=== PATIENT | male | born 1985 | race Caucasian/White ===

== ENCOUNTER 2016-11-05 02:23 | Inpatient (IN) | payer SELFPAY ==
[~2016-11-05] VITALS: Ht 203.2 cm; Wt 95.1 kg
[2016-11-05] VITALS (9 sets, daily range): BP systolic 93–135; BP diastolic 52–74; PULSE 77–107; RESP 17–20; TEMP 98.2–100.7; O2SAT 98–100
[~2016-11-05 02:23] MED LIST: ACET325S8 PO; ASPI81TA45 PO; COUM5TAB PO; KETO2SHA5 TOP; MAGN400 PO; METO100T PO; POTA-243 PO; TRAM50TA PO; VITA100018 PO
[2016-11-05] MEDS ORDERED: SODIUM CHLOR 0.9% 1000 ML INJ 1,000 ML IV ONE ×2 (02:38→03:45)
[2016-11-05] MEDS ORDERED: ACETAMINOPHEN 325 MG TAB PO ONE (02:45)
--- NOTE | 2016-11-05 02:46 | PD ---
HPI Chief Complaint: GI Complaint Time Seen by Provider: 02:34 Travel History International Travel<30 days: No Contact w/Intl Traveler<30days: No Traveled to known affect area: No History of Present Illness HPI 31-year-old male presents by ambulance with report of vomiting, diarrhea, headache, chest Pain in general ill feeling. The ambulance team reported he had a fever for 101 in route. Patient states he has not used IV drugs in 3 years. He does note prior history of endocarditis with valve replacement. He denies other concurrent complaints but is difficult to get history from on initial evaluation [facility] Past Medical History Heart Rhythm Problems: Yes (endocarditis) Cardiovascular Problems: No Chemotherapy: No Diminished Hearing: No Endocrine: No Genitourinary: No Immune Disorder: No Musculoskeletal: No Neurologic: No Psychiatric: No Reproductive: No Respiratory: No Tetanus Vaccination: Unknown Past Surgical History Cardiac Surgery: Yes (mitral valve replacement) Pacemaker: No Other Surgery: Yes Social History Alcohol Use: No Tobacco Use: Yes (1 PPD) Substance Use: No Allergies-Medications (Allergen,Severity, Reaction): Coded Allergies: No Known Allergies (Verified , 07/24/14) Reported Meds & Prescriptions Reported Meds & Active Scripts Active Reported Tramadol Hcl (Tramadol HCl) 50 Mg Tab 50 Mg PO TID PRN Ketoconazole 2 % Sha 1 Applic TOP ONCE Coumadin 5 mg (Warfarin Sodium) Warfarin Sodium 5 mg Tab 5 Mg PO DAILY Vitamin D (Cholecalciferol) 1,000 Unit Tab 1,000 Unit PO Metoprolol Tartrate 100 mg (Metoprolol Tartrate) 100 Mg Tab 1 Tab PO BID Aspirin 81 mg EC Lo-Dose (Aspirin) 81 Mg Tab 81 Mg PO DAILY Acetaminophen 325 Mg Tab 650 Mg PO Q4 PRN K-Dur (Potassium Chloride) 10 Meq Tabcr 20 Meq PO DAILY Magnesium Oxide 400 Mg Cap 800 Mg PO DAILY Review of Systems ROS Limitations: Poor Historian Except as stated in HPI: all other systems reviewed are Neg Physical Exam Exam Limitations: Poor Historian Narrative GENERAL: Well-nourished, well-developed patient. SKIN: Warm and dry. HEAD: Normocephalic and atraumatic. EYES: No injection or drainage. ENT: No nasal drainage noted. NECK: Supple, trachea midline. CARDIOVASCULAR: Regular rate and rhythm RESPIRATORY: No increased effort. No accessory muscle use. GASTROINTESTINAL: Abdomen soft, ttp in ruq, nondistended. EXTREMITIES: No edema. NEUROLOGICAL: Awake. Motor and sensory grossly within normal limits. Normal speech. Data Data Last Documented VS Vital Signs Date Time Temp Pulse Resp B/P Pulse Ox O2 Delivery O2 Flow Rate FiO2 11/05/16 03:49 92 18 127/74 100 Room Air 11/05/16 02:31 98.8 Orders Electrocardiogram (11/05/16 02:38) Complete Blood Count With Diff (11/05/16 02:38) Comprehensive Metabolic Panel (11/05/16 02:38) Prothrombin Time / Inr (Pt) (11/05/16 02:38) Act Partial Throm Time (Ptt) (11/05/16 02:38) Lactic Acid Sepsis Protocol (11/05/16 02:38) Magnesium (Mg) (11/05/16 02:38) Phosphorus (Po4) (11/05/16 02:38) Ckmb (Isoenzyme) Profile (11/05/16 02:38) Troponin I (11/05/16 02:38) Urinalysis - C+S If Indicated (11/05/16 02:38) Blood Culture (11/05/16 02:38) Chest, Single Ap (11/05/16 02:38) Ecg Monitoring (11/05/16 02:38) Iv Access Insert/Monitor (11/05/16 02:38) Oximetry (11/05/16 02:38) Acetaminophen (Tylenol) (11/05/16 02:45) Sodium Chlor 0.9% 1000 Ml Inj (Ns 1000 M (11/05/16 02:38) Drug Screen, Random Urine (11/05/16 02:46) CKMB (11/05/16 02:42) CKMB% (11/05/16 02:42) Ct Brain W/O Iv Contrast(Rout) (11/05/16 ) Vancomycin Inj (Vancomycin Inj) (11/05/16 03:41) Piperacil-Tazo 4.5 Gm Premix (Zosyn 4.5 (11/05/16 03:41) Sodium Chlor 0.9% 1000 Ml Inj (Ns 1000 M (11/05/16 03:45) Ct Abd/Pel W Iv Contrast(Rout) (11/05/16 ) Iohexol 350 Inj (Omnipaque 350 Inj) (11/05/16 04:21) Admit Order (Ed Use Only) (11/05/16 05:20) Labs Laboratory Tests Test 11/05/16 11/05/16 02:42 05:10 White Blood Count 28.2 TH/MM3 Red Blood Count 4.63 MIL/MM3 Hemoglobin 14.1 GM/DL Hematocrit 40.8 % Mean Corpuscular Volume 88.3 FL Mean Corpuscular Hemoglobin 30.5 PG Mean Corpuscular Hemoglobin 34.5 % Concent Red Cell Distribution Width 12.9 % Platelet Count 135 TH/MM3 Mean Platelet Volume 11.0 FL Neutrophils (%) (Auto) 96.7 % Lymphocytes (%) (Auto) 1.0 % Monocytes (%) (Auto) 1.9 % Eosinophils (%) (Auto) 0.1 % Basophils (%) (Auto) 0.3 % Neutrophils # (Auto) 27.3 TH/MM3 Lymphocytes # (Auto) 0.3 TH/MM3 Monocytes # (Auto) 0.5 TH/MM3 Eosinophils # (Auto) 0.0 TH/MM3 Basophils # (Auto) 0.1 TH/MM3 CBC Comment DIFF FINAL Differential Comment Prothrombin Time 13.2 SEC Prothromb Time International 1.2 RATIO Ratio Activated Partial 27.5 SEC Thromboplast Time Sodium Level 141 MEQ/L Potassium Level 3.7 MEQ/L Chloride Level 107 MEQ/L Carbon Dioxide Level 24.8 MEQ/L Anion Gap 9 MEQ/L Blood Urea Nitrogen 14 MG/DL Creatinine 1.33 MG/DL Estimat Glomerular Filtration 62 ML/MIN Rate Random Glucose 82 MG/DL Lactic Acid Level 2.2 mmol/L 1.1 mmol/L Calcium Level 8.3 MG/DL Phosphorus Level 1.4 MG/DL Magnesium Level 1.5 MG/DL Total Bilirubin 1.6 MG/DL Aspartate Amino Transf 33 U/L (AST/SGOT) Alanine Aminotransferase 23 U/L (ALT/SGPT) Alkaline Phosphatase 69 U/L Total Creatine Kinase 181 U/L Creatine Kinase MB 0.6 NG/ML Troponin I LESS THAN 0.02 NG/ML Total Protein 7.3 GM/DL Albumin 3.6 GM/DL MDM Medical Decision Making Medical Screen Exam Complete: Yes Emergency Medical Condition: Yes Medical Record Reviewed: Yes (past history confirmed) Interpretation(s) CBC & BMP Diagram 11/05/16 02:42 Last 24 hours Impressions Chest X-Ray 11/05/16 0238 Signed Impressions: Service Date/Time: Saturday, November 05, 2016 02:44 - CONCLUSION: 1. No acute cardiopulmonary disease. Jv Mae MD Head CT 11/05/16 0000 Signed Impressions: Service Date/Time: Saturday, November 05, 2016 04:06 - CONCLUSION: 1. No evidence of acute intracranial pathology. No masses are identified. Jv Mae MD Abdomen/Pelvis CT 11/05/16 0000 Signed Impressions: Service Date/Time: Saturday, November 05, 2016 04:10 - CONCLUSION: 1. Pericholecystic fluid without stone. Cholecystitis is not excluded. Radionuclide imaging is recommended for further evaluation if clinically indicated. 2. Nonobstructing right renal stone Jv Mae MD d/w radiologist and HIDA requested Differential Diagnosis Gastroenteritis, dehydration, UTI, endocarditis Narrative Course Will check blood work, urinalysis, chest x-ray and reevaluate Given significantly elevated white blood cell count will dose with broad- spectrum coverage with vancomycin and Zosyn and repeat IV fluid bolus. Patient will need to be admitted to the hospital for further care Sepsis Criteria SIRS Criteria (2 or more): Heart rate over 90, WBC > 71021, < 4000 or > 10% bands Sepsis Criteria (SIRS+source): Infect source susp/known Severe Sepsis (+one): Lactate >2 Criteria Outcome: Meets severe sepsis criteria Physician Communication Physician Communication dr pearson agrees to admit dr barry states to check hida and admit to medicine Diagnosis Primary Impression: Sepsis Qualified Code: A41.9 - Sepsis, due to unspecified organism Additional Impression: Chest pain Qualified Code: R07.9 - Chest pain, unspecified type Admitting Information Admitting Physician Requests: Admit Cynthia Conway MD Nov 05, 2016 02:46
[2016-11-05 03:21] LABS: APTT (PATIENT) 27.5 SEC (24.3-30.1); INTERNATIONAL NORMALIZED RATIO 1.2 RATIO; PROTHROMBIN TIME - PATIENT 13.2 SEC (9.8-11.6)
[2016-11-05 03:24] LABS: AUTOMATED NEUTROPHIL # 27.3 TH/MM3 (1.8-7.7); BASOPHIL # 0.1 TH/MM3 (0-0.2); BASOPHIL % 0.3 % (0.0-2.0); EOSINOPHIL % 0.1 % (0.0-4.0); HEMATOCRIT 40.8 % (39.0-51.0); HEMO FLAGS DIFF FINAL; LYMPHOCYTE # 0.3 TH/MM3 (1.0-4.8); MEAN CELL VOLUME 88.3 FL (80.0-100.0); MEAN CORPUSCULAR HEMOGLOBIN 30.5 PG (27.0-34.0); MEAN CORPUSCULAR HGB CONC 34.5 % (32.0-36.0); MONO % 1.9 % (0.0-8.0); NEUT % 96.7 % (16.0-70.0); PLATELET COUNT 135 TH/MM3 (150-450); RED BLOOD COUNT 4.63 MIL/MM3 (4.50-5.90); RED CELL DISTRIBUTION WIDTH 12.9 % (11.6-17.2); WHITE BLOOD COUNT 28.2 TH/MM3 (4.0-11.0)
[2016-11-05 03:36] LABS: ALKALINE PHOSPHATASE 69 U/L (45-117); ALT (GPT) 23 U/L (12-78); ANION GAP 9 MEQ/L (5-15); AST (GOT) 33 U/L (15-37); BICARBONATE 24.8 MEQ/L (21.0-32.0); BLOOD UREA NITROGEN 14 MG/DL (7-18); CHLORIDE 107 MEQ/L (98-107); CREATINE KINASE 181 U/L (39-308); GLOMERULAR FILTRATION RATE 62 ML/MIN (>89); MAGNESIUM 1.5 MG/DL (1.5-2.5); POTASSIUM 3.7 MEQ/L (3.5-5.1); SODIUM (NA) 141 MEQ/L (136-145); TOTAL BILIRUBIN ADULT 1.6 MG/DL (0.2-1.0)
--- NOTE | 2016-11-05 03:36 | RADRPT ---
EXAM DATE/TIME: 11/05/2016 02:44 [facility] COMPARISON: CHEST SINGLE AP, February 04, 2014, 7:40. INDICATIONS : Fever. Weakness. MEDICAL HISTORY : None. SURGICAL HISTORY : CABG. ENCOUNTER: Initial ACUITY: 2 days PAIN SCORE: 7/10 LOCATION: Bilateral chest FINDINGS: The cardiac silhouette is normal in transverse diameter. Median sternotomy wires are present. The mark gs are free of acute parenchymal opacity. No effusions are identified. CONCLUSION: 1. No acute cardiopulmonary disease. Jv Mae MD on November 05, 2016 at 3:34 Board Certified Radiologist. This report was verified electronically.
[2016-11-05] MEDS ORDERED: VANCOMYCIN INJ 1,000 MG in SODIUM CHLOR 0.9% 250 ML INJ 250 ML IV STA (03:41)
[2016-11-05] MEDS ORDERED: PIPERACIL-TAZO 4.5 GM PREMIX 100 ML IV STA (03:41)
[2016-11-05 03:48] LABS: CKMB 0.6 NG/ML (0.5-3.6)
[2016-11-05] MEDS ORDERED: IOHEXOL 350 MG/ML 10 ML VIAL (for RAD DIAG) IV ONE (04:21)
[2016-11-05 04:52] LABS: LACTIC ACID GHOST NOT REPORTABLE
--- NOTE | 2016-11-05 05:24 | RADRPT ---
EXAM DATE/TIME: 11/05/2016 04:06 [facility] COMPARISON: No previous studies available for comparison. INDICATIONS : Cephalgia. RADIATION DOSE: 56.35 CTDIvol (mGy) MEDICAL HISTORY : None SURGICAL HISTORY : None. ENCOUNTER: Initial ACUITY: 1 day PAIN SCALE: 7/10 LOCATION: cranial TECHNIQUE: Multiple contiguous axial images were obtained of the head. Using automated exposure control and adj ustment of the mA and/or kV according to patient size, radiation dose was kept as low as reasonably a chievable to obtain optimal diagnostic quality images. DICOM format image data is available electro nically for review and comparison. FINDINGS: CEREBRUM: The ventricles are normal for age. No evidence of midline shift, mass lesion, hemorrhage or acute in farction. No extra-axial fluid collections are seen. POSTERIOR FOSSA: The cerebellum and brainstem are intact. The 4th ventricle is midline. The cerebellopontine angle i s unremarkable. EXTRACRANIAL: The visualized portion of the orbits is intact. SKULL: The calvaria is intact. No evidence of skull fracture. CONCLUSION: 1. No evidence of acute intracranial pathology. No masses are identified. Jv Mae MD on November 05, 2016 at 5:22 Board Certified Radiologist. This report was verified electronically.
--- NOTE | 2016-11-05 05:28 | RADRPT ---
EXAM DATE/TIME: 11/05/2016 04:10 [facility] COMPARISON: CT ABDOMEN & PELVIS W CONTRAST, February 07, 2014, 15:34. INDICATIONS : Abdominal pain, nausea, vomiting, and diarrhea. IV CONTRAST: 100 cc Omnipaque 350 (iohexol) IV ORAL CONTRAST: No oral contrast ingested. RADIATION DOSE: 6.64 CTDIvol (mGy) MEDICAL HISTORY : None SURGICAL HISTORY : Mitral valve replacement. ENCOUNTER: Initial ACUITY: 1 day PAIN SCALE: 7/10 LOCATION: abdomen TECHNIQUE: Volumetric scanning of the abdomen and pelvis was performed. Using automated exposure control and ad justment of the mA and/or kV according to patient size, radiation dose was kept as low as reasonably achievable to obtain optimal diagnostic quality images. DICOM format image data is available electro nically for review and comparison. FINDINGS: Examination of the lung bases demonstrates no abnormality. No pleural fluid is identified. No pulmona ry nodules are present. The liver and spleen are normal in size and no focal defects are identified. There is pericholecystic fluid but no stones are identified. Acalculus cholecystitis is not excluded. The pancreas demonstrates no evidence of mass and there is no dilatation of the pancreatic duct. The adrenal glands are unremarkable. The left kidney is unremarkable. There is a single stone within the right kidney without hydronephrosis measuring 1 mm in the mid pole. Examination of the pelvis demonstrates no evidence of free fluid or pelvic mass. No abnormally enlarg ed inguinal or retroperitoneal lymph nodes are present. The bladder is unremarkable. CONCLUSION: 1. Pericholecystic fluid without stone. Cholecystitis is not excluded. Radionuclide imaging is recomm ended for further evaluation if clinically indicated. 2. Nonobstructing right renal stone Jv Mae MD on November 05, 2016 at 5:23 Board Certified Radiologist. This report was verified electronically.
[2016-11-05] MEDS ORDERED: BISACODYL 10 MG SUPP RECTAL PRN (05:30)
[2016-11-05] MEDS ORDERED: LACTULOSE SYRUP 20 GM/30 ML CUP PO PRN (05:30)
[2016-11-05] MEDS ORDERED: MAGNESIUM HYDROXIDE SUSP 30 ML CUP PO PRN (05:30)
[2016-11-05] MEDS ORDERED: SENNOSIDES 8.6 MG TAB PO PRN (05:30)
[2016-11-05] MEDS ORDERED: ONDANSETRON HCL 4 MG/2 ML VIAL IVP PRN (05:30)
[2016-11-05] MEDS ORDERED: Vancomycin Consult Pharmacy 1 EA OTHER SCH (05:30)
[2016-11-05] MEDS: SODIUM CHLOR 0.9% 1000 ML INJ 1,000 ML IV SCH ×3 (05:52→20:19)
[2016-11-05] MEDS ORDERED: VANCOMYCIN 500 MG/NS 100 ML IV SCH ×2 (06:00)
[2016-11-05 07:05] LABS: BLOOD, URINE NEG (NEG); GLUCOSE,URINE NEG (NEG); KETONE, URINE 10 mg/dL (NEG); MUCUS URINE FEW /lpf (OCC); NITRITE,URINE NEG (NEG); PH, URINE 5.5 (5.0-8.5); SQUAMOUS EPITHELIAL CELL URINE <1 /hpf (0-5); URINE COLOR YELLOW (YELLW/STRAW)
[2016-11-05 07:06] LABS: COMMENT (UR) CATH-CULT NOT IND; CULTURE IF INDICATED CATH CULTURE NOT IND
[2016-11-05] MEDS: DOCUSATE SODIUM 50 MG/SENNA 8.6 MG TAB PO SCH ×2 (08:49→20:19)
[2016-11-05] MEDS: SODIUM CHLORIDE 0.9% FLUSH 10 ML FLUSH IV FLUSH SCH ×2 (08:59→20:19)
[2016-11-05] MEDS ORDERED: SODIUM PHOSPHATE INJ 30 MMOL in SODIUM CHLOR 0.9% 250 ML INJ 250 ML IV ONE (09:45)
[2016-11-05] MEDS ORDERED: MAGNESIUM SULFATE 1 GM PREMIX 100 ML IV ONE (10:00)
[2016-11-05] MEDS: ACETAMINOPHEN 325 MG TAB PO PRN ×2 (11:18→17:19)
--- NOTE | 2016-11-05 11:26 | RADRPT ---
EXAM DATE/TIME: 11/05/2016 09:08 [facility] COMPARISON: CT ABDOMEN & PELVIS W CONTRAST, November 05, 2016, 4:10. INDICATIONS : Abdominal pain with nausea and vomiting. DOSE: 3.9 mCi Tc99m Mebrofenin IV MEDICAL HISTORY : Smoker. SURGICAL HISTORY : Mitral valve replacement. ENCOUNTER: Initial ACUITY: 1 day PAIN SCALE: 7/10 LOCATION: Right upper quadrant TECHNIQUE: Following the intravenous administration of radiotracer, dynamic sequential images were performed wit h continuous acquisition. FINDINGS: HEPATIC KINETICS: There is prompt uptake of radiotracer in the liver. No focal defects are seen. There is normal rate of washout from the hepatic parenchyma. BILIARY CLEARANCE: Activity is first seen in the extrahepatic biliary system at 10 minutes. There is normal excretion i nto the small bowel. GALLBLADDER: Activity is first seen in the gallbladder at 10 minutes. Common bile duct kinetics are normal and th ere is no evidence of biliary obstruction. BILIARY ENTRIC REFLUX: There is severe reflux into the stomach. CONCLUSION: 1. Normal filling of the gallbladder excludes cystic duct obstruction and acute cholecystitis. No acu te finding is identified. 2. There is severe bile reflux into the stomach. Kyle Black MD on November 05, 2016 at 11:23 Board Certified Radiologist. This report was verified electronically.
--- NOTE | 2016-11-05 12:13 | HHI.HP ---
[facility] No Primary Care Physician Admission Diagnosis sepsis Diagnoses: Chief Complaint: Right upper quadrant abdominal pain Travel History International Travel<30 Days: No Contact w/Intl Traveler <30 Da: No Traveled to Known Affected Are: No History of Present Illness The patient is a 31-year-old male with past medical history of mitral valve endocarditis status post replacement 2 who is presenting to the hospital with right upper quadrant pain and fever. The patient says that yesterday he was sleeping and all of a sudden developed severe right upper quadrant pain. He said it was 10 out of 10 in severity and radiated to his back. He said this was also accompanied by nausea and vomiting. He says he has not been able to eat in 2 days. He said he checked his temperature and his temperature was 103 at its highest. He denies any recent travel. He denies any sick contacts. He says that he used crack cocaine a few days ago. He says the last time he injected IV drugs was years ago. He is currently thirsty. He mentions he is having some diarrhea and that the stool is coming out of him without warning. He says his stools are not normally like that. Review of Systems Except as stated in HPI: all other systems reviewed are Neg Past Family Social History Past Medical History Mitral valve endocarditis status post replacement 2 Brain hemorrhages while on anticoagulation Allergies: Coded Allergies: No Known Allergies (Verified , 07/24/14) Active Ordered Medications Current Medications Medications (Trade) Dose Ordered Sig/Abdirahman Route Start Time Stop Time Status Last Admin Pharmacy Profile Note 0 ml @ 0 mls/hr UNSCH OTHER 11/05/16 05:30 Cefepime HCl 1000 mg/Sodium Chloride 100 ml @ 200 mls/hr Q12H IV 11/05/16 18:00 (NS 1000 ml Inj) 1,000 ml @ 100 mls/hr Q10H IV 11/05/16 05:26 11/05/16 05:52 (NS Flush) 2 ml UNSCH PRN IV FLUSH 11/05/16 05:30 (NS Flush) 2 ml BID IV FLUSH 11/05/16 09:00 (Zofran Inj) 4 mg Q6H PRN IVP 11/05/16 05:30 (Tylenol) 650 mg Q6H PRN PO 11/05/16 05:30 11/05/16 11:18 (Roxicodone) 10 mg Q4H PRN PO 11/05/16 05:30 (Roxicodone) 5 mg Q4H PRN PO 11/05/16 05:30 11/05/16 08:58 (Ina-Colace) 1 tab BID PO 11/05/16 09:00 (Milk Of Magnesia Liq) 30 ml Q12H PRN PO 11/05/16 05:30 (Senokot) 17.2 mg Q12H PRN PO 11/05/16 05:30 (Dulcolax Supp) 10 mg DAILY PRN RECTAL 11/05/16 05:30 Lactulose 30 ml 30 ml DAILY PRN PO 11/05/16 05:30 (Vancomycin Inj/ NS 500 ml Inj) 515 ml @ 257.5 mls/ hr Q12H IV 11/05/16 13:00 Miscellaneous Information SPECIFIC LAB TO BE CAROLINE... ONCE ONCE .XX 11/07/16 00:45 11/07/16 00:46 (Sodium Phosphate Inj/NS 250 ml Inj) 260 ml @ 43.333 mls/ hr ONCE ONCE IV 11/05/16 09:45 11/05/16 15:44 11/05/16 11:13 Family History The patient denies pertinent family history. Social History The patient smokes a pack of cigarettes daily. He does not drink. He says he has been using crack cocaine recently. 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 Physical Exam Vital Signs Vital Signs Date Time Temp Pulse Resp B/P Pulse Ox O2 Delivery O2 Flow Rate FiO2 11/05/16 11:19 79 11/05/16 11:10 100.7 79 113/61 99 11/05/16 08:00 98.2 92 20 114/66 98 11/05/16 05:33 80 18 93/52 100 Room Air 11/05/16 03:49 92 18 127/74 100 Room Air 11/05/16 02:31 98.8 107 18 135/66 Physical Exam GENERAL: Well-nourished, well-developed patient. SKIN: Warm and dry. HEAD: Normocephalic and atraumatic. EYES: No injection or drainage. ENT: No nasal drainage noted. NECK: Supple, trachea midline. CARDIOVASCULAR: Regular rate and rhythm. Grade 3 systolic murmur appreciated. RESPIRATORY: No increased effort. No accessory muscle use. GASTROINTESTINAL: Abdomen soft, ttp in ruq, nondistended. EXTREMITIES: No edema. NEUROLOGICAL: Awake. Motor and sensory grossly within normal limits. Normal speech. PSYCH: Flattened affect. Laboratory Laboratory Tests Test 11/05/16 11/05/16 11/05/16 02:42 05:10 06:30 White Blood Count 28.2 Red Blood Count 4.63 Hemoglobin 14.1 Hematocrit 40.8 Mean Corpuscular Volume 88.3 Mean Corpuscular Hemoglobin 30.5 Mean Corpuscular Hemoglobin 34.5 Concent Red Cell Distribution Width 12.9 Platelet Count 135 Mean Platelet Volume 11.0 Neutrophils (%) (Auto) 96.7 Lymphocytes (%) (Auto) 1.0 Monocytes (%) (Auto) 1.9 Eosinophils (%) (Auto) 0.1 Basophils (%) (Auto) 0.3 Neutrophils # (Auto) 27.3 Lymphocytes # (Auto) 0.3 Monocytes # (Auto) 0.5 Eosinophils # (Auto) 0.0 Basophils # (Auto) 0.1 CBC Comment DIFF FINAL Differential Comment Prothrombin Time 13.2 Prothromb Time International 1.2 Ratio Activated Partial 27.5 Thromboplast Time Sodium Level 141 Potassium Level 3.7 Chloride Level 107 Carbon Dioxide Level 24.8 Anion Gap 9 Blood Urea Nitrogen 14 Creatinine 1.33 Estimat Glomerular Filtration 62 Rate Random Glucose 82 Lactic Acid Level 2.2 1.1 Calcium Level 8.3 Phosphorus Level 1.4 Magnesium Level 1.5 Total Bilirubin 1.6 Aspartate Amino Transf 33 (AST/SGOT) Alanine Aminotransferase 23 (ALT/SGPT) Alkaline Phosphatase 69 Total Creatine Kinase 181 Creatine Kinase MB 0.6 Troponin I LESS THAN 0.02 Total Protein 7.3 Albumin 3.6 Urine Color YELLOW Urine Turbidity CLEAR Urine pH 5.5 Urine Specific [place] 1.046 Urine Protein TRACE Urine Glucose (UA) NEG Urine Ketones 10 Urine Occult Blood NEG Urine Nitrite NEG Urine Bilirubin NEG Urine Urobilinogen 2.0 Urine Leukocyte Esterase NEG Urine RBC 2 Urine WBC 1 Urine Squamous Epithelial <1 Cells Urine Mucus FEW Microscopic Urinalysis Comment CATH-CULT NOT IND Urine Opiates Screen NEG Urine Barbiturates Screen NEG Urine Amphetamines Screen NEG Urine Benzodiazepines Screen NEG Urine Cocaine Screen POS Urine Cannabinoids Screen POS Date/Time Procedure Status Source Growth 11/05/16 02:45 Aerobic Blood Culture Received Blood Peripheral Pending 11/05/16 02:45 Anaerobic Blood Culture Received Blood Peripheral Pending Result Diagram: 11/05/16 0242 11/05/16 0242 Imaging Last Impressions Chest X-Ray 11/05/16 0238 Signed Impressions: Service Date/Time: Saturday, November 05, 2016 02:44 - CONCLUSION: 1. No acute cardiopulmonary disease. Jv Mae MD Hepatobiliary Scan Nuclear Medicine 11/05/16 0000 Signed Impressions: Service Date/Time: Saturday, November 05, 2016 09:08 - CONCLUSION: 1. Normal filling of the gallbladder excludes cystic duct obstruction and acute cholecystitis. No acute finding is identified. 2. There is severe bile reflux into the stomach. Kyle Black MD Head CT 11/05/16 0000 Signed Impressions: Service Date/Time: Saturday, November 05, 2016 04:06 - CONCLUSION: 1. No evidence of acute intracranial pathology. No masses are identified. Jv Mae MD Abdomen/Pelvis CT 11/05/16 0000 Signed Impressions: Service Date/Time: Saturday, November 05, 2016 04:10 - CONCLUSION: 1. Pericholecystic fluid without stone. Cholecystitis is not excluded. Radionuclide imaging is recommended for further evaluation if clinically indicated. 2. Nonobstructing right renal stone Jv Mae MD Assessment and Plan Assessment and Plan Sepsis The patient has significant leukocytosis, tachycardia and has been febrile. Chest x-ray and UA unremarkable. CT of the abdomen concerning for possible cholecystitis, HIDA scan was not indicative of cholecystitis. He has been having diarrhea. Concern for C diff. He has a history of endocarditis and continues to use illicit substances, though denies IV use recently. Concern for endocarditis. - continue cefepime and vancomycin for now. - IVFs. - check a C diff PCR. - follow blood cultures. - ID consult if needed. - Consider echo. Cholecystitis The pt has RUQ pain. Total bilirubin is elevated. General surgery has been consulted. HIDA scan not indicative of cholecystitis. - Follow up with surgery. - Continue antibiotics. - Follow LFTs. Hypophosphatemia Possibly secondary to decreased by mouth intake. - Replete with IV sodium phosphate. Illicit substance use/ Nicotine dependence The patient said he recently used crack cocaine. - Cessation instruction. - Nicotine patch deferred. Acute renal insufficiency Likely prerenal as the patient has not been eating and has been vomiting. - IV fluids and avoid nephrotoxic agents. PPx: SCDs Discussed Condition With Pt, nurse Physician Certification 2 Midnight Certification Type: Admission for Inpatient Services Order for Inpatient Services The services are ordered in accordance with Medicare regulations or non- Medicare payer requirements, as applicable. In the case of services not specified as inpatient-only, they are appropriately provided as inpatient services in accordance with the 2-midnight benchmark. Estimated LOS (days): 2 days is the estimated time the patient will need to remain in the hospital, assuming treatment plan goals are met and no additional complications. Post-Hospital Plan: Home Gabriel Yi DO Nov 05, 2016 12:13
[2016-11-05] MEDS: VANCOMYCIN 1,500 MG/NS 500 ML IV SCH ×2 (12:44)
--- NOTE | 2016-11-05 13:54 | EKG ---
Date Performed: 11/05/2016 Time Performed: 02:36:18 PTAGE: 31 years EKG: SINUS TACHYCARDIA POSSIBLE LEFT ATRIAL ENLARGEMENT INCOMPLETE RIGHT BUNDLE BRANCH BLOCK Com pared to previous tracing, the patient now has incomplete right bundle branch block. ABNORMAL RHYTHM ECG PREVIOUS TRACING : 07/24/2014 08.23.54 DOCTOR: Laura Mittal Interpretating Date/Time 11/05/2016 13:52:24
--- NOTE | 2016-11-05 14:41 | MB ---
cc: KATIE SILVA MD DATE OF CONSULTATION 11/05/16 REASON FOR CONSULTATION Rule out acute cholecystitis. HISTORY OF PRESENT ILLNESS The patient is a 31-year-old male who presents with acute onset of right upper quadrant abdominal pain. The patient states the pain started approximately 24 hours ago and continued to get worse. The patient stated it was severe, 10/10 pain right side epigastric area and sharp, worse with movement, better with lying still. The patient had multiple episodes of nausea, vomiting and diarrhea, prompted him to come to the emergency department. Further evaluation including CT scan and laboratory work WBC 28.2, significant leukocytosis along with CT showing concern for fluid around gallbladder. The patient also with a bilirubin of 1.6 and the patient admitted for further evaluation, sepsis evaluation. Surgery was consulted for further evaluation. On my exam the patient is resting a little more comfortably. He states his pain is significantly improved although has mild pain in the epigastric and right-sided area. He denies any previous history. He denies any relationship to food. He denies any history of jaundice. He does deny any recent substance abuse. However, on urine tox he is noted to be positive for cocaine and THC. The patient is also complaining of a headache and complains of fevers and predominantly nausea, vomiting and diarrhea. PAST MEDICAL HISTORY Endocarditis. IVDA. PAST SURGICAL HISTORY Mitral valve replacement. SOCIAL HISTORY Positive smoking one pack per day. Denies EtOH. Denies substance abuse, however, positive cocaine and THC. MEDICATIONS See EMR. ALLERGIES NO KNOWN DRUG ALLERGIES. FAMILY HISTORY Denies hypertension and diabetes. REVIEW OF SYSTEMS GENERAL: Complained of headache. HEENT: Denies eye pain or ear pain. NECK: Denies swallowing pain. LUNGS: Denies cough or wheeze. HEART: Complains of palpitations. Denies chest pain. ABDOMEN: Complains of nausea, vomiting, diarrhea, abdominal pain. : Denies dysuria, hematuria. HEMATOLOGIC: Denies easy bruising or bleeding. ENDOCRINE: Denies polyuria, polydipsia. PSYCH: History of substance abuse, anxiety. NEUROLOGIC: Denies numbness or tingling. BACK: Denies pain or step off. PHYSICAL EXAMINATION GENERAL: The patient no acute distress. VITAL SIGNS: Temperature vital signs 98.8, pulse 92, respirations 18, blood pressure 127/74, saturation 100% on room air. HEENT: PERRLA, pupils round, reactive. LUNGS: Clear to auscultation, bilateral expansion. HEART: S1-S2. Healed incisional scar. ABDOMEN: Soft, positive tenderness to palpation epigastric and minimal on right side. No rebound or guarding. : Within normal limits. EXTREMITIES: No arthralgia or myalgia. Moving all extremities, warm, well-perfused. NEUROLOGIC: AA x 3. Moving all extremities, 5/5 motor. SKIN: No obvious masses or lesions. LABORATORY AND DIAGNOSTIC DATA WBC 28.2, hemoglobin 14.1, hematocrit 40.8, platelet 135, sodium 141, potassium 3.7, BUN 14, creatinine 1.3, lactate 2.2, AST 33, ALT 23, alk phos 69, lipase pending. Urine tox positive cocaine, positive THC. INR 1.2. IMAGING STUDIES Imaging reviewed by myself. CT abdomen and pelvis dilated gallbladder. No stones. No thickening of wall. Minimal fluid. Small, nonobstructing renal stone on right. No free air. Chest x-ray no acute cardiopulmonary disease. Head CT within normal limits. ASSESSMENT The patient is a 31-year-old male with history of drug abuse, presents acute onset of epigastric and right-sided pain, leukocytosis 28, history of endocarditis. PLAN A full clinical, radiologic, laboratory workup. The patient with the above-named issues including rule out acute cholecystitis. At this point cholecystitis is unlikely as there is no gallstones and no gallbladder wall thickening. There is minimal pericholecystic fluid, possible intrinsic to liver or some other etiology. The patient does report acute onset of abdominal pain, question whether this is GI related as the patient does have nausea, vomiting and significant multiple diarrhea episodes. Possible gastritis or enteritis. If continued worsening pain consider further workup and possible GI consult. At this point to confirm suspicion we will obtain HIDA scan. If positive will further entertain gallbladder etiology. If negative then again will work to evaluate for possible other etiology. The patient does have a leukocytosis. Is this drug related or is it possibly related to previous endocarditis and recurrence. Would address these other issues as well. Thank you for the consultation. MD FILEMON Jones/MARI /11:46 AM /2:19 PM
[2016-11-05] MEDS ORDERED: CEFEPIME INJ 1,000 MG in SODIUM CHLORIDE 0.9% INJ 100 ML IV SCH (18:00)
--- NOTE | 2016-11-05 20:13 | MB ---
cc: NESS JACOBSON MD DATE OF CONSULTATION 11/05/[address] Yi REASON FOR CONSULTATION Bacteremia. History of endocarditis. HISTORY OF PRESENT ILLNESS This is a 31-year-old white male who presented to the emergency department with nausea and vomiting and headache and chest pain. The patient states that he woke up in the morning feeling very ill and had significant vomiting. He was noted to have fever of 101 degrees en route to the emergency department. The patient has a history of endocarditis, mitral valve replacement x2 in 2013. At that time, he had staph aureus and endocarditis. He underwent mitral valve repair and annuloplasty and closure of perforation of the mitral valve on 01/03/2014. The patient at that time had increased mitral regurgitation and persistent mitral valve vegetation. The patient was an IV drug user before, but states that he has not used IV drugs in three years. He tells me that the only drugs he has used recently is smoking some pot. He has positive cocaine on urine toxicology screen. Currently, he feels very tired and complains of achiness all over and he appears very sleepy as well. PAST MEDICAL HISTORY 1. Mitral valve endocarditis. 2. Mitral valve repair and annuloplasty 3. Brain hemorrhage 4. History of IVDU in the past. ALLERGIES NO KNOWN DRUG ALLERGIES. MEDICATIONS 1. Cefepime. 2. Vancomycin. 3. Tylenol. 4. Oxycodone. 5. Senokot, 6. Lactulose. 7. Piperacillin/tazobactam dose given earlier today. SOCIAL HISTORY Positive tobacco use, one pack of cigarettes a day. No alcohol. The patient denies illicit drugs except for marijuana. However, he has positive toxicology screening for cocaine in the urine. FAMILY HISTORY Noncontributory. REVIEW OF SYSTEMS Pertinent As mentioned above in history of present illness. The patient also notes low back pain, headaches and dizziness. PHYSICAL EXAMINATION GENERAL: This is a slim male who is in no acute distress. He is awake, alert and oriented. VITAL SIGNS: Temperature 98.2, BP is 105/54, respirations 17, heart rate 77. HEENT: Head is atraumatic. Extraocular movements grossly intact, pupils reactive to light. No icterus. No conjunctival erythema. Oropharynx moist mucosa without lesions. NECK: Supple. No adenopathy. LUNGS: Clear breath sounds HEART: Regular rate and rhythm without audible murmurs, rubs or gallops. Heart sounds are distant. ABDOMEN: Bowel sounds present, soft, no tenderness appreciated. No mass palpable. RECTAL: Not performed. EXTREMITIES: No clubbing, cyanosis or edema. No embolic phenomena visible at the extremities. SKIN: No rash. NEUROLOGIC: Nonfocal PSYCHIATRIC: The patient is calm and cooperative. LABORATORY DATA WBC 28.2, platelets 135, hemoglobin 14.1, 96% neutrophils. Creatinine 1.33, BUN 14, sodium 141. Liver function tests normal. IMPRESSION 1. Bacteremia, gram-positive cocci in patient with history of endocarditis and mitral valve repair, 2. Rule out endocarditis. 3. Leukocytosis secondary to infection 4. Drug use, although the patient denies IV drugs but has positive toxicology screen for cocaine. He denied to me that he snorts cocaine. Abnormal CT scan with pericholecystic fluid. However, negative HIDA scan. 5. Renal insufficiency probably related to profuse vomiting and also diarrhea. RECOMMENDATIONS 1. Discontinue cefepime 2. Begin oxacillin 3. Continue vancomycin 4. Monitor blood cultures 5. Agree with 2-D echocardiogram 6. Monitor clinical status 7. Follow up repeat blood cultures tomorrow. Thank you for this consultation. The patient's progress will be monitored and further recommendations will be given on followup if necessary. Ness Jacobson MD FD/ /6:43 PM /7:55 PM
[2016-11-05] MEDS: OXACILLIN INJ 2 GM in SODIUM CHLORIDE 0.9% INJ 100 ML IV SCH (20:19)
[2016-11-05 22:28] LABS: C. DIFF EPI 027 PRESUMPTIVE NEGATIVE (NEGATIVE)
[2016-11-06] VITALS (7 sets, daily range): BP systolic 106–120; BP diastolic 64–69; PULSE 56–77; RESP 16–20; TEMP 96.8–97.9; O2SAT 99–100
[2016-11-06] MEDS: OXACILLIN INJ 2 GM in SODIUM CHLORIDE 0.9% INJ 100 ML IV SCH ×7 (00:18→22:53)
[2016-11-06] MEDS: ACETAMINOPHEN 325 MG TAB PO PRN ×3 (00:18→17:04)
[2016-11-06] MEDS: VANCOMYCIN 1,500 MG/NS 500 ML IV SCH ×4 (01:50→12:29)
[2016-11-06] MEDS: DOCUSATE SODIUM 50 MG/SENNA 8.6 MG TAB PO SCH ×2 (09:00→19:40)
[2016-11-06] MEDS: SODIUM CHLORIDE 0.9% FLUSH 10 ML FLUSH IV FLUSH SCH ×2 (09:00→19:40)
--- NOTE | 2016-11-06 09:19 | HHI.PR ---
Subjective Remarks The patient complaining of a dull ache at the top of his head. He was requesting Tylenol. He said that his abdominal pain has improved. He was willing to have a more regular diet. He would like to talk to somebody about substance abuse resources. Objective Vitals Vital Signs Date Time Temp Pulse Resp B/P Pulse Ox O2 Delivery O2 Flow Rate FiO2 11/06/16 04:00 97.8 63 20 106/69 99 11/06/16 00:00 97.9 77 20 120/69 100 11/05/16 20:18 81 11/05/16 20:00 98.9 89 20 112/61 100 11/05/16 16:10 98.2 77 17 105/54 100 11/05/16 11:19 79 11/05/16 11:10 100.7 79 113/61 99 I/O 11/05/16 11/05/16 11/05/16 11/06/16 11/06/16 11/06/16 07:00 15:00 23:00 07:00 15:00 23:00 Intake Total 0 ml 1258 ml 1251 ml Output Total 0 ml Balance 0 ml 1258 ml 1251 ml Intake Oral 0 ml 360 ml 120 ml IV Total 898 ml 1131 ml Output Urine Total 0 ml # Voids 2 2 # Bowel Movements 4 Result Diagram: 11/05/16 0242 11/05/16 0242 Imaging Last Impressions Chest X-Ray 11/05/16 0238 Signed Impressions: Service Date/Time: Saturday, November 05, 2016 02:44 - CONCLUSION: 1. No acute cardiopulmonary disease. Jv Mae MD Hepatobiliary Scan Nuclear Medicine 11/05/16 0000 Signed Impressions: Service Date/Time: Saturday, November 05, 2016 09:08 - CONCLUSION: 1. Normal filling of the gallbladder excludes cystic duct obstruction and acute cholecystitis. No acute finding is identified. 2. There is severe bile reflux into the stomach. Kyle Black MD Head CT 11/05/16 0000 Signed Impressions: Service Date/Time: Saturday, November 05, 2016 04:06 - CONCLUSION: 1. No evidence of acute intracranial pathology. No masses are identified. Jv Mae MD Abdomen/Pelvis CT 11/05/16 0000 Signed Impressions: Service Date/Time: Saturday, November 05, 2016 04:10 - CONCLUSION: 1. Pericholecystic fluid without stone. Cholecystitis is not excluded. Radionuclide imaging is recommended for further evaluation if clinically indicated. 2. Nonobstructing right renal stone Jv Mae MD Objective Remarks GENERAL: Resting comfortably in bed. SKIN: Warm and dry. HEAD: Normocephalic and atraumatic. EYES: No injection or drainage. ENT: No nasal drainage noted. NECK: Supple, trachea midline. CARDIOVASCULAR: Regular rate and rhythm. Grade 3 systolic murmur appreciated. RESPIRATORY: No increased effort. No accessory muscle use. GASTROINTESTINAL: Abdomen soft, nontender, nondistended. EXTREMITIES: No edema. NEUROLOGICAL: Awake. Motor and sensory grossly within normal limits. Normal speech. PSYCH: Flattened affect. Medications and IVs Current Medications Medications (Trade) Dose Ordered Sig/Abdirahman Route Start Time Stop Time Status Last Admin Pharmacy Profile Note 0 ml @ 0 mls/hr UNSCH OTHER 11/05/16 05:30 (NS 1000 ml Inj) 1,000 ml @ 100 mls/hr Q10H IV 11/05/16 05:26 11/05/16 20:19 (NS Flush) 2 ml UNSCH PRN IV FLUSH 11/05/16 05:30 (NS Flush) 2 ml BID IV FLUSH 11/05/16 09:00 11/05/16 20:19 (Zofran Inj) 4 mg Q6H PRN IVP 11/05/16 05:30 (Tylenol) 650 mg Q6H PRN PO 11/05/16 05:30 11/06/16 00:18 (Roxicodone) 10 mg Q4H PRN PO 11/05/16 05:30 11/05/16 21:51 (Roxicodone) 5 mg Q4H PRN PO 11/05/16 05:30 11/05/16 12:44 (Ina-Colace) 1 tab BID PO 11/05/16 09:00 (Milk Of Magnesia Liq) 30 ml Q12H PRN PO 11/05/16 05:30 (Senokot) 17.2 mg Q12H PRN PO 11/05/16 05:30 (Dulcolax Supp) 10 mg DAILY PRN RECTAL 11/05/16 05:30 Lactulose 30 ml 30 ml DAILY PRN PO 11/05/16 05:30 (Vancomycin Inj/ NS 500 ml Inj) 515 ml @ 257.5 mls/ hr Q12H IV 11/05/16 13:00 11/06/16 01:50 Miscellaneous Information SPECIFIC LAB TO BE CAROLINE... ONCE ONCE .XX 11/07/16 00:45 11/07/16 00:46 (Prostaphlin Inj/ NS Inj) 100 ml @ 200 mls/hr Q4H IV 11/05/16 20:00 11/06/16 05:15 A/P Assessment and Plan Sepsis/ Bacteremia The patient has significant leukocytosis, tachycardia and has been febrile. Chest x-ray and UA unremarkable. CT of the abdomen concerning for possible cholecystitis, HIDA scan was not indicative of cholecystitis. He has been having diarrhea. C diff PCR negative. He has a history of endocarditis and continues to use illicit substances, though denies IV use recently. Concern for endocarditis. 07/05 blood cultures growing GPC. ID consult appreciated. Cefepime discontinued. - continue IV vancomycin and oxacillin per ID. - IVFs. - follow blood cultures. - check an echo. RUQ pain The pt has RUQ pain. Total bilirubin is elevated. General surgery consult appreciated. HIDA scan not indicative of cholecystitis. - Follow up with surgery. - Follow LFTs. - ADAT. Hypophosphatemia Possibly secondary to decreased by mouth intake. - Replete with IV sodium phosphate. Illicit substance use/ Nicotine dependence The patient said he recently used crack cocaine. - Cessation instruction. - Nicotine patch deferred. - case management referral. Acute renal insufficiency Likely prerenal as the patient has not been eating and has been vomiting. - IV fluids and avoid nephrotoxic agents. PPx: SCDs Discharge Planning Awaiting further evaluation Gabriel Yi DO Nov 06, 2016 09:19
[2016-11-06] MEDS: SODIUM CHLOR 0.9% 1000 ML INJ 1,000 ML IV SCH ×2 (11:26→19:40)
[2016-11-06 15:20] LABS: AUTOMATED NEUTROPHIL # 8.2 TH/MM3 (1.8-7.7); BASOPHIL % 0.4 % (0.0-2.0); EOSINOPHIL # 0.1 TH/MM3 (0-0.4); EOSINOPHIL % 0.9 % (0.0-4.0); HEMATOCRIT 37.2 % (39.0-51.0); LYMPHOCYTE # 0.8 TH/MM3 (1.0-4.8); MEAN CORPUSCULAR HEMOGLOBIN 29.9 PG (27.0-34.0); MONO % 4.4 % (0.0-8.0); NEUT % 86.3 % (16.0-70.0); PLATELET COUNT 93 TH/MM3 (150-450); RED BLOOD COUNT 4.22 MIL/MM3 (4.50-5.90); RED CELL DISTRIBUTION WIDTH 13.3 % (11.6-17.2); WHITE BLOOD COUNT 9.5 TH/MM3 (4.0-11.0)
[2016-11-06 15:24] LABS: HEMO FLAGS AUTO DIFF
[2016-11-06 15:38] LABS: ANION GAP 7 MEQ/L (5-15); AST (GOT) 18 U/L (15-37); BICARBONATE 25.3 MEQ/L (21.0-32.0); BLOOD UREA NITROGEN 13 MG/DL (7-18); CHLORIDE 110 MEQ/L (98-107); GLOMERULAR FILTRATION RATE 97 ML/MIN (>89); POTASSIUM 3.3 MEQ/L (3.5-5.1); SODIUM (NA) 142 MEQ/L (136-145)
[2016-11-06 15:47] LABS: ALKALINE PHOSPHATASE 57 U/L (45-117); ALT (GPT) 19 U/L (12-78); TOTAL BILIRUBIN ADULT 0.5 MG/DL (0.2-1.0)
[2016-11-06 15:48] LABS: SCAN/DIFF AUTO DIFF CONFIRMED
--- NOTE | 2016-11-06 15:56 | ECHRPT ---
Indication: endocarditis CONCLUSIONS Apparent vegetation of the prosthetic mitral valve, probable vegetation of the tricuspid valve. Normal left ventricular size. Wall thickness is normal. The left ventricular systolic function is moderately reduced with an estimated ejection fraction in the range of 40-45%. Mitral valve replacemnt There is mild tricuspid valve regurgitation. The pulmonary valve is not well visualized. BP: / HR: Rhythm: MEASUREMENTS (Male / Female) Normal Values Technical Quality:Fair 2D ECHO LV Diastolic Diameter PLAX 5.6 cm 4.2 - 5.9 / 3.9 - 5.3 cm LV Systolic Diameter PLAX 4.7 cm IVS Diastolic Thickness 1.1 cm 0.6 - 1.0 / 0.6 - 0.9 cm LVPW Diastolic Thickness 0.9 cm 0.6 - 1.0 / 0.6 - 0.9 cm LV Relative Wall Thickness 0.4 RV Internal Dim ED PLAX 2.7 cm M-MODE Aortic Root Diameter MM 3.5 cm LA Systolic Diameter MM 3.3 cm LA Ao Ratio MM 0.9 AV Cusp Separation MM 2.6 cm DOPPLER MV Area PHT 1.5 cm FINDINGS LEFT VENTRICLE Normal left ventricular size. Wall thickness is normal. The left ventricular systolic function is moderately reduced with an estimated ejection fraction in the range of 40-45%. RIGHT VENTRICLE Normal right ventricular size and systolic function. LEFT ATRIUM The left atrial size is normal. RIGHT ATRIUM The right atrial size is normal. ATRIAL SEPTUM Normal atrial septal thickness without atrial level shunting by limited color doppler interrogation. AORTA The aortic root and proximal ascending aorta are normal in size on limited imaging. MITRAL VALVE Mitral valve replacemnt Mobile echodensity is noted on the mitral valve consistent with vegetation. AORTIC VALVE Trileaflet aortic valve. No aortic valve stenosis or regurgitation. TRICUSPID VALVE Structurally normal tricuspid valve. There is mild tricuspid valve regurgitation. Possible vegetation on tricuspid valve PULMONARY VALVE The pulmonary valve is not well visualized. VESSELS The inferior vena cava is normal in size. PERICARDIUM No pericardial effusion. Clarence Byrd MD (Electronically Signed) Final Date:06 November 2016 15:56
--- NOTE | 2016-11-06 17:27 | HHI.PR ---
Subjective Subjective Notes DAILY PROGRESS NOTE FOR SURGICAL ATTENDING, DR. STERLING RON Objective Vitals/I&O Vital Signs Date Time Temp Pulse Resp B/P Pulse Ox O2 Delivery O2 Flow Rate FiO2 11/06/16 14:20 16 11/06/16 12:00 97.1 73 113/64 99 11/05/16 05:33 Room Air Labs Laboratory Tests Test 11/05/16 11/06/16 17:36 14:50 Stool C. difficile Toxin (PCR) NEGATIVE Stl C. difficile Toxin PRESUMPTIVE Epiderm 027 NEGATIVE White Blood Count 9.5 Red Blood Count 4.22 Hemoglobin 12.6 Hematocrit 37.2 Mean Corpuscular Volume 88.0 Mean Corpuscular Hemoglobin 29.9 Mean Corpuscular Hemoglobin 34.0 Concent Red Cell Distribution Width 13.3 Platelet Count 93 Mean Platelet Volume 10.1 Neutrophils (%) (Auto) 86.3 Lymphocytes (%) (Auto) 8.0 Monocytes (%) (Auto) 4.4 Eosinophils (%) (Auto) 0.9 Basophils (%) (Auto) 0.4 Neutrophils # (Auto) 8.2 Lymphocytes # (Auto) 0.8 Monocytes # (Auto) 0.4 Eosinophils # (Auto) 0.1 Basophils # (Auto) 0.0 CBC Comment AUTO DIFF Differential Comment AUTO DIFF CONFIRMED Sodium Level 142 Potassium Level 3.3 Chloride Level 110 Carbon Dioxide Level 25.3 Anion Gap 7 Blood Urea Nitrogen 13 Creatinine 0.90 Estimat Glomerular Filtration 97 Rate Random Glucose 119 Calcium Level 7.9 Total Bilirubin 0.5 Aspartate Amino Transf 18 (AST/SGOT) Alanine Aminotransferase 19 (ALT/SGPT) Alkaline Phosphatase 57 Total Protein 5.8 Albumin 2.5 Date/Time Procedure Status Source Growth 11/06/16 14:50 Aerobic Blood Culture Received Blood Peripheral Pending 11/06/16 14:50 Anaerobic Blood Culture Received Blood Peripheral Pending 11/05/16 02:45 Aerobic Blood Culture - Preliminary Resulted Blood Peripheral Staphylococcus Aureus 11/05/16 02:45 Anaerobic Blood Culture - Preliminary Resulted Staphylococcus Aureus Radiology Last Impressions Chest X-Ray 11/05/16 0238 Signed Impressions: Service Date/Time: Saturday, November 05, 2016 02:44 - CONCLUSION: 1. No acute cardiopulmonary disease. Jv Mae MD Hepatobiliary Scan Nuclear Medicine 11/05/16 0000 Signed Impressions: Service Date/Time: Saturday, November 05, 2016 09:08 - CONCLUSION: 1. Normal filling of the gallbladder excludes cystic duct obstruction and acute cholecystitis. No acute finding is identified. 2. There is severe bile reflux into the stomach. Kyle Black MD Head CT 11/05/16 0000 Signed Impressions: Service Date/Time: Saturday, November 05, 2016 04:06 - CONCLUSION: 1. No evidence of acute intracranial pathology. No masses are identified. Jv Mae MD Abdomen/Pelvis CT 11/05/16 0000 Signed Impressions: Service Date/Time: Saturday, November 05, 2016 04:10 - CONCLUSION: 1. Pericholecystic fluid without stone. Cholecystitis is not excluded. Radionuclide imaging is recommended for further evaluation if clinically indicated. 2. Nonobstructing right renal stone Jv Mae MD Echo shows vegetations Cardiovascular: Regular Lungs: Clear Abdomen: Non-distended, Non-tender, Other Extremities: Perfused A/P Assessment and Plan 31-year-old male with a vegetations on his valves of his heart. He has a normal HIDA scan and symptomatology not consistent with biliary colic. If his symptoms persist consider EGD Attending Statement NOTE FOR SURGICAL ATTENDING, DR. STERLING RON I attest that I had a [id number] encounter with the patient on the same day, and personally performed and documented my assessment and findings in the medical record. The following services were provided during this hospital visit: Chart data review, vital sign assessments/reviewing monitor data Review of consultations notes if present. Medication orders/review and/or management Ordering and/or reviewing lab tests Ordering and/or interpreting/reviewing x-rays and/or diagnostic studies Care of the patient and discussion of the patient with the care team Documentation time To help prompt me to consider important information that might be impacting today's encounter and assessment, information from prior notes written by myself or my colleagues may have been "brought forward/copy and pasted" into today's note. Sterling Ron MD Nov 06, 2016 17:27
[2016-11-07 00:40] VITALS: BP 121/70; PULSE 58; RESP 16; TEMP 97.5; O2SAT 99
[2016-11-07] MEDS ORDERED: PHARMACY ORDERED LAB ONE (00:45)
[2016-11-07] MEDS: VANCOMYCIN 1,500 MG/NS 500 ML IV SCH ×4 (01:23→12:17)
[2016-11-07] MEDS: ACETAMINOPHEN 325 MG TAB PO PRN ×3 (01:24→16:47)
[2016-11-07 04:50] VITALS: BP 116/71; PULSE 54; RESP 16; TEMP 97.7; O2SAT 97
[2016-11-07] MEDS: OXACILLIN INJ 2 GM in SODIUM CHLORIDE 0.9% INJ 100 ML IV SCH ×5 (05:04→20:51)
[2016-11-07 08:00] VITALS: BP 119/78; PULSE 43; PULSE 63; RESP 20; TEMP 97.1; O2SAT 94
[2016-11-07] MEDS: DOCUSATE SODIUM 50 MG/SENNA 8.6 MG TAB PO SCH ×2 (08:23→20:52)
[2016-11-07] MEDS: SODIUM CHLORIDE 0.9% FLUSH 10 ML FLUSH IV FLUSH SCH ×2 (08:26→20:53)
[2016-11-07] MEDS: SODIUM CHLOR 0.9% 1000 ML INJ 1,000 ML IV SCH ×2 (08:26→16:52)
[2016-11-07 09:22] LABS: HEMATOCRIT 36.7 % (39.0-51.0); MEAN CELL VOLUME 87.9 FL (80.0-100.0); MEAN CORPUSCULAR HGB CONC 34.1 % (32.0-36.0); PLATELET COUNT 100 TH/MM3 (150-450); RED BLOOD COUNT 4.17 MIL/MM3 (4.50-5.90); RED CELL DISTRIBUTION WIDTH 13.6 % (11.6-17.2); REVIEW FLAG FINAL
[2016-11-07 10:08] LABS: MAGNESIUM 2.1 MG/DL (1.5-2.5); POTASSIUM 3.5 MEQ/L (3.5-5.1)
[2016-11-07] MEDS ORDERED: POTASSIUM CHLORIDE 25 MEQ EFFERVESCENT TAB PO ONE (10:30)
--- NOTE | 2016-11-07 10:37 | HHI.PR ---
Subjective Remarks The patient said that he was stressed out. He was upset to learn that he had likely vegetations of his heart valves. He said his pain was controlled. He said he hasn't used IV drugs since the last surgery, but he has used other drugs. Discussed with nursing. Objective Vitals Vital Signs Date Time Temp Pulse Resp B/P Pulse Ox O2 Delivery O2 Flow Rate FiO2 11/07/16 08:00 97.1 63 20 119/78 94 11/07/16 04:50 97.7 54 16 116/71 97 11/07/16 00:40 97.5 58 16 121/70 99 11/06/16 21:00 97.5 64 16 115/64 100 11/06/16 19:39 58 11/06/16 18:10 16 11/06/16 18:10 16 11/06/16 16:00 97.6 56 18 111/67 100 11/06/16 12:00 97.1 73 18 113/64 99 I/O 11/06/16 11/06/16 11/06/16 11/07/16 11/07/16 11/07/16 07:00 15:00 23:00 07:00 15:00 23:00 Intake Total 1251 ml 960 ml 1680 ml 1430 ml Balance 1251 ml 960 ml 1680 ml 1430 ml Intake Oral 120 ml 960 ml 480 ml 480 ml IV Total 1131 ml 1200 ml 950 ml # Voids 2 5 1 2 # Bowel Movements 1 0 0 Result Diagram: 11/07/16 0904 11/07/16 0902 Imaging Last Impressions Chest X-Ray 11/05/16 0238 Signed Impressions: Service Date/Time: Saturday, November 05, 2016 02:44 - CONCLUSION: 1. No acute cardiopulmonary disease. Jv Mae MD Hepatobiliary Scan Nuclear Medicine 11/05/16 0000 Signed Impressions: Service Date/Time: Saturday, November 05, 2016 09:08 - CONCLUSION: 1. Normal filling of the gallbladder excludes cystic duct obstruction and acute cholecystitis. No acute finding is identified. 2. There is severe bile reflux into the stomach. Kyle Black MD Head CT 11/05/16 0000 Signed Impressions: Service Date/Time: Saturday, November 05, 2016 04:06 - CONCLUSION: 1. No evidence of acute intracranial pathology. No masses are identified. Jv Mae MD Abdomen/Pelvis CT 11/05/16 0000 Signed Impressions: Service Date/Time: Saturday, November 05, 2016 04:10 - CONCLUSION: 1. Pericholecystic fluid without stone. Cholecystitis is not excluded. Radionuclide imaging is recommended for further evaluation if clinically indicated. 2. Nonobstructing right renal stone Jv Mae MD Objective Remarks GENERAL: Resting comfortably in bed. SKIN: Warm and dry. HEAD: Normocephalic and atraumatic. EYES: No injection or drainage. ENT: No nasal drainage noted. NECK: Supple, trachea midline. CARDIOVASCULAR: Regular rate and rhythm. Grade 3 systolic murmur appreciated. RESPIRATORY: No increased effort. No accessory muscle use. GASTROINTESTINAL: Abdomen soft, nontender, nondistended. EXTREMITIES: No edema. NEUROLOGICAL: Awake. Motor and sensory grossly within normal limits. Normal speech. PSYCH: Flattened affect. Medications and IVs Current Medications Medications (Trade) Dose Ordered Sig/Abdirahman Route Start Time Stop Time Status Last Admin Pharmacy Profile Note 0 ml @ 0 mls/hr UNSCH OTHER 11/05/16 05:30 (NS 1000 ml Inj) 1,000 ml @ 100 mls/hr Q10H IV 11/05/16 05:26 11/07/16 08:26 (NS Flush) 2 ml UNSCH PRN IV FLUSH 11/05/16 05:30 (NS Flush) 2 ml BID IV FLUSH 11/05/16 09:00 11/06/16 19:40 (Zofran Inj) 4 mg Q6H PRN IVP 11/05/16 05:30 (Tylenol) 650 mg Q6H PRN PO 11/05/16 05:30 11/07/16 08:23 (Roxicodone) 10 mg Q4H PRN PO 11/05/16 05:30 11/07/16 08:23 (Roxicodone) 5 mg Q4H PRN PO 11/05/16 05:30 11/05/16 12:44 (Ina-Colace) 1 tab BID PO 11/05/16 09:00 11/07/16 08:23 (Milk Of Magnesia Liq) 30 ml Q12H PRN PO 11/05/16 05:30 (Senokot) 17.2 mg Q12H PRN PO 11/05/16 05:30 (Dulcolax Supp) 10 mg DAILY PRN RECTAL 11/05/16 05:30 Lactulose 30 ml 30 ml DAILY PRN PO 11/05/16 05:30 Vancomycin HCl 1500 mg/Sodium Chloride 515 ml @ 257.5 mls/ hr Q12H IV 11/05/16 13:00 11/07/16 01:23 (Prostaphlin Inj/ NS Inj) 100 ml @ 200 mls/hr Q4H IV 11/05/16 20:00 11/07/16 08:22 (K-Lyte Cl Eff) 50 meq ONCE ONCE PO 11/07/16 10:30 11/07/16 10:31 UNV A/P Assessment and Plan Sepsis/ Bacteremia/ Endocarditis The patient has significant leukocytosis, tachycardia and has been febrile. Chest x-ray and UA unremarkable. CT of the abdomen concerning for possible cholecystitis, HIDA scan was not indicative of cholecystitis. He has been having diarrhea. C diff PCR negative. He has a history of endocarditis and continues to use illicit substances, though denies IV use recently. Concern for endocarditis. / blood cultures growing GPC. ID consult appreciated. Cefepime discontinued. - continue IV vancomycin and oxacillin per ID. Echo with EF 40-45%, apparent vegetations of mitral and tricuspid valves. - IVFs. - follow blood cultures. - follow up with ID in regards to vegetations. RUQ pain The pt has RUQ pain. Total bilirubin was elevated, now normal. General surgery consult appreciated. HIDA scan not indicative of cholecystitis. - surgery signed off. - ADAT. - pain control as needed. Hypophosphatemia Possibly secondary to decreased by mouth intake. - Replete with IV sodium phosphate. Illicit substance use/ Nicotine dependence The patient said he recently used crack cocaine. - Cessation instruction. - Nicotine patch deferred. - case management referral. Acute renal insufficiency Likely prerenal as the patient has not been eating and has been vomiting. - IV fluids and avoid nephrotoxic agents. Resolved. PPx: Lovenox Discharge Planning Awaiting further evaluation Gabriel Yi DO Nov 07, 2016 10:37
[2016-11-07 12:00] VITALS: BP 117/67; PULSE 51; PULSE 67; RESP 20; TEMP 97; O2SAT 98
[2016-11-07] MEDS: ENOXAPARIN SODIUM 30 MG/0.3 ML SYRINGE SQ SCH (12:16)
[2016-11-07 16:00] VITALS: BP 136/84; PULSE 52; PULSE 54; RESP 20; TEMP 96.3; O2SAT 98
[2016-11-07] MEDS: RIFAMPIN 150 MG CAP PO SCH ×2 (16:47→20:52)
[2016-11-07] MEDS: GENTAMICIN 80 MG PREMIX 100 ML IV SCH ×2 (16:48→20:51)
--- NOTE | 2016-11-07 16:59 | HHI.IDPN ---
Note Infectious Disease Note Patient feels better. No chest pain. Afebrile. No chills. Blood culture has staph aureus. 2D ECHO has mitral valve vegetation. Possible tricuspid vegetation as well. AST MEDICAL HISTORY 1. Mitral valve endocarditis. 2. Mitral valve surgery x 2. Annuloplasty, Replacement with bioprosthetic valve. 3. Brain hemorrhage 4. History of IVDU in the past. ALLERGIES NO KNOWN DRUG ALLERGIES. Current Medications Medications (Trade) Dose Ordered Sig/Abdirahman Route PRN Reason Start Time Stop Time Status Last Admin Dose Admin Sodium Chloride (NS 1000 ml Inj) 1,000 ml @ 100 mls/hr Q10H IV 11/05/16 05:26 11/07/16 08:26 Sodium Chloride (NS Flush) 2 ml UNSCH PRN IV FLUSH FLUSH AFTER USING IV ACCESS 11/05/16 05:30 Sodium Chloride (NS Flush) 2 ml BID IV FLUSH 11/05/16 09:00 11/06/16 19:40 Ondansetron HCl (Zofran Inj) 4 mg Q6H PRN IVP NAUSEA OR VOMITING 11/05/16 05:30 Acetaminophen (Tylenol) 650 mg Q6H PRN PO FEVER/PAIN SCALE 1 TO 2 11/05/16 05:30 11/07/16 08:23 Oxycodone HCl (Roxicodone) 10 mg Q4H PRN PO PAIN SCALE 6 TO 10 11/05/16 05:30 11/07/16 12:17 Oxycodone HCl (Roxicodone) 5 mg Q4H PRN PO PAIN SCALE 3 TO 5 11/05/16 05:30 11/05/16 12:44 Senna/Docusate Sodium (Ina-Colace) 1 tab BID PO 11/05/16 09:00 11/07/16 08:23 Magnesium Hydroxide (Milk Of Magnesia Liq) 30 ml Q12H PRN PO MILD - MODERATE CONSTIPATION 11/05/16 05:30 Sennosides (Senokot) 17.2 mg Q12H PRN PO MODERATE - SEVERE CONSTIPATION 11/05/16 05:30 Bisacodyl (Dulcolax Supp) 10 mg DAILY PRN RECTAL SEVERE CONSITIPATION 11/05/16 05:30 Lactulose 30 ml 30 ml DAILY PRN PO SEVERE CONSITIPATION 11/05/16 05:30 Oxacillin Sodium/ Sodium Chloride (Prostaphlin Inj/ NS Inj) 100 ml @ 200 mls/hr Q4H IV 11/05/16 20:00 11/07/16 12:18 Enoxaparin Sodium 30 mg 30 mg Q24H SQ 11/07/16 11:00 11/07/16 12:16 Gentamicin Sulfate/Sodium Chloride (Gentamicin 80 Mg Premix) 100 ml @ 200 mls/hr Q8H IV 11/07/16 13:00 Rifampin (Rifampin) 300 mg Q8HR PO 11/07/16 14:00 SOCIAL HISTORY Positive tobacco use, one pack of cigarettes a day. No alcohol. The patient denies illicit drugs except for marijuana. However, he has positive toxicology screening for cocaine in the urine. OBJ: Vital Signs Date Time Temp Pulse Resp B/P Pulse Ox O2 Delivery O2 Flow Rate FiO2 11/07/16 16:00 96.3 54 20 136/84 98 11/07/16 12:00 97.0 67 20 117/67 98 11/07/16 12:00 51 11/07/16 08:00 97.1 63 20 119/78 94 11/07/16 08:00 43 11/07/16 04:50 97.7 54 16 116/71 97 11/07/16 00:40 97.5 58 16 121/70 99 11/06/16 21:00 97.5 64 16 115/64 100 11/06/16 19:39 58 11/06/16 18:10 16 11/06/16 18:10 16 11/06/16 11/06/16 11/07/16 15:00 23:00 07:00 Intake Total 960 ml 1680 ml 1430 ml Balance 960 ml 1680 ml 1430 ml Intake Oral 960 ml 480 ml 480 ml IV Total 1200 ml 950 ml # Voids 5 1 2 # Bowel Movements 1 0 0 Laboratory Tests Test 11/06/16 11/07/16 14:50 09:04 White Blood Count 9.5 TH/MM3 7.0 TH/MM3 Red Blood Count 4.22 MIL/MM3 4.17 MIL/MM3 Hemoglobin 12.6 GM/DL 12.5 GM/DL Hematocrit 37.2 % 36.7 % Mean Corpuscular Volume 88.0 FL 87.9 FL Mean Corpuscular Hemoglobin 29.9 PG 30.0 PG Mean Corpuscular Hemoglobin 34.0 % 34.1 % Concent Red Cell Distribution Width 13.3 % 13.6 % Platelet Count 93 TH/MM3 100 TH/MM3 Mean Platelet Volume 10.1 FL 10.9 FL Neutrophils (%) (Auto) 86.3 % Lymphocytes (%) (Auto) 8.0 % Monocytes (%) (Auto) 4.4 % Eosinophils (%) (Auto) 0.9 % Basophils (%) (Auto) 0.4 % Neutrophils # (Auto) 8.2 TH/MM3 Lymphocytes # (Auto) 0.8 TH/MM3 Monocytes # (Auto) 0.4 TH/MM3 Eosinophils # (Auto) 0.1 TH/MM3 Basophils # (Auto) 0.0 TH/MM3 CBC Comment AUTO DIFF Differential Comment AUTO DIFF CONFIRMED Laboratory Tests Test 11/06/16 11/07/16 14:50 09:02 Sodium Level 142 MEQ/L 141 MEQ/L Potassium Level 3.3 MEQ/L 3.5 MEQ/L Chloride Level 110 MEQ/L 108 MEQ/L Carbon Dioxide Level 25.3 MEQ/L 27.0 MEQ/L Anion Gap 7 MEQ/L 6 MEQ/L Blood Urea Nitrogen 13 MG/DL 10 MG/DL Creatinine 0.90 MG/DL 0.87 MG/DL Estimat Glomerular Filtration 97 ML/MIN 101 ML/MIN Rate Random Glucose 119 MG/DL 86 MG/DL Calcium Level 7.9 MG/DL 8.0 MG/DL Total Bilirubin 0.5 MG/DL Aspartate Amino Transf 18 U/L (AST/SGOT) Alanine Aminotransferase 19 U/L (ALT/SGPT) Alkaline Phosphatase 57 U/L Total Protein 5.8 GM/DL Albumin 2.5 GM/DL Magnesium Level 2.1 MG/DL Microbiology Date/Time Procedure Status Source Growth 11/05/16 02:40 Aerobic Blood Culture - Final Complete Blood Peripheral Staphylococcus Aureus 11/05/16 02:40 Anaerobic Blood Culture - Final Complete Staphylococcus Aureus 11/05/16 02:45 Aerobic Blood Culture - Final Complete Blood Peripheral Staphylococcus Aureus 11/05/16 02:45 Anaerobic Blood Culture - Final Complete Staphylococcus Aureus 11/06/16 14:50 Aerobic Blood Culture - Preliminary Resulted Blood Peripheral NO GROWTH IN 1 DAY 11/06/16 14:50 Anaerobic Blood Culture - Preliminary Resulted Blood Peripheral NO GROWTH IN 1 DAY PHYSICAL EXAMINATION GENERAL: No acute distress. He is awake, alert and oriented. HEENT: No icterus. No conjunctival erythema. Oropharynx moist mucosa without lesions. NECK: Supple. No adenopathy. LUNGS: Clear breath sounds HEART: Regular rate and rhythm without audible murmurs, rubs or gallops. Heart sounds are distant. ABDOMEN: Bowel sounds present, soft, no tenderness appreciated. No mass palpable. EXTREMITIES: No clubbing, cyanosis or edema. No embolic phenomena visible at the extremities. SKIN: No rash. NEUROLOGIC: Nonfocal PSYCHIATRIC: The patient is calm and cooperative. IMPRESSION 1. Bacteremia, staph aureus. 2. Endocarditis mitral valve. prosthetic. 3. Leukocytosis secondary to infection 4. Drug use, although the patient denies IV drugs but has positive toxicology screen for cocaine. He denied to me that he snorts cocaine. Abnormal CT scan with pericholecystic fluid. However, negative HIDA scan. 5. Renal insufficiency probably related to profuse vomiting and also diarrhea. RECOMMENDATIONS 1. Continue oxacillin 2. Add Gentamycin. 3. Add Rifampin. 4. Stop vancomycin 5. Repeat blood cultures 6. Monitor clinical status Percy Jacobson MD Nov 07, 2016 16:59
[2016-11-07 20:00] VITALS: BP 131/89; PULSE 52; RESP 17; TEMP 97.2; O2SAT 99
[2016-11-07] MEDS ORDERED: ZOLPIDEM TARTRATE 5 MG TAB PO ONE (21:15)
[2016-11-08] VITALS: BP 120/62; PULSE 56; RESP 20; TEMP 97.9; O2SAT 99
[2016-11-08] MEDS: OXACILLIN INJ 2 GM in SODIUM CHLORIDE 0.9% INJ 100 ML IV SCH ×7 (00:09→22:03)
[2016-11-08 04:00] VITALS: BP 114/66; PULSE 56; RESP 18; TEMP 98; O2SAT 100
[2016-11-08] MEDS: GENTAMICIN 80 MG PREMIX 100 ML IV SCH ×3 (04:08→22:02)
[2016-11-08] MEDS: SODIUM CHLOR 0.9% 1000 ML INJ 1,000 ML IV SCH ×3 (04:08→22:02)
[2016-11-08] MEDS: ACETAMINOPHEN 325 MG TAB PO PRN ×3 (04:09→22:02)
[2016-11-08] MEDS: RIFAMPIN 150 MG CAP PO SCH ×3 (06:47→22:03)
[2016-11-08 08:00] VITALS: BP 116/67; PULSE 52; PULSE 54; RESP 16; TEMP 96.8; O2SAT 100
[2016-11-08] MEDS: DOCUSATE SODIUM 50 MG/SENNA 8.6 MG TAB PO SCH ×2 (08:22→22:03)
[2016-11-08] MEDS: SODIUM CHLORIDE 0.9% FLUSH 10 ML FLUSH IV FLUSH SCH ×2 (08:22→21:00)
[2016-11-08 12:00] VITALS: BP 129/80; PULSE 75; RESP 17; TEMP 97; O2SAT 100
[2016-11-08] MEDS: ENOXAPARIN SODIUM 30 MG/0.3 ML SYRINGE SQ SCH (12:27)
--- NOTE | 2016-11-08 14:34 | HHI.PR ---
Subjective Remarks The patient was resting in bed comfortably. He requested stronger pain medications for his chronic pain. Discussed with nursing. Objective Vitals Vital Signs Date Time Temp Pulse Resp B/P Pulse Ox O2 Delivery O2 Flow Rate FiO2 11/08/16 12:00 97.0 75 17 129/80 100 11/08/16 08:00 96.8 54 16 116/67 100 11/08/16 08:00 52 11/08/16 04:00 98.0 56 18 114/66 100 11/08/16 00:00 97.9 56 20 120/62 99 11/07/16 20:00 97.2 52 17 131/89 99 11/07/16 18:48 Room Air 11/07/16 16:00 52 11/07/16 16:00 96.3 54 20 136/84 98 I/O 11/07/16 11/07/16 11/07/16 11/08/16 11/08/16 11/08/16 07:00 15:00 23:00 07:00 15:00 23:00 Intake Total 1430 ml 600 ml 2028 ml 1232 ml Balance 1430 ml 600 ml 2028 ml 1232 ml Intake Oral 480 ml 600 ml 720 ml 480 ml IV Total 950 ml 1308 ml 752 ml # Voids 2 3 2 2 # Bowel Movements 0 1 1 Result Diagram: 11/07/16 0904 11/08/16 0817 Imaging Last Impressions Chest X-Ray 11/05/16 0238 Signed Impressions: Service Date/Time: Saturday, November 05, 2016 02:44 - CONCLUSION: 1. No acute cardiopulmonary disease. Jv Mae MD Hepatobiliary Scan Nuclear Medicine 11/05/16 0000 Signed Impressions: Service Date/Time: Saturday, November 05, 2016 09:08 - CONCLUSION: 1. Normal filling of the gallbladder excludes cystic duct obstruction and acute cholecystitis. No acute finding is identified. 2. There is severe bile reflux into the stomach. Kyle Black MD Head CT 11/05/16 0000 Signed Impressions: Service Date/Time: Saturday, November 05, 2016 04:06 - CONCLUSION: 1. No evidence of acute intracranial pathology. No masses are identified. Jv Mae MD Abdomen/Pelvis CT 11/05/16 0000 Signed Impressions: Service Date/Time: Saturday, November 05, 2016 04:10 - CONCLUSION: 1. Pericholecystic fluid without stone. Cholecystitis is not excluded. Radionuclide imaging is recommended for further evaluation if clinically indicated. 2. Nonobstructing right renal stone Jv Mae MD Objective Remarks GENERAL: Resting comfortably in bed. SKIN: Warm and dry. HEAD: Normocephalic and atraumatic. EYES: No injection or drainage. ENT: No nasal drainage noted. NECK: Supple, trachea midline. CARDIOVASCULAR: Regular rate and rhythm. Grade 3 systolic murmur appreciated. RESPIRATORY: No increased effort. No accessory muscle use. GASTROINTESTINAL: Abdomen soft, nontender, nondistended. EXTREMITIES: No edema. NEUROLOGICAL: Awake. Motor and sensory grossly within normal limits. Normal speech. PSYCH: Mood and affect appropriate. Medications and IVs Current Medications Medications (Trade) Dose Ordered Sig/Abdirahman Route Start Time Stop Time Status Last Admin (NS 1000 ml Inj) 1,000 ml @ 100 mls/hr Q10H IV 11/05/16 05:26 11/08/16 12:28 (NS Flush) 2 ml UNSCH PRN IV FLUSH 11/05/16 05:30 (NS Flush) 2 ml BID IV FLUSH 11/05/16 09:00 11/08/16 08:22 (Zofran Inj) 4 mg Q6H PRN IVP 11/05/16 05:30 (Tylenol) 650 mg Q6H PRN PO 11/05/16 05:30 11/08/16 04:09 (Roxicodone) 10 mg Q4H PRN PO 11/05/16 05:30 11/08/16 12:27 (Roxicodone) 5 mg Q4H PRN PO 11/05/16 05:30 11/05/16 12:44 (Ina-Colace) 1 tab BID PO 11/05/16 09:00 11/07/16 20:52 (Milk Of Magnesia Liq) 30 ml Q12H PRN PO 11/05/16 05:30 (Senokot) 17.2 mg Q12H PRN PO 11/05/16 05:30 (Dulcolax Supp) 10 mg DAILY PRN RECTAL 11/05/16 05:30 Lactulose 30 ml 30 ml DAILY PRN PO 11/05/16 05:30 (Prostaphlin Inj/ NS Inj) 100 ml @ 200 mls/hr Q4H IV 11/05/16 20:00 11/08/16 12:27 Enoxaparin Sodium 30 mg 30 mg Q24H SQ 11/07/16 11:00 11/08/16 12:27 (Gentamicin 80 Mg Premix) 100 ml @ 200 mls/hr Q8H IV 11/07/16 13:00 11/08/16 12:26 (Rifampin) 300 mg Q8HR PO 11/07/16 14:00 11/08/16 12:26 A/P Assessment and Plan Sepsis/ Bacteremia/ Endocarditis The patient has significant leukocytosis, tachycardia and has been febrile. Chest x-ray and UA unremarkable. CT of the abdomen concerning for possible cholecystitis, HIDA scan was not indicative of cholecystitis. He has been having diarrhea. C diff PCR negative. He has a history of endocarditis and continues to use illicit substances, though denies IV use recently. Concern for endocarditis. 07/05 blood cultures growing GPC. ID consult appreciated. Cefepime and vancomycin discontinued. Echo with EF 40-45%, apparent vegetations of mitral and tricuspid valves. - continue IV oxacillin, gentamicin and PO rifampin per ID. - follow blood cultures. RUQ pain The pt has RUQ pain. Total bilirubin was elevated, now normal. General surgery consult appreciated. HIDA scan not indicative of cholecystitis. - surgery signed off. - ADAT. - pain control as needed. Hypophosphatemia Possibly secondary to decreased by mouth intake. - Repleted with IV sodium phosphate. Illicit substance use/ Nicotine dependence The patient said he recently used crack cocaine. - Cessation instruction. - Nicotine patch deferred. - case management referral. Acute renal insufficiency Likely prerenal as the patient has not been eating and has been vomiting. - IV fluids and avoid nephrotoxic agents. Resolved. Thrombocytopenia Chronic. - monitor as needed. PPx: Lovenox Discharge Planning Awaiting antibiotics Gabriel Yi DO Nov 08, 2016 14:34
[2016-11-08 16:00] VITALS: BP 116/69; PULSE 60; RESP 17; TEMP 98.1; O2SAT 99
[2016-11-08 20:00] VITALS: BP 120/69; PULSE 49; RESP 20; TEMP 98.7; O2SAT 100
[2016-11-08] MEDS: ZOLPIDEM TARTRATE 5 MG TAB PO PRN (22:03)
[2016-11-09] VITALS: BP 96/59; PULSE 48; RESP 19; TEMP 98.3; O2SAT 98
[2016-11-09 04:00] VITALS: BP 133/81; PULSE 63; RESP 18; TEMP 96.4; O2SAT 100
[2016-11-09] MEDS: OXACILLIN INJ 2 GM in SODIUM CHLORIDE 0.9% INJ 100 ML IV SCH ×5 (04:17→20:33)
[2016-11-09] MEDS: SODIUM CHLOR 0.9% 1000 ML INJ 1,000 ML IV SCH ×2 (04:19→20:36)
[2016-11-09] MEDS: RIFAMPIN 150 MG CAP PO SCH ×3 (04:20→22:17)
[2016-11-09] MEDS: GENTAMICIN 80 MG PREMIX 100 ML IV SCH ×3 (04:20→20:33)
[2016-11-09] MEDS: ACETAMINOPHEN 325 MG TAB PO PRN ×2 (04:20→20:41)
[2016-11-09 08:00] VITALS: BP 126/73; PULSE 47; RESP 18; TEMP 97; O2SAT 97
[2016-11-09 08:19] LABS: MEAN CORPUSCULAR HEMOGLOBIN 30.2 PG (27.0-34.0); MEAN CORPUSCULAR HGB CONC 34.3 % (32.0-36.0); PLATELET COUNT 139 TH/MM3 (150-450); RED BLOOD COUNT 4.32 MIL/MM3 (4.50-5.90); RED CELL DISTRIBUTION WIDTH 13.7 % (11.6-17.2); REVIEW FLAG FINAL; WHITE BLOOD COUNT 7.3 TH/MM3 (4.0-11.0)
[2016-11-09 08:36] LABS: BICARBONATE 28.2 MEQ/L (21.0-32.0); POTASSIUM 3.8 MEQ/L (3.5-5.1)
[2016-11-09] MEDS: DOCUSATE SODIUM 50 MG/SENNA 8.6 MG TAB PO SCH ×2 (09:00→20:34)
[2016-11-09] MEDS: SODIUM CHLORIDE 0.9% FLUSH 10 ML FLUSH IV FLUSH SCH ×2 (09:00→20:34)
[2016-11-09] MEDS: ENOXAPARIN SODIUM 30 MG/0.3 ML SYRINGE SQ SCH (10:59)
[2016-11-09 12:00] VITALS: BP 127/68; PULSE 49; RESP 18; TEMP 97.8; O2SAT 99
--- NOTE | 2016-11-09 12:07 | HHI.PR ---
Subjective Remarks The patient said that his boss visited him today. He wants him to go back to work. The patient wanted his pain medication changed from two 5 mg oxycodone tablets to one 10 mg oxycodone tablets. Discussed with nursing. Objective Vitals Vital Signs Date Time Temp Pulse Resp B/P Pulse Ox O2 Delivery O2 Flow Rate FiO2 11/09/16 08:00 97 Room Air 11/09/16 08:00 97.0 47 18 126/73 97 11/09/16 04:00 96.4 63 18 133/81 100 11/09/16 00:00 98.3 48 19 96/59 98 11/08/16 20:00 98.7 49 20 120/69 100 11/08/16 18:57 Room Air 11/08/16 16:00 98.1 60 17 116/69 99 I/O 11/08/16 11/08/16 11/08/16 11/09/16 11/09/16 11/09/16 07:00 15:00 23:00 07:00 15:00 23:00 Intake Total 1232 ml 600 ml 1463 ml 1458 ml Balance 1232 ml 600 ml 1463 ml 1458 ml Intake Oral 480 ml 600 ml 720 ml 720 ml IV Total 752 ml 743 ml 738 ml # Voids 2 4 3 5 # Bowel Movements 1 1 1 Result Diagram: 11/09/16 0711 11/09/16 0711 Imaging Last Impressions Chest X-Ray 11/05/16 0238 Signed Impressions: Service Date/Time: Saturday, November 05, 2016 02:44 - CONCLUSION: 1. No acute cardiopulmonary disease. Jv Mae MD Hepatobiliary Scan Nuclear Medicine 11/05/16 0000 Signed Impressions: Service Date/Time: Saturday, November 05, 2016 09:08 - CONCLUSION: 1. Normal filling of the gallbladder excludes cystic duct obstruction and acute cholecystitis. No acute finding is identified. 2. There is severe bile reflux into the stomach. Kyle Black MD Head CT 11/05/16 0000 Signed Impressions: Service Date/Time: Saturday, November 05, 2016 04:06 - CONCLUSION: 1. No evidence of acute intracranial pathology. No masses are identified. Jv Mae MD Abdomen/Pelvis CT 11/05/16 0000 Signed Impressions: Service Date/Time: Saturday, November 05, 2016 04:10 - CONCLUSION: 1. Pericholecystic fluid without stone. Cholecystitis is not excluded. Radionuclide imaging is recommended for further evaluation if clinically indicated. 2. Nonobstructing right renal stone Jv Mae MD Objective Remarks GENERAL: Resting comfortably in bed. SKIN: Warm and dry. HEAD: Normocephalic and atraumatic. EYES: No injection or drainage. ENT: No nasal drainage noted. NECK: Supple, trachea midline. CARDIOVASCULAR: Regular rate and rhythm. Grade 3 systolic murmur appreciated. RESPIRATORY: No increased effort. No accessory muscle use. GASTROINTESTINAL: Abdomen soft, nontender, nondistended. EXTREMITIES: No edema. NEUROLOGICAL: Awake. Motor and sensory grossly within normal limits. Normal speech. PSYCH: Mood and affect appropriate. Medications and IVs Current Medications Medications (Trade) Dose Ordered Sig/Abdirahman Route Start Time Stop Time Status Last Admin (NS 1000 ml Inj) 1,000 ml @ 100 mls/hr Q10H IV 11/05/16 05:26 11/09/16 04:19 (NS Flush) 2 ml UNSCH PRN IV FLUSH 11/05/16 05:30 (NS Flush) 2 ml BID IV FLUSH 11/05/16 09:00 11/08/16 08:22 (Zofran Inj) 4 mg Q6H PRN IVP 11/05/16 05:30 (Tylenol) 650 mg Q6H PRN PO 11/05/16 05:30 11/09/16 04:20 (Roxicodone) 10 mg Q4H PRN PO 11/05/16 05:30 11/09/16 09:01 (Roxicodone) 5 mg Q4H PRN PO 11/05/16 05:30 11/05/16 12:44 (Ina-Colace) 1 tab BID PO 11/05/16 09:00 11/08/16 22:03 (Milk Of Magnesia Liq) 30 ml Q12H PRN PO 11/05/16 05:30 (Senokot) 17.2 mg Q12H PRN PO 11/05/16 05:30 (Dulcolax Supp) 10 mg DAILY PRN RECTAL 11/05/16 05:30 Lactulose 30 ml 30 ml DAILY PRN PO 11/05/16 05:30 (Prostaphlin Inj/ NS Inj) 100 ml @ 200 mls/hr Q4H IV 11/05/16 20:00 11/09/16 08:54 Enoxaparin Sodium 30 mg 30 mg Q24H SQ 11/07/16 11:00 11/09/16 10:59 (Gentamicin 80 Mg Premix) 100 ml @ 200 mls/hr Q8H IV 11/07/16 13:00 11/09/16 04:20 (Rifampin) 300 mg Q8HR PO 11/07/16 14:00 11/09/16 04:20 (Motrin) 600 mg Q8H PRN PO 11/08/16 14:30 (Ambien) 5 mg HS PRN PO 11/08/16 14:30 11/08/16 22:03 A/P Assessment and Plan Sepsis/ Bacteremia/ Endocarditis The patient has significant leukocytosis, tachycardia and has been febrile. Chest x-ray and UA unremarkable. CT of the abdomen concerning for possible cholecystitis, HIDA scan was not indicative of cholecystitis. He has been having diarrhea. C diff PCR negative. He has a history of endocarditis and continues to use illicit substances, though denies IV use recently. Concern for endocarditis. 07/05 blood cultures growing GPC. ID consult appreciated. Cefepime and vancomycin discontinued. Echo with EF 40-45%, apparent vegetations of mitral and tricuspid valves. - continue IV oxacillin, gentamicin and PO rifampin per ID. No changes 11/09. - follow blood cultures. RUQ pain The pt has RUQ pain. Total bilirubin was elevated, now normal. General surgery consult appreciated. HIDA scan not indicative of cholecystitis. - surgery signed off. - ADAT. - pain control as needed. Illicit substance use/ Nicotine dependence The patient said he recently used crack cocaine. - Cessation instruction. - Nicotine patch deferred. - case management referral. Acute renal insufficiency Likely prerenal as the patient has not been eating and has been vomiting. - IV fluids and avoid nephrotoxic agents. Resolved. Thrombocytopenia Chronic. - monitor as needed. PPx: Lovenox Discharge Planning Awaiting ID clearance Gabriel Yi DO Nov 09, 2016 12:07
[2016-11-09 16:00] VITALS: BP 132/75; PULSE 60; RESP 18; TEMP 98.5; O2SAT 99
[2016-11-09 20:00] VITALS: BP 134/82; PULSE 62; PULSE 76; RESP 18; TEMP 97; O2SAT 99
[2016-11-09] MEDS: ZOLPIDEM TARTRATE 5 MG TAB PO PRN (22:17)
[2016-11-10] VITALS (8 sets, daily range): BP systolic 98–131; BP diastolic 56–76; PULSE 50–97; RESP 17–18; TEMP 96.2–98.1; O2SAT 97–99
[2016-11-10] MEDS: OXACILLIN INJ 2 GM in SODIUM CHLORIDE 0.9% INJ 100 ML IV SCH ×8 (04:36→23:57)
[2016-11-10] MEDS: GENTAMICIN 80 MG PREMIX 100 ML IV SCH ×3 (04:37→20:56)
[2016-11-10] MEDS: SODIUM CHLOR 0.9% 1000 ML INJ 1,000 ML IV SCH ×2 (04:40→15:26)
[2016-11-10] MEDS: RIFAMPIN 150 MG CAP PO SCH ×3 (06:23→21:00)
[2016-11-10] MEDS: DOCUSATE SODIUM 50 MG/SENNA 8.6 MG TAB PO SCH ×2 (08:27→20:54)
[2016-11-10] MEDS: SODIUM CHLORIDE 0.9% FLUSH 10 ML FLUSH IV FLUSH SCH ×2 (08:28→20:57)
--- NOTE | 2016-11-10 08:57 | HHI.PR ---
Subjective Remarks The patient said he was depressed. He wants to go back to work soon. He does not think that the antibiotics are going to work. Objective Vitals Vital Signs Date Time Temp Pulse Resp B/P Pulse Ox O2 Delivery O2 Flow Rate FiO2 11/10/16 08:00 96.2 57 18 109/56 98 11/10/16 04:00 96.9 60 18 98/59 98 11/10/16 00:00 96.5 65 18 128/73 99 11/09/16 20:00 99 Room Air 11/09/16 20:00 76 11/09/16 20:00 97.0 62 18 134/82 99 11/09/16 16:00 98.5 60 18 132/75 99 11/09/16 12:00 97.8 49 18 127/68 99 I/O 11/09/16 11/09/16 11/09/16 11/10/16 11/10/16 11/10/16 06:59 14:59 22:59 06:59 14:59 22:59 Intake Total 1458 ml 480 ml 2448 ml 1039 ml Balance 1458 ml 480 ml 2448 ml 1039 ml Intake Oral 720 ml 480 ml 480 ml 240 ml IV Total 738 ml 1968 ml 799 ml # Voids 5 4 2 2 # Bowel Movements 1 2 0 0 Result Diagram: 11/09/1611 11/09/1611 Imaging Last Impressions Chest X-Ray 11/05/16 0238 Signed Impressions: Service Date/Time: Saturday, November 05, 2016 02:44 - CONCLUSION: 1. No acute cardiopulmonary disease. Jv Mae MD Hepatobiliary Scan Nuclear Medicine 11/05/16 0000 Signed Impressions: Service Date/Time: Saturday, November 05, 2016 09:08 - CONCLUSION: 1. Normal filling of the gallbladder excludes cystic duct obstruction and acute cholecystitis. No acute finding is identified. 2. There is severe bile reflux into the stomach. Kyle Black MD Head CT 11/05/16 0000 Signed Impressions: Service Date/Time: Saturday, November 05, 2016 04:06 - CONCLUSION: 1. No evidence of acute intracranial pathology. No masses are identified. Jv Mae MD Abdomen/Pelvis CT 11/05/16 0000 Signed Impressions: Service Date/Time: Saturday, November 05, 2016 04:10 - CONCLUSION: 1. Pericholecystic fluid without stone. Cholecystitis is not excluded. Radionuclide imaging is recommended for further evaluation if clinically indicated. 2. Nonobstructing right renal stone Jv Mae MD Objective Remarks GENERAL: Resting comfortably in bed. SKIN: Warm and dry. HEAD: Normocephalic and atraumatic. EYES: No injection or drainage. ENT: No nasal drainage noted. NECK: Supple, trachea midline. CARDIOVASCULAR: Regular rate and rhythm. Grade 3 systolic murmur appreciated. RESPIRATORY: No increased effort. No accessory muscle use. GASTROINTESTINAL: Abdomen soft, nontender, nondistended. EXTREMITIES: No edema. NEUROLOGICAL: Awake. Motor and sensory grossly within normal limits. Normal speech. PSYCH: Slightly flattened affect. Medications and IVs Current Medications Medications (Trade) Dose Ordered Sig/Abdirahman Route Start Time Stop Time Status Last Admin (NS 1000 ml Inj) 1,000 ml @ 100 mls/hr Q10H IV 11/05/16 05:26 11/10/16 04:40 (NS Flush) 2 ml UNSCH PRN IV FLUSH 11/05/16 05:30 (NS Flush) 2 ml BID IV FLUSH 11/05/16 09:00 11/10/16 08:28 (Zofran Inj) 4 mg Q6H PRN IVP 11/05/16 05:30 (Tylenol) 650 mg Q6H PRN PO 11/05/16 05:30 11/09/16 20:41 (Roxicodone) 10 mg Q4H PRN PO 11/05/16 05:30 11/10/16 06:25 (Roxicodone) 5 mg Q4H PRN PO 11/05/16 05:30 11/05/16 12:44 (Ina-Colace) 1 tab BID PO 11/05/16 09:00 11/10/16 08:27 (Milk Of Magnesia Liq) 30 ml Q12H PRN PO 11/05/16 05:30 (Senokot) 17.2 mg Q12H PRN PO 11/05/16 05:30 (Dulcolax Supp) 10 mg DAILY PRN RECTAL 11/05/16 05:30 Lactulose 30 ml 30 ml DAILY PRN PO 11/05/16 05:30 (Prostaphlin Inj/ NS Inj) 100 ml @ 200 mls/hr Q4H IV 11/05/16 20:00 11/10/16 08:28 Enoxaparin Sodium 30 mg 30 mg Q24H SQ 11/07/16 11:00 11/09/16 10:59 (Gentamicin 80 Mg Premix) 100 ml @ 200 mls/hr Q8H IV 11/07/16 13:00 11/10/16 04:37 (Rifampin) 300 mg Q8HR PO 11/07/16 14:00 11/10/16 06:23 (Motrin) 600 mg Q8H PRN PO 11/08/16 14:30 (Ambien) 5 mg HS PRN PO 11/08/16 14:30 11/09/16 22:17 A/P Assessment and Plan Sepsis/ Bacteremia/ Endocarditis The patient has significant leukocytosis, tachycardia and has been febrile. Chest x-ray and UA unremarkable. CT of the abdomen concerning for possible cholecystitis, HIDA scan was not indicative of cholecystitis. He has been having diarrhea. C diff PCR negative. He has a history of endocarditis and continues to use illicit substances, though denies IV use recently. Concern for endocarditis. 07/05 blood cultures growing MSSA. Sensitivities noted. ID consult appreciated. Cefepime and vancomycin discontinued. Echo with EF 40-45%, apparent vegetations of mitral and tricuspid valves. - continue IV oxacillin, gentamicin and PO rifampin per ID. No changes 11/10. - follow repeat blood cultures. RUQ pain The pt has RUQ pain. Total bilirubin was elevated, now normal. General surgery consult appreciated. HIDA scan not indicative of cholecystitis. - surgery signed off. - ADAT. - pain control as needed. Illicit substance use/ Nicotine dependence The patient said he recently used crack cocaine. - Cessation instruction. - Nicotine patch deferred. - case management referral. Acute renal insufficiency Likely prerenal as the patient has not been eating and has been vomiting. - IV fluids and avoid nephrotoxic agents. Resolved. Thrombocytopenia Chronic. - monitor as needed. PPx: Lovenox Discharge Planning Awaiting ID clearance. Will discuss about transferring the patient to [place] with ID. Gabriel Yi DO Nov 10, 2016 08:57
[2016-11-10] MEDS: ENOXAPARIN SODIUM 30 MG/0.3 ML SYRINGE SQ SCH (10:36)
[2016-11-10] MEDS: ACETAMINOPHEN 325 MG TAB PO PRN ×2 (14:53→21:00)
--- NOTE | 2016-11-10 17:16 | HHI.IDPN ---
Note Infectious Disease Note Patient feels better. Notes chest pain with deep inspiration. Afebrile. Denies chills, nausea, sweats. Blood culture has staph aureus. 2D ECHO has mitral valve vegetation. Possible tricuspid vegetation as well. AST MEDICAL HISTORY 1. Mitral valve endocarditis. 2. Mitral valve surgery x 2. Annuloplasty, Replacement with bioprosthetic valve. 3. Brain hemorrhage 4. History of IVDU in the past. ALLERGIES NO KNOWN DRUG ALLERGIES. SOCIAL HISTORY Positive tobacco use, one pack of cigarettes a day. No alcohol. The patient denies illicit drugs except for marijuana. However, he has positive toxicology screening for cocaine in the urine. OBJ: Vital Signs Date Time Temp Pulse Resp B/P Pulse Ox O2 Delivery O2 Flow Rate FiO2 11/10/16 16:00 98.1 75 17 131/73 99 11/10/16 15:59 97 11/10/16 12:00 97.9 50 17 128/76 99 11/10/16 08:00 96.2 57 18 109/56 98 11/10/16 04:00 96.9 60 18 98/59 98 11/10/16 00:00 96.5 65 18 128/73 99 11/09/16 20:00 99 Room Air 11/09/16 20:00 76 11/09/16 20:00 97.0 62 18 134/82 99 11/09/16 11/09/16 11/10/16 15:00 23:00 07:00 Intake Total 1609 ml 1319 ml 1039 ml Balance 1609 ml 1319 ml 1039 ml Intake Oral 480 ml 480 ml 240 ml IV Total 1129 ml 839 ml 799 ml # Voids 4 2 2 # Bowel Movements 2 0 0 Laboratory Tests Test 11/09/16 07:11 White Blood Count 7.3 TH/MM3 Red Blood Count 4.32 MIL/MM3 Hemoglobin 13.0 GM/DL Hematocrit 38.0 % Mean Corpuscular Volume 88.0 FL Mean Corpuscular Hemoglobin 30.2 PG Mean Corpuscular Hemoglobin 34.3 % Concent Red Cell Distribution Width 13.7 % Platelet Count 139 TH/MM3 Mean Platelet Volume 10.3 FL Laboratory Tests Test 11/09/16 07:11 Sodium Level 143 MEQ/L Potassium Level 3.8 MEQ/L Chloride Level 108 MEQ/L Carbon Dioxide Level 28.2 MEQ/L Anion Gap 7 MEQ/L Blood Urea Nitrogen 10 MG/DL Creatinine 0.89 MG/DL Estimat Glomerular Filtration 98 ML/MIN Rate Random Glucose 84 MG/DL Calcium Level 8.4 MG/DL Phosphorus Level 2.5 MG/DL Microbiology Date/Time Procedure Status Source Growth 11/05/16 02:40 Aerobic Blood Culture - Final Complete Blood Peripheral Staphylococcus Aureus 11/05/16 02:40 Anaerobic Blood Culture - Final Complete Staphylococcus Aureus 11/05/16 02:45 Aerobic Blood Culture - Final Complete Blood Peripheral Staphylococcus Aureus 11/05/16 02:45 Anaerobic Blood Culture - Final Complete Staphylococcus Aureus 11/06/16 14:50 Aerobic Blood Culture - Preliminary Resulted Blood Peripheral NO GROWTH IN 1 DAY 11/06/16 14:50 Anaerobic Blood Culture - Preliminary Resulted Blood Peripheral NO GROWTH IN 1 DAY PHYSICAL EXAMINATION GENERAL: No acute distress. HEENT: No icterus. No conjunctival erythema. Oropharynx moist mucosa without lesions. NECK: Supple. No adenopathy. LUNGS: Clear breath sounds HEART: Regular rate and rhythm without audible murmurs, rubs or gallops. Heart sounds are distant. ABDOMEN: Bowel sounds present, soft, no tenderness appreciated. No mass palpable. EXTREMITIES: No clubbing, cyanosis or edema. No embolic phenomena visible at the extremities. SKIN: No rash. NEUROLOGIC: Nonfocal PSYCHIATRIC: The patient is calm and cooperative. IMPRESSION 1. Bacteremia, staph aureus. 2. Endocarditis mitral valve. prosthetic. 3. Leukocytosis secondary to infection. 4. Drug use, although the patient denies IV drugs but has positive toxicology screen for cocaine. He denied to me that he snorts cocaine. Abnormal CT scan with pericholecystic fluid. However, negative HIDA scan. 5. Renal insufficiency probably related to profuse vomiting and also diarrhea. improved. RECOMMENDATIONS 1. Continue oxacillin 2. continue Gentamycin. 3. Continue Rifampin. 4. Repeat blood cultures 6. Monitor clinical status, I will be of 11/11 - 11/14. Other ID MD covering if needed. Percy Jacobson MD Nov 10, 2016 17:16
[2016-11-11] VITALS (7 sets, daily range): BP systolic 96–130; BP diastolic 50–75; PULSE 68–109; RESP 18–19; TEMP 97.1–98.1; O2SAT 98–100
[2016-11-11] MEDS: ZOLPIDEM TARTRATE 5 MG TAB PO PRN (01:19)
[2016-11-11] MEDS: SODIUM CHLOR 0.9% 1000 ML INJ 1,000 ML IV SCH ×3 (01:22→20:16)
[2016-11-11] MEDS: OXACILLIN INJ 2 GM in SODIUM CHLORIDE 0.9% INJ 100 ML IV SCH ×5 (04:40→20:17)
[2016-11-11] MEDS: RIFAMPIN 150 MG CAP PO SCH ×3 (04:41→20:17)
[2016-11-11] MEDS: GENTAMICIN 80 MG PREMIX 100 ML IV SCH ×3 (04:41→20:17)
[2016-11-11] MEDS: DOCUSATE SODIUM 50 MG/SENNA 8.6 MG TAB PO SCH ×2 (08:55→20:17)
[2016-11-11] MEDS: SODIUM CHLORIDE 0.9% FLUSH 10 ML FLUSH IV FLUSH SCH ×2 (09:06→20:17)
[2016-11-11] MEDS: ENOXAPARIN SODIUM 30 MG/0.3 ML SYRINGE SQ SCH (11:59)
[2016-11-11] MEDS ORDERED: RESP: ALBUTEROL 2.5 MG/IPRATROPIUM 0.5 MG NEB (PRN) NEB (12:15)
[2016-11-11] MEDS ORDERED: RESP: ALBUTEROL 2.5 MG/IPRATROPIUM 0.5 MG NEB (SCH) NEB ONE (12:15)
--- NOTE | 2016-11-11 12:21 | HHI.PR ---
Subjective Remarks The pt endorses pain with deep breathing. He would like a breathing treatment. He had no other acute complaints. Discussed with nursing. Objective Vitals Vital Signs Date Time Temp Pulse Resp B/P Pulse Ox O2 Delivery O2 Flow Rate FiO2 11/11/16 08:00 97.3 68 19 112/68 100 11/11/16 08:00 100 Room Air 11/11/16 04:00 97.5 75 18 116/71 98 11/11/16 03:15 Room Air 11/11/16 02:29 18 11/11/16 00:00 97.4 94 18 107/68 98 11/10/16 21:48 18 11/10/16 20:45 76 11/10/16 20:00 97.5 73 18 131/63 98 11/10/16 16:00 98.1 75 17 131/73 99 11/10/16 15:59 97 I/O 11/10/16 11/10/16 11/10/16 11/11/16 11/11/16 11/11/16 07:00 15:00 23:00 07:00 15:00 23:00 Intake Total 1039 ml 1536 ml 1332 ml 1308 ml Balance 1039 ml 1536 ml 1332 ml 1308 ml Intake Oral 240 ml 600 ml 720 ml 480 ml IV Total 799 ml 936 ml 612 ml 828 ml # Voids 2 3 2 2 # Bowel Movements 0 0 0 0 Result Diagram: 11/09/16 0711 11/09/16 0711 Imaging Last Impressions Chest X-Ray 11/05/16 0238 Signed Impressions: Service Date/Time: Saturday, November 05, 2016 02:44 - CONCLUSION: 1. No acute cardiopulmonary disease. Jv Mae MD Hepatobiliary Scan Nuclear Medicine 11/05/16 0000 Signed Impressions: Service Date/Time: Saturday, November 05, 2016 09:08 - CONCLUSION: 1. Normal filling of the gallbladder excludes cystic duct obstruction and acute cholecystitis. No acute finding is identified. 2. There is severe bile reflux into the stomach. Kyle Black MD Head CT 11/05/16 0000 Signed Impressions: Service Date/Time: Saturday, November 05, 2016 04:06 - CONCLUSION: 1. No evidence of acute intracranial pathology. No masses are identified. Jv Mae MD Abdomen/Pelvis CT 11/05/16 0000 Signed Impressions: Service Date/Time: Saturday, November 05, 2016 04:10 - CONCLUSION: 1. Pericholecystic fluid without stone. Cholecystitis is not excluded. Radionuclide imaging is recommended for further evaluation if clinically indicated. 2. Nonobstructing right renal stone Jv Mae MD Objective Remarks GENERAL: Resting comfortably in bed. SKIN: Warm and dry. HEAD: Normocephalic and atraumatic. EYES: No injection or drainage. ENT: No nasal drainage noted. NECK: Supple, trachea midline. CARDIOVASCULAR: Regular rate and rhythm. Grade 2 systolic murmur appreciated. RESPIRATORY: No increased effort. No accessory muscle use. CTAB. GASTROINTESTINAL: Abdomen soft, nontender, nondistended. EXTREMITIES: No edema. NEUROLOGICAL: Awake. Motor and sensory grossly within normal limits. Normal speech. PSYCH: Mood and affect appropriate. Medications and IVs Current Medications Medications (Trade) Dose Ordered Sig/Abdirahman Route Start Time Stop Time Status Last Admin (NS 1000 ml Inj) 1,000 ml @ 100 mls/hr Q10H IV 11/05/16 05:26 11/11/16 12:01 (NS Flush) 2 ml UNSCH PRN IV FLUSH 11/05/16 05:30 (NS Flush) 2 ml BID IV FLUSH 11/05/16 09:00 11/11/16 09:06 (Zofran Inj) 4 mg Q6H PRN IVP 11/05/16 05:30 (Tylenol) 650 mg Q6H PRN PO 11/05/16 05:30 11/10/16 21:00 (Roxicodone) 10 mg Q4H PRN PO 11/05/16 05:30 11/11/16 08:56 (Roxicodone) 5 mg Q4H PRN PO 11/05/16 05:30 11/05/16 12:44 (Ina-Colace) 1 tab BID PO 11/05/16 09:00 11/11/16 08:55 (Milk Of Magnesia Liq) 30 ml Q12H PRN PO 11/05/16 05:30 (Senokot) 17.2 mg Q12H PRN PO 11/05/16 05:30 (Dulcolax Supp) 10 mg DAILY PRN RECTAL 11/05/16 05:30 Lactulose 30 ml 30 ml DAILY PRN PO 11/05/16 05:30 (Prostaphlin Inj/ NS Inj) 100 ml @ 200 mls/hr Q4H IV 11/05/16 20:00 11/11/16 11:59 Enoxaparin Sodium 30 mg 30 mg Q24H SQ 11/07/16 11:00 11/11/16 11:59 (Gentamicin 80 Mg Premix) 100 ml @ 200 mls/hr Q8H IV 11/07/16 13:00 11/11/16 04:41 (Rifampin) 300 mg Q8HR PO 11/07/16 14:00 11/11/16 04:41 (Motrin) 600 mg Q8H PRN PO 11/08/16 14:30 (Ambien) 5 mg HS PRN PO 11/08/16 14:30 11/11/16 01:19 A/P Assessment and Plan Sepsis/ Bacteremia/ Endocarditis The patient has significant leukocytosis, tachycardia and has been febrile. Chest x-ray and UA unremarkable. CT of the abdomen concerning for possible cholecystitis, HIDA scan was not indicative of cholecystitis. He has been having diarrhea. C diff PCR negative. He has a history of endocarditis and continues to use illicit substances, though denies IV use recently. Concern for endocarditis. 07/05 blood cultures growing MSSA. Sensitivities noted. ID consult appreciated. Cefepime and vancomycin discontinued. Echo with EF 40-45%, apparent vegetations of mitral and tricuspid valves. - continue IV oxacillin, gentamicin and PO rifampin per ID. No changes 11/11. - follow repeat blood cultures from 11/11. Pleuritic chest pain The pt endorses chest pain with deep breathing. - repeat CXR. - Duonebs and oxygen as needed. - incentive spirometry. RUQ pain The pt has RUQ pain. Total bilirubin was elevated, now normal. General surgery consult appreciated. HIDA scan not indicative of cholecystitis. - surgery signed off. - ADAT. - pain control as needed. Illicit substance use/ Nicotine dependence The patient said he recently used crack cocaine. - Cessation instruction. - Nicotine patch deferred. - case management referral. Acute renal insufficiency Likely prerenal as the patient has not been eating and has been vomiting. - IV fluids and avoid nephrotoxic agents. Resolved. Thrombocytopenia Chronic. - monitor as needed. PPx: Lovenox Discharge Planning Awaiting ID clearance. Possible [facility] candidate. Gabriel Yi DO Nov 11, 2016 12:21
[2016-11-11] MEDS: IBUPROFEN 600 MG TAB PO PRN ×2 (13:13→21:54)
--- NOTE | 2016-11-11 14:00 | RADRPT ---
EXAM DATE/TIME: 11/11/2016 13:09 [facility] COMPARISON: CHEST SINGLE AP, November 05, 2016, 2:44. INDICATIONS : Evaluate for pneumonia. MEDICAL HISTORY : Smoker. SURGICAL HISTORY : Mitral valve replacement. ENCOUNTER: Subsequent ACUITY: 4 - 6 days PAIN SCORE: 0/10 LOCATION: Bilateral chest FINDINGS: Portable AP view of the chest demonstrates a normal-sized cardiac silhouette. No effusion, consolidat ion, or pneumothorax is visualized. The bones and soft tissues demonstrate no acute abnormality. Ivis ent is post median sternotomy. CONCLUSION: No acute cardiopulmonary abnormality is identified. Stable chest x-ray. Kyle Black MD on November 11, 2016 at 13:57 Board Certified Radiologist. This report was verified electronically.
[2016-11-12] VITALS (7 sets, daily range): BP systolic 108–133; BP diastolic 64–79; PULSE 66–104; RESP 16–20; TEMP 96.4–97.3; O2SAT 99–100
[2016-11-12] MEDS: OXACILLIN INJ 2 GM in SODIUM CHLORIDE 0.9% INJ 100 ML IV SCH ×7 (00:15→23:56)
[2016-11-12] MEDS: ZOLPIDEM TARTRATE 5 MG TAB PO PRN ×2 (00:18→21:47)
[2016-11-12] MEDS: GENTAMICIN 80 MG PREMIX 100 ML IV SCH ×3 (03:47→20:33)
[2016-11-12] MEDS: RIFAMPIN 150 MG CAP PO SCH ×3 (06:55→21:47)
[2016-11-12] MEDS: SODIUM CHLOR 0.9% 1000 ML INJ 1,000 ML IV SCH ×2 (07:18→16:24)
[2016-11-12] MEDS: SODIUM CHLORIDE 0.9% FLUSH 10 ML FLUSH IV FLUSH SCH ×2 (09:00→19:55)
[2016-11-12] MEDS: ACETAMINOPHEN 325 MG TAB PO PRN (11:48)
[2016-11-12] MEDS: ENOXAPARIN SODIUM 30 MG/0.3 ML SYRINGE SQ SCH (11:49)
[2016-11-12] MEDS: DOCUSATE SODIUM 50 MG/SENNA 8.6 MG TAB PO SCH ×2 (11:49→20:32)
[2016-11-12 12:11] LABS: AUTOMATED NEUTROPHIL # 6.9 TH/MM3 (1.8-7.7); BASOPHIL % 0.5 % (0.0-2.0); EOSINOPHIL # 0.1 TH/MM3 (0-0.4); EOSINOPHIL % 1.3 % (0.0-4.0); HEMATOCRIT 36.8 % (39.0-51.0); HEMO FLAGS DIFF FINAL; LYMPH % 18.6 % (9.0-44.0); LYMPHOCYTE # 1.8 TH/MM3 (1.0-4.8); MEAN CELL VOLUME 88.2 FL (80.0-100.0); MEAN CORPUSCULAR HEMOGLOBIN 30.2 PG (27.0-34.0); MEAN CORPUSCULAR HGB CONC 34.2 % (32.0-36.0); MONO % 8.6 % (0.0-8.0); PLATELET COUNT 203 TH/MM3 (150-450); RED BLOOD COUNT 4.17 MIL/MM3 (4.50-5.90); RED CELL DISTRIBUTION WIDTH 13.7 % (11.6-17.2); WHITE BLOOD COUNT 9.8 TH/MM3 (4.0-11.0)
[2016-11-12 12:43] LABS: ALT (GPT) 18 U/L (12-78)
[2016-11-12 12:46] LABS: ALKALINE PHOSPHATASE 71 U/L (45-117); TOTAL BILIRUBIN ADULT 0.4 MG/DL (0.2-1.0)
[2016-11-12 12:48] LABS: ANION GAP 5 MEQ/L (5-15); AST (GOT) 14 U/L (15-37); BICARBONATE 30.4 MEQ/L (21.0-32.0); BLOOD UREA NITROGEN 12 MG/DL (7-18); CHLORIDE 108 MEQ/L (98-107); GLOMERULAR FILTRATION RATE 94 ML/MIN (>89); POTASSIUM 4.3 MEQ/L (3.5-5.1); SODIUM (NA) 143 MEQ/L (136-145)
--- NOTE | 2016-11-12 19:02 | HHI.PR ---
Subjective Remarks Denies cp/sob vital signs stable geovany fevers/chills Objective Vitals Vital Signs Date Time Temp Pulse Resp B/P Pulse Ox O2 Delivery O2 Flow Rate FiO2 11/12/16 16:00 97.0 84 19 133/74 99 11/12/16 12:00 97.3 70 20 108/64 100 11/12/16 08:00 96.4 74 20 121/79 100 11/12/16 07:36 Room Air 11/12/16 06:35 75 11/12/16 04:27 96.8 90 18 118/71 99 11/12/16 02:50 18 11/12/16 00:43 96.5 87 18 117/74 99 11/11/16 22:50 18 11/11/16 20:30 97.5 75 18 130/75 99 11/11/16 20:00 82 I/O 11/11/16 11/11/16 11/11/16 11/12/16 11/12/16 11/12/16 06:59 14:59 22:59 06:59 14:59 22:59 Intake Total 1308 ml 1713 ml 1067 ml 303 ml 960 ml Balance 1308 ml 1713 ml 1067 ml 303 ml 960 ml Intake Oral 480 ml 1200 ml 360 ml 960 ml IV Total 828 ml 513 ml 707 ml 303 ml # Voids 2 6 4 4 # Bowel Movements 0 1 0 1 Result Diagram: 11/12/16 1141 11/12/16 1141 Imaging Last Impressions Chest X-Ray 11/11/16 0000 Signed Impressions: Service Date/Time: Friday, November 11, 2016 13:09 - CONCLUSION: No acute cardiopulmonary abnormality is identified. Stable chest x-ray. Kyle Black MD Hepatobiliary Scan Nuclear Medicine 11/05/16 0000 Signed Impressions: Service Date/Time: Saturday, November 05, 2016 09:08 - CONCLUSION: 1. Normal filling of the gallbladder excludes cystic duct obstruction and acute cholecystitis. No acute finding is identified. 2. There is severe bile reflux into the stomach. Kyle Black MD Head CT 11/05/16 0000 Signed Impressions: Service Date/Time: Saturday, November 05, 2016 04:06 - CONCLUSION: 1. No evidence of acute intracranial pathology. No masses are identified. Jv Mae MD Abdomen/Pelvis CT 11/05/16 0000 Signed Impressions: Service Date/Time: Saturday, November 05, 2016 04:10 - CONCLUSION: 1. Pericholecystic fluid without stone. Cholecystitis is not excluded. Radionuclide imaging is recommended for further evaluation if clinically indicated. 2. Nonobstructing right renal stone Jv Mae MD Objective Remarks GENERAL: Resting comfortably in bed. SKIN: Warm and dry. HEAD: Normocephalic and atraumatic. EYES: No injection or drainage. ENT: No nasal drainage noted. NECK: Supple, trachea midline. CARDIOVASCULAR: Regular rate and rhythm. Grade 2 systolic murmur appreciated. RESPIRATORY: No increased effort. No accessory muscle use. CTAB. GASTROINTESTINAL: Abdomen soft, nontender, nondistended. EXTREMITIES: No edema. NEUROLOGICAL: Awake. Motor and sensory grossly within normal limits. Normal speech. PSYCH: Mood and affect appropriate. A/P Assessment and Plan Sepsis/ Bacteremia/ Endocarditis The patient has significant leukocytosis, tachycardia and has been febrile. Chest x-ray and UA unremarkable. CT of the abdomen concerning for possible cholecystitis, HIDA scan was not indicative of cholecystitis. He has been having diarrhea. C diff PCR negative. He has a history of endocarditis and continues to use illicit substances, though denies IV use recently. Concern for endocarditis. / blood cultures growing MSSA. Sensitivities noted. ID consult appreciated. Cefepime and vancomycin discontinued. Echo with EF 40-45%, apparent vegetations of mitral and tricuspid valves. - continue IV oxacillin, gentamicin and PO rifampin per ID. No changes 11/11. - follow repeat blood cultures from 11/11. Pleuritic chest pain The pt endorses chest pain with deep breathing. - repeat CXR. - Duonebs and oxygen as needed. - incentive spirometry. RUQ pain The pt has RUQ pain. Total bilirubin was elevated, now normal. General surgery consult appreciated. HIDA scan not indicative of cholecystitis. - surgery signed off. - ADAT. - pain control as needed. Illicit substance use/ Nicotine dependence The patient said he recently used crack cocaine. - Cessation instruction. - Nicotine patch deferred. - case management referral. Acute renal insufficiency Likely prerenal as the patient has not been eating and has been vomiting. - IV fluids and avoid nephrotoxic agents. Resolved. Thrombocytopenia Chronic. - monitor as needed. PPx: Lovenox Carlos Lam MD Nov 12, 2016 19:02
[2016-11-12] MEDS: IBUPROFEN 600 MG TAB PO PRN (20:32)
[2016-11-13] VITALS: BP 122/70; PULSE 71; RESP 16; TEMP 96; O2SAT 98
[2016-11-13] MEDS: SODIUM CHLOR 0.9% 1000 ML INJ 1,000 ML IV SCH ×2 (03:26→13:26)
[2016-11-13 04:00] VITALS: BP 121/89; PULSE 86; RESP 16; TEMP 96.6; O2SAT 98
[2016-11-13] MEDS: OXACILLIN INJ 2 GM in SODIUM CHLORIDE 0.9% INJ 100 ML IV SCH ×6 (04:21→23:57)
[2016-11-13] MEDS: GENTAMICIN 80 MG PREMIX 100 ML IV SCH ×3 (05:31→22:01)
[2016-11-13] MEDS: RIFAMPIN 150 MG CAP PO SCH ×3 (05:31→21:08)
[2016-11-13 08:00] VITALS: BP 125/77; PULSE 60; PULSE 72; RESP 16; TEMP 96.5; O2SAT 98
[2016-11-13] MEDS: SODIUM CHLORIDE 0.9% FLUSH 10 ML FLUSH IV FLUSH SCH ×2 (09:00→21:00)
[2016-11-13] MEDS: DOCUSATE SODIUM 50 MG/SENNA 8.6 MG TAB PO SCH ×2 (09:34→21:07)
[2016-11-13] MEDS: IBUPROFEN 600 MG TAB PO PRN (09:35)
--- NOTE | 2016-11-13 11:00 | HHI.PR ---
Subjective Remarks Denies cp/sob denies fevers/chills denies diarrhea eating well w good appetite. Objective Vitals Vital Signs Date Time Temp Pulse Resp B/P Pulse Ox O2 Delivery O2 Flow Rate FiO2 11/13/16 08:00 96.5 72 16 125/77 98 11/13/16 05:30 18 11/13/16 04:00 96.6 86 16 121/89 98 11/13/16 00:00 96.0 71 16 122/70 98 11/12/16 21:11 18 11/12/16 20:00 97.0 66 16 117/69 99 11/12/16 20:00 104 11/12/16 16:00 97.0 84 19 133/74 99 11/12/16 12:00 97.3 70 20 108/64 100 I/O 11/12/16 11/12/16 11/12/16 11/13/16 11/13/16 11/13/16 07:00 15:00 23:00 07:00 15:00 23:00 Intake Total 1067 ml 303 ml 1720 ml 1443 ml Balance 1067 ml 303 ml 1720 ml 1443 ml Intake Oral 360 ml 1720 ml 480 ml IV Total 707 ml 303 ml 963 ml # Voids 4 6 2 # Bowel Movements 0 2 Result Diagram: 11/12/16 1141 11/13/16 0632 Imaging Last 72 hours Impressions Chest X-Ray 11/11/16 0000 Signed Impressions: Service Date/Time: Friday, November 11, 2016 13:09 - CONCLUSION: No acute cardiopulmonary abnormality is identified. Stable chest x-ray. Kyle Black MD Objective Remarks GENERAL: Resting comfortably in bed. SKIN: Warm and dry. HEAD: Normocephalic and atraumatic. EYES: No injection or drainage. ENT: No nasal drainage noted. NECK: Supple, trachea midline. CARDIOVASCULAR: Regular rate and rhythm. Grade 2 systolic murmur appreciated. RESPIRATORY: No increased effort. No accessory muscle use. CTAB. GASTROINTESTINAL: Abdomen soft, nontender, nondistended. EXTREMITIES: No edema. NEUROLOGICAL: Awake. Motor and sensory grossly within normal limits. Normal speech. PSYCH: Mood and affect appropriate. Procedures none Medications and IVs Current Medications Medications (Trade) Dose Ordered Sig/Abdirahman Route Start Time Stop Time Status Last Admin (NS 1000 ml Inj) 1,000 ml @ 100 mls/hr Q10H IV 11/05/16 05:26 11/13/16 03:26 (NS Flush) 2 ml UNSCH PRN IV FLUSH 11/05/16 05:30 (NS Flush) 2 ml BID IV FLUSH 11/05/16 09:00 11/11/16 09:06 (Zofran Inj) 4 mg Q6H PRN IVP 11/05/16 05:30 (Tylenol) 650 mg Q6H PRN PO 11/05/16 05:30 11/12/16 11:48 (Roxicodone) 10 mg Q4H PRN PO 11/05/16 05:30 11/13/16 09:34 (Roxicodone) 5 mg Q4H PRN PO 11/05/16 05:30 11/05/16 12:44 (Ina-Colace) 1 tab BID PO 11/05/16 09:00 11/13/16 09:34 (Milk Of Magnalvarez Liq) 30 ml Q12H PRN PO 11/05/16 05:30 (Senokot) 17.2 mg Q12H PRN PO 11/05/16 05:30 (Dulcolax Supp) 10 mg DAILY PRN RECTAL 11/05/16 05:30 Lactulose 30 ml 30 ml DAILY PRN PO 11/05/16 05:30 (Prostaphlin Inj/ NS Inj) 100 ml @ 200 mls/hr Q4H IV 11/05/16 20:00 11/13/16 09:36 Enoxaparin Sodium 30 mg 30 mg Q24H SQ 11/07/16 11:00 11/12/16 11:49 (Gentamicin 80 Mg Premix) 100 ml @ 200 mls/hr Q8H IV 11/07/16 13:00 11/13/16 05:31 (Rifampin) 300 mg Q8HR PO 11/07/16 14:00 11/13/16 05:31 (Motrin) 600 mg Q8H PRN PO 11/08/16 14:30 11/13/16 09:35 (Ambien) 5 mg HS PRN PO 11/08/16 14:30 11/12/16 21:47 Urinary Catheter: No Vascular Central Line Catheter: No A/P Assessment and Plan Sepsis/ Bacteremia/ Endocarditis The patient has significant leukocytosis, tachycardia and has been febrile. Chest x-ray and UA unremarkable. CT of the abdomen concerning for possible cholecystitis, HIDA scan was not indicative of cholecystitis. He has been having diarrhea. C diff PCR negative. He has a history of endocarditis and continues to use illicit substances, though denies IV use recently. Concern for endocarditis. 07/05 blood cultures growing MSSA. Sensitivities noted. ID consult appreciated. Cefepime and vancomycin discontinued. Echo with EF 40-45%, apparent vegetations of mitral and tricuspid valves. - continue IV oxacillin, gentamicin and PO rifampin per ID. No changes 11/11. - follow repeat blood cultures from 11/11. Pleuritic chest pain The pt endorses chest pain with deep breathing. - repeat CXR. - Duonebs and oxygen as needed. - incentive spirometry. RUQ pain The pt has RUQ pain. Total bilirubin was elevated, now normal. General surgery consult appreciated. HIDA scan not indicative of cholecystitis. - surgery signed off. - ADAT. - pain control as needed. Illicit substance use/ Nicotine dependence The patient said he recently used crack cocaine. - Cessation instruction. - Nicotine patch deferred. - case management referral. Acute renal insufficiency Likely prerenal as the patient has not been eating and has been vomiting. - IV fluids and avoid nephrotoxic agents. Resolved. Thrombocytopenia Chronic. - monitor as needed. PPx: Carlos Delgadillo MD Nov 13, 2016 11:00
[2016-11-13 12:00] VITALS: BP 115/66; PULSE 80; RESP 16; TEMP 97.2; O2SAT 97
[2016-11-13] MEDS: ENOXAPARIN SODIUM 30 MG/0.3 ML SYRINGE SQ SCH (13:43)
[2016-11-13 16:00] VITALS: BP 118/71; PULSE 88; RESP 16; TEMP 96.5; O2SAT 97
[2016-11-13 19:00] VITALS: BP 117/67; PULSE 91; RESP 16; TEMP 96.3; O2SAT 98
[2016-11-13] MEDS: ZOLPIDEM TARTRATE 5 MG TAB PO PRN (22:00)
[2016-11-14] VITALS: BP 114/65; PULSE 83; RESP 17; TEMP 96.3; O2SAT 98
[2016-11-14] MEDS: IBUPROFEN 600 MG TAB PO PRN ×2 (00:01→22:35)
[2016-11-14] MEDS: OXACILLIN INJ 2 GM in SODIUM CHLORIDE 0.9% INJ 100 ML IV SCH ×6 (04:34→23:56)
[2016-11-14] MEDS: RIFAMPIN 150 MG CAP PO SCH ×3 (06:21→20:13)
[2016-11-14] MEDS: GENTAMICIN 80 MG PREMIX 100 ML IV SCH ×2 (06:22→12:15)
[2016-11-14] MEDS: DOCUSATE SODIUM 50 MG/SENNA 8.6 MG TAB PO SCH ×2 (07:45→20:13)
[2016-11-14] MEDS: ACETAMINOPHEN 325 MG TAB PO PRN ×2 (07:47→14:37)
[2016-11-14 08:00] VITALS: BP 117/62; PULSE 67; RESP 18; TEMP 96; O2SAT 98
--- NOTE | 2016-11-14 08:50 | HHI.PR ---
Subjective Remarks Patient states he woke up with a headache. Was given Tylenol for this, he is not sure if it has helped yet Discussed with the patient and the nurse. Continue current treatment with antibiotics Objective Vitals Vital Signs Date Time Temp Pulse Resp B/P Pulse Ox O2 Delivery O2 Flow Rate FiO2 11/14/16 07:22 18 11/14/16 01:01 18 11/14/16 00:00 96.3 83 17 114/65 98 11/13/16 19:00 96.3 91 16 117/67 98 11/13/16 16:00 96.5 88 16 118/71 97 11/13/16 12:00 97.2 80 16 115/66 97 I/O 11/13/16 11/13/16 11/13/16 11/14/16 11/14/16 11/14/16 06:59 14:59 22:59 06:59 14:59 22:59 Intake Total 1443 ml 1903 ml 480 ml Balance 1443 ml 1903 ml 480 ml Intake Oral 480 ml 1180 ml 480 ml IV Total 963 ml 723 ml # Voids 2 6 2 # Bowel Movements 1 0 Result Diagram: 11/12/16 1141 11/13/16 0632 Other Results Laboratory Tests Test 11/11/16 11/12/16 11/13/16 22:18 11:41 06:32 Creatinine 1.09 MG/DL 0.93 MG/DL 0.96 MG/DL Estimat Glomerular Filtration 78 ML/MIN 94 ML/MIN 90 ML/MIN Rate White Blood Count 9.8 TH/MM3 Red Blood Count 4.17 MIL/MM3 Hemoglobin 12.6 GM/DL Hematocrit 36.8 % Mean Corpuscular Volume 88.2 FL Mean Corpuscular Hemoglobin 30.2 PG Mean Corpuscular Hemoglobin 34.2 % Concent Red Cell Distribution Width 13.7 % Platelet Count 203 TH/MM3 Mean Platelet Volume 9.0 FL Neutrophils (%) (Auto) 71.0 % Lymphocytes (%) (Auto) 18.6 % Monocytes (%) (Auto) 8.6 % Eosinophils (%) (Auto) 1.3 % Basophils (%) (Auto) 0.5 % Neutrophils # (Auto) 6.9 TH/MM3 Lymphocytes # (Auto) 1.8 TH/MM3 Monocytes # (Auto) 0.8 TH/MM3 Eosinophils # (Auto) 0.1 TH/MM3 Basophils # (Auto) 0.0 TH/MM3 CBC Comment DIFF FINAL Differential Comment Sodium Level 143 MEQ/L Potassium Level 4.3 MEQ/L Chloride Level 108 MEQ/L Carbon Dioxide Level 30.4 MEQ/L Anion Gap 5 MEQ/L Blood Urea Nitrogen 12 MG/DL Random Glucose 85 MG/DL Calcium Level 8.6 MG/DL Total Bilirubin 0.4 MG/DL Aspartate Amino Transf 14 U/L (AST/SGOT) Alanine Aminotransferase 18 U/L (ALT/SGPT) Alkaline Phosphatase 71 U/L Total Protein 6.4 GM/DL Albumin 3.0 GM/DL Imaging Last Impressions Chest X-Ray 11/11/16 0000 Signed Impressions: Service Date/Time: Friday, November 11, 2016 13:09 - CONCLUSION: No acute cardiopulmonary abnormality is identified. Stable chest x-ray. Kyle Black MD Hepatobiliary Scan Nuclear Medicine 11/05/16 0000 Signed Impressions: Service Date/Time: Saturday, November 05, 2016 09:08 - CONCLUSION: 1. Normal filling of the gallbladder excludes cystic duct obstruction and acute cholecystitis. No acute finding is identified. 2. There is severe bile reflux into the stomach. Kyle Black MD Head CT 11/05/16 0000 Signed Impressions: Service Date/Time: Saturday, November 05, 2016 04:06 - CONCLUSION: 1. No evidence of acute intracranial pathology. No masses are identified. Jv Mae MD Abdomen/Pelvis CT 11/05/16 0000 Signed Impressions: Service Date/Time: Saturday, November 05, 2016 04:10 - CONCLUSION: 1. Pericholecystic fluid without stone. Cholecystitis is not excluded. Radionuclide imaging is recommended for further evaluation if clinically indicated. 2. Nonobstructing right renal stone Jv Mae MD Objective Remarks GENERAL: Awake alert and oriented talkative and cooperative SKIN: Warm and dry. HEAD: Atraumatic. Normocephalic. EYES: Pupils equal and round. No scleral icterus. No injection or drainage. Extraocular muscles grossly intact ENT: No nasal bleeding or discharge. Mucous membranes pink and moist. NECK: Trachea midline. No JVD. CARDIOVASCULAR: Regular rate and rhythm. S1-S2 no S3 or S4 4/6 systolic ejection murmur RESPIRATORY: No accessory muscle use. Clear to auscultation. Breath sounds equal bilaterally. GASTROINTESTINAL: Abdomen soft, non-tender, nondistended. Hepatic and splenic margins not palpable. MUSCULOSKELETAL: Extremities without clubbing, cyanosis, or edema. No obvious deformities. NEUROLOGICAL: Awake and alert. No obvious cranial nerve deficits. Motor grossly within normal limits. Five out of 5 muscle strength in the arms and legs. Normal speech. PSYCHIATRIC: Appropriate mood and affect; insight and judgment ABnormal. Procedures none Medications and IVs Current Medications Acetaminophen 650 mg 650 mg ONCE ONCE PO Last administered on 11/05/16 02:43; Start 11/05/16 at 02:45; Stop 11/05/16 at 02:46; Status DC Sodium Chloride 1,000 ml @ 1,000 mls/hr Q1H ONCE IV Last administered on 02:43; Start 11/05/16 at 02:38; Stop 11/05/16 at 03:37; Status DC Vancomycin HCl 1000 mg/Sodium Chloride 250 ml @ 250 mls/hr ONCE STAT IV Last administered on 11/05/16 04:27; Start 11/05/16 at 03:41; Stop 11/05/16 at 04:40; Status DC Piperacillin Sod/ Tazobactam Sod 100 ml @ 200 mls/hr ONCE STAT IV Last administered on 11/05/16 03:48; Start 11/05/16 at 03:41; Stop 11/05/16 at 18:42; Status DC Sodium Chloride (NS 1000 ml Inj) 1,000 ml @ 999 mls/hr BOLUS ONCE IV Last administered on 11/05/16 03:45; Start 11/05/16 at 03:45; Stop 11/05/16 at 04:45; Status DC Iohexol 100 ml 100 ml STK-MED ONCE IV Last administered on 11/05/16 04:21; Start 11/05/16 at 04:21; Stop 11/05/16 at 04:22; Status DC Pharmacy Profile Note 0 ml @ 0 mls/hr UNSCH OTHER ; Start 11/05/16 at 05:30; Stop 11/07/16 at 12:29; Status DC Cefepime HCl 1000 mg/Sodium Chloride 100 ml @ 200 mls/hr Q12H IV Last administered on 11/05/16 16:03; Start 11/05/16 at 18:00; Stop 11/05/16 at 18:42; Status DC Sodium Chloride (NS 1000 ml Inj) 1,000 ml @ 100 mls/hr Q10H IV Last administered on 11/13/16 13:26; Start 11/05/16 at 05:26 Sodium Chloride (NS Flush) 2 ml UNSCH PRN IV FLUSH FLUSH AFTER USING IV ACCESS ; Start 11/05/16 at 05:30 Sodium Chloride (NS Flush) 2 ml BID IV FLUSH Last administered on 11/13/16 21: 00; Start 11/05/16 at 09:00 Ondansetron HCl (Zofran Inj) 4 mg Q6H PRN IVP NAUSEA OR VOMITING; Start at 05:30 Acetaminophen (Tylenol) 650 mg Q6H PRN PO FEVER/PAIN SCALE 1 TO 2 Last administered on 11/14/16 07:47; Start 11/05/16 at 05:30 Oxycodone HCl (Roxicodone) 10 mg Q4H PRN PO PAIN SCALE 6 TO 10 Last administered on 11/14/16 06:21; Start 11/05/16 at 05:30 Oxycodone HCl (Roxicodone) 5 mg Q4H PRN PO PAIN SCALE 3 TO 5 Last administered on 11/05/16 12:44; Start 11/05/16 at 05:30 Senna/Docusate Sodium (Ina-Colace) 1 tab BID PO Last administered on 07:45; Start 11/05/16 at 09:00 Magnesium Hydroxide (Milk Of Magnesia Liq) 30 ml Q12H PRN PO MILD - MODERATE CONSTIPATION; Start 11/05/16 at 05:30 Sennosides (Senokot) 17.2 mg Q12H PRN PO MODERATE - SEVERE CONSTIPATION; Start 11/05/16 at 05:30 Bisacodyl (Dulcolax Supp) 10 mg DAILY PRN RECTAL SEVERE CONSITIPATION; Start at 05:30 Lactulose 30 ml 30 ml DAILY PRN PO SEVERE CONSITIPATION; Start 11/05/16 at 05:30 Vancomycin HCl 500 mg/Sodium Chloride 100 ml @ 200 mls/hr NOW IV ; Start at 06:00; Stop 11/05/16 at 08:00; Status DC Vancomycin HCl/ Sodium Chloride (Vancomycin Inj/ NS 500 ml Inj) 515 ml @ 257.5 mls/ hr Q12H IV Last administered on 11/07/16 12:17; Start 11/05/16 at 13:00; Stop 11/07/16 at 12:29; Status DC Miscellaneous Information SPECIFIC LAB TO BE CAROLINE... ONCE ONCE .XX Last administered on 11/07/16 00:45; Start 11/07/16 at 00:45; Stop 11/07/16 at 00:46; Status DC Sodium Phosphate 30 mmol/Sodium Chloride 260 ml @ 43.333 mls/ hr ONCE ONCE IV Last administered on 11/05/16 11:13; Start 11/05/16 at 09:45; Stop 11/05/16 at 15:44; Status DC Magnesium Sulfate/ Dextrose 100 ml @ 100 mls/hr ONCE ONCE IV Last administered on 11/05/16 11:13; Start 11/05/16 at 10:00; Stop 11/05/16 at 10:59; Status DC Oxacillin Sodium/ Sodium Chloride (Prostaphlin Inj/ NS Inj) 100 ml @ 200 mls/ hr Q4H IV Last administered on 11/14/16 04:34; Start 11/05/16 at 20:00 Potassium Bicarb/ Potassium Chloride (K-Lyte Cl Eff) 50 meq ONCE ONCE PO Last administered on 11/07/16 12:17; Start 11/07/16 at 10:30; Stop 11/07/16 at 10: 53; Status DC Enoxaparin Sodium 30 mg 30 mg Q24H SQ Last administered on 11/13/16 13:43; Start 11/07/16 at 11:00 Gentamicin Sulfate/Sodium Chloride (Gentamicin 80 Mg Premix) 100 ml @ 200 mls/ hr Q8H IV Last administered on 11/14/16 06:22; Start 11/07/16 at 13:00 Rifampin (Rifampin) 300 mg Q8HR PO Last administered on 11/14/16 06:21; Start 11/07/16 at 14:00 Zolpidem Tartrate (Ambien) 5 mg ONCE ONCE PO Last administered on 11/07/16 22: 43; Start 11/07/16 at 21:15; Stop 11/07/16 at 21:16; Status DC Ibuprofen (Motrin) 600 mg Q8H PRN PO breakthrough pain Last administered on 00:01; Start 11/08/16 at 14:30 Zolpidem Tartrate (Ambien) 5 mg HS PRN PO Insomnia Last administered on 22:00; Start 11/08/16 at 14:30 Albuterol/ Ipratropium (Duoneb Neb) 1 ampule ONCE ONCE NEB Last administered on 11/11/16 13:23; Start 11/11/16 at 12:15; Stop 11/11/16 at 12:27; Status DC Albuterol/ Ipratropium (Duoneb Neb) 1 ampule Q2HR NEB PRN NEB dyspnea Last administered on 11/12/16 01:42; Start 11/11/16 at 12:15 Urinary Catheter: No Vascular Central Line Catheter: No A/P Problem List: (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 Chest x-ray and UA unremarkable. CT of the abdomen concerning for possible cholecystitis, HIDA scan was not indicative of cholecystitis. He has been having diarrhea. C diff PCR negative. He has a history of endocarditis and continues to use illicit substances, though denies IV use recently. Concern for endocarditis. 07/05 blood cultures growing MSSA. Sensitivities noted. ID consult appreciated. Cefepime and vancomycin discontinued. Echo with EF 40-45%, apparent vegetations of mitral and tricuspid valves. - continue IV oxacillin, gentamicin and PO rifampin per ID. No changes 11/11. - follow repeat blood cultures from 11/11. Pleuritic chest pain The pt endorses chest pain with deep breathing. - repeat CXR. - Duonebs and oxygen as needed. - incentive spirometry. RUQ pain The pt has RUQ pain. Total bilirubin was elevated, now normal. General surgery consult appreciated. HIDA scan not indicative of cholecystitis. - surgery signed off. - ADAT. - pain control as needed. Illicit substance use/ Nicotine dependence The patient said he recently used crack cocaine. - Cessation instruction. - Nicotine patch deferred. - case management referral. Acute renal insufficiency Likely prerenal as the patient has not been eating and has been vomiting. - IV fluids and avoid nephrotoxic agents. Resolved. Thrombocytopenia Chronic. - monitor as needed. PPx: Felipe Fischer DO Nov 14, 2016 08:50
[2016-11-14] MEDS: SODIUM CHLORIDE 0.9% FLUSH 10 ML FLUSH IV FLUSH SCH ×2 (09:00→20:13)
[2016-11-14] MEDS: ENOXAPARIN SODIUM 30 MG/0.3 ML SYRINGE SQ SCH (10:22)
[2016-11-14 12:00] VITALS: BP 121/65; PULSE 81; RESP 18; TEMP 95.9; O2SAT 98
--- NOTE | 2016-11-14 13:04 | HHI.IDPN ---
Note Infectious Disease Note ID COVERAGE Chart reviewed Patient with Dx MSSA sepsis, PVE MVR Temps ok No hearing complainst, no tinnitus No dizziness No rash or itching No diarrhea C/O mild AGOSTO Blood culture has staph aureus. 2D ECHO has mitral valve vegetation. Possible tricuspid vegetation as well. PAST HISTORY 1. Mitral valve endocarditis. 2. Mitral valve surgery x 2. Annuloplasty, Replacement with bioprosthetic valve. 3. Brain hemorrhage 4. History of IVDU in the past. ALLERGIES NO KNOWN DRUG ALLERGIES. ANTIBIOTICS Oxacillin Gentamicin Rifampin OBJECTIVE Vital Signs Date Time Temp Pulse Resp B/P Pulse Ox O2 Delivery O2 Flow Rate FiO2 11/14/16 08:00 96.0 67 18 117/62 98 11/14/16 07:22 18 11/14/16 01:01 18 11/14/16 00:00 96.3 83 17 114/65 98 11/13/16 19:00 96.3 91 16 117/67 98 11/13/16 16:00 96.5 88 16 118/71 97 Laboratory Tests Test 11/13/16 06:32 Creatinine 0.96 MG/DL Estimat Glomerular Filtration 90 ML/MIN Rate Laboratory Tests Test 11/09/16 07:11 White Blood Count 7.3 TH/MM3 Red Blood Count 4.32 MIL/MM3 Hemoglobin 13.0 GM/DL Hematocrit 38.0 % Mean Corpuscular Volume 88.0 FL Mean Corpuscular Hemoglobin 30.2 PG Mean Corpuscular Hemoglobin 34.3 % Concent Red Cell Distribution Width 13.7 % Platelet Count 139 TH/MM3 Mean Platelet Volume 10.3 FL Laboratory Tests Test 11/09/16 07:11 Sodium Level 143 MEQ/L Potassium Level 3.8 MEQ/L Chloride Level 108 MEQ/L Carbon Dioxide Level 28.2 MEQ/L Anion Gap 7 MEQ/L Blood Urea Nitrogen 10 MG/DL Creatinine 0.89 MG/DL Estimat Glomerular Filtration 98 ML/MIN Rate Random Glucose 84 MG/DL Calcium Level 8.4 MG/DL Phosphorus Level 2.5 MG/DL Microbiology Date/Time Procedure Status Source Growth 11/05/16 02:40 Aerobic Blood Culture - Final Complete Blood Peripheral Staphylococcus Aureus 11/05/16 02:40 Anaerobic Blood Culture - Final Complete Staphylococcus Aureus 11/05/16 02:45 Aerobic Blood Culture - Final Complete Blood Peripheral Staphylococcus Aureus 11/05/16 02:45 Anaerobic Blood Culture - Final Complete Staphylococcus Aureus 11/06/16 14:50 Aerobic Blood Culture - Preliminary Resulted Blood Peripheral NO GROWTH IN 1 DAY 11/06/16 14:50 Anaerobic Blood Culture - Preliminary Resulted Blood Peripheral NO GROWTH IN 1 DAY IMAGING Last Impressions Chest X-Ray 11/11/16 0000 Signed Impressions: Service Date/Time: Friday, November 11, 2016 13:09 - CONCLUSION: No acute cardiopulmonary abnormality is identified. Stable chest x-ray. Kyle Black MD Hepatobiliary Scan Nuclear Medicine 11/05/16 0000 Signed Impressions: Service Date/Time: Saturday, November 05, 2016 09:08 - CONCLUSION: 1. Normal filling of the gallbladder excludes cystic duct obstruction and acute cholecystitis. No acute finding is identified. 2. There is severe bile reflux into the stomach. Kyle Black MD Head CT 11/05/16 0000 Signed Impressions: Service Date/Time: Saturday, November 05, 2016 04:06 - CONCLUSION: 1. No evidence of acute intracranial pathology. No masses are identified. Jv Mae MD Abdomen/Pelvis CT 11/05/16 0000 Signed Impressions: Service Date/Time: Saturday, November 05, 2016 04:10 - CONCLUSION: 1. Pericholecystic fluid without stone. Cholecystitis is not excluded. Radionuclide imaging is recommended for further evaluation if clinically indicated. 2. Nonobstructing right renal stone Jv Mae MD PHYSICAL EXAMINATION GENERAL: No acute distress. Awake and alert HEENT: No icterus. No conjunctival erythema. Oropharynx moist mucosa without lesions. No petechia or hemorrhage NECK: Supple. No adenopathy. LUNGS: Clear breath sounds HEART: Regular rate and rhythm without audible murmurs, rubs or gallops. Heart sounds are distant. ABDOMEN: Bowel sounds present, soft, no tenderness appreciated. No mass palpable. EXTREMITIES: No clubbing, cyanosis or edema. No embolic phenomena visible at the extremities. SKIN: No rash. NEUROLOGIC: Nonfocal PSYCHIATRIC: The patient is calm and cooperative. IMPRESSION MSSA sepsis due to MVR PVE PVE Leukocytosis, due to infection, resolved Known IV drug use Renal insufficiency, resolved RECOMMENDATIONS Continue oxacillin Continue rifampin - Follow LFTs Stop gentamicin Monitor progress If headache persists, may need to do imaging study Explained plan to the patient Nicole Salas MD Nov 14, 2016 13:04
[2016-11-14 16:00] VITALS: BP 132/77; PULSE 73; RESP 18; TEMP 97.3; O2SAT 100
[2016-11-14] MEDS: SODIUM CHLOR 0.9% 1000 ML INJ 1,000 ML IV SCH ×2 (19:20→20:12)
[2016-11-14 20:11] VITALS: PULSE 86
[2016-11-14 20:40] VITALS: BP 116/65; PULSE 93; RESP 16; TEMP 96.7; O2SAT 98
[2016-11-14] MEDS: ZOLPIDEM TARTRATE 5 MG TAB PO PRN (22:34)
[2016-11-15 00:35] VITALS: BP 116/62; PULSE 77; RESP 16; TEMP 97.3; O2SAT 99
[2016-11-15 04:30] VITALS: BP 103/49; PULSE 98; RESP 16; TEMP 96.9; O2SAT 98
[2016-11-15] MEDS: OXACILLIN INJ 2 GM in SODIUM CHLORIDE 0.9% INJ 100 ML IV SCH ×5 (04:35→20:16)
[2016-11-15] MEDS: RIFAMPIN 150 MG CAP PO SCH ×2 (04:35→13:23)
[2016-11-15] MEDS: ACETAMINOPHEN 325 MG TAB PO PRN ×3 (07:02→20:11)
[2016-11-15 08:00] VITALS: BP 94/52; PULSE 79; RESP 18; TEMP 97.5; O2SAT 100
--- NOTE | 2016-11-15 08:36 | HHI.PR ---
Subjective Remarks 11-14 Patient states he woke up with a headache. Was given Tylenol for this, he is not sure if it has helped yet Discussed with the patient and the nurse. Continue current treatment with antibiotics 11-15 complains of some pain in left eye good eomi, perrla continue pain medications monitor for visual changes dw RN AND PATIENT Objective Vitals Vital Signs Date Time Temp Pulse Resp B/P Pulse Ox O2 Delivery O2 Flow Rate FiO2 11/15/16 04:30 96.9 98 16 103/49 98 11/15/16 00:35 97.3 77 16 116/62 99 11/14/16 20:40 96.7 93 16 116/65 98 11/14/16 20:11 86 11/14/16 16:00 97.3 73 18 132/77 100 11/14/16 12:00 95.9 81 18 121/65 98 I/O 11/14/16 11/14/16 11/14/16 11/15/16 11/15/16 11/15/16 07:00 15:00 23:00 07:00 15:00 23:00 Intake Total 480 ml 2530 ml 1539 ml Balance 480 ml 2530 ml 1539 ml Intake Oral 480 ml 1680 ml 720 ml IV Total 850 ml 819 ml # Voids 2 6 2 # Bowel Movements 0 1 0 Result Diagram: 11/12/16 1141 11/13/16 0632 Other Results Laboratory Tests Test 11/12/16 11/13/16 11:41 06:32 White Blood Count 9.8 TH/MM3 Red Blood Count 4.17 MIL/MM3 Hemoglobin 12.6 GM/DL Hematocrit 36.8 % Mean Corpuscular Volume 88.2 FL Mean Corpuscular Hemoglobin 30.2 PG Mean Corpuscular Hemoglobin 34.2 % Concent Red Cell Distribution Width 13.7 % Platelet Count 203 TH/MM3 Mean Platelet Volume 9.0 FL Neutrophils (%) (Auto) 71.0 % Lymphocytes (%) (Auto) 18.6 % Monocytes (%) (Auto) 8.6 % Eosinophils (%) (Auto) 1.3 % Basophils (%) (Auto) 0.5 % Neutrophils # (Auto) 6.9 TH/MM3 Lymphocytes # (Auto) 1.8 TH/MM3 Monocytes # (Auto) 0.8 TH/MM3 Eosinophils # (Auto) 0.1 TH/MM3 Basophils # (Auto) 0.0 TH/MM3 CBC Comment DIFF FINAL Differential Comment Sodium Level 143 MEQ/L Potassium Level 4.3 MEQ/L Chloride Level 108 MEQ/L Carbon Dioxide Level 30.4 MEQ/L Anion Gap 5 MEQ/L Blood Urea Nitrogen 12 MG/DL Creatinine 0.93 MG/DL 0.96 MG/DL Estimat Glomerular Filtration 94 ML/MIN 90 ML/MIN Rate Random Glucose 85 MG/DL Calcium Level 8.6 MG/DL Total Bilirubin 0.4 MG/DL Aspartate Amino Transf 14 U/L (AST/SGOT) Alanine Aminotransferase 18 U/L (ALT/SGPT) Alkaline Phosphatase 71 U/L Total Protein 6.4 GM/DL Albumin 3.0 GM/DL Imaging Last Impressions Chest X-Ray 11/11/16 0000 Signed Impressions: Service Date/Time: Friday, November 11, 2016 13:09 - CONCLUSION: No acute cardiopulmonary abnormality is identified. Stable chest x-ray. Kyle Black MD Hepatobiliary Scan Nuclear Medicine 11/05/16 0000 Signed Impressions: Service Date/Time: Saturday, November 05, 2016 09:08 - CONCLUSION: 1. Normal filling of the gallbladder excludes cystic duct obstruction and acute cholecystitis. No acute finding is identified. 2. There is severe bile reflux into the stomach. Kyle Black MD Head CT 11/05/16 0000 Signed Impressions: Service Date/Time: Saturday, November 05, 2016 04:06 - CONCLUSION: 1. No evidence of acute intracranial pathology. No masses are identified. Jv Mae MD Abdomen/Pelvis CT 11/05/16 0000 Signed Impressions: Service Date/Time: Saturday, November 05, 2016 04:10 - CONCLUSION: 1. Pericholecystic fluid without stone. Cholecystitis is not excluded. Radionuclide imaging is recommended for further evaluation if clinically indicated. 2. Nonobstructing right renal stone Jv Mae MD Objective Remarks GENERAL: Awake alert and oriented talkative and cooperative SKIN: Warm and dry. HEAD: Atraumatic. Normocephalic. EYES: Pupils equal and round. No scleral icterus. No injection or drainage. Extraocular muscles grossly intact GOOD VISUAL WAN ENT: No nasal bleeding or discharge. Mucous membranes pink and moist. NECK: Trachea midline. No JVD. CARDIOVASCULAR: Regular rate and rhythm. S1-S2 no S3 or S4 4/6 systolic ejection murmur RESPIRATORY: No accessory muscle use. Clear to auscultation. Breath sounds equal bilaterally. GASTROINTESTINAL: Abdomen soft, non-tender, nondistended. Hepatic and splenic margins not palpable. MUSCULOSKELETAL: Extremities without clubbing, cyanosis, or edema. No obvious deformities. NEUROLOGICAL: Awake and alert. No obvious cranial nerve deficits. Motor grossly within normal limits. Five out of 5 muscle strength in the arms and legs. Normal speech. PSYCHIATRIC: Appropriate mood and affect; insight and judgment ABnormal. Procedures none Medications and IVs Current Medications Acetaminophen 650 mg 650 mg ONCE ONCE PO Last administered on 11/05/16 02:43; Start 11/05/16 at 02:45; Stop 11/05/16 at 02:46; Status DC Sodium Chloride 1,000 ml @ 1,000 mls/hr Q1H ONCE IV Last administered on 02:43; Start 11/05/16 at 02:38; Stop 11/05/16 at 03:37; Status DC Vancomycin HCl 1000 mg/Sodium Chloride 250 ml @ 250 mls/hr ONCE STAT IV Last administered on 11/05/16 04:27; Start 11/05/16 at 03:41; Stop 11/05/16 at 04:40; Status DC Piperacillin Sod/ Tazobactam Sod 100 ml @ 200 mls/hr ONCE STAT IV Last administered on 11/05/16 03:48; Start 11/05/16 at 03:41; Stop 11/05/16 at 18:42; Status DC Sodium Chloride (NS 1000 ml Inj) 1,000 ml @ 999 mls/hr BOLUS ONCE IV Last administered on 11/05/16 03:45; Start 11/05/16 at 03:45; Stop 11/05/16 at 04:45; Status DC Iohexol 100 ml 100 ml STK-MED ONCE IV Last administered on 11/05/16 04:21; Start 11/05/16 at 04:21; Stop 11/05/16 at 04:22; Status DC Pharmacy Profile Note 0 ml @ 0 mls/hr UNSCH OTHER ; Start 11/05/16 at 05:30; Stop 11/07/16 at 12:29; Status DC Cefepime HCl 1000 mg/Sodium Chloride 100 ml @ 200 mls/hr Q12H IV Last administered on 11/05/16 16:03; Start 11/05/16 at 18:00; Stop 11/05/16 at 18:42; Status DC Sodium Chloride (NS 1000 ml Inj) 1,000 ml @ 100 mls/hr Q10H IV Last administered on 11/14/16 20:12; Start 11/05/16 at 05:26 Sodium Chloride (NS Flush) 2 ml UNSCH PRN IV FLUSH FLUSH AFTER USING IV ACCESS ; Start 11/05/16 at 05:30 Sodium Chloride (NS Flush) 2 ml BID IV FLUSH Last administered on 11/13/16 21: 00; Start 11/05/16 at 09:00 Ondansetron HCl (Zofran Inj) 4 mg Q6H PRN IVP NAUSEA OR VOMITING; Start at 05:30 Acetaminophen (Tylenol) 650 mg Q6H PRN PO FEVER/PAIN SCALE 1 TO 2 Last administered on 11/15/16 07:02; Start 11/05/16 at 05:30 Oxycodone HCl (Roxicodone) 10 mg Q4H PRN PO PAIN SCALE 6 TO 10 Last administered on 11/15/16 07:02; Start 11/05/16 at 05:30 Oxycodone HCl (Roxicodone) 5 mg Q4H PRN PO PAIN SCALE 3 TO 5 Last administered on 11/05/16 12:44; Start 11/05/16 at 05:30 Senna/Docusate Sodium (Ina-Colace) 1 tab BID PO Last administered on 20:13; Start 11/05/16 at 09:00 Magnesium Hydroxide (Milk Of Magnesia Liq) 30 ml Q12H PRN PO MILD - MODERATE CONSTIPATION; Start 11/05/16 at 05:30 Sennosides (Senokot) 17.2 mg Q12H PRN PO MODERATE - SEVERE CONSTIPATION; Start 11/05/16 at 05:30 Bisacodyl (Dulcolax Supp) 10 mg DAILY PRN RECTAL SEVERE CONSITIPATION; Start at 05:30 Lactulose 30 ml 30 ml DAILY PRN PO SEVERE CONSITIPATION; Start 11/05/16 at 05:30 Vancomycin HCl 500 mg/Sodium Chloride 100 ml @ 200 mls/hr NOW IV ; Start at 06:00; Stop 11/05/16 at 08:00; Status DC Vancomycin HCl/ Sodium Chloride (Vancomycin Inj/ NS 500 ml Inj) 515 ml @ 257.5 mls/ hr Q12H IV Last administered on 11/07/16 12:17; Start 11/05/16 at 13:00; Stop 11/07/16 at 12:29; Status DC Miscellaneous Information SPECIFIC LAB TO BE CAROLINE... ONCE ONCE .XX Last administered on 11/07/16 00:45; Start 11/07/16 at 00:45; Stop 11/07/16 at 00:46; Status DC Sodium Phosphate 30 mmol/Sodium Chloride 260 ml @ 43.333 mls/ hr ONCE ONCE IV Last administered on 11/05/16 11:13; Start 11/05/16 at 09:45; Stop 11/05/16 at 15:44; Status DC Magnesium Sulfate/ Dextrose 100 ml @ 100 mls/hr ONCE ONCE IV Last administered on 11/05/16 11:13; Start 11/05/16 at 10:00; Stop 11/05/16 at 10:59; Status DC Oxacillin Sodium/ Sodium Chloride (Prostaphlin Inj/ NS Inj) 100 ml @ 200 mls/ hr Q4H IV Last administered on 11/15/16 07:05; Start 11/05/16 at 20:00 Potassium Bicarb/ Potassium Chloride (K-Lyte Cl Eff) 50 meq ONCE ONCE PO Last administered on 11/07/16 12:17; Start 11/07/16 at 10:30; Stop 11/07/16 at 10: 53; Status DC Enoxaparin Sodium 30 mg 30 mg Q24H SQ Last administered on 11/14/16 10:22; Start 11/07/16 at 11:00 Gentamicin Sulfate/Sodium Chloride (Gentamicin 80 Mg Premix) 100 ml @ 200 mls/ hr Q8H IV Last administered on 11/14/16 12:15; Start 11/07/16 at 13:00; Stop at 13:05; Status DC Rifampin (Rifampin) 300 mg Q8HR PO Last administered on 11/15/16 04:35; Start 11/07/16 at 14:00 Zolpidem Tartrate (Ambien) 5 mg ONCE ONCE PO Last administered on 11/07/16 22: 43; Start 11/07/16 at 21:15; Stop 11/07/16 at 21:16; Status DC Ibuprofen (Motrin) 600 mg Q8H PRN PO breakthrough pain Last administered on 22:35; Start 11/08/16 at 14:30 Zolpidem Tartrate (Ambien) 5 mg HS PRN PO Insomnia Last administered on 22:34; Start 11/08/16 at 14:30 Albuterol/ Ipratropium (Duoneb Neb) 1 ampule ONCE ONCE NEB Last administered on 11/11/16 13:23; Start 11/11/16 at 12:15; Stop 11/11/16 at 12:27; Status DC Albuterol/ Ipratropium (Duoneb Neb) 1 ampule Q2HR NEB PRN NEB dyspnea Last administered on 11/12/16 01:42; Start 11/11/16 at 12:15 Urinary Catheter: No Vascular Central Line Catheter: No A/P Problem List: (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 Chest x-ray and UA unremarkable. CT of the abdomen concerning for possible cholecystitis, HIDA scan was not indicative of cholecystitis. He has been having diarrhea. C diff PCR negative. He has a history of endocarditis and continues to use illicit substances, though denies IV use recently. Concern for endocarditis. 07/05 blood cultures growing MSSA. Sensitivities noted. ID consult appreciated. Cefepime and vancomycin discontinued. Echo with EF 40-45%, apparent vegetations of mitral and tricuspid valves. - continue IV oxacillin, gentamicin and PO rifampin per ID. No changes 11/11. - follow repeat blood cultures from 11/11. Pleuritic chest pain The pt endorses chest pain with deep breathing. - repeat CXR. - Duonebs and oxygen as needed. - incentive spirometry. RUQ pain The pt has RUQ pain. Total bilirubin was elevated, now normal. General surgery consult appreciated. HIDA scan not indicative of cholecystitis. - surgery signed off. - ADAT. - pain control as needed. Illicit substance use/ Nicotine dependence The patient said he recently used crack cocaine. - Cessation instruction. - Nicotine patch deferred. - case management referral. Acute renal insufficiency Likely prerenal as the patient has not been eating and has been vomiting. - IV fluids and avoid nephrotoxic agents. Resolved. Thrombocytopenia Chronic. - monitor as needed. VISUAL PAIN LEFT EYE- NO VISION LOSS OR DEFICITS PPx: Lovenox CONTINUE CURRENT TREATMENT MONITOR LEFT EYE Felipe Morris DO Nov 15, 2016 08:36
[2016-11-15] MEDS: DOCUSATE SODIUM 50 MG/SENNA 8.6 MG TAB PO SCH ×2 (09:00→20:10)
[2016-11-15 09:37] LABS: AUTOMATED NEUTROPHIL # 8.4 TH/MM3 (1.8-7.7); BASOPHIL # 0.1 TH/MM3 (0-0.2); BASOPHIL % 0.6 % (0.0-2.0); EOSINOPHIL # 0.1 TH/MM3 (0-0.4); EOSINOPHIL % 0.9 % (0.0-4.0); HEMATOCRIT 40.2 % (39.0-51.0); HEMO FLAGS DIFF FINAL; LYMPH % 13.5 % (9.0-44.0); LYMPHOCYTE # 1.5 TH/MM3 (1.0-4.8); MEAN CELL VOLUME 89.9 FL (80.0-100.0); MEAN CORPUSCULAR HEMOGLOBIN 29.5 PG (27.0-34.0); MEAN CORPUSCULAR HGB CONC 32.8 % (32.0-36.0); MONO % 7.2 % (0.0-8.0); NEUT % 77.8 % (16.0-70.0); PLATELET COUNT 270 TH/MM3 (150-450); RED BLOOD COUNT 4.47 MIL/MM3 (4.50-5.90); WHITE BLOOD COUNT 10.8 TH/MM3 (4.0-11.0)
[2016-11-15 09:55] LABS: ANION GAP 5 MEQ/L (5-15); AST (GOT) 15 U/L (15-37); BICARBONATE 28.4 MEQ/L (21.0-32.0); BLOOD UREA NITROGEN 18 MG/DL (7-18); CHLORIDE 105 MEQ/L (98-107); GLOMERULAR FILTRATION RATE 85 ML/MIN (>89); MAGNESIUM 2.4 MG/DL (1.5-2.5); POTASSIUM 4.4 MEQ/L (3.5-5.1); SODIUM (NA) 138 MEQ/L (136-145)
[2016-11-15 09:56] LABS: ALT (GPT) 19 U/L (12-78)
[2016-11-15 10:05] LABS: ALKALINE PHOSPHATASE 68 U/L (45-117); FREE T4 1.16 NG/DL (0.76-1.46); TOTAL BILIRUBIN ADULT 0.3 MG/DL (0.2-1.0)
[2016-11-15 10:38] LABS: HEMOGLOBIN A1a 1.3 %; HEMOGLOBIN A1b 1.7 %; HEMOGLOBIN Ao 85.4 %; HEMOGLOBIN P3 3.6 %
[2016-11-15] MEDS: ENOXAPARIN SODIUM 30 MG/0.3 ML SYRINGE SQ SCH (11:01)
[2016-11-15 12:00] VITALS: BP 116/67; PULSE 80; RESP 18; TEMP 96.4; O2SAT 100
--- NOTE | 2016-11-15 15:15 | HHI.IDPN ---
Note Infectious Disease Note Notes reviewed. Patient notes severe pain/ache behind the left eye and left presybeterian which lasted a few hours this morning. No visual blurring or diplopia. No tearing. Feels okay now. Denies previous episode. Afebrile. No chills, nausea, sweats. Blood culture 11/11 - no growth. 2D ECHO has mitral valve vegetation. Possible tricuspid vegetation as well. AST MEDICAL HISTORY 1. Mitral valve endocarditis. 2. Mitral valve surgery x 2. Annuloplasty, Replacement with bioprosthetic valve. 3. Brain hemorrhage 4. History of IVDU in the past. ALLERGIES NO KNOWN DRUG ALLERGIES. SOCIAL HISTORY Positive tobacco use, one pack of cigarettes a day. No alcohol. The patient denies illicit drugs except for marijuana. However, he has positive toxicology screening for cocaine in the urine. OBJECTIVE: Vital Signs Date Time Temp Pulse Resp B/P Pulse Ox O2 Delivery O2 Flow Rate FiO2 11/15/16 12:00 96.4 80 18 116/67 100 11/15/16 08:00 97.5 79 18 94/52 100 11/15/16 04:30 96.9 98 16 103/49 98 11/15/16 00:35 97.3 77 16 116/62 99 11/14/16 20:40 96.7 93 16 116/65 98 11/14/16 20:11 86 11/14/16 16:00 97.3 73 18 132/77 100 11/14/16 11/14/16 11/15/16 15:00 23:00 07:00 Intake Total 2530 ml 1539 ml Balance 2530 ml 1539 ml Intake Oral 1680 ml 720 ml IV Total 850 ml 819 ml # Voids 6 2 # Bowel Movements 1 0 Laboratory Tests Test 11/15/16 09:14 White Blood Count 10.8 TH/MM3 Red Blood Count 4.47 MIL/MM3 Hemoglobin 13.2 GM/DL Hematocrit 40.2 % Mean Corpuscular Volume 89.9 FL Mean Corpuscular Hemoglobin 29.5 PG Mean Corpuscular Hemoglobin 32.8 % Concent Red Cell Distribution Width 14.0 % Platelet Count 270 TH/MM3 Mean Platelet Volume 8.0 FL Neutrophils (%) (Auto) 77.8 % Lymphocytes (%) (Auto) 13.5 % Monocytes (%) (Auto) 7.2 % Eosinophils (%) (Auto) 0.9 % Basophils (%) (Auto) 0.6 % Neutrophils # (Auto) 8.4 TH/MM3 Lymphocytes # (Auto) 1.5 TH/MM3 Monocytes # (Auto) 0.8 TH/MM3 Eosinophils # (Auto) 0.1 TH/MM3 Basophils # (Auto) 0.1 TH/MM3 CBC Comment DIFF FINAL Differential Comment Laboratory Tests Test 11/15/16 09:14 Sodium Level 138 MEQ/L Potassium Level 4.4 MEQ/L Chloride Level 105 MEQ/L Carbon Dioxide Level 28.4 MEQ/L Anion Gap 5 MEQ/L Blood Urea Nitrogen 18 MG/DL Creatinine 1.01 MG/DL Estimat Glomerular Filtration 85 ML/MIN Rate Random Glucose 91 MG/DL Hemoglobin A1c 5.3 % Calcium Level 8.6 MG/DL Phosphorus Level 3.0 MG/DL Magnesium Level 2.4 MG/DL Total Bilirubin 0.3 MG/DL Aspartate Amino Transf 15 U/L (AST/SGOT) Alanine Aminotransferase 19 U/L (ALT/SGPT) Alkaline Phosphatase 68 U/L Total Protein 6.9 GM/DL Albumin 3.2 GM/DL Free Thyroxine 1.16 NG/DL Thyroid Stimulating Hormone 1.130 uIU/ML 3rd Gen PHYSICAL EXAMINATION GENERAL: No acute distress. HEENT: No icterus. No conjunctival erythema. pupils are dilated. Equal. FUNDI: Clear, no lesions or hemorrhage noted. Oropharynx moist mucosa without lesions. NECK: Supple. No adenopathy. LUNGS: Clear breath sounds HEART: Regular rate and rhythm without audible murmurs, rubs or gallops. ABDOMEN: Bowel sounds present, soft, no tenderness appreciated. EXTREMITIES: No clubbing, cyanosis or edema. No embolic phenomena visible at the extremities. SKIN: No rash. NEUROLOGIC: Nonfocal PSYCHIATRIC: The patient is calm and cooperative. IMPRESSION 1. Bacteremia, staph aureus. 2. Endocarditis mitral valve. prosthetic. 3. Leukocytosis secondary to infection. Improved. 4. Drug use, although the patient denies IV drugs but has positive toxicology screen for cocaine. He denied to me that he snorts cocaine. Abnormal CT scan with pericholecystic fluid. However, negative HIDA scan. 5. Renal insufficiency probably related to profuse vomiting and also diarrhea. improved. 6. Eye pain. ? etiology. Has resolved. Monitor. RECOMMENDATIONS 1. Continue oxacillin x 6 weeks from negative culture. 2. Continue Rifampin x 6 weeks. 3. Monitor blood cultures 4. Monitor clinical status. 5. Consider opthalmology consult, MRI if AGOSTO or eye pain returns or becomes persistent. Percy Jacobson MD Nov 15, 2016 15:15
[2016-11-15 16:00] VITALS: BP 134/79; PULSE 62; RESP 18; TEMP 97; O2SAT 96
[2016-11-15] MEDS: SODIUM CHLOR 0.9% 1000 ML INJ 1,000 ML IV SCH (20:20)
[2016-11-15] MEDS: SODIUM CHLORIDE 0.9% FLUSH 10 ML FLUSH IV FLUSH SCH (20:20)
[2016-11-15 20:45] VITALS: BP 119/76; PULSE 96; RESP 16; TEMP 98.7; O2SAT 99
[2016-11-16] MEDS: RIFAMPIN 150 MG CAP PO SCH ×4 (00:01→22:47)
[2016-11-16] MEDS: OXACILLIN INJ 2 GM in SODIUM CHLORIDE 0.9% INJ 100 ML IV SCH ×6 (00:07→20:44)
[2016-11-16 00:45] VITALS: BP 117/70; PULSE 86; RESP 16; TEMP 96.4; O2SAT 100
[2016-11-16] MEDS: SODIUM CHLOR 0.9% 1000 ML INJ 1,000 ML IV SCH ×3 (04:40→22:02)
[2016-11-16 04:50] VITALS: BP 116/63; PULSE 85; RESP 16; TEMP 97.1; O2SAT 98
[2016-11-16 07:39] VITALS: BP 115/69; PULSE 76; RESP 18; TEMP 96.9; O2SAT 99
[2016-11-16] MEDS: DOCUSATE SODIUM 50 MG/SENNA 8.6 MG TAB PO SCH ×2 (08:23→20:44)
[2016-11-16] MEDS: IBUPROFEN 600 MG TAB PO PRN (08:24)
--- NOTE | 2016-11-16 09:19 | HHI.PR ---
Subjective Remarks -14 Patient states he woke up with a headache. Was given Tylenol for this, he is not sure if it has helped yet Discussed with the patient and the nurse. Continue current treatment with antibiotics 8-15 complains of some pain in left eye good eomi, perrla continue pain medications monitor for visual changes dw RN AND PATIENT 8-16 states his left eye pain has resolved now has neck and back pain Objective Vitals Vital Signs Date Time Temp Pulse Resp B/P Pulse Ox O2 Delivery O2 Flow Rate FiO2 11/16/16 07:39 96.9 76 18 115/69 99 11/16/16 04:50 97.1 85 16 116/63 98 11/16/16 00:45 96.4 86 16 117/70 100 11/15/16 21:11 18 11/15/16 21:11 18 11/15/16 20:45 98.7 96 16 119/76 99 11/15/16 16:00 97.0 62 18 134/79 96 11/15/16 12:00 96.4 80 18 116/67 100 I/O 11/15/16 11/15/16 11/15/16 11/16/16 11/16/16 11/16/16 07:00 15:00 23:00 07:00 15:00 23:00 Intake Total 1539 ml 740 ml 720 ml 480 ml Balance 1539 ml 740 ml 720 ml 480 ml Intake Oral 720 ml 740 ml 720 ml 480 ml IV Total 819 ml # Voids 2 3 3 2 # Bowel Movements 0 1 0 0 Result Diagram: 11/15/1614 11/15/16 0914 Imaging Last Impressions Chest X-Ray 11/11/16 0000 Signed Impressions: Service Date/Time: Friday, November 11, 2016 13:09 - CONCLUSION: No acute cardiopulmonary abnormality is identified. Stable chest x-ray. Kyle Black MD Hepatobiliary Scan Nuclear Medicine 11/05/16 0000 Signed Impressions: Service Date/Time: Saturday, November 05, 2016 09:08 - CONCLUSION: 1. Normal filling of the gallbladder excludes cystic duct obstruction and acute cholecystitis. No acute finding is identified. 2. There is severe bile reflux into the stomach. Kyle Black MD Head CT 11/05/16 0000 Signed Impressions: Service Date/Time: Saturday, November 05, 2016 04:06 - CONCLUSION: 1. No evidence of acute intracranial pathology. No masses are identified. Jv Mae MD Abdomen/Pelvis CT 11/05/16 0000 Signed Impressions: Service Date/Time: Saturday, November 05, 2016 04:10 - CONCLUSION: 1. Pericholecystic fluid without stone. Cholecystitis is not excluded. Radionuclide imaging is recommended for further evaluation if clinically indicated. 2. Nonobstructing right renal stone Jv Mae MD Objective Remarks GENERAL: Awake alert and oriented talkative and cooperative SKIN: Warm and dry. HEAD: Atraumatic. Normocephalic. EYES: Pupils equal and round. No scleral icterus. No injection or drainage. Extraocular muscles grossly intact GOOD VISUAL WAN ENT: No nasal bleeding or discharge. Mucous membranes pink and moist. NECK: Trachea midline. No JVD. CARDIOVASCULAR: Regular rate and rhythm. S1-S2 no S3 or S4 4/6 systolic ejection murmur RESPIRATORY: No accessory muscle use. Clear to auscultation. Breath sounds equal bilaterally. GASTROINTESTINAL: Abdomen soft, non-tender, nondistended. Hepatic and splenic margins not palpable. MUSCULOSKELETAL: Extremities without clubbing, cyanosis, or edema. No obvious deformities. NEUROLOGICAL: Awake and alert. No obvious cranial nerve deficits. Motor grossly within normal limits. Five out of 5 muscle strength in the arms and legs. Normal speech. PSYCHIATRIC: Appropriate mood and affect; insight and judgment ABnormal. Procedures none Medications and IVs Current Medications Acetaminophen 650 mg 650 mg ONCE ONCE PO Last administered on 11/05/16 02:43; Start 11/05/16 at 02:45; Stop 11/05/16 at 02:46; Status DC Sodium Chloride 1,000 ml @ 1,000 mls/hr Q1H ONCE IV Last administered on 02:43; Start 11/05/16 at 02:38; Stop 11/05/16 at 03:37; Status DC Vancomycin HCl 1000 mg/Sodium Chloride 250 ml @ 250 mls/hr ONCE STAT IV Last administered on 11/05/16 04:27; Start 11/05/16 at 03:41; Stop 11/05/16 at 04:40; Status DC Piperacillin Sod/ Tazobactam Sod 100 ml @ 200 mls/hr ONCE STAT IV Last administered on 11/05/16 03:48; Start 11/05/16 at 03:41; Stop 11/05/16 at 18:42; Status DC Sodium Chloride (NS 1000 ml Inj) 1,000 ml @ 999 mls/hr BOLUS ONCE IV Last administered on 11/05/16 03:45; Start 11/05/16 at 03:45; Stop 11/05/16 at 04:45; Status DC Iohexol 100 ml 100 ml STK-MED ONCE IV Last administered on 11/05/16 04:21; Start 11/05/16 at 04:21; Stop 11/05/16 at 04:22; Status DC Pharmacy Profile Note 0 ml @ 0 mls/hr UNSCH OTHER ; Start 11/05/16 at 05:30; Stop 11/07/16 at 12:29; Status DC Cefepime HCl 1000 mg/Sodium Chloride 100 ml @ 200 mls/hr Q12H IV Last administered on 11/05/16 16:03; Start 11/05/16 at 18:00; Stop 11/05/16 at 18:42; Status DC Sodium Chloride (NS 1000 ml Inj) 1,000 ml @ 100 mls/hr Q10H IV Last administered on 11/16/16 04:40; Start 11/05/16 at 05:26 Sodium Chloride (NS Flush) 2 ml UNSCH PRN IV FLUSH FLUSH AFTER USING IV ACCESS ; Start 11/05/16 at 05:30 Sodium Chloride (NS Flush) 2 ml BID IV FLUSH Last administered on 11/13/16 21: 00; Start 11/05/16 at 09:00 Ondansetron HCl (Zofran Inj) 4 mg Q6H PRN IVP NAUSEA OR VOMITING; Start at 05:30 Acetaminophen (Tylenol) 650 mg Q6H PRN PO FEVER/PAIN SCALE 1 TO 2 Last administered on 11/15/16 20:11; Start 11/05/16 at 05:30 Oxycodone HCl (Roxicodone) 10 mg Q4H PRN PO PAIN SCALE 6 TO 10 Last administered on 11/16/16 08:23; Start 11/05/16 at 05:30 Oxycodone HCl (Roxicodone) 5 mg Q4H PRN PO PAIN SCALE 3 TO 5 Last administered on 11/05/16 12:44; Start 11/05/16 at 05:30 Senna/Docusate Sodium (Ina-Colace) 1 tab BID PO Last administered on 08:23; Start 11/05/16 at 09:00 Magnesium Hydroxide (Milk Of Magnesia Liq) 30 ml Q12H PRN PO MILD - MODERATE CONSTIPATION; Start 11/05/16 at 05:30 Sennosides (Senokot) 17.2 mg Q12H PRN PO MODERATE - SEVERE CONSTIPATION; Start 11/05/16 at 05:30 Bisacodyl (Dulcolax Supp) 10 mg DAILY PRN RECTAL SEVERE CONSITIPATION; Start at 05:30 Lactulose 30 ml 30 ml DAILY PRN PO SEVERE CONSITIPATION; Start 11/05/16 at 05:30 Vancomycin HCl 500 mg/Sodium Chloride 100 ml @ 200 mls/hr NOW IV ; Start at 06:00; Stop 11/05/16 at 08:00; Status DC Vancomycin HCl/ Sodium Chloride (Vancomycin Inj/ NS 500 ml Inj) 515 ml @ 257.5 mls/ hr Q12H IV Last administered on 11/07/16 12:17; Start 11/05/16 at 13:00; Stop 11/07/16 at 12:29; Status DC Miscellaneous Information SPECIFIC LAB TO BE CAROLINE... ONCE ONCE .XX Last administered on 11/07/16 00:45; Start 11/07/16 at 00:45; Stop 11/07/16 at 00:46; Status DC Sodium Phosphate 30 mmol/Sodium Chloride 260 ml @ 43.333 mls/ hr ONCE ONCE IV Last administered on 11/05/16 11:13; Start 11/05/16 at 09:45; Stop 11/05/16 at 15:44; Status DC Magnesium Sulfate/ Dextrose 100 ml @ 100 mls/hr ONCE ONCE IV Last administered on 11/05/16 11:13; Start 11/05/16 at 10:00; Stop 11/05/16 at 10:59; Status DC Oxacillin Sodium/ Sodium Chloride (Prostaphlin Inj/ NS Inj) 100 ml @ 200 mls/ hr Q4H IV Last administered on 11/16/16 04:34; Start 11/05/16 at 20:00 Potassium Bicarb/ Potassium Chloride (K-Lyte Cl Eff) 50 meq ONCE ONCE PO Last administered on 11/07/16 12:17; Start 11/07/16 at 10:30; Stop 11/07/16 at 10: 53; Status DC Enoxaparin Sodium 30 mg 30 mg Q24H SQ Last administered on 11/15/16 11:01; Start 11/07/16 at 11:00 Gentamicin Sulfate/Sodium Chloride (Gentamicin 80 Mg Premix) 100 ml @ 200 mls/ hr Q8H IV Last administered on 11/14/16 12:15; Start 11/07/16 at 13:00; Stop at 13:05; Status DC Rifampin (Rifampin) 300 mg Q8HR PO Last administered on 11/16/16 06:35; Start 11/07/16 at 14:00 Zolpidem Tartrate (Ambien) 5 mg ONCE ONCE PO Last administered on 11/07/16 22: 43; Start 11/07/16 at 21:15; Stop 11/07/16 at 21:16; Status DC Ibuprofen (Motrin) 600 mg Q8H PRN PO breakthrough pain Last administered on 08:24; Start 11/08/16 at 14:30 Zolpidem Tartrate (Ambien) 5 mg HS PRN PO Insomnia Last administered on 00:00; Start 11/08/16 at 14:30 Albuterol/ Ipratropium (Duoneb Neb) 1 ampule ONCE ONCE NEB Last administered on 11/11/16 13:23; Start 11/11/16 at 12:15; Stop 11/11/16 at 12:27; Status DC Albuterol/ Ipratropium (Duoneb Neb) 1 ampule Q2HR NEB PRN NEB dyspnea Last administered on 11/12/16 01:42; Start 11/11/16 at 12:15 Urinary Catheter: No Vascular Central Line Catheter: Yes A/P Problem List: (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 Chest x-ray and UA unremarkable. CT of the abdomen concerning for possible cholecystitis, HIDA scan was not indicative of cholecystitis. He has been having diarrhea. C diff PCR negative. He has a history of endocarditis and continues to use illicit substances, though denies IV use recently. Concern for endocarditis. 07/05 blood cultures growing MSSA. Sensitivities noted. ID consult appreciated. Cefepime and vancomycin discontinued. Echo with EF 40-45%, apparent vegetations of mitral and tricuspid valves. - continue IV oxacillin, and PO rifampin per ID. No changes 11/11. - follow repeat blood cultures from 11/11. Pleuritic chest pain The pt endorses chest pain with deep breathing. - repeat CXR. - Duonebs and oxygen as needed. - incentive spirometry. RUQ pain The pt has RUQ pain. Total bilirubin was elevated, now normal. General surgery consult appreciated. HIDA scan not indicative of cholecystitis. - surgery signed off. - ADAT. - pain control as needed. Illicit substance use/ Nicotine dependence The patient said he recently used crack cocaine. - Cessation instruction. - Nicotine patch deferred. - case management referral. Acute renal insufficiency Likely prerenal as the patient has not been eating and has been vomiting. - IV fluids and avoid nephrotoxic agents. Resolved. Thrombocytopenia Chronic. - monitor as needed. VISUAL PAIN LEFT EYE- NO VISION LOSS OR DEFICITS-RESOLVED PPx: Lovenox CONTINUE CURRENT TREATMENT Discharge Planning Case management for discharge planning Felipe Morris DO Nov 16, 2016 09:19
[2016-11-16 11:43] VITALS: BP 105/59; PULSE 75; RESP 18; TEMP 96.6; O2SAT 99
[2016-11-16] MEDS: ENOXAPARIN SODIUM 30 MG/0.3 ML SYRINGE SQ SCH (12:29)
[2016-11-16] MEDS: ACETAMINOPHEN 325 MG TAB PO PRN (12:49)
[2016-11-16 16:00] VITALS: BP 115/69; PULSE 73; RESP 18; TEMP 97; O2SAT 100
[2016-11-16] MEDS: SODIUM CHLORIDE 0.9% FLUSH 10 ML FLUSH IV FLUSH SCH (20:49)
[2016-11-16 20:50] VITALS: BP 109/69; PULSE 97; RESP 18; TEMP 97.7; O2SAT 99
[2016-11-16] MEDS: ZOLPIDEM TARTRATE 5 MG TAB PO PRN ×2 (21:59)
[2016-11-17 00:41] VITALS: BP 105/64; PULSE 95; RESP 18; TEMP 97.9; O2SAT 99
[2016-11-17] MEDS: OXACILLIN INJ 2 GM in SODIUM CHLORIDE 0.9% INJ 100 ML IV SCH ×8 (03:33→23:53)
[2016-11-17] MEDS: ACETAMINOPHEN 325 MG TAB PO PRN ×2 (03:37→12:07)
[2016-11-17 04:18] VITALS: BP 105/72; PULSE 97; RESP 18; TEMP 97.3; O2SAT 98
[2016-11-17] MEDS: RIFAMPIN 150 MG CAP PO SCH ×3 (06:04→20:56)
[2016-11-17] MEDS: SODIUM CHLOR 0.9% 1000 ML INJ 1,000 ML IV SCH ×2 (07:26→11:46)
[2016-11-17 07:46] VITALS: BP 110/64; PULSE 65; RESP 18; TEMP 96.3; O2SAT 99
[2016-11-17] MEDS: DOCUSATE SODIUM 50 MG/SENNA 8.6 MG TAB PO SCH ×2 (07:58→20:55)
[2016-11-17] MEDS: SODIUM CHLORIDE 0.9% FLUSH 10 ML FLUSH IV FLUSH SCH ×2 (07:58→20:56)
[2016-11-17] MEDS: ENOXAPARIN SODIUM 30 MG/0.3 ML SYRINGE SQ SCH (11:46)
[2016-11-17 12:00] VITALS: BP 121/75; PULSE 80; RESP 18; TEMP 96.4; O2SAT 94
--- NOTE | 2016-11-17 15:17 | HHI.PR ---
Subjective Remarks No new complaints today. Patient's neck and back pain are chronic issues. No return of eye pain. Objective Vital Signs Date Time Temp Pulse Resp B/P Pulse Ox O2 Delivery O2 Flow Rate FiO2 11/17/16 12:00 96.4 80 18 121/75 94 11/17/16 07:46 96.3 65 18 110/64 99 11/17/16 04:18 97.3 97 18 105/72 98 11/17/16 00:41 97.9 95 18 105/64 99 11/16/16 22:47 18 11/16/16 20:50 97.7 97 18 109/69 99 11/16/16 16:00 97.0 73 18 115/69 100 I/O 11/16/16 11/16/16 11/16/16 11/17/16 11/17/16 11/17/16 07:00 15:00 23:00 07:00 15:00 23:00 Intake Total 480 ml 960 ml 360 ml 240 ml Balance 480 ml 960 ml 360 ml 240 ml Intake Oral 480 ml 960 ml 360 ml 240 ml # Voids 2 2 3 3 # Bowel Movements 0 0 0 0 Result Diagram: 11/15/1691311/15/16913 Objective Remarks GENERAL: NAD, A&Ox3 HEAD: Normocephalic. NECK: Supple, trachea midline. No lymphadenopathy. EYES: No scleral icterus. No injection or drainage. CARDIOVASCULAR: Regular rate and rhythm without murmurs, gallops, or rubs. RESPIRATORY: Breath sounds equal bilaterally. No accessory muscle use. GASTROINTESTINAL: Abdomen soft, non-tender, nondistended. MUSCULOSKELETAL: No cyanosis, or edema. SKIN: Warm and dry. NEURO: No focal neurological deficitis. 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 Sepsis Bacteremia Endocarditis Echocardiograms demonstrated vegetations. Continue oxacillin and rifampin Follow blood cultures ID following Pleuritic chest pain No pneumonia May be inflammatory Follow clinically Duonebs as needed Oxygen as needed Incentive spirometry Illicit substance use/ Nicotine dependence He is beyond the phase of withdrawal. Follow clinically Patient understands he should quit Thrombocytopenia Chronic. DVT prophylaxis Lovenox Discharge Planning Case management for discharge planning Pravin Swenson MD Nov 17, 2016 15:17
[2016-11-17] MEDS: IBUPROFEN 600 MG TAB PO PRN (15:59)
[2016-11-17 16:00] VITALS: BP 117/69; PULSE 93; RESP 18; TEMP 98.2; O2SAT 99
[2016-11-17 20:40] VITALS: BP 124/69; PULSE 98; RESP 18; TEMP 96.9; O2SAT 100
[2016-11-18] VITALS (7 sets, daily range): BP systolic 103–129; BP diastolic 60–78; PULSE 73–104; RESP 17–20; TEMP 96.5–97.7; O2SAT 97–100
[2016-11-18] MEDS: ZOLPIDEM TARTRATE 5 MG TAB PO PRN (00:56)
[2016-11-18] MEDS: OXACILLIN INJ 2 GM in SODIUM CHLORIDE 0.9% INJ 100 ML IV SCH ×6 (04:25→23:55)
[2016-11-18] MEDS: RIFAMPIN 150 MG CAP PO SCH ×3 (06:10→20:27)
[2016-11-18] MEDS: ACETAMINOPHEN 325 MG TAB PO PRN ×3 (06:11→20:32)
[2016-11-18] MEDS: DOCUSATE SODIUM 50 MG/SENNA 8.6 MG TAB PO SCH ×2 (08:46→20:27)
[2016-11-18] MEDS: IBUPROFEN 600 MG TAB PO PRN ×2 (08:51→17:29)
[2016-11-18] MEDS: SODIUM CHLORIDE 0.9% FLUSH 10 ML FLUSH IV FLUSH SCH ×2 (08:52→20:27)
[2016-11-18] MEDS: ENOXAPARIN SODIUM 30 MG/0.3 ML SYRINGE SQ SCH (10:19)
--- NOTE | 2016-11-18 10:54 | HHI.PR ---
Subjective Remarks Headache is present today but is improving with Tylenol and NSAIDs. No other new complaints. No fevers. Objective Vital Signs Date Time Temp Pulse Resp B/P Pulse Ox O2 Delivery O2 Flow Rate FiO2 11/18/16 08:00 97.1 73 20 114/60 98 11/18/16 04:41 97.0 75 18 103/61 99 11/18/16 00:50 96.5 95 18 121/68 99 11/17/16 21:56 18 11/17/16 20:40 96.9 98 18 124/69 100 11/17/16 16:00 98.2 93 18 117/69 99 11/17/16 12:00 96.4 80 18 121/75 94 I/O 11/17/16 11/17/16 11/17/16 11/18/16 11/18/16 11/18/16 07:00 15:00 23:00 07:00 15:00 23:00 Intake Total 240 ml 600 ml 360 ml 240 ml Balance 240 ml 600 ml 360 ml 240 ml Intake Oral 240 ml 600 ml 360 ml 240 ml # Voids 3 3 3 3 # Bowel Movements 0 0 0 0 Result Diagram: 11/15/1691311/15/16913 Objective Remarks GENERAL: NAD, A&Ox3 HEAD: Normocephalic. NECK: Supple, trachea midline. No lymphadenopathy. EYES: No scleral icterus. No injection or drainage. CARDIOVASCULAR: Regular rate and rhythm without murmurs, gallops, or rubs. RESPIRATORY: Breath sounds equal bilaterally. No accessory muscle use. GASTROINTESTINAL: Abdomen soft, non-tender, nondistended. MUSCULOSKELETAL: No cyanosis, or edema. SKIN: Warm and dry. NEURO: No focal neurological deficitis. 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 Monitor for any fever or signs of infection. Sepsis Bacteremia Endocarditis Echocardiograms demonstrated vegetations. Continue oxacillin and rifampin Follow blood cultures ID following Pleuritic chest pain No pneumonia May be inflammatory Follow clinically Duonebs as needed Oxygen as needed Incentive spirometry Illicit substance use/ Nicotine dependence He is beyond the phase of withdrawal. Follow clinically Patient understands he should quit Thrombocytopenia Chronic. DVT prophylaxis Lovenox Discharge Planning Case management for discharge planning Pravin Swenson MD Nov 18, 2016 10:53 am
[2016-11-18] MEDS: SODIUM CHLOR 0.9% 1000 ML INJ 1,000 ML IV SCH ×2 (12:55→20:27)
[2016-11-19] VITALS (7 sets, daily range): BP systolic 105–118; BP diastolic 62–72; PULSE 75–95; RESP 16–19; TEMP 96–97.1; O2SAT 96–100
[2016-11-19] MEDS: ACETAMINOPHEN 325 MG TAB PO PRN ×4 (01:32→23:55)
[2016-11-19] MEDS: IBUPROFEN 600 MG TAB PO PRN ×3 (01:33→23:55)
[2016-11-19] MEDS: OXACILLIN INJ 2 GM in SODIUM CHLORIDE 0.9% INJ 100 ML IV SCH ×6 (04:46→23:56)
[2016-11-19] MEDS: RIFAMPIN 150 MG CAP PO SCH ×3 (04:46→21:26)
[2016-11-19] MEDS: SODIUM CHLORIDE 0.9% FLUSH 10 ML FLUSH IV FLUSH SCH ×2 (09:00→19:43)
[2016-11-19] MEDS: DOCUSATE SODIUM 50 MG/SENNA 8.6 MG TAB PO SCH ×2 (09:21→19:42)
[2016-11-19] MEDS: SODIUM CHLOR 0.9% 1000 ML INJ 1,000 ML IV SCH ×3 (09:22→23:25)
--- NOTE | 2016-11-19 11:51 | HHI.PR ---
Subjective Remarks Follow up on patient with endocarditis, previous IVDU. Patient seen and examined today. Patient sleeping but arouses to voice. He denies any acute medical complaints. Denies any headaches. He denies any fever or chills. No N /V or abdominal pain. No chest pain or SOB. Objective Vitals Vital Signs Date Time Temp Pulse Resp B/P Pulse Ox O2 Delivery O2 Flow Rate FiO2 11/19/16 08:00 96.5 80 19 114/72 99 11/19/16 04:00 96.0 75 16 117/62 99 11/19/16 00:00 97.1 86 16 115/72 96 11/18/16 20:23 104 11/18/16 19:00 97.3 94 17 129/78 100 11/18/16 16:00 96.5 93 20 114/65 100 11/18/16 12:00 97.7 82 20 112/61 97 I/O 11/18/16 11/18/16 11/18/16 11/19/16 11/19/16 11/19/16 07:00 15:00 23:00 07:00 15:00 23:00 Intake Total 240 ml 574 ml 920 ml 1020 ml Balance 240 ml 574 ml 920 ml 1020 ml Intake Oral 240 ml 240 ml 480 ml 480 ml IV Total 334 ml 440 ml 540 ml # Voids 3 2 3 3 # Bowel Movements 0 0 0 0 Result Diagram: 11/15/1614 11/15/1614 Imaging Last Impressions Chest X-Ray 11/11/16 0000 Signed Impressions: Service Date/Time: Friday, November 11, 2016 13:09 - CONCLUSION: No acute cardiopulmonary abnormality is identified. Stable chest x-ray. Kyle Black MD Hepatobiliary Scan Nuclear Medicine 11/05/16 0000 Signed Impressions: Service Date/Time: Saturday, November 05, 2016 09:08 - CONCLUSION: 1. Normal filling of the gallbladder excludes cystic duct obstruction and acute cholecystitis. No acute finding is identified. 2. There is severe bile reflux into the stomach. Kyle Black MD Head CT 11/05/16 0000 Signed Impressions: Service Date/Time: Saturday, November 05, 2016 04:06 - CONCLUSION: 1. No evidence of acute intracranial pathology. No masses are identified. Jv Mae MD Abdomen/Pelvis CT 11/05/16 0000 Signed Impressions: Service Date/Time: Saturday, November 05, 2016 04:10 - CONCLUSION: 1. Pericholecystic fluid without stone. Cholecystitis is not excluded. Radionuclide imaging is recommended for further evaluation if clinically indicated. 2. Nonobstructing right renal stone Jv Mae MD Objective Remarks GENERAL: well developed, well nourished male, INAD. Awake and alert. Lying in hospital bed. SKIN: Warm and dry. HEENT: Normocephalic. Atraumatic. EOMI. No scleral icterus. No injection or drainage. MMM. NECK: Supple, trachea midline. CARDIOVASCULAR: Regular rate and rhythm without murmurs, gallops, or rubs. RESPIRATORY: Breath sounds equal bilaterally. No accessory muscle use. GASTROINTESTINAL: Abdomen soft, non-tender, nondistended. MUSCULOSKELETAL: No cyanosis or edema. NEURO: No focal neurological deficitis. Able to move all extremities. Normal speech. Procedures none Medications and IVs Current Medications Medications (Trade) Dose Ordered Sig/Abdirahman Route Start Time Stop Time Status Last Admin (NS 1000 ml Inj) 1,000 ml @ 100 mls/hr Q10H IV 11/05/16 05:26 11/19/16 09:22 (NS Flush) 2 ml UNSCH PRN IV FLUSH 11/05/16 05:30 (NS Flush) 2 ml BID IV FLUSH 11/05/16 09:00 11/16/16 20:49 (Zofran Inj) 4 mg Q6H PRN IVP 11/05/16 05:30 (Tylenol) 650 mg Q6H PRN PO 11/05/16 05:30 11/19/16 09:22 (Roxicodone) 10 mg Q4H PRN PO 11/05/16 05:30 11/19/16 06:28 (Roxicodone) 5 mg Q4H PRN PO 11/05/16 05:30 11/05/16 12:44 (Ina-Colace) 1 tab BID PO 11/05/16 09:00 11/19/16 09:21 (Milk Of Magnesia Liq) 30 ml Q12H PRN PO 11/05/16 05:30 (Senokot) 17.2 mg Q12H PRN PO 11/05/16 05:30 (Dulcolax Supp) 10 mg DAILY PRN RECTAL 11/05/16 05:30 Lactulose 30 ml 30 ml DAILY PRN PO 11/05/16 05:30 (Prostaphlin Inj/ NS Inj) 100 ml @ 200 mls/hr Q4H IV 11/05/16 20:00 11/19/16 09:21 (Lovenox Inj) 30 mg Q24H SQ 11/07/16 11:00 11/18/16 10:19 (Rifampin) 300 mg Q8HR PO 11/07/16 14:00 11/19/16 04:46 (Motrin) 600 mg Q8H PRN PO 11/08/16 14:30 11/19/16 01:33 (Ambien) 5 mg HS PRN PO 11/08/16 14:30 11/18/16 00:56 A/P Problem List: (1) 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 Monitor for any fever or signs of infection. Sepsis Bacteremia Endocarditis mitral valve, prosthetic Echocardiograms demonstrated vegetations. ID following Continue oxacillin and rifampin x 6 weeks from negative cultures per ID recs. Follow blood cultures. Initial BCX positive staph aureus. BCX 11/11 shows no growth in 5 days. Pleuritic chest pain asymptomatic at present No pneumonia May be inflammatory Follow clinically Duonebs as needed Oxygen as needed Incentive spirometry Illicit substance use/ Nicotine dependence He is beyond the phase of withdrawal. Follow clinically Patient understands he should quit Thrombocytopenia Chronic. DVT prophylaxis Lovenox Discussed with Dr. Swenson and patient Discharge Planning Case management for discharge planning Millie Davis Nov 19, 2016 11:51
[2016-11-19] MEDS: ENOXAPARIN SODIUM 30 MG/0.3 ML SYRINGE SQ SCH (12:00)
[2016-11-20] VITALS (7 sets, daily range): BP systolic 100–130; BP diastolic 58–77; PULSE 69–97; RESP 18–19; TEMP 96.4–98.4; O2SAT 96–100
[2016-11-20] MEDS: ZOLPIDEM TARTRATE 5 MG TAB PO PRN (00:48)
[2016-11-20] MEDS: RIFAMPIN 150 MG CAP PO SCH ×3 (04:49→20:46)
[2016-11-20] MEDS: OXACILLIN INJ 2 GM in SODIUM CHLORIDE 0.9% INJ 100 ML IV SCH ×6 (04:49→23:55)
[2016-11-20] MEDS: SODIUM CHLORIDE 0.9% FLUSH 10 ML FLUSH IV FLUSH SCH ×2 (09:00→19:41)
[2016-11-20] MEDS: DOCUSATE SODIUM 50 MG/SENNA 8.6 MG TAB PO SCH ×2 (09:02→19:41)
[2016-11-20] MEDS: IBUPROFEN 600 MG TAB PO PRN ×2 (09:02→20:45)
[2016-11-20] MEDS: ACETAMINOPHEN 325 MG TAB PO PRN ×2 (09:02→16:39)
[2016-11-20] MEDS: ENOXAPARIN SODIUM 30 MG/0.3 ML SYRINGE SQ SCH (11:55)
[2016-11-20] MEDS: SODIUM CHLOR 0.9% 1000 ML INJ 1,000 ML IV SCH ×2 (15:26→19:41)
--- NOTE | 2016-11-20 15:56 | HHI.PR ---
Subjective Remarks Follow up on patient with endocarditis, previous IVDU. Patient seen and examined today. Patient denies any complaints at present. Reports he is doing well. Denies any fever or chills. Denies any headaches or dizziness. Denies any chest pain or SOB. Denies any N/V or abdominal pain. States he is moving his bowels and has no difficulty with urination. Objective Vitals Vital Signs Date Time Temp Pulse Resp B/P (MAP) Pulse Ox O2 Delivery O2 Flow Rate FiO2 11/20/16 12:00 96.4 78 18 114/60 (78) 99 11/20/16 07:58 97.1 69 18 100/61 (74) 97 11/20/16 04:14 96.7 86 19 108/58 (75) 99 11/20/16 00:06 97.1 78 18 130/77 (94) 99 11/19/16 19:41 85 11/19/16 19:32 97.1 95 18 118/67 (84) 98 11/19/16 16:00 96.9 79 18 108/72 (84) 100 I/O 11/19/16 11/19/16 11/19/16 11/20/16 11/20/16 11/20/16 07:00 15:00 23:00 07:00 15:00 23:00 Intake Total 1020 ml 600 ml 1052 ml 911 ml Balance 1020 ml 600 ml 1052 ml 911 ml Intake Oral 480 ml 600 ml 480 ml 480 ml IV Total 540 ml 572 ml 431 ml # Voids 3 4 4 2 # Bowel Movements 0 0 0 0 Imaging Last Impressions Chest X-Ray 11/11/16 0000 Signed Impressions: Service Date/Time: Friday, November 11, 2016 13:09 - CONCLUSION: No acute cardiopulmonary abnormality is identified. Stable chest x-ray. Kyle Black MD Hepatobiliary Scan Nuclear Medicine 11/05/16 0000 Signed Impressions: Service Date/Time: Saturday, November 05, 2016 09:08 - CONCLUSION: 1. Normal filling of the gallbladder excludes cystic duct obstruction and acute cholecystitis. No acute finding is identified. 2. There is severe bile reflux into the stomach. Kyle lBack MD Head CT 11/05/16 0000 Signed Impressions: Service Date/Time: Saturday, November 05, 2016 04:06 - CONCLUSION: 1. No evidence of acute intracranial pathology. No masses are identified. Jv Mae MD Abdomen/Pelvis CT 11/05/16 0000 Signed Impressions: Service Date/Time: Saturday, November 05, 2016 04:10 - CONCLUSION: 1. Pericholecystic fluid without stone. Cholecystitis is not excluded. Radionuclide imaging is recommended for further evaluation if clinically indicated. 2. Nonobstructing right renal stone Jv Mae MD Objective Remarks GENERAL: well developed, well nourished male, INAD. Awake and alert. Sitting up in hospital bed. Eating breakfast. SKIN: Warm and dry. No rash. HEENT: Normocephalic. Atraumatic. EOMI. No scleral icterus. No injection or drainage. MMM. NECK: Supple, trachea midline. CARDIOVASCULAR: Regular rate and rhythm without murmurs, gallops, or rubs. RESPIRATORY: Breath sounds equal bilaterally. No accessory muscle use. GASTROINTESTINAL: Abdomen soft, non-tender, nondistended. MUSCULOSKELETAL: No cyanosis or edema. NEURO: No focal neurological deficits. Able to move all extremities. Normal speech. Procedures none Medications and IVs Current Medications Medications (Trade) Dose Ordered Sig/Abdirahman Route Start Time Stop Time Status Last Admin Sodium Chloride 1,000 ml @ 100 mls/hr Q10H IV 11/05/16 05:26 11/19/16 09:22 (NS Flush) 2 ml UNSCH PRN IV FLUSH 11/05/16 05:30 (NS Flush) 2 ml BID IV FLUSH 11/05/16 09:00 11/16/16 20:49 (Zofran Inj) 4 mg Q6H PRN IVP 11/05/16 05:30 (Tylenol) 650 mg Q6H PRN PO 11/05/16 05:30 11/20/16 09:02 (Roxicodone) 10 mg Q4H PRN PO 11/05/16 05:30 11/20/16 09:02 (Roxicodone) 5 mg Q4H PRN PO 11/05/16 05:30 11/05/16 12:44 (Ina-Colace) 1 tab BID PO 11/05/16 09:00 11/20/16 09:02 (Milk Of Magnesia Liq) 30 ml Q12H PRN PO 11/05/16 05:30 (Senokot) 17.2 mg Q12H PRN PO 11/05/16 05:30 (Dulcolax Supp) 10 mg DAILY PRN RECTAL 11/05/16 05:30 (Lactulose Liq) 30 ml DAILY PRN PO 11/05/16 05:30 Oxacillin Sodium 2 gm/Sodium Chloride 100 ml @ 200 mls/hr Q4H IV 11/05/16 20:00 11/20/16 11:55 (Lovenox Inj) 30 mg Q24H SQ 11/07/16 11:00 11/20/16 11:55 (Rifampin) 300 mg Q8HR PO 11/07/16 14:00 11/20/16 13:35 (Motrin) 600 mg Q8H PRN PO 11/08/16 14:30 11/20/16 09:02 (Ambien) 5 mg HS PRN PO 11/08/16 14:30 11/20/16 00:48 (Duoneb Neb) 1 ampule Q2HR NEB PRN NEB 11/11/16 12:15 11/12/16 01:42 A/P Problem List: (1) 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 Monitor for any fever or signs of infection. Sepsis Bacteremia, staph aureus Endocarditis mitral valve, prosthetic Echocardiograms demonstrated vegetations. ID following Continue oxacillin and rifampin x 6 weeks from negative cultures per ID recs. Follow blood cultures. Initial BCX positive staph aureus. BCX 11/11 shows no growth in 5 days. Pleuritic chest pain asymptomatic at present No pneumonia May be inflammatory Follow clinically Duonebs as needed Oxygen as needed Incentive spirometry Illicit substance use/ Nicotine dependence He is beyond the phase of withdrawal. Follow clinically Patient understands he should quit Thrombocytopenia Chronic. Recurrent headache/migraines Asymptomatic at present Good response to combination of ibuprofen and Tylenol monitor DVT prophylaxis Lovenox Discussed with Dr. Swenson and patient Discharge Planning Case management for discharge planning Millie Davis Nov 20, 2016 15:56
[2016-11-21] MEDS: ZOLPIDEM TARTRATE 5 MG TAB PO PRN (00:41)
[2016-11-21 00:59] VITALS: BP 133/64; PULSE 75; RESP 18; TEMP 97.3; O2SAT 97
[2016-11-21 03:20] VITALS: BP 123/66; PULSE 74; RESP 18; TEMP 96.7; O2SAT 98
[2016-11-21] MEDS: OXACILLIN INJ 2 GM in SODIUM CHLORIDE 0.9% INJ 100 ML IV SCH ×5 (04:00→23:51)
[2016-11-21] MEDS: RIFAMPIN 150 MG CAP PO SCH ×3 (05:13→21:50)
[2016-11-21] MEDS: IBUPROFEN 600 MG TAB PO PRN (05:14)
[2016-11-21] MEDS: DOCUSATE SODIUM 50 MG/SENNA 8.6 MG TAB PO SCH ×2 (07:49→21:50)
[2016-11-21] MEDS: ACETAMINOPHEN 325 MG TAB PO PRN ×2 (07:49→15:34)
[2016-11-21 07:58] VITALS: BP 112/60; PULSE 89; RESP 17; TEMP 96.6; O2SAT 98
[2016-11-21] MEDS: SODIUM CHLORIDE 0.9% FLUSH 10 ML FLUSH IV FLUSH SCH ×2 (09:00→19:54)
--- NOTE | 2016-11-21 10:17 | HHI.PR ---
Subjective Remarks Follow up on patient with endocarditis, previous IVDU. Patient seen and examined today. Patient did not sleep well otherwise denies any complaints. Denies any fever or chills. No headache or dizziness. No chest pain or shortness of breath. Denies any N/V or abdominal pain. (+)BM yesterday. Objective Vitals Vital Signs Date Time Temp Pulse Resp B/P (MAP) Pulse Ox O2 Delivery O2 Flow Rate FiO2 11/21/16 07:58 96.6 89 17 112/60 (77) 98 11/21/16 03:20 96.7 74 18 123/66 (85) 98 11/21/16 00:59 97.3 75 18 133/64 (87) 97 11/20/16 19:43 90 11/20/16 19:21 98.4 97 18 110/68 (82) 96 11/20/16 16:00 97.1 77 18 122/75 (91) 100 11/20/16 12:00 96.4 78 18 114/60 (78) 99 I/O 11/20/16 11/20/16 11/20/16 11/21/16 11/21/16 11/21/16 07:00 15:00 23:00 07:00 15:00 23:00 Intake Total 911 ml 600 ml 680 ml 980 ml Balance 911 ml 600 ml 680 ml 980 ml Intake Oral 480 ml 600 ml 480 ml 480 ml IV Total 431 ml 200 ml 500 ml # Voids 2 4 3 3 # Bowel Movements 0 1 0 0 Imaging Last Impressions Chest X-Ray 11/11/16 0000 Signed Impressions: Service Date/Time: Friday, November 11, 2016 13:09 - CONCLUSION: No acute cardiopulmonary abnormality is identified. Stable chest x-ray. Kyle Black MD Hepatobiliary Scan Nuclear Medicine 11/05/16 0000 Signed Impressions: Service Date/Time: Saturday, November 05, 2016 09:08 - CONCLUSION: 1. Normal filling of the gallbladder excludes cystic duct obstruction and acute cholecystitis. No acute finding is identified. 2. There is severe bile reflux into the stomach. Kyle Black MD Head CT 11/05/16 0000 Signed Impressions: Service Date/Time: Saturday, November 05, 2016 04:06 - CONCLUSION: 1. No evidence of acute intracranial pathology. No masses are identified. Jv Mae MD Abdomen/Pelvis CT 11/05/16 0000 Signed Impressions: Service Date/Time: Saturday, November 05, 2016 04:10 - CONCLUSION: 1. Pericholecystic fluid without stone. Cholecystitis is not excluded. Radionuclide imaging is recommended for further evaluation if clinically indicated. 2. Nonobstructing right renal stone Jv Mae MD Objective Remarks GENERAL: well developed, well nourished male, INAD. Awake and alert. Lying in hospital bed. SKIN: Warm and dry. No rash. HEENT: Normocephalic. Atraumatic. EOMI. No scleral icterus. No injection or drainage. MMM. NECK: Supple, trachea midline. CARDIOVASCULAR: Regular rate and rhythm without murmurs, gallops, or rubs. RESPIRATORY: Breath sounds equal bilaterally. No accessory muscle use. GASTROINTESTINAL: Abdomen soft, non-tender, nondistended. (+)BS x 4 quads. MUSCULOSKELETAL: No cyanosis or edema noted in BLEs. NEURO: No focal neurological deficits. Able to move all extremities. Normal speech. Procedures none Medications and IVs Current Medications Medications (Trade) Dose Ordered Sig/Abdirahman Route Start Time Stop Time Status Last Admin Sodium Chloride 1,000 ml @ 100 mls/hr Q10H IV 11/05/16 05:26 11/20/16 19:41 (NS Flush) 2 ml UNSCH PRN IV FLUSH 11/05/16 05:30 (NS Flush) 2 ml BID IV FLUSH 11/05/16 09:00 11/16/16 20:49 (Zofran Inj) 4 mg Q6H PRN IVP 11/05/16 05:30 (Tylenol) 650 mg Q6H PRN PO 11/05/16 05:30 11/21/16 07:49 (Roxicodone) 10 mg Q4H PRN PO 11/05/16 05:30 11/21/16 05:14 (Roxicodone) 5 mg Q4H PRN PO 11/05/16 05:30 11/05/16 12:44 (Ina-Colace) 1 tab BID PO 11/05/16 09:00 11/21/16 07:49 (Milk Of Magnesia Liq) 30 ml Q12H PRN PO 11/05/16 05:30 (Senokot) 17.2 mg Q12H PRN PO 11/05/16 05:30 (Dulcolax Supp) 10 mg DAILY PRN RECTAL 11/05/16 05:30 (Lactulose Liq) 30 ml DAILY PRN PO 11/05/16 05:30 Oxacillin Sodium 2 gm/Sodium Chloride 100 ml @ 200 mls/hr Q4H IV 11/05/16 20:00 11/21/16 04:00 (Lovenox Inj) 30 mg Q24H SQ 11/07/16 11:00 11/20/16 11:55 (Rifampin) 300 mg Q8HR PO 11/07/16 14:00 11/21/16 05:13 (Motrin) 600 mg Q8H PRN PO 11/08/16 14:30 11/21/16 05:14 (Ambien) 5 mg HS PRN PO 11/08/16 14:30 11/21/16 00:41 (Duoneb Neb) 1 ampule Q2HR NEB PRN NEB 11/11/16 12:15 11/12/16 01:42 A/P Problem List: (1) 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 Monitor for any fever or signs of infection. Sepsis, resolved Bacteremia, staph aureus Endocarditis mitral valve, prosthetic Echocardiograms demonstrated vegetations. ID following D/C IVF Continue oxacillin and rifampin x 6 weeks from negative cultures per ID recs. Repeat CBC and CMP in am. Follow blood cultures. Initial BCX positive staph aureus. BCX 11/11 shows no growth in 5 days. Illicit substance use/ Nicotine dependence He is beyond the phase of withdrawal. Follow clinically Patient understands he should quit Thrombocytopenia improving Recurrent headache/migraines Asymptomatic at present Good response to combination of ibuprofen and Tylenol monitor Insomnia Trial of melatonin DVT prophylaxis Lovenox Discussed with Dr. Swenson, nursing staff and patient Discharge Planning Case management for discharge planning Millie Davis Nov 21, 2016 10:17
[2016-11-21] MEDS: ENOXAPARIN SODIUM 30 MG/0.3 ML SYRINGE SQ SCH (11:26)
[2016-11-21 11:41] VITALS: BP 113/64; PULSE 101; RESP 17; TEMP 97.7; O2SAT 97
[2016-11-21 15:47] VITALS: BP 117/65; PULSE 83; RESP 17; TEMP 96.7; O2SAT 99
[2016-11-21 19:00] VITALS: BP 111/56; PULSE 92; RESP 17; TEMP 96.7; O2SAT 99
[2016-11-21] MEDS: MELATONIN 5 MG TAB PO SCH (21:49)
[2016-11-22] VITALS (7 sets, daily range): BP systolic 110–122; BP diastolic 58–70; PULSE 69–93; RESP 16–19; TEMP 95.6–97.8; O2SAT 96–99
[2016-11-22] MEDS: IBUPROFEN 600 MG TAB PO PRN ×2 (00:03→08:57)
[2016-11-22] MEDS: OXACILLIN INJ 2 GM in SODIUM CHLORIDE 0.9% INJ 100 ML IV SCH ×5 (04:38→20:59)
[2016-11-22] MEDS: RIFAMPIN 150 MG CAP PO SCH ×2 (06:29→13:07)
[2016-11-22 07:48] LABS: AUTOMATED NEUTROPHIL # 3.1 TH/MM3 (1.8-7.7); BASOPHIL # 0.1 TH/MM3 (0-0.2); BASOPHIL % 1.3 % (0.0-2.0); EOSINOPHIL # 0.1 TH/MM3 (0-0.4); EOSINOPHIL % 2.2 % (0.0-4.0); HEMATOCRIT 35.8 % (39.0-51.0); HEMO FLAGS DIFF FINAL; LYMPH % 30.9 % (9.0-44.0); LYMPHOCYTE # 1.7 TH/MM3 (1.0-4.8); MEAN CELL VOLUME 88.5 FL (80.0-100.0); MEAN CORPUSCULAR HEMOGLOBIN 29.6 PG (27.0-34.0); MEAN CORPUSCULAR HGB CONC 33.4 % (32.0-36.0); MONO % 9.5 % (0.0-8.0); NEUT % 56.1 % (16.0-70.0); PLATELET COUNT 223 TH/MM3 (150-450); RED BLOOD COUNT 4.05 MIL/MM3 (4.50-5.90); RED CELL DISTRIBUTION WIDTH 13.5 % (11.6-17.2); WHITE BLOOD COUNT 5.6 TH/MM3 (4.0-11.0)
[2016-11-22 08:14] LABS: ALT (GPT) 220 U/L (12-78); ANION GAP 9 MEQ/L (5-15); AST (GOT) 122 U/L (15-37); BICARBONATE 28.4 MEQ/L (21.0-32.0); BLOOD UREA NITROGEN 22 MG/DL (7-18); CHLORIDE 104 MEQ/L (98-107); GLOMERULAR FILTRATION RATE 90 ML/MIN (>89); POTASSIUM 3.7 MEQ/L (3.5-5.1); SODIUM (NA) 141 MEQ/L (136-145)
[2016-11-22 08:16] LABS: ALKALINE PHOSPHATASE 74 U/L (45-117); TOTAL BILIRUBIN ADULT 0.4 MG/DL (0.2-1.0)
[2016-11-22] MEDS: DOCUSATE SODIUM 50 MG/SENNA 8.6 MG TAB PO SCH ×2 (08:47→20:59)
[2016-11-22] MEDS: SODIUM CHLORIDE 0.9% FLUSH 10 ML FLUSH IV FLUSH SCH ×2 (08:48→21:00)
[2016-11-22] MEDS: ENOXAPARIN SODIUM 30 MG/0.3 ML SYRINGE SQ SCH (11:32)
--- NOTE | 2016-11-22 12:54 | HHI.PR ---
Subjective Remarks Follow up on patient with endocarditis, previous IVDU. Patient seen and examined today. Pt reported two years of IVDU and has been "clean for past 7 months." Reported no sharing of needles. Stated he is 6'8" and normally "weighs about 215". Stated before coming into the hospital he was homeless "not eating right" and "my weight got down to about 180 pounds." Stated he is eating better and gained weight since being admitted to hospital. Reported poor sleep last night. Stated he has a "headache" but "that has been ongoing since I came in here." Discussed eelvated liver enzymes with pt. He denied history of hepatitis, alcohol abuse, or statin usage. No other issues/concerns noted by pt. He denied fever or chills. NVD, cough, chest pain, Shortness of breath. Per RN (Sherry) no new issues noted overnight or since start of shift. Objective Vitals Vital Signs Date Time Temp Pulse Resp B/P (MAP) Pulse Ox O2 Delivery O2 Flow Rate FiO2 11/22/16 11:29 97.8 93 19 115/70 (85) 98 11/22/16 08:00 97.0 83 19 111/58 (75) 98 11/22/16 04:00 95.6 73 17 110/64 (79) 99 11/22/16 00:00 96.6 85 16 119/68 (85) 98 11/21/16 20:54 18 11/21/16 19:00 96.7 92 17 111/56 (74) 99 11/21/16 15:47 96.7 83 17 117/65 (82) 99 I/O 11/21/16 11/21/16 11/21/16 11/22/16 11/22/16 11/22/16 07:00 15:00 23:00 07:00 15:00 23:00 Intake Total 980 ml 750 ml 580 ml 580 ml Balance 980 ml 750 ml 580 ml 580 ml Intake Oral 480 ml 750 ml 480 ml 480 ml IV Total 500 ml 100 ml 100 ml # Voids 3 2 3 3 # Bowel Movements 0 0 0 Result Diagram: 11/22/16 0624 11/22/16 0624 Imaging Last Impressions Chest X-Ray 11/11/16 0000 Signed Impressions: Service Date/Time: Friday, November 11, 2016 13:09 - CONCLUSION: No acute cardiopulmonary abnormality is identified. Stable chest x-ray. Kyle Black MD Hepatobiliary Scan Nuclear Medicine 11/05/16 0000 Signed Impressions: Service Date/Time: Saturday, November 05, 2016 09:08 - CONCLUSION: 1. Normal filling of the gallbladder excludes cystic duct obstruction and acute cholecystitis. No acute finding is identified. 2. There is severe bile reflux into the stomach. Kyle Black MD Head CT 11/05/16 0000 Signed Impressions: Service Date/Time: Saturday, November 05, 2016 04:06 - CONCLUSION: 1. No evidence of acute intracranial pathology. No masses are identified. Jv Mae MD Abdomen/Pelvis CT 11/05/16 0000 Signed Impressions: Service Date/Time: Saturday, November 05, 2016 04:10 - CONCLUSION: 1. Pericholecystic fluid without stone. Cholecystitis is not excluded. Radionuclide imaging is recommended for further evaluation if clinically indicated. 2. Nonobstructing right renal stone Jv Mae MD Objective Remarks GENERAL: Pt encountered laying abed. SKIN: Warm and dry. HEAD: Normocephalic. EYES: No scleral icterus. No injection or drainage. NECK: Supple, trachea midline. No lymphadenopathy. CARDIOVASCULAR: Regular rate and rhythm without murmurs, gallops, or rubs. RESPIRATORY: Breath sounds equal bilaterally. No accessory muscle use. GASTROINTESTINAL: Abdomen soft, non-tender, nondistended. MUSCULOSKELETAL: No cyanosis, or edema. PSYCHIATRIC: Alert and oriented x 3, no overt signs of depression/anxiety. Pleasant and cooperative. Procedures none Medications and IVs Current Medications Medications (Trade) Dose Ordered Sig/Abdirahman Route Start Time Stop Time Status Last Admin (NS Flush) 2 ml UNSCH PRN IV FLUSH 11/05/16 05:30 (NS Flush) 2 ml BID IV FLUSH 11/05/16 09:00 11/21/16 09:00 (Zofran Inj) 4 mg Q6H PRN IVP 11/05/16 05:30 (Tylenol) 650 mg Q6H PRN PO 11/05/16 05:30 11/21/16 15:34 (Roxicodone) 10 mg Q4H PRN PO 11/05/16 05:30 11/22/16 08:48 (Roxicodone) 5 mg Q4H PRN PO 11/05/16 05:30 11/05/16 12:44 (Ina-Colace) 1 tab BID PO 11/05/16 09:00 11/22/16 08:47 (Milk Of Magnesia Liq) 30 ml Q12H PRN PO 11/05/16 05:30 (Senokot) 17.2 mg Q12H PRN PO 11/05/16 05:30 (Dulcolax Supp) 10 mg DAILY PRN RECTAL 11/05/16 05:30 (Lactulose Liq) 30 ml DAILY PRN PO 11/05/16 05:30 Oxacillin Sodium 2 gm/Sodium Chloride 100 ml @ 200 mls/hr Q4H IV 11/05/16 20:00 11/22/16 11:32 (Lovenox Inj) 30 mg Q24H SQ 11/07/16 11:00 11/22/16 11:32 (Rifampin) 300 mg Q8HR PO 11/07/16 14:00 11/22/16 06:29 (Motrin) 600 mg Q8H PRN PO 11/08/16 14:30 11/22/16 08:57 (Ambien) 5 mg HS PRN PO 11/08/16 14:30 11/21/16 00:41 (Duoneb Neb) 1 ampule Q2HR NEB PRN NEB 11/11/16 12:15 11/12/16 01:42 (Melatonin) 5 mg HS PO 11/21/16 21:00 11/21/16 21:49 Urinary Catheter: No A/P Problem List: (1) 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 Monitor for any fever or signs of infection. Transaminitis -Previous blood studies negative for elevations of ALT/AST -Redraw labs on 11/25/16, orders placed -Current medication list reviewed. -Reviewed pt's past medical and drug use history. Sepsis, resolved Bacteremia, staph aureus Endocarditis mitral valve, prosthetic -Echocardiograms demonstrated vegetations. -ID following -D/C IVF -Continue oxacillin and rifampin x 6 weeks from negative cultures per ID recs. Repeat CBC and CMP in am. -Follow blood cultures. Initial BCX positive staph aureus. BCX / shows no growth in 5 days. Illicit substance use/ Nicotine dependence -He is beyond the phase of withdrawal. -Follow clinically -Patient understands he should quit Thrombocytopenia -improving Recurrent headache/migraines -Asymptomatic at present -Good response to combination of ibuprofen and Tylenol -monitor Insomnia -Trial of melatonin DVT prophylaxis -Lovenox Discussed with Dr. Swenson, nursing staff and patient Discharge Planning Case management for discharge planning Jason Borges Jr. Nov 22, 2016 12:54
[2016-11-22] MEDS: ACETAMINOPHEN 325 MG TAB PO PRN (13:08)
[2016-11-22] MEDS: MELATONIN 5 MG TAB PO SCH (20:59)
[2016-11-23] MEDS: OXACILLIN INJ 2 GM in SODIUM CHLORIDE 0.9% INJ 100 ML IV SCH ×6 (00:24→21:24)
[2016-11-23 04:48] VITALS: BP 125/64; PULSE 79; RESP 18; TEMP 96.7; O2SAT 96
[2016-11-23 08:00] VITALS: BP 116/74; PULSE 79; RESP 18; TEMP 97.4; O2SAT 99
[2016-11-23] MEDS: IBUPROFEN 600 MG TAB PO PRN (08:34)
[2016-11-23] MEDS: DOCUSATE SODIUM 50 MG/SENNA 8.6 MG TAB PO SCH ×2 (08:34→21:24)
[2016-11-23] MEDS: SODIUM CHLORIDE 0.9% FLUSH 10 ML FLUSH IV FLUSH SCH ×2 (08:37→21:24)
[2016-11-23 08:40] LABS: ALT (GPT) 220 U/L (12-78); ANION GAP 7 MEQ/L (5-15); AST (GOT) 104 U/L (15-37); BICARBONATE 26.8 MEQ/L (21.0-32.0); BLOOD UREA NITROGEN 20 MG/DL (7-18); CHLORIDE 107 MEQ/L (98-107); GLOMERULAR FILTRATION RATE 96 ML/MIN (>89); POTASSIUM 4.1 MEQ/L (3.5-5.1); SODIUM (NA) 141 MEQ/L (136-145)
[2016-11-23 08:42] LABS: ALKALINE PHOSPHATASE 79 U/L (45-117); TOTAL BILIRUBIN ADULT 0.3 MG/DL (0.2-1.0)
--- NOTE | 2016-11-23 11:32 | HHI.PR ---
Subjective Remarks Follow up on patient with endocarditis, previous IVDU. Pt continues to report headache "on the top of my head." Pt stated "it's been here since I got here. They told me it's part of my condition."\\ Pt reported poor sleep. He stated his sleeping agent "came at about 9:00 PM and I didn't fall asleep until about 3:00 AM". Pt stated his appetite is good. Discussed pt's weight and he said "I'am a thin nola." No new issues/concerns raised by pt. Pt denied fever, cough, NVD, chest pain, SOB, bloody urine or stool. Per RN (Sherry) infectious disease has discontinued Rifampin "as they thought it may be contributing to the elevated liver enzymes". No acute issues reported overnight or since start of shift. Objective Vitals Vital Signs Date Time Temp Pulse Resp B/P (MAP) Pulse Ox O2 Delivery O2 Flow Rate FiO2 11/23/16 08:00 97.4 79 18 116/74 (88) 99 11/23/16 04:48 96.7 79 18 125/64 (84) 96 11/22/16 23:43 96.9 85 18 122/69 (86) 96 11/22/16 23:17 18 11/22/16 19:52 96.7 88 18 119/68 (85) 99 11/22/16 15:51 97.2 69 18 113/60 (77) 98 11/22/16 11:29 97.8 93 19 115/70 (85) 98 I/O 11/22/16 11/22/16 11/22/16 11/23/16 11/23/16 11/23/16 07:00 15:00 23:00 07:00 15:00 23:00 Intake Total 580 ml 1050 ml 820 ml 560 ml Balance 580 ml 1050 ml 820 ml 560 ml Intake Oral 480 ml 850 ml 720 ml 360 ml IV Total 100 ml 200 ml 100 ml 200 ml # Voids 3 2 3 3 # Bowel Movements 0 0 0 Result Diagram: 11/22/16 0624 11/23/16 0756 Imaging Last Impressions Chest X-Ray 11/11/16 0000 Signed Impressions: Service Date/Time: Friday, November 11, 2016 13:09 - CONCLUSION: No acute cardiopulmonary abnormality is identified. Stable chest x-ray. Kyle Black MD Hepatobiliary Scan Nuclear Medicine 11/05/16 0000 Signed Impressions: Service Date/Time: Saturday, November 05, 2016 09:08 - CONCLUSION: 1. Normal filling of the gallbladder excludes cystic duct obstruction and acute cholecystitis. No acute finding is identified. 2. There is severe bile reflux into the stomach. Kyle Black MD Head CT 11/05/16 0000 Signed Impressions: Service Date/Time: Saturday, November 05, 2016 04:06 - CONCLUSION: 1. No evidence of acute intracranial pathology. No masses are identified. Jv Mae MD Abdomen/Pelvis CT 11/05/16 0000 Signed Impressions: Service Date/Time: Saturday, November 05, 2016 04:10 - CONCLUSION: 1. Pericholecystic fluid without stone. Cholecystitis is not excluded. Radionuclide imaging is recommended for further evaluation if clinically indicated. 2. Nonobstructing right renal stone Jv Mae MD Objective Remarks GENERAL: Pt encountered laying abed. Awake and alert. SKIN: Warm and dry. tattoos noted. HEAD: Normocephalic. EYES: No scleral icterus. No injection or drainage. NECK: Supple, trachea midline. No lymphadenopathy. CARDIOVASCULAR: Regular rate and rhythm without murmurs, gallops, or rubs. RESPIRATORY: Breath sounds equal bilaterally. No accessory muscle use. GASTROINTESTINAL: Abdomen soft, non-tender, nondistended. MUSCULOSKELETAL: No cyanosis, or edema. PSYCHIATRIC: Alert and oriented x 3, no overt signs of depression/anxiety. Pleasant and cooperative. Procedures none Medications and IVs Current Medications Medications (Trade) Dose Ordered Sig/Abdirahman Route Start Time Stop Time Status Last Admin (NS Flush) 2 ml UNSCH PRN IV FLUSH 11/05/16 05:30 (NS Flush) 2 ml BID IV FLUSH 11/05/16 09:00 11/22/16 21:00 (Zofran Inj) 4 mg Q6H PRN IVP 11/05/16 05:30 (Tylenol) 650 mg Q6H PRN PO 11/05/16 05:30 11/22/16 13:08 (Roxicodone) 10 mg Q4H PRN PO 11/05/16 05:30 11/23/16 09:34 (Roxicodone) 5 mg Q4H PRN PO 11/05/16 05:30 11/05/16 12:44 (Ina-Colace) 1 tab BID PO 11/05/16 09:00 11/23/16 08:34 (Milk Of Magnesia Liq) 30 ml Q12H PRN PO 11/05/16 05:30 (Senokot) 17.2 mg Q12H PRN PO 11/05/16 05:30 (Dulcolax Supp) 10 mg DAILY PRN RECTAL 11/05/16 05:30 (Lactulose Liq) 30 ml DAILY PRN PO 11/05/16 05:30 Oxacillin Sodium 2 gm/Sodium Chloride 100 ml @ 200 mls/hr Q4H IV 11/05/16 20:00 11/23/16 08:34 (Lovenox Inj) 30 mg Q24H SQ 11/07/16 11:00 11/22/16 11:32 (Motrin) 600 mg Q8H PRN PO 11/08/16 14:30 11/23/16 08:34 (Ambien) 5 mg HS PRN PO 11/08/16 14:30 11/21/16 00:41 (Duoneb Neb) 1 ampule Q2HR NEB PRN NEB 11/11/16 12:15 11/12/16 01:42 (Melatonin) 5 mg HS PO 11/21/16 21:00 11/22/16 20:59 Urinary Catheter: No A/P Problem List: (1) 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 Monitor for any fever or signs of infection. Transaminitis: AST decreased, ALT unchanged. Infectious disease has discontinued Rifampin. Hepatitis panel ordered. Acetaminophen intake reviewed. Transaminitis -Previous blood studies negative for elevations of ALT/AST -Redraw labs on 11/25/16, orders placed -Current medication list reviewed. -Reviewed pt's past medical and drug use history. Sepsis, resolved Bacteremia, staph aureus Endocarditis mitral valve, prosthetic -Echocardiograms demonstrated vegetations. -ID following -D/C IVF -Continue oxacillin and rifampin x 6 weeks from negative cultures per ID recs. Repeat CBC and CMP in am. -Follow blood cultures. Initial BCX positive staph aureus. BCX 11/11 shows no growth in 5 days. Illicit substance use/ Nicotine dependence -He is beyond the phase of withdrawal. -Follow clinically -Patient understands he should quit Thrombocytopenia -improving Recurrent headache/migraines -Asymptomatic at present -Good response to combination of ibuprofen and Tylenol -monitor Insomnia -Trial of melatonin DVT prophylaxis -Lovenox Discussed with Dr. Swenson, nursing staff and patient Discharge Planning Case management for discharge planning Jason Borges Jr. Nov 23, 2016 11:32
[2016-11-23 12:00] VITALS: BP 117/75; PULSE 76; RESP 18; TEMP 96.2; O2SAT 99
--- NOTE | 2016-11-23 13:07 | HHI.IDPN ---
Note Infectious Disease Note Patient feels okay. No complaints. Afebrile. No chills, nausea, abdominal pain. LFT increased. Rifampin stopped by me yesterday. Blood culture 11/11 - no growth. 2D ECHO has mitral valve vegetation. Possible tricuspid vegetation as well. AST MEDICAL HISTORY 1. Mitral valve endocarditis. 2. Mitral valve surgery x 2. Annuloplasty, Replacement with bioprosthetic valve. 3. Brain hemorrhage 4. History of IVDU in the past. ALLERGIES NO KNOWN DRUG ALLERGIES. SOCIAL HISTORY Positive tobacco use, one pack of cigarettes a day. No alcohol. The patient denies illicit drugs except for marijuana. However, he has positive toxicology screening for cocaine in the urine. OBJECTIVE: Vital Signs Date Time Temp Pulse Resp B/P Pulse Ox O2 Delivery O2 Flow Rate FiO2 11/15/16 12:00 96.4 80 18 116/67 100 11/15/16 08:00 97.5 79 18 94/52 100 11/15/16 04:30 96.9 98 16 103/49 98 11/15/16 00:35 97.3 77 16 116/62 99 11/14/16 20:40 96.7 93 16 116/65 98 11/14/16 20:11 86 11/14/16 16:00 97.3 73 18 132/77 100 Laboratory Tests Test 11/22/16 06:24 White Blood Count 5.6 TH/MM3 Red Blood Count 4.05 MIL/MM3 Hemoglobin 12.0 GM/DL Hematocrit 35.8 % Mean Corpuscular Volume 88.5 FL Mean Corpuscular Hemoglobin 29.6 PG Mean Corpuscular Hemoglobin Concent 33.4 % Red Cell Distribution Width 13.5 % Platelet Count 223 TH/MM3 Mean Platelet Volume 8.6 FL Neutrophils (%) (Auto) 56.1 % Lymphocytes (%) (Auto) 30.9 % Monocytes (%) (Auto) 9.5 % Eosinophils (%) (Auto) 2.2 % Basophils (%) (Auto) 1.3 % Neutrophils # (Auto) 3.1 TH/MM3 Lymphocytes # (Auto) 1.7 TH/MM3 Monocytes # (Auto) 0.5 TH/MM3 Eosinophils # (Auto) 0.1 TH/MM3 Basophils # (Auto) 0.1 TH/MM3 CBC Comment DIFF FINAL Differential Comment Laboratory Tests Test 11/22/16 06:24 11/23/16 07:56 Blood Urea Nitrogen 22 MG/DL 20 MG/DL Creatinine 0.96 MG/DL 0.91 MG/DL Random Glucose 120 MG/DL 82 MG/DL Total Protein 7.1 GM/DL 7.5 GM/DL Albumin 3.1 GM/DL 3.2 GM/DL Calcium Level 8.7 MG/DL 9.1 MG/DL Alkaline Phosphatase 74 U/L 79 U/L Aspartate Amino Transf (AST/SGOT) 122 U/L 104 U/L Alanine Aminotransferase (ALT/SGPT) 220 U/L 220 U/L Total Bilirubin 0.4 MG/DL 0.3 MG/DL Sodium Level 141 MEQ/L 141 MEQ/L Potassium Level 3.7 MEQ/L 4.1 MEQ/L Chloride Level 104 MEQ/L 107 MEQ/L Carbon Dioxide Level 28.4 MEQ/L 26.8 MEQ/L Anion Gap 9 MEQ/L 7 MEQ/L Estimat Glomerular Filtration Rate 90 ML/MIN 96 ML/MIN PHYSICAL EXAMINATION GENERAL: No acute distress. HEENT: No icterus. NECK: Supple. No adenopathy. LUNGS: Clear breath sounds HEART: Regular rate and rhythm without audible murmurs, rubs or gallops. ABDOMEN: Bowel sounds present, soft, no tenderness. EXTREMITIES: No clubbing, cyanosis or edema. No embolic phenomena visible at the extremities. SKIN: No rash. NEUROLOGIC: Nonfocal PSYCHIATRIC: The patient is calm and cooperative. IMPRESSION 1. Bacteremia, staph aureus. 2. Endocarditis mitral valve. prosthetic. 3. Leukocytosis secondary to infection. Improved. 4. Drug use, although the patient denies IV drugs but has positive toxicology screen for cocaine. He denied to me that he snorts cocaine. Abnormal CT scan with pericholecystic fluid. However, negative HIDA scan. 5. Renal insufficiency probably related to profuse vomiting and also diarrhea. improved. 6. Elevated liver function test. Probably from Rifampin. Monitor. RECOMMENDATIONS 1. Continue oxacillin IV 2 gms Q4 hours x 6 weeks from negative culture. (Dec). 2. Monitor clinical status. 3. Follow LFTs. Also needs weekly CBC and BMP. Percy Jacobson MD Nov 23, 2016 13:07
[2016-11-23] MEDS: ACETAMINOPHEN 325 MG TAB PO PRN (14:03)
[2016-11-23] MEDS: ENOXAPARIN SODIUM 30 MG/0.3 ML SYRINGE SQ SCH (14:03)
[2016-11-23 16:00] VITALS: BP 133/79; PULSE 84; RESP 18; TEMP 97.4; O2SAT 100
[2016-11-23 20:25] VITALS: BP 119/72; PULSE 109; RESP 17; TEMP 96.5; O2SAT 98
[2016-11-23] MEDS: MELATONIN 5 MG TAB PO SCH (21:25)
[2016-11-24] VITALS (8 sets, daily range): BP systolic 101–116; BP diastolic 56–70; PULSE 60–88; RESP 16–19; TEMP 96.4–97.6; O2SAT 96–99
[2016-11-24] MEDS: ACETAMINOPHEN 325 MG TAB PO PRN ×3 (00:13→18:13)
[2016-11-24] MEDS: OXACILLIN INJ 2 GM in SODIUM CHLORIDE 0.9% INJ 100 ML IV SCH ×6 (00:59→20:47)
[2016-11-24] MEDS: DOCUSATE SODIUM 50 MG/SENNA 8.6 MG TAB PO SCH ×2 (09:14→20:47)
[2016-11-24] MEDS: SODIUM CHLORIDE 0.9% FLUSH 10 ML FLUSH IV FLUSH SCH ×2 (09:14→20:47)
[2016-11-24] MEDS: ENOXAPARIN SODIUM 30 MG/0.3 ML SYRINGE SQ SCH (11:42)
[2016-11-24] MEDS ORDERED: EUCERIN CREAM 120 GM JAR TOPICAL PRN (12:00)
[2016-11-24] MEDS: IBUPROFEN 600 MG TAB PO PRN (13:59)
--- NOTE | 2016-11-24 15:21 | HHI.PR ---
Subjective Remarks Follow up on patient with endocarditis, previous IVDU. Pt reported having a headache this morning and has improved with "a couple of Tylenol this morning." Pt again reported poor sleep; he stated he got sleeping agent at 2100. Pt spoke about his previous history of endocarditis secondary to IVDU, intracranial bleeding due to Coumadin, and subsequent valve replacement. No new issues/concerns raised by pt. Pt denied fever, cough, NVD, chest pain, SOB, bloody urine or stool. Per RN (Pascale) no acute issues reported overnight or since start of shift. Objective Vitals Vital Signs Date Time Temp Pulse Resp B/P (MAP) Pulse Ox O2 Delivery O2 Flow Rate FiO2 11/24/16 11:25 97.5 88 17 101/56 (71) 97 11/24/16 07:50 96.4 77 17 116/70 (85) 99 11/24/16 03:58 82 11/24/16 03:10 96.7 81 19 106/64 (78) 96 11/24/16 00:28 96.7 74 18 113/64 (80) 98 11/23/16 20:25 96.5 109 17 119/72 (88) 98 11/23/16 16:00 97.4 84 18 133/79 (97) 100 I/O 11/23/16 11/23/16 11/23/16 11/24/16 11/24/16 11/24/16 06:59 14:59 22:59 06:59 14:59 22:59 Intake Total 560 ml 950 ml 700 ml 580 ml Balance 560 ml 950 ml 700 ml 580 ml Intake Oral 360 ml 750 ml 600 ml 480 ml IV Total 200 ml 200 ml 100 ml 100 ml # Voids 3 3 3 3 # Bowel Movements 0 1 1 0 Result Diagram: 11/22/16 0624 11/23/16 0756 Imaging Last Impressions Chest X-Ray 11/11/16 0000 Signed Impressions: Service Date/Time: Friday, November 11, 2016 13:09 - CONCLUSION: No acute cardiopulmonary abnormality is identified. Stable chest x-ray. Kyle Black MD Hepatobiliary Scan Nuclear Medicine 11/05/16 0000 Signed Impressions: Service Date/Time: Saturday, November 05, 2016 09:08 - CONCLUSION: 1. Normal filling of the gallbladder excludes cystic duct obstruction and acute cholecystitis. No acute finding is identified. 2. There is severe bile reflux into the stomach. Kyle Black MD Head CT 11/05/16 0000 Signed Impressions: Service Date/Time: Saturday, November 05, 2016 04:06 - CONCLUSION: 1. No evidence of acute intracranial pathology. No masses are identified. Jv Mae MD Abdomen/Pelvis CT 11/05/16 0000 Signed Impressions: Service Date/Time: Saturday, November 05, 2016 04:10 - CONCLUSION: 1. Pericholecystic fluid without stone. Cholecystitis is not excluded. Radionuclide imaging is recommended for further evaluation if clinically indicated. 2. Nonobstructing right renal stone Jv Mae MD Objective Remarks GENERAL: Pt encountered laying abed. Awake and alert. SKIN: Warm and dry. tattoos noted. HEAD: Normocephalic. EYES: No scleral icterus. No injection or drainage. NECK: Supple, trachea midline. No lymphadenopathy. CARDIOVASCULAR: Regular rate and rhythm without murmurs, gallops, or rubs. RESPIRATORY: Breath sounds equal bilaterally. No accessory muscle use. GASTROINTESTINAL: Abdomen soft, non-tender, nondistended. MUSCULOSKELETAL: No cyanosis, or edema. PSYCHIATRIC: Alert and oriented x 3, no overt signs of depression/anxiety. Pleasant and cooperative. Procedures none Medications and IVs Current Medications Medications (Trade) Dose Ordered Sig/Abdirahman Route Start Time Stop Time Status Last Admin (NS Flush) 2 ml UNSCH PRN IV FLUSH 11/05/16 05:30 (NS Flush) 2 ml BID IV FLUSH 11/05/16 09:00 11/24/16 09:14 (Zofran Inj) 4 mg Q6H PRN IVP 11/05/16 05:30 (Tylenol) 650 mg Q6H PRN PO 11/05/16 05:30 11/24/16 09:40 (Roxicodone) 10 mg Q4H PRN PO 11/05/16 05:30 11/24/16 13:59 (Roxicodone) 5 mg Q4H PRN PO 11/05/16 05:30 11/05/16 12:44 (Ina-Colace) 1 tab BID PO 11/05/16 09:00 11/24/16 09:14 (Milk Of Magnesia Liq) 30 ml Q12H PRN PO 11/05/16 05:30 (Senokot) 17.2 mg Q12H PRN PO 11/05/16 05:30 (Dulcolax Supp) 10 mg DAILY PRN RECTAL 11/05/16 05:30 (Lactulose Liq) 30 ml DAILY PRN PO 11/05/16 05:30 Oxacillin Sodium 2 gm/Sodium Chloride 100 ml @ 200 mls/hr Q4H IV 11/05/16 20:00 11/24/16 11:42 (Lovenox Inj) 30 mg Q24H SQ 11/07/16 11:00 11/24/16 11:42 (Motrin) 600 mg Q8H PRN PO 11/08/16 14:30 11/24/16 13:59 (Ambien) 5 mg HS PRN PO 11/08/16 14:30 11/21/16 00:41 (Duoneb Neb) 1 ampule Q2HR NEB PRN NEB 11/11/16 12:15 11/12/16 01:42 (Melatonin) 10 mg HS PO 11/24/16 21:00 (Eucerin Cream) 1 applic Q6H PRN TOPICAL 11/24/16 12:00 Urinary Catheter: No A/P Problem List: (1) 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 Monitor for any fever or signs of infection. Transaminitis: labs in AM. Infectious disease note reviewed. Hepatitis panel results pending. Insomnia: increased melatonin 10 mg po qhs prn Transaminitis -Previous blood studies negative for elevations of ALT/AST -Redraw labs on 11/25/16, orders placed -Current medication list reviewed. -Reviewed pt's past medical and drug use history. Sepsis, resolved Bacteremia, staph aureus Endocarditis mitral valve, prosthetic -Echocardiograms demonstrated vegetations. -ID following -D/C IVF -Continue oxacillin and rifampin x 6 weeks from negative cultures per ID recs. Repeat CBC and CMP in am. -Follow blood cultures. Initial BCX positive staph aureus. BCX 11/11 shows no growth in 5 days. Illicit substance use/ Nicotine dependence -He is beyond the phase of withdrawal. -Follow clinically -Patient understands he should quit Thrombocytopenia -improving Recurrent headache/migraines -Asymptomatic at present -Good response to combination of ibuprofen and Tylenol -monitor Insomnia -Trial of melatonin -Melatonin 10 mg po q hs PRN insomnia DVT prophylaxis -Lovenox Discussed with Dr. Swenson, nursing staff and patient Discharge Planning Case management for discharge planning Jason Borges Jr. Nov 24, 2016 15:21
[2016-11-24] MEDS: MELATONIN 5 MG TAB PO SCH (20:47)
[2016-11-25] VITALS (7 sets, daily range): BP systolic 104–136; BP diastolic 57–72; PULSE 71–86; RESP 16–18; TEMP 95.4–97.9; O2SAT 94–99
[2016-11-25] MEDS: OXACILLIN INJ 2 GM in SODIUM CHLORIDE 0.9% INJ 100 ML IV SCH ×6 (00:34→19:35)
[2016-11-25 07:56] LABS: HEMATOCRIT 36.6 % (39.0-51.0); MEAN CELL VOLUME 88.4 FL (80.0-100.0); MEAN CORPUSCULAR HEMOGLOBIN 29.3 PG (27.0-34.0); MEAN CORPUSCULAR HGB CONC 33.1 % (32.0-36.0); PLATELET COUNT 233 TH/MM3 (150-450); RED BLOOD COUNT 4.14 MIL/MM3 (4.50-5.90); RED CELL DISTRIBUTION WIDTH 13.4 % (11.6-17.2); REVIEW FLAG FINAL; WHITE BLOOD COUNT 6.6 TH/MM3 (4.0-11.0)
[2016-11-25 08:20] LABS: ALT (GPT) 158 U/L (12-78); ANION GAP 6 MEQ/L (5-15); AST (GOT) 54 U/L (15-37); BICARBONATE 28.7 MEQ/L (21.0-32.0); BLOOD UREA NITROGEN 24 MG/DL (7-18); CHLORIDE 105 MEQ/L (98-107); GLOMERULAR FILTRATION RATE 96 ML/MIN (>89); SODIUM (NA) 140 MEQ/L (136-145)
[2016-11-25 08:22] LABS: ALKALINE PHOSPHATASE 76 U/L (45-117); TOTAL BILIRUBIN ADULT 0.2 MG/DL (0.2-1.0)
[2016-11-25] MEDS: DOCUSATE SODIUM 50 MG/SENNA 8.6 MG TAB PO SCH ×2 (09:00→19:35)
[2016-11-25] MEDS: ENOXAPARIN SODIUM 30 MG/0.3 ML SYRINGE SQ SCH (10:18)
[2016-11-25] MEDS: IBUPROFEN 600 MG TAB PO PRN ×2 (10:19→19:35)
[2016-11-25] MEDS: SODIUM CHLORIDE 0.9% FLUSH 10 ML FLUSH IV FLUSH SCH ×2 (10:20→19:35)
--- NOTE | 2016-11-25 14:43 | HHI.PR ---
Subjective Remarks Follow up on patient with endocarditis, previous IVDU. Pt reported again having a headache this morning and has requested having Tylenol and "my Roxicodone" Pt again reported poor sleep; he stated receiving new dosage of Melatonin no Ambien "I asked too late at about 1 AM". Discussed with pt his Hepatitis panel results, Hepatitis C reactive. Pt denied previous Hepatitis immunizations. He noted he "may have shared a needle one or two times." Pt was asked about HIV testing and he said he would like to be tested. No new issues/concerns raised by pt. Pt denied fever, cough, NVD, chest pain, SOB, bloody urine or stool. Per RN (Deepali) no acute issues reported overnight or since start of shift. Objective Vitals Vital Signs Date Time Temp Pulse Resp B/P (MAP) Pulse Ox O2 Delivery O2 Flow Rate FiO2 11/25/16 07:08 95.4 79 18 136/72 (93) 97 11/25/16 04:00 96.9 86 16 109/60 (76) 98 11/25/16 00:00 97.9 86 16 105/57 (73) 98 11/24/16 20:00 96.8 79 16 115/70 (85) 97 11/24/16 15:55 97.6 82 17 104/64 (77) 99 I/O 11/24/16 11/24/16 11/24/16 11/25/16 11/25/16 11/25/16 06:59 14:59 22:59 06:59 14:59 22:59 Intake Total 580 ml 1400 ml 850 ml 920 ml Balance 580 ml 1400 ml 850 ml 920 ml Intake Oral 480 ml 1200 ml 550 ml 720 ml IV Total 100 ml 200 ml 300 ml 200 ml # Voids 3 4 2 2 # Bowel Movements 0 0 Result Diagram: 11/25/16 0734 11/25/16 0734 Objective Remarks GENERAL: Pt encountered laying abed. Awake and alert. SKIN: Warm and dry. Tattoos noted. HEAD: Normocephalic. EYES: No scleral icterus. No injection or drainage. NECK: Supple, trachea midline. No lymphadenopathy. CARDIOVASCULAR: Regular rate and rhythm without murmurs, gallops, or rubs. RESPIRATORY: Breath sounds equal bilaterally. No accessory muscle use. GASTROINTESTINAL: Abdomen soft, non-tender, nondistended. MUSCULOSKELETAL: No cyanosis, or edema. PSYCHIATRIC: Alert and oriented x 3. Pt evidenced some anxiety after Hepatitis results were presented to him. Pleasant and cooperative. Procedures none Medications and IVs Current Medications Medications (Trade) Dose Ordered Sig/Abdirahman Route Start Time Stop Time Status Last Admin (NS Flush) 2 ml UNSCH PRN IV FLUSH 11/05/16 05:30 (NS Flush) 2 ml BID IV FLUSH 11/05/16 09:00 11/25/16 10:20 (Zofran Inj) 4 mg Q6H PRN IVP 11/05/16 05:30 (Tylenol) 650 mg Q6H PRN PO 11/05/16 05:30 11/24/16 18:13 (Roxicodone) 10 mg Q4H PRN PO 11/05/16 05:30 11/25/16 10:18 (Roxicodone) 5 mg Q4H PRN PO 11/05/16 05:30 11/05/16 12:44 (Ina-Colace) 1 tab BID PO 11/05/16 09:00 11/25/16 09:00 (Milk Of Magnesia Liq) 30 ml Q12H PRN PO 11/05/16 05:30 (Senokot) 17.2 mg Q12H PRN PO 11/05/16 05:30 (Dulcolax Supp) 10 mg DAILY PRN RECTAL 11/05/16 05:30 (Lactulose Liq) 30 ml DAILY PRN PO 11/05/16 05:30 Oxacillin Sodium 2 gm/Sodium Chloride 100 ml @ 200 mls/hr Q4H IV 11/05/16 20:00 11/25/16 12:42 (Lovenox Inj) 30 mg Q24H SQ 11/07/16 11:00 11/25/16 10:18 (Motrin) 600 mg Q8H PRN PO 11/08/16 14:30 11/25/16 10:19 (Ambien) 5 mg HS PRN PO 11/08/16 14:30 11/21/16 00:41 (Duoneb Neb) 1 ampule Q2HR NEB PRN NEB 11/11/16 12:15 11/12/16 01:42 (Melatonin) 10 mg HS PO 11/24/16 21:00 11/24/16 20:47 (Eucerin Cream) 1 applic Q6H PRN TOPICAL 11/24/16 12:00 Urinary Catheter: No A/P Problem List: (1) 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 Monitor for any fever or signs of infection. Hepatitis Panel: Hepatitis C reactive. Further testing ordered: hepatitis genome and quantification studies ordered. HIV testing ordered. Transaminitis: AST and ALT remain elevated and trending downward. Insomnia: continues despite increased melatonin Transaminitis -Previous blood studies negative for elevations of ALT/AST -Redraw labs on 11/25/16, orders placed -Current medication list reviewed. -Reviewed pt's past medical and drug use history. -Trending downward Sepsis, resolved Bacteremia, staph aureus Endocarditis mitral valve, prosthetic -Echocardiograms demonstrated vegetations. -ID following -D/C IVF -Continue oxacillin and rifampin x 6 weeks from negative cultures per ID recs. Repeat CBC and CMP in am. -Follow blood cultures. Initial BCX positive staph aureus. BCX 11/11 shows no growth in 5 days. Illicit substance use/ Nicotine dependence -He is beyond the phase of withdrawal. -Follow clinically -Patient understands he should quit Thrombocytopenia -improving Recurrent headache/migraines -Asymptomatic at present -Good response to combination of ibuprofen and Tylenol -monitor Insomnia -Trial of melatonin -Melatonin 10 mg po q hs PRN insomnia DVT prophylaxis -Lovenox Discussed with Dr. Swenson, nursing staff and patient Discharge Planning Case management for discharge planning Jason Borges Jr. Nov 25, 2016 14:43
[2016-11-25] MEDS: ACETAMINOPHEN 325 MG TAB PO PRN ×2 (14:47→23:59)
[2016-11-25] MEDS: MELATONIN 5 MG TAB PO SCH (19:35)
[2016-11-26] VITALS (8 sets, daily range): BP systolic 107–121; BP diastolic 58–75; PULSE 74–91; RESP 16–18; TEMP 95.8–97.9; O2SAT 98–99
[2016-11-26] MEDS: OXACILLIN INJ 2 GM in SODIUM CHLORIDE 0.9% INJ 100 ML IV SCH ×7 (04:08→20:41)
[2016-11-26] MEDS: IBUPROFEN 600 MG TAB PO PRN ×3 (04:14→20:39)
[2016-11-26] MEDS: SODIUM CHLORIDE 0.9% FLUSH 10 ML FLUSH IV FLUSH SCH ×2 (09:00→20:40)
[2016-11-26] MEDS: DOCUSATE SODIUM 50 MG/SENNA 8.6 MG TAB PO SCH ×2 (09:05→20:39)
[2016-11-26] MEDS: ACETAMINOPHEN 325 MG TAB PO PRN ×2 (09:05→16:41)
--- NOTE | 2016-11-26 12:14 | HHI.PR ---
Subjective Remarks Follow up on patient with endocarditis, previous IVDU. Pt reported again having a headache this morning. He noted he has requested non- narcotic medications to address it Pt continues to report poor sleep. Informed pt additional blood tests results are pending. No new issues/concerns raised by pt. Pt denied fever, cough, NVD, chest pain, SOB, bloody urine or stool. Per RN (Mary) no acute issues reported overnight or since start of shift. Objective Vitals Vital Signs Date Time Temp Pulse Resp B/P (MAP) Pulse Ox O2 Delivery O2 Flow Rate FiO2 11/26/16 12:00 96.8 79 18 114/67 (83) 98 11/26/16 08:00 97.9 74 18 120/73 (89) 99 11/26/16 04:00 97.7 91 18 118/72 (87) 98 11/26/16 00:00 97.4 80 16 121/75 (90) 98 11/25/16 21:00 84 11/25/16 20:00 97.8 84 16 116/63 (80) 99 11/25/16 16:00 96.6 71 18 117/65 (82) 96 I/O 11/25/16 11/25/16 11/25/16 11/26/16 11/26/16 11/26/16 06:59 14:59 22:59 06:59 14:59 22:59 Intake Total 920 ml 1040 ml 920 ml 820 ml Balance 920 ml 1040 ml 920 ml 820 ml Intake Oral 720 ml 840 ml 720 ml 720 ml IV Total 200 ml 200 ml 200 ml 100 ml # Voids 2 5 2 2 # Bowel Movements 0 Result Diagram: 11/25/16 0734 11/25/16 0734 Imaging Last Impressions Chest X-Ray 11/11/16 0000 Signed Impressions: Service Date/Time: Friday, November 11, 2016 13:09 - CONCLUSION: No acute cardiopulmonary abnormality is identified. Stable chest x-ray. Kyle Black MD Hepatobiliary Scan Nuclear Medicine 11/05/16 0000 Signed Impressions: Service Date/Time: Saturday, November 05, 2016 09:08 - CONCLUSION: 1. Normal filling of the gallbladder excludes cystic duct obstruction and acute cholecystitis. No acute finding is identified. 2. There is severe bile reflux into the stomach. Kyle Black MD Head CT 11/05/16 0000 Signed Impressions: Service Date/Time: Saturday, November 05, 2016 04:06 - CONCLUSION: 1. No evidence of acute intracranial pathology. No masses are identified. Jv Mae MD Abdomen/Pelvis CT 11/05/16 0000 Signed Impressions: Service Date/Time: Saturday, November 05, 2016 04:10 - CONCLUSION: 1. Pericholecystic fluid without stone. Cholecystitis is not excluded. Radionuclide imaging is recommended for further evaluation if clinically indicated. 2. Nonobstructing right renal stone Jv Mae MD Objective Remarks GENERAL: Pt encountered laying abed. Awake and alert. SKIN: Warm and dry. Tattoos noted. HEAD: Normocephalic. EYES: No scleral icterus. No injection or drainage. NECK: Supple, trachea midline. No lymphadenopathy. CARDIOVASCULAR: Regular rate and rhythm without murmurs, gallops, or rubs. RESPIRATORY: Breath sounds equal bilaterally. No accessory muscle use. GASTROINTESTINAL: Abdomen soft, non-tender, nondistended. MUSCULOSKELETAL: No cyanosis, or edema. PSYCHIATRIC: Alert and oriented x 3. Pt not overtly depressed/anxious. Pleasant and cooperative. Procedures none Medications and IVs Current Medications Medications (Trade) Dose Ordered Sig/Abdirahman Route Start Time Stop Time Status Last Admin (NS Flush) 2 ml UNSCH PRN IV FLUSH 11/05/16 05:30 (NS Flush) 2 ml BID IV FLUSH 11/05/16 09:00 11/25/16 10:20 (Zofran Inj) 4 mg Q6H PRN IVP 11/05/16 05:30 (Tylenol) 650 mg Q6H PRN PO 11/05/16 05:30 11/26/16 09:05 (Roxicodone) 10 mg Q4H PRN PO 11/05/16 05:30 11/26/16 12:42 (Roxicodone) 5 mg Q4H PRN PO 11/05/16 05:30 11/05/16 12:44 (Ina-Colace) 1 tab BID PO 11/05/16 09:00 11/26/16 09:05 (Milk Of Magnesia Liq) 30 ml Q12H PRN PO 11/05/16 05:30 (Senokot) 17.2 mg Q12H PRN PO 11/05/16 05:30 (Dulcolax Supp) 10 mg DAILY PRN RECTAL 11/05/16 05:30 (Lactulose Liq) 30 ml DAILY PRN PO 11/05/16 05:30 Oxacillin Sodium 2 gm/Sodium Chloride 100 ml @ 200 mls/hr Q4H IV 11/05/16 20:00 11/26/16 12:42 (Lovenox Inj) 30 mg Q24H SQ 11/07/16 11:00 11/26/16 12:42 (Motrin) 600 mg Q8H PRN PO 11/08/16 14:30 11/26/16 12:42 (Ambien) 5 mg HS PRN PO 11/08/16 14:30 11/21/16 00:41 (Duoneb Neb) 1 ampule Q2HR NEB PRN NEB 11/11/16 12:15 11/12/16 01:42 (Melatonin) 10 mg HS PO 11/24/16 21:00 11/25/16 19:35 (Eucerin Cream) 1 applic Q6H PRN TOPICAL 11/24/16 12:00 Urinary Catheter: No A/P Problem List: (1) 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 Monitor for any fever or signs of infection. Hepatitis Panel: Hepatitis C reactive. Hepatitis genome and quantification studies and HIV screen results pending. Insomnia: increased Ambien dose to 10 mg. Transaminitis -Previous blood studies negative for elevations of ALT/AST -Redraw labs on 11/25/16, orders placed -Current medication list reviewed. -Reviewed pt's past medical and drug use history. -Trending downward Sepsis, resolved Bacteremia, staph aureus Endocarditis mitral valve, prosthetic -Echocardiograms demonstrated vegetations. -ID following -D/C IVF -Continue oxacillin and rifampin x 6 weeks from negative cultures per ID recs. Repeat CBC and CMP in am. -Follow blood cultures. Initial BCX positive staph aureus. BCX 11/11 shows no growth in 5 days. Illicit substance use/ Nicotine dependence -He is beyond the phase of withdrawal. -Follow clinically -Patient understands he should quit Thrombocytopenia -improving -resolved. Recurrent headache/migraines -Asymptomatic at present -Good response to combination of ibuprofen and Tylenol -monitor Insomnia -Trial of melatonin -Melatonin 10 mg po q hs PRN insomnia -Ambien increased to 10 mg DVT prophylaxis -Lovenox Discussed with Dr. Ann, nursing staff and patient Discharge Planning Reviewed CM notes. Pt is homeless and has limited resources. Currently, he will be remaining in [facility] [place] until he completes his antibiotic regimen which ID notes will be 12/23/16. Jason Borges Jr. MAURISIO Nov 26, 2016 12:14
[2016-11-26] MEDS: ENOXAPARIN SODIUM 30 MG/0.3 ML SYRINGE SQ SCH (12:42)
[2016-11-26] MEDS: MELATONIN 5 MG TAB PO SCH (20:39)
[2016-11-26] MEDS: ZOLPIDEM TARTRATE 5 MG TAB PO PRN (22:39)
[2016-11-27] MEDS: OXACILLIN INJ 2 GM in SODIUM CHLORIDE 0.9% INJ 100 ML IV SCH ×6 (00:43→20:35)
[2016-11-27] MEDS: ACETAMINOPHEN 325 MG TAB PO PRN ×3 (00:43→16:19)
[2016-11-27 03:50] VITALS: BP 113/68; PULSE 76; RESP 16; TEMP 97; O2SAT 100
[2016-11-27 03:51] LABS: HCV RNA PCR IU/ML 20600 IU/mL (0-14); HCV RNA PCR LOGIU/ML 4.31 (0-1.18)
[2016-11-27] MEDS: IBUPROFEN 600 MG TAB PO PRN ×3 (04:36→21:28)
[2016-11-27 08:45] VITALS: BP 108/69; PULSE 70; RESP 16; TEMP 96.1; O2SAT 100
[2016-11-27] MEDS: DOCUSATE SODIUM 50 MG/SENNA 8.6 MG TAB PO SCH ×2 (08:48→20:36)
[2016-11-27] MEDS: SODIUM CHLORIDE 0.9% FLUSH 10 ML FLUSH IV FLUSH SCH ×2 (08:54→20:36)
--- NOTE | 2016-11-27 12:31 | HHI.PR ---
Subjective Remarks Follow up on patient with endocarditis, previous IVDU. Pt reported again having a headache this morning and "I'm ok with it." Pt continues to report poor sleep. Reported having long history of insomnia and has used Ambien 5 mg in past with little effect. Informed pt of new Hepatitis results regarding viral load. Told him to discuss more fully with infectious disease. HIV results pending. No new issues/concerns raised by pt. Pt denied fever, cough, NVD, chest pain, SOB, bloody urine or stool. Per RN (Deepali) no acute issues reported overnight or since start of shift. Discussed pt's insomnia with RN. She stated over night staff reported to her pt was confused early this morning after waking at "about 1:00 and didn;t know where he was." Objective Vitals Vital Signs Date Time Temp Pulse Resp B/P (MAP) Pulse Ox O2 Delivery O2 Flow Rate FiO2 11/27/16 08:45 96.1 70 16 108/69 (82) 100 11/27/16 03:50 97.0 76 16 113/68 (83) 100 11/26/16 23:30 97.4 81 17 107/58 (74) 99 11/26/16 21:00 90 11/26/16 19:45 97.0 82 18 109/67 (81) 98 11/26/16 16:00 95.8 90 18 112/64 (80) 99 I/O 11/26/16 11/26/16 11/26/16 11/27/16 11/27/16 11/27/16 07:00 15:00 23:00 07:00 15:00 23:00 Intake Total 820 ml 1200 ml 720 ml 720 ml Balance 820 ml 1200 ml 720 ml 720 ml Intake Oral 720 ml 1200 ml 720 ml 720 ml IV Total 100 ml # Voids 2 4 4 2 # Bowel Movements 0 0 0 Result Diagram: 11/25/1634 11/25/16733 Objective Remarks GENERAL: Pt encountered laying abed. Awake and alert. SKIN: Warm and dry. Tattoos noted. HEAD: Normocephalic. EYES: No scleral icterus. No injection or drainage. NECK: Supple, trachea midline. No lymphadenopathy. CARDIOVASCULAR: Regular rate and rhythm without murmurs, gallops, or rubs. RESPIRATORY: Breath sounds equal bilaterally. No accessory muscle use. GASTROINTESTINAL: Abdomen soft, non-tender, nondistended. MUSCULOSKELETAL: No cyanosis, or edema. PSYCHIATRIC: Alert and oriented x 3. Pt not overtly depressed/anxious. Pleasant and cooperative. Procedures none Medications and IVs Current Medications Medications (Trade) Dose Ordered Sig/Abdirahman Route Start Time Stop Time Status Last Admin (NS Flush) 2 ml UNSCH PRN IV FLUSH 11/05/16 05:30 (NS Flush) 2 ml BID IV FLUSH 11/05/16 09:00 11/25/16 10:20 (Zofran Inj) 4 mg Q6H PRN IVP 11/05/16 05:30 (Tylenol) 650 mg Q6H PRN PO 11/05/16 05:30 11/27/16 08:49 (Roxicodone) 10 mg Q4H PRN PO 11/05/16 05:30 11/27/16 08:48 (Roxicodone) 5 mg Q4H PRN PO 11/05/16 05:30 11/05/16 12:44 (Ina-Colace) 1 tab BID PO 11/05/16 09:00 11/27/16 08:48 (Milk Of Magnesia Liq) 30 ml Q12H PRN PO 11/05/16 05:30 (Senokot) 17.2 mg Q12H PRN PO 11/05/16 05:30 (Dulcolax Supp) 10 mg DAILY PRN RECTAL 11/05/16 05:30 (Lactulose Liq) 30 ml DAILY PRN PO 11/05/16 05:30 Oxacillin Sodium 2 gm/Sodium Chloride 100 ml @ 200 mls/hr Q4H IV 11/05/16 20:00 11/27/16 08:48 (Lovenox Inj) 30 mg Q24H SQ 11/07/16 11:00 11/26/16 12:42 (Motrin) 600 mg Q8H PRN PO 11/08/16 14:30 11/27/16 04:36 (Duoneb Neb) 1 ampule Q2HR NEB PRN NEB 11/11/16 12:15 11/12/16 01:42 (Melatonin) 10 mg HS PO 11/24/16 21:00 11/26/16 20:39 (Eucerin Cream) 1 applic Q6H PRN TOPICAL 11/24/16 12:00 11/26/16 20:40 (Ambien) 10 mg HS PRN PO 11/26/16 13:15 11/26/16 22:39 Urinary Catheter: No A/P Problem List: (1) 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 Monitor for any fever or signs of infection. Hepatitis Panel: Hepatitis C reactive. Hepatitis quantification studies resulted and discussed with pt. Hepatitis genome and and HIV screen results pending. Insomnia: With increased ambien no improved sleep. Will try one more evening with current regimen. Monitor pt overnight as he was reported to be confused with last evening's Ambien. Pt to be transferred to [place] later today. Transaminitis -Previous blood studies negative for elevations of ALT/AST -Redraw labs on 11/25/16, orders placed -Current medication list reviewed. -Reviewed pt's past medical and drug use history. -Trending downward Sepsis, resolved Bacteremia, staph aureus Endocarditis mitral valve, prosthetic -Echocardiograms demonstrated vegetations. -ID following -D/C IVF -Continue oxacillin and rifampin x 6 weeks from negative cultures per ID recs. Repeat CBC and CMP in am. -Follow blood cultures. Initial BCX positive staph aureus. BCX 11/11 shows no growth in 5 days. Illicit substance use/ Nicotine dependence -He is beyond the phase of withdrawal. -Follow clinically -Patient understands he should quit Thrombocytopenia -improving -resolved. Recurrent headache/migraines -Asymptomatic at present -Good response to combination of ibuprofen and Tylenol -monitor Insomnia -Trial of melatonin -Melatonin 10 mg po q hs PRN insomnia -Ambien increased to 10 mg DVT prophylaxis -Lovenox Discussed with Dr. Ann, nursing staff and patient. Pt history discussed with Sera Patterson [facility] in advance of transfer to [facility]. Discharge Planning Reviewed CM notes. Pt is homeless and has limited resources. Currently, he will be remaining in [facility] until he completes his antibiotic regimen which ID notes will be 12/23/16. Jason Borges Jr. MAURISIO Nov 27, 2016 12:31
[2016-11-27] MEDS: ENOXAPARIN SODIUM 30 MG/0.3 ML SYRINGE SQ SCH (13:01)
[2016-11-27 16:00] VITALS: BP 115/70; PULSE 75; RESP 18; TEMP 96.5; O2SAT 99
[2016-11-27 20:00] VITALS: BP 139/87; PULSE 71; RESP 18; TEMP 95.9; O2SAT 100
[2016-11-27] MEDS: MELATONIN 5 MG TAB PO SCH ×2 (20:36→21:20)
[2016-11-27] MEDS: ZOLPIDEM TARTRATE 5 MG TAB PO PRN (21:21)
[2016-11-28] VITALS: BP 124/71; PULSE 101; RESP 16; TEMP 96.2; O2SAT 98
[2016-11-28] MEDS: SODIUM CHLORIDE 0.9% FLUSH 10 ML FLUSH IV FLUSH PRN ×3 (00:20→23:42)
[2016-11-28] MEDS: OXACILLIN INJ 2 GM in SODIUM CHLORIDE 0.9% INJ 100 ML IV SCH ×7 (00:20→23:42)
[2016-11-28] MEDS: ACETAMINOPHEN 325 MG TAB PO PRN ×3 (01:59→16:36)
[2016-11-28 04:00] VITALS: BP 117/73; PULSE 92; RESP 16; TEMP 97.3; O2SAT 98
[2016-11-28] MEDS: SODIUM CHLORIDE 0.9% FLUSH 10 ML FLUSH IV FLUSH SCH ×2 (08:09→20:20)
[2016-11-28] MEDS: DOCUSATE SODIUM 50 MG/SENNA 8.6 MG TAB PO SCH ×2 (08:09→20:20)
[2016-11-28 09:05] VITALS: BP 119/71; PULSE 91; RESP 18; TEMP 96.3
[2016-11-28 09:21] LABS: ALT (GPT) 123 U/L (12-78); AST (GOT) 45 U/L (15-37)
[2016-11-28] MEDS: ENOXAPARIN SODIUM 30 MG/0.3 ML SYRINGE SQ SCH (10:29)
--- NOTE | 2016-11-28 11:23 | HHI.PR ---
Subjective Remarks Follow-up for endocarditis, transaminitis. Transferred from [facility] to [facility] last night. Patient has no acute complaints. Objective Vitals Vital Signs Date Time Temp Pulse Resp B/P (MAP) Pulse Ox O2 Delivery O2 Flow Rate FiO2 11/28/16 09:30 18 11/28/16 09:05 96.3 91 18 119/71 (87) 11/28/16 04:00 97.3 92 16 117/73 (88) 98 11/28/16 00:00 96.2 101 16 124/71 (88) 98 11/27/16 20:00 95.9 71 18 139/87 (104) 100 11/27/16 16:00 96.5 75 18 115/70 (85) 99 I/O 11/27/16 11/27/16 11/27/16 11/28/16 11/28/16 11/28/16 07:00 15:00 23:00 07:00 15:00 23:00 Intake Total 720 ml 2126 ml 935 ml 100 ml Balance 720 ml 2126 ml 935 ml 100 ml Intake Oral 720 ml 1780 ml 480 ml IV Total 346 ml 455 ml 100 ml # Voids 2 8 2 # Bowel Movements 0 1 0 Result Diagram: 11/25/1634 11/25/16733 Objective Remarks GENERAL: Well-nourished, well-developed patient in no apparent distress. SKIN: Warm and dry. CARDIOVASCULAR: Regular rate and rhythm. RESPIRATORY: No accessory muscle use. Clear to auscultation. Breath sounds equal bilaterally. GASTROINTESTINAL: Abdomen soft, non-tender, nondistended. MUSCULOSKELETAL: No lower extremity edema bilaterally. NEUROLOGICAL: Awake and alert. Motor grossly within normal limits. Normal speech. PSYCHIATRIC: Serious mood and affect. Procedures none Urinary Catheter: No Vascular Central Line Catheter: No A/P Problem List: (1) Endocarditis of mitral valve ICD Code: I05.8 - Endocarditis of mitral valve Status: Acute (2) Thrombocytopenia ICD Code: D69.6 - Thrombocytopenia Status: Resolved (3) IV drug abuse ICD Code: F19.10 - IV drug abuse Status: Chronic (4) Tobacco use ICD Code: Z72.0 - Tobacco use Status: Chronic Assessment and Plan 31-year-old male with: Sepsis, resolved Bacteremia, staph aureus Endocarditis mitral valve, prosthetic -Echo with vegetation of the prostatic mitral valve and probable vegetation of the tricuspid valve -Initial BCX positive staph aureus. BCX 11/11 shows no growth in 5 days. -ID following -Continue oxacillin IV 2g q4h x 6 weeks from negative culture (December 23, 2016) -Follow weekly CBC, CMP Transaminitis -ID attributed to Rifampin, was stopped. -11/28: AST and ALT continue to trend downward. Monitor weekly. *Illicit substance use/ Nicotine dependence -He is beyond the phase of withdrawal. -Follow clinically *Patient is on oxycodone for pain apparently in his back and shoulder. Need to wean this as this is likely chronic and patient has h/o substance abuse. -Oxycodone 5 mg q4h prn pain 3-5; will change to q6h prn pain 3-6 (11/28) -Oxycodone 10 mg q4h prn pain 6-10; will change to oxycodone 7.5 mg q6h prn pain 7-10 (11/28) Hepatitis C: Viral load 20,600. Genotype pending. -11/28: Patient informed of results and advised to follow up with outpatient GI physician for treatment. HIV antibody testing negative. Thrombocytopenia: Resolved Recurrent headache/migraines -Good response to combination of ibuprofen and Tylenol -Monitor clinically Insomnia -Melatonin 10 mg po qhs -Ambien 10 mg hs prn DVT prophylaxis: Lovenox sq. Sera Patterson Nov 28, 2016 11:23
[2016-11-28 13:02] VITALS: BP 114/68; PULSE 77; RESP 18; TEMP 97.3; O2SAT 98
[2016-11-28] MEDS: IBUPROFEN 600 MG TAB PO PRN ×3 (13:13→23:43)
[2016-11-28 16:41] VITALS: BP 129/74; PULSE 76; RESP 16; TEMP 97.6; O2SAT 99
[2016-11-28] MEDS ORDERED: PILL SPLITTER OTHER PRN (17:45)
[2016-11-28 20:00] VITALS: BP 119/73; PULSE 83; RESP 20; TEMP 97.4; O2SAT 99
[2016-11-28] MEDS: ZOLPIDEM TARTRATE 5 MG TAB PO PRN (20:23)
[2016-11-28] MEDS: MELATONIN 5 MG TAB PO SCH (20:23)
[2016-11-28 23:54] LABS: HEPATITIS C RNA GENOTYPE 1a (NOT DETECTD)
[2016-11-29] VITALS: BP 159/72; PULSE 71; RESP 20; TEMP 96.4; O2SAT 97
[2016-11-29 04:00] VITALS: BP 121/77; PULSE 69; RESP 20; TEMP 97.1; O2SAT 100
[2016-11-29] MEDS: OXACILLIN INJ 2 GM in SODIUM CHLORIDE 0.9% INJ 100 ML IV SCH ×6 (04:03→23:43)
[2016-11-29] MEDS: ACETAMINOPHEN 325 MG TAB PO PRN ×2 (04:46→11:51)
[2016-11-29] MEDS: SODIUM CHLORIDE 0.9% FLUSH 10 ML FLUSH IV FLUSH SCH ×2 (09:55→20:12)
[2016-11-29] MEDS: DOCUSATE SODIUM 50 MG/SENNA 8.6 MG TAB PO SCH ×2 (09:55→20:23)
[2016-11-29] MEDS: ENOXAPARIN SODIUM 30 MG/0.3 ML SYRINGE SQ SCH (11:14)
[2016-11-29 12:53] VITALS: BP 132/74; PULSE 68; RESP 16; TEMP 98; O2SAT 100
--- NOTE | 2016-11-29 14:58 | HHI.PR ---
Subjective Remarks Patient seen and examined today for follow-up on endocarditis. Patient resting carefully in bed. Does not appear to be painful. States that he is upset that his narcotic medication was decreased. He states that he is prescribed oxycodone in outpatient setting for his chronic shoulder pain. I did let the patient up on E force and indicates that the patient was prescribed only 1 prescription in the last year, December 2015 for oxycodone 15 mg 420 tablets. There has not been any other prescriptions written within the last year. I counseled patient extensively on discontinuation of opiate medications in order to recover from his addiction. At the present time he does not want to undergo recovery and discontinue using opiates at this time. Objective Vitals Vital Signs Date Time Temp Pulse Resp B/P (MAP) Pulse Ox O2 Delivery O2 Flow Rate FiO2 11/29/16 12:53 98.0 68 16 132/74 (93) 100 11/29/16 04:00 97.1 69 20 121/77 (92) 100 11/29/16 00:00 96.4 71 20 159/72 (101) 97 11/28/16 20:00 97.4 83 20 119/73 (88) 99 11/28/16 17:36 18 11/28/16 17:36 18 11/28/16 16:41 97.6 76 16 129/74 (92) 99 I/O 11/28/16 11/28/16 11/28/16 11/29/16 11/29/16 11/29/16 07:00 15:00 23:00 07:00 15:00 23:00 Intake Total 935 ml 200 ml 1080 ml 440 ml Balance 935 ml 200 ml 1080 ml 440 ml Intake Oral 480 ml 880 ml 240 ml IV Total 455 ml 200 ml 200 ml 200 ml # Voids 2 4 2 # Bowel Movements 0 0 Result Diagram: 11/25/16 0734 11/25/16 0734 Objective Remarks GENERAL: Well-developed, well-nourished, in no acute distress. alert and orientated HEENT: Head is normocephalic without any lesions or masses noted. Facial features are symmetric. Eyes: Extraocular muscles are intact. Conjunctivae were clear. NECK: Trachea midline no deviation. No JVD, CARDIAC: Regular rhythm, regular rate. S1/S2 are heard. No murmurs gallops or rubs. LUNGS: Clear to auscultation bilaterally. No wheeze, rhonchi or rales. No use of accessory muscles on inspiration or expiration. ABDOMEN: Soft, nontender. Nondistended. Bowel sounds heard in all 4 quadrants. No organomegaly or masses. Negative rebound, negative guarding EXTREMITIES: No edema, pulses are equal bilaterally. No cyanosis or clubbing NEUROLOGY: Mood and affect appear appropriate. Cranial nerves II through XII grossly intact. Moving all extremities, speech is clear Procedures none Urinary Catheter: No Vascular Central Line Catheter: No A/P Assessment and Plan Endocarditis mitral valve, prosthetic, recurrent who presented with sepsis criteria Echocardiogram shows apparent vegetation on the prostatic mitral valve and probable vegetation of the tricuspid valve Initial bacteremia with staph aureus on 11/05/16, first negative culture was 11/06/16 Infectious disease following the patient and recommending oxacillin IV 2 g every 4 hours for 6 weeks which would be December 23, 2016 Follow weekly CBC, CMP, CRP, ESR Transaminitis Secondary to rifampin Liver enzymes returning to normal Polysubstance abuse Patient with history of IV drug use, opiate abuse, crack cocaine use, marijuana abuse Hepatitis C testing was positive, HIV testing was negative Cautious administration of narcotic medication Patient was offered treatment for withdrawal from opiates, patient is deferring treatment at this time. He wishes to continue using opiates Chronic shoulder pain with opiate dependency, supposedly E force was accessed in which patient has not had a prescription for oxycodone since December 2015 Narcotic medication is being weaned at this time Oxycodone 5 mg every 6 hours as needed for pain 3-6 Oxycodone 7.5 mg every 6 hours as needed for pain 710 Hepatitis C Genotype 1A, viral load 20,600 Patient will require outpatient follow-up and treatment if needed Insomnia Melatonin 10 mg at bedtime Ambien 10 mg at bedtime as needed DVT prevention subcutaneous Lovenox Discharge Planning Discharge planning after completion of IV antibiotics Willy Bui Nov 29, 2016 14:58
[2016-11-29] MEDS: IBUPROFEN 600 MG TAB PO PRN (17:18)
[2016-11-29 20:00] VITALS: BP 130/80; PULSE 90; RESP 20; TEMP 98.6; O2SAT 98
[2016-11-29] MEDS: ZOLPIDEM TARTRATE 5 MG TAB PO PRN (21:23)
[2016-11-29] MEDS: MELATONIN 5 MG TAB PO SCH (21:23)
[2016-11-29] MEDS: SODIUM CHLORIDE 0.9% FLUSH 10 ML FLUSH IV FLUSH PRN (23:43)
[2016-11-30] MEDS: SODIUM CHLORIDE 0.9% FLUSH 10 ML FLUSH IV FLUSH PRN (03:56)
[2016-11-30] MEDS: OXACILLIN INJ 2 GM in SODIUM CHLORIDE 0.9% INJ 100 ML IV SCH ×5 (03:56→22:02)
[2016-11-30] MEDS: ACETAMINOPHEN 325 MG TAB PO PRN ×2 (04:00→18:37)
[2016-11-30] MEDS: IBUPROFEN 600 MG TAB PO PRN (06:35)
[2016-11-30 08:00] VITALS: BP 122/82; PULSE 56; RESP 18; TEMP 97.2; O2SAT 100
[2016-11-30] MEDS: DOCUSATE SODIUM 50 MG/SENNA 8.6 MG TAB PO SCH ×2 (08:09→21:06)
[2016-11-30] MEDS: SODIUM CHLORIDE 0.9% FLUSH 10 ML FLUSH IV FLUSH SCH ×2 (08:10→21:06)
--- NOTE | 2016-11-30 11:31 | HHI.PR ---
Subjective Remarks Patient seen and examined today for follow-up on bacterial endocarditis. Patient states that his tongue still hurts where he bit it. No other complaints. Objective Vitals Vital Signs Date Time Temp Pulse Resp B/P (MAP) Pulse Ox O2 Delivery O2 Flow Rate FiO2 11/30/16 08:00 97.2 56 18 122/82 (95) 100 11/30/16 07:05 20 11/30/16 07:05 20 11/29/16 20:00 98.6 90 20 130/80 (97) 98 11/29/16 12:53 98.0 68 16 132/74 (93) 100 I/O 11/29/16 11/29/16 11/29/16 11/30/16 11/30/16 11/30/16 06:59 14:59 22:59 06:59 14:59 22:59 Intake Total 440 ml 561 ml 680 ml Output Total 0 ml Balance 440 ml 561 ml 680 ml Intake Oral 240 ml 480 ml IV Total 200 ml 561 ml 200 ml Output Urine Total 0 ml Stool Total 0 ml # Voids 2 6 4 # Bowel Movements 2 0 Objective Remarks GENERAL: Well-developed, well-nourished, in no acute distress. alert and orientated HEENT: Head is normocephalic without any lesions or masses noted. Facial features are symmetric. Eyes: Extraocular muscles are intact. Conjunctivae were clear. Oropharyngeal: Patient does have mild bite esther on the right side of his tongue without any deep laceration or infection NECK: Trachea midline no deviation. No JVD, CARDIAC: Regular rhythm, regular rate. S1/S2 are heard. No murmurs gallops or rubs. LUNGS: Clear to auscultation bilaterally. No wheeze, rhonchi or rales. No use of accessory muscles on inspiration or expiration. ABDOMEN: Soft, nontender. Nondistended. Bowel sounds heard in all 4 quadrants. No organomegaly or masses. Negative rebound, negative guarding EXTREMITIES: No edema, pulses are equal bilaterally. No cyanosis or clubbing NEUROLOGY: Mood and affect appear appropriate. Cranial nerves II through XII grossly intact. Moving all extremities, speech is clear Procedures none Urinary Catheter: No Vascular Central Line Catheter: No A/P Assessment and Plan Endocarditis mitral valve, prosthetic, recurrent who presented with sepsis criteria Echocardiogram shows apparent vegetation on the prostatic mitral valve and probable vegetation of the tricuspid valve Initial bacteremia with staph aureus on 11/05/16, first negative culture was 11/06/16 Infectious disease following the patient and recommending oxacillin IV 2 g every 4 hours for 6 weeks which would be December 23, 2016 Follow weekly CBC, CMP, CRP, ESR Transaminitis Secondary to rifampin Liver enzymes returning to normal Polysubstance abuse Patient with history of IV drug use, opiate abuse, crack cocaine use, marijuana abuse Hepatitis C testing was positive, HIV testing was negative Cautious administration of narcotic medication Patient was offered treatment for withdrawal from opiates, patient is deferring treatment at this time. He wishes to continue using opiates Chronic shoulder pain with opiate dependency, supposedly E force was accessed in which patient has not had a prescription for oxycodone since December 2015 Narcotic medication is being weaned at this time Oxycodone 5 mg every 6 hours as needed for pain 3-6 Oxycodone 7.5 mg every 6 hours as needed for pain 710 Hepatitis C Genotype 1A, viral load 20,600 Patient will require outpatient follow-up and treatment if needed Insomnia Melatonin 10 mg at bedtime Ambien 10 mg at bedtime as needed DVT prevention subcutaneous Lovenox Discharge Planning Discharge planning after completion of IV antibiotics Willy Bui Nov 30, 2016 11:31
[2016-11-30] MEDS: ENOXAPARIN SODIUM 30 MG/0.3 ML SYRINGE SQ SCH (12:25)
[2016-11-30 20:00] VITALS: BP 119/74; PULSE 75; RESP 20; TEMP 98.2; O2SAT 99
[2016-11-30] MEDS: MELATONIN 5 MG TAB PO SCH (21:06)
[2016-11-30] MEDS: ZOLPIDEM TARTRATE 5 MG TAB PO PRN (21:06)
[2016-12-01] MEDS: OXACILLIN INJ 2 GM in SODIUM CHLORIDE 0.9% INJ 100 ML IV SCH ×6 (01:57→21:54)
[2016-12-01] MEDS: ACETAMINOPHEN 325 MG TAB PO PRN ×3 (02:05→21:39)
[2016-12-01] MEDS: ENOXAPARIN SODIUM 30 MG/0.3 ML SYRINGE SQ SCH (07:56)
[2016-12-01] MEDS: DOCUSATE SODIUM 50 MG/SENNA 8.6 MG TAB PO SCH ×2 (07:56→21:38)
[2016-12-01] MEDS: SODIUM CHLORIDE 0.9% FLUSH 10 ML FLUSH IV FLUSH SCH ×2 (07:58→21:53)
[2016-12-01 08:00] VITALS: BP 129/85; PULSE 74; RESP 18; TEMP 98; O2SAT 100
--- NOTE | 2016-12-01 13:07 | HHI.PR ---
Subjective Remarks Patient seen and examined today for follow-up on endocarditis. Patient lying in bed. States that is time still hurts him. Indicates that nursing staff told him that he had thrush. However appears the patient may have a canker sore. There is no white plaquing noted in his mouth, cheeks, gums or tongue Objective Vitals Vital Signs Date Time Temp Pulse Resp B/P (MAP) Pulse Ox O2 Delivery O2 Flow Rate FiO2 12/01/16 08:00 98.0 74 18 129/85 (100) 100 11/30/16 20:00 98.2 75 20 119/74 (89) 99 I/O 11/30/16 11/30/16 11/30/16 12/01/16 12/01/16 12/01/16 07:00 15:00 23:00 07:00 15:00 23:00 Intake Total 680 ml 980 ml Balance 680 ml 980 ml Intake Oral 480 ml 980 ml IV Total 200 ml # Voids 4 4 1 # Bowel Movements 0 Objective Remarks GENERAL: Well-developed, well-nourished, in no acute distress. alert and orientated HEENT: Head is normocephalic without any lesions or masses noted. Facial features are symmetric. Eyes: Extraocular muscles are intact. Conjunctivae were clear. Oropharyngeal: Patient does have mild bite esther on the right side of his tongue without any deep laceration or infection NECK: Trachea midline no deviation. No JVD, CARDIAC: Regular rhythm, regular rate. S1/S2 are heard. No murmurs gallops or rubs. LUNGS: Clear to auscultation bilaterally. No wheeze, rhonchi or rales. No use of accessory muscles on inspiration or expiration. ABDOMEN: Soft, nontender. Nondistended. Bowel sounds heard in all 4 quadrants. No organomegaly or masses. Negative rebound, negative guarding EXTREMITIES: No edema, pulses are equal bilaterally. No cyanosis or clubbing NEUROLOGY: Mood and affect appear appropriate. Cranial nerves II through XII grossly intact. Moving all extremities, speech is clear Procedures none Urinary Catheter: No Vascular Central Line Catheter: No A/P Assessment and Plan Endocarditis mitral valve, prosthetic, recurrent who presented with sepsis criteria Echocardiogram shows apparent vegetation on the prostatic mitral valve and probable vegetation of the tricuspid valve Initial bacteremia with staph aureus on 11/05/16, first negative culture was 11/06/16 Infectious disease following the patient and recommending oxacillin IV 2 g every 4 hours for 6 weeks which would be December 23, 2016 Follow weekly CBC, CMP, CRP, ESR Transaminitis Secondary to rifampin Liver enzymes returning to normal Polysubstance abuse Patient with history of IV drug use, opiate abuse, crack cocaine use, marijuana abuse Hepatitis C testing was positive, HIV testing was negative Cautious administration of narcotic medication Patient was offered treatment for withdrawal from opiates, patient is deferring treatment at this time. He wishes to continue using opiates Chronic shoulder pain with opiate dependency, supposedly E force was accessed in which patient has not had a prescription for oxycodone since December 2015 Narcotic medication is being weaned at this time Oxycodone 5 mg every 6 hours as needed for pain 3-6 Oxycodone 7.5 mg every 6 hours as needed for pain 710 Hepatitis C Genotype 1A, viral load 20,600 Patient will require outpatient follow-up and treatment if needed Insomnia Melatonin 10 mg at bedtime Ambien 10 mg at bedtime as needed Tongue abrasion/canker sore Triamcinolone/Orabase nightly for 7 days DVT prevention subcutaneous Lovenox Discharge Planning Discharge planning after completion of IV antibiotics Willy Bui Dec 01, 2016 13:07
[2016-12-01 20:00] VITALS: BP 136/89; PULSE 96; RESP 20; TEMP 96.9; O2SAT 98
[2016-12-01] MEDS: TRIAMCINOLONE ACET 0.1% IN ORABASE PASTE 5 GM TUBE OROPHARYNG SCH (21:37)
[2016-12-01] MEDS: MELATONIN 5 MG TAB PO SCH (21:37)
[2016-12-01] MEDS: ZOLPIDEM TARTRATE 5 MG TAB PO PRN (21:54)
[2016-12-02] MEDS: OXACILLIN INJ 2 GM in SODIUM CHLORIDE 0.9% INJ 100 ML IV SCH ×6 (02:20→22:06)
[2016-12-02] MEDS: ACETAMINOPHEN 325 MG TAB PO PRN (03:08)
[2016-12-02 08:00] VITALS: BP 107/61; PULSE 67; RESP 16; TEMP 97.8; O2SAT 99
[2016-12-02] MEDS: DOCUSATE SODIUM 50 MG/SENNA 8.6 MG TAB PO SCH ×2 (09:10→22:01)
[2016-12-02] MEDS: SODIUM CHLORIDE 0.9% FLUSH 10 ML FLUSH IV FLUSH SCH ×2 (09:11→22:04)
--- NOTE | 2016-12-02 11:23 | HHI.PR ---
Subjective Remarks Patient seen and examined today for follow-up on endocarditis. Patient lying in bed comfortable. States that the medication for his canker sore works really great. He is now able to talk and eat better he was able to sleep throughout the night. Objective Vitals Vital Signs Date Time Temp Pulse Resp B/P (MAP) Pulse Ox O2 Delivery O2 Flow Rate FiO2 12/02/16 10:11 20 12/02/16 08:00 97.8 67 16 107/61 (76) 99 12/01/16 20:00 96.9 96 20 136/89 (105) 98 I/O 12/01/16 12/01/16 12/01/16 12/02/16 12/02/16 12/02/16 06:59 14:59 22:59 06:59 14:59 22:59 Intake Total 980 ml 100 ml 820 ml Balance 980 ml 100 ml 820 ml Intake Oral 980 ml 720 ml IV Total 100 ml 100 ml # Voids 4 1 3 5 Objective Remarks GENERAL: Well-developed, well-nourished, in no acute distress. alert and orientated HEENT: Head is normocephalic without any lesions or masses noted. Facial features are symmetric. Eyes: Extraocular muscles are intact. Conjunctivae were clear. Oropharyngeal: Patient does have mild bite esther on the right side of his tongue without any deep laceration or infection NECK: Trachea midline no deviation. No JVD, CARDIAC: Regular rhythm, regular rate. S1/S2 are heard. No murmurs gallops or rubs. LUNGS: Clear to auscultation bilaterally. No wheeze, rhonchi or rales. No use of accessory muscles on inspiration or expiration. ABDOMEN: Soft, nontender. Nondistended. Bowel sounds heard in all 4 quadrants. No organomegaly or masses. Negative rebound, negative guarding EXTREMITIES: No edema, pulses are equal bilaterally. No cyanosis or clubbing NEUROLOGY: Mood and affect appear appropriate. Cranial nerves II through XII grossly intact. Moving all extremities, speech is clear Procedures none Urinary Catheter: No Vascular Central Line Catheter: No A/P Assessment and Plan Endocarditis mitral valve, prosthetic, recurrent who presented with sepsis criteria Echocardiogram shows apparent vegetation on the prostatic mitral valve and probable vegetation of the tricuspid valve Initial bacteremia with staph aureus on 11/05/16, first negative culture was 11/06/16 Infectious disease following the patient and recommending oxacillin IV 2 g every 4 hours for 6 weeks which would be December 23, 2016 Follow weekly CBC, CMP, CRP, ESR Transaminitis Secondary to rifampin Liver enzymes returning to normal Polysubstance abuse Patient with history of IV drug use, opiate abuse, crack cocaine use, marijuana abuse Hepatitis C testing was positive, HIV testing was negative Cautious administration of narcotic medication Patient was offered treatment for withdrawal from opiates, patient is deferring treatment at this time. He wishes to continue using opiates Chronic shoulder pain with opiate dependency, supposedly E force was accessed in which patient has not had a prescription for oxycodone since December 2015 Narcotic medication is being weaned at this time Oxycodone 5 mg every 6 hours as needed for pain 3-6 Oxycodone 7.5 mg every 6 hours as needed for pain 710 Hepatitis C Genotype 1A, viral load 20,600 Patient will require outpatient follow-up and treatment if needed Insomnia Melatonin 10 mg at bedtime Ambien 10 mg at bedtime as needed Tongue abrasion/canker sore Triamcinolone/Orabase nightly for 7 days DVT prevention subcutaneous Lovenox Discharge Planning Discharge planning after completion of IV antibiotics Willy Bui Dec 02, 2016 11:23
[2016-12-02] MEDS: ENOXAPARIN SODIUM 30 MG/0.3 ML SYRINGE SQ SCH (12:30)
[2016-12-02 20:00] VITALS: BP 131/85; PULSE 82; RESP 18; TEMP 96.8; O2SAT 100
[2016-12-02] MEDS: ZOLPIDEM TARTRATE 5 MG TAB PO PRN (22:00)
[2016-12-02] MEDS: MELATONIN 5 MG TAB PO SCH (22:01)
[2016-12-02] MEDS: TRIAMCINOLONE ACET 0.1% IN ORABASE PASTE 5 GM TUBE OROPHARYNG SCH (22:02)
[2016-12-03] MEDS: OXACILLIN INJ 2 GM in SODIUM CHLORIDE 0.9% INJ 100 ML IV SCH ×6 (02:22→21:18)
[2016-12-03] MEDS: DOCUSATE SODIUM 50 MG/SENNA 8.6 MG TAB PO SCH ×2 (07:30→21:17)
[2016-12-03] MEDS: SODIUM CHLORIDE 0.9% FLUSH 10 ML FLUSH IV FLUSH SCH ×2 (07:31→21:07)
[2016-12-03] MEDS: ENOXAPARIN SODIUM 30 MG/0.3 ML SYRINGE SQ SCH (07:32)
--- NOTE | 2016-12-03 08:36 | HHI.PR ---
Subjective Remarks Patient seen and examined today for follow-up on endocarditis, canker sore. Patient states that his tongue still hurts, however medication to make it better. Patient denies any other complaints. Objective Vitals Vital Signs Date Time Temp Pulse Resp B/P (MAP) Pulse Ox O2 Delivery O2 Flow Rate FiO2 12/02/16 20:00 96.8 82 18 131/85 (100) 100 12/02/16 16:02 20 12/02/16 10:11 20 I/O 12/02/16 12/02/16 12/02/16 12/03/16 12/03/16 12/03/16 06:59 14:59 22:59 06:59 14:59 22:59 Intake Total 820 ml 1720 ml 680 ml Balance 820 ml 1720 ml 680 ml Intake Oral 720 ml 1720 ml 480 ml IV Total 100 ml 200 ml # Voids 5 8 3 # Bowel Movements 0 0 Objective Remarks GENERAL: Well-developed, well-nourished, in no acute distress. alert and orientated HEENT: Head is normocephalic without any lesions or masses noted. Facial features are symmetric. Eyes: Extraocular muscles are intact. Conjunctivae were clear. Oropharyngeal: Patient does have mild bite esther on the right side of his tongue without any deep laceration or infection NECK: Trachea midline no deviation. No JVD, CARDIAC: Regular rhythm, regular rate. S1/S2 are heard. No murmurs gallops or rubs. LUNGS: Clear to auscultation bilaterally. No wheeze, rhonchi or rales. No use of accessory muscles on inspiration or expiration. ABDOMEN: Soft, nontender. Nondistended. Bowel sounds heard in all 4 quadrants. No organomegaly or masses. Negative rebound, negative guarding EXTREMITIES: No edema, pulses are equal bilaterally. No cyanosis or clubbing NEUROLOGY: Mood and affect appear appropriate. Cranial nerves II through XII grossly intact. Moving all extremities, speech is clear Procedures none Urinary Catheter: No Vascular Central Line Catheter: No A/P Assessment and Plan Endocarditis mitral valve, prosthetic, recurrent who presented with sepsis criteria Echocardiogram shows apparent vegetation on the prostatic mitral valve and probable vegetation of the tricuspid valve Initial bacteremia with staph aureus on 11/05/16, first negative culture was 11/06/16 Infectious disease following the patient and recommending oxacillin IV 2 g every 4 hours for 6 weeks which would be December 23, 2016 Follow weekly CBC, CMP, CRP, ESR Transaminitis Secondary to rifampin Liver enzymes returning to normal Polysubstance abuse Patient with history of IV drug use, opiate abuse, crack cocaine use, marijuana abuse Hepatitis C testing was positive, HIV testing was negative Cautious administration of narcotic medication Patient was offered treatment for withdrawal from opiates, patient is deferring treatment at this time. He wishes to continue using opiates Chronic shoulder pain with opiate dependency, supposedly E force was accessed in which patient has not had a prescription for oxycodone since December 2015 Narcotic medication is being weaned at this time Oxycodone 5 mg every 6 hours as needed for pain 3-6 Oxycodone 7.5 mg every 6 hours as needed for pain 710 Hepatitis C Genotype 1A, viral load 20,600 Patient will require outpatient follow-up and treatment if needed Insomnia Melatonin 10 mg at bedtime Ambien 10 mg at bedtime as needed Tongue abrasion/canker sore Triamcinolone/Orabase nightly for 7 days DVT prevention subcutaneous Lovenox Discharge Planning Discharge planning after completion of IV antibiotics Willy Bui Dec 03, 2016 08:36
[2016-12-03 08:49] VITALS: BP 113/74; PULSE 64; RESP 18; TEMP 96.5; O2SAT 100
[2016-12-03 20:00] VITALS: BP 130/78; PULSE 82; RESP 18; TEMP 96.9; O2SAT 98
[2016-12-03] MEDS: TRIAMCINOLONE ACET 0.1% IN ORABASE PASTE 5 GM TUBE OROPHARYNG SCH ×2 (21:00→22:49)
[2016-12-03] MEDS: MELATONIN 5 MG TAB PO SCH (21:08)
[2016-12-03] MEDS: ZOLPIDEM TARTRATE 5 MG TAB PO PRN (21:17)
[2016-12-04] MEDS: OXACILLIN INJ 2 GM in SODIUM CHLORIDE 0.9% INJ 100 ML IV SCH ×6 (02:02→21:06)
[2016-12-04] MEDS: DOCUSATE SODIUM 50 MG/SENNA 8.6 MG TAB PO SCH ×2 (08:33→20:48)
[2016-12-04] MEDS: ENOXAPARIN SODIUM 30 MG/0.3 ML SYRINGE SQ SCH (08:33)
[2016-12-04 08:34] VITALS: BP 118/81; PULSE 74; RESP 20; TEMP 96.7; O2SAT 98
[2016-12-04] MEDS: SODIUM CHLORIDE 0.9% FLUSH 10 ML FLUSH IV FLUSH SCH ×2 (08:34→20:48)
--- NOTE | 2016-12-04 13:52 | HHI.PR ---
Subjective Remarks Patient seen and examined today for follow-up on endocarditis. Patient denies any new complaints. Awaiting completion of IV antibiotics Objective Vitals Vital Signs Date Time Temp Pulse Resp B/P (MAP) Pulse Ox O2 Delivery O2 Flow Rate FiO2 12/04/16 08:34 96.7 74 20 118/81 (93) 98 12/04/16 06:03 16 12/03/16 20:00 96.9 82 18 130/78 (95) 98 I/O 12/03/16 12/03/16 12/03/16 12/04/16 12/04/16 12/04/16 07:00 15:00 23:00 07:00 15:00 23:00 Intake Total 680 ml 100 ml 1020 ml 200 ml 660 ml Output Total 0 ml Balance 680 ml 100 ml 1020 ml 200 ml 660 ml Intake Oral 480 ml 0 ml 720 ml 0 ml 660 ml IV Total 200 ml 100 ml 300 ml 200 ml Output Urine Total 0 ml Stool Total 0 ml # Voids 3 8 2 # Bowel Movements 0 1 0 Objective Remarks GENERAL: Well-developed, well-nourished, in no acute distress. alert and orientated HEENT: Head is normocephalic without any lesions or masses noted. Facial features are symmetric. Eyes: Extraocular muscles are intact. Conjunctivae were clear. Oropharyngeal: Patient does have mild bite esther on the right side of his tongue without any deep laceration or infection NECK: Trachea midline no deviation. No JVD, CARDIAC: Regular rhythm, regular rate. S1/S2 are heard. No murmurs gallops or rubs. LUNGS: Clear to auscultation bilaterally. No wheeze, rhonchi or rales. No use of accessory muscles on inspiration or expiration. ABDOMEN: Soft, nontender. Nondistended. Bowel sounds heard in all 4 quadrants. No organomegaly or masses. Negative rebound, negative guarding EXTREMITIES: No edema, pulses are equal bilaterally. No cyanosis or clubbing NEUROLOGY: Mood and affect appear appropriate. Cranial nerves II through XII grossly intact. Moving all extremities, speech is clear Procedures none Urinary Catheter: No Vascular Central Line Catheter: No A/P Assessment and Plan Endocarditis mitral valve, prosthetic, recurrent who presented with sepsis criteria Echocardiogram shows apparent vegetation on the prostatic mitral valve and probable vegetation of the tricuspid valve Initial bacteremia with staph aureus on 11/05/16, first negative culture was 11/06/16 Infectious disease following the patient and recommending oxacillin IV 2 g every 4 hours for 6 weeks which would be December 23, 2016 Follow weekly CBC, CMP, CRP, ESR Transaminitis Secondary to rifampin Liver enzymes returning to normal Polysubstance abuse Patient with history of IV drug use, opiate abuse, crack cocaine use, marijuana abuse Hepatitis C testing was positive, HIV testing was negative Cautious administration of narcotic medication Patient was offered treatment for withdrawal from opiates, patient is deferring treatment at this time. He wishes to continue using opiates Chronic shoulder pain with opiate dependency, supposedly E [employer] was accessed in which patient has not had a prescription for oxycodone since December 2015 Narcotic medication is being weaned at this time Oxycodone 5 mg every 6 hours as needed for pain 3-6 Oxycodone 7.5 mg every 6 hours as needed for pain 710 Hepatitis C Genotype 1A, viral load 20,600 Patient will require outpatient follow-up and treatment if needed Insomnia Melatonin 10 mg at bedtime Ambien 10 mg at bedtime as needed Tongue abrasion/canker sore Triamcinolone/Orabase nightly for 7 days DVT prevention subcutaneous Lovenox Discharge Planning Discharge planning after completion of IV antibiotics Willy Bui Dec 04, 2016 13:51
[2016-12-04 20:00] VITALS: BP 107/64; PULSE 86; RESP 18; TEMP 96.4; O2SAT 99
[2016-12-04] MEDS: MELATONIN 5 MG TAB PO SCH (20:48)
[2016-12-04] MEDS: ACETAMINOPHEN 325 MG TAB PO PRN (21:05)
[2016-12-04] MEDS: ZOLPIDEM TARTRATE 5 MG TAB PO PRN (21:06)
[2016-12-05] MEDS: OXACILLIN INJ 2 GM in SODIUM CHLORIDE 0.9% INJ 100 ML IV SCH ×5 (01:38→16:15)
[2016-12-05 07:35] LABS: AUTOMATED NEUTROPHIL # 3.9 TH/MM3 (1.8-7.7); BASOPHIL % 0.7 % (0.0-2.0); EOSINOPHIL # 0.2 TH/MM3 (0-0.4); EOSINOPHIL % 3.6 % (0.0-4.0); HEMATOCRIT 37.5 % (39.0-51.0); HEMO FLAGS DIFF FINAL; LYMPHOCYTE # 1.9 TH/MM3 (1.0-4.8); MEAN CELL VOLUME 86.9 FL (80.0-100.0); MEAN CORPUSCULAR HEMOGLOBIN 29.2 PG (27.0-34.0); MEAN CORPUSCULAR HGB CONC 33.6 % (32.0-36.0); MONO % 9.9 % (0.0-8.0); NEUT % 56.8 % (16.0-70.0); PLATELET COUNT 169 TH/MM3 (150-450); RED BLOOD COUNT 4.32 MIL/MM3 (4.50-5.90); RED CELL DISTRIBUTION WIDTH 13.4 % (11.6-17.2); WHITE BLOOD COUNT 6.7 TH/MM3 (4.0-11.0)
[2016-12-05 07:38] LABS: CHLORIDE 108 MEQ/L (98-107); POTASSIUM 4.2 MEQ/L (3.5-5.1); SODIUM (NA) 141 MEQ/L (136-145)
[2016-12-05 07:42] LABS: ANION GAP 7 MEQ/L (5-15); BICARBONATE 26.5 MEQ/L (21.0-32.0); BLOOD UREA NITROGEN 21 MG/DL (7-18)
[2016-12-05] MEDS: DOCUSATE SODIUM 50 MG/SENNA 8.6 MG TAB PO SCH ×2 (07:43→21:38)
[2016-12-05] MEDS: SODIUM CHLORIDE 0.9% FLUSH 10 ML FLUSH IV FLUSH SCH ×2 (07:43→20:30)
[2016-12-05] MEDS: ENOXAPARIN SODIUM 30 MG/0.3 ML SYRINGE SQ SCH (07:43)
[2016-12-05 07:45] LABS: ALT (GPT) 283 U/L (12-78); AST (GOT) 114 U/L (15-37); GLOMERULAR FILTRATION RATE 77 ML/MIN (>89)
[2016-12-05 07:46] LABS: TOTAL BILIRUBIN ADULT 0.3 MG/DL (0.2-1.0)
[2016-12-05 07:48] LABS: ALKALINE PHOSPHATASE 77 U/L (45-117)
[2016-12-05 08:00] VITALS: BP 103/73; PULSE 72; RESP 18; TEMP 98.4; O2SAT 97
[2016-12-05 08:05] LABS: WESTERGREN SEDIMENTATION RATE 7 mm/hr (0-15)
--- NOTE | 2016-12-05 10:49 | HHI.PR ---
Subjective Remarks Patient seen and examined today for follow-up on endocarditis. Patient lying in bed. Denies any new complaints. States that his tongue is healing nicely. Able to talk better. Objective Vitals Vital Signs Date Time Temp Pulse Resp B/P (MAP) Pulse Ox O2 Delivery O2 Flow Rate FiO2 12/05/16 08:00 98.4 72 18 103/73 (83) 97 12/05/16 02:47 16 12/04/16 22:05 16 12/04/16 20:00 96.4 86 18 107/64 (78) 99 I/O 12/04/16 12/04/16 12/04/16 12/05/16 12/05/16 12/05/16 07:00 15:00 23:00 07:00 15:00 23:00 Intake Total 200 ml 660 ml 680 ml 440 ml Balance 200 ml 660 ml 680 ml 440 ml Intake Oral 0 ml 660 ml 580 ml 240 ml IV Total 200 ml 100 ml 200 ml # Voids 2 7 2 # Bowel Movements 0 0 0 Result Diagram: 12/05/1672012/05/16720 Objective Remarks GENERAL: Well-developed, well-nourished, in no acute distress. alert and orientated HEENT: Head is normocephalic without any lesions or masses noted. Facial features are symmetric. Eyes: Extraocular muscles are intact. Conjunctivae were clear. Oropharyngeal: Patient does have mild bite esther on the right side of his tongue without any deep laceration or infection NECK: Trachea midline no deviation. No JVD, CARDIAC: Regular rhythm, regular rate. S1/S2 are heard. No murmurs gallops or rubs. LUNGS: Clear to auscultation bilaterally. No wheeze, rhonchi or rales. No use of accessory muscles on inspiration or expiration. ABDOMEN: Soft, nontender. Nondistended. Bowel sounds heard in all 4 quadrants. No organomegaly or masses. Negative rebound, negative guarding EXTREMITIES: No edema, pulses are equal bilaterally. No cyanosis or clubbing NEUROLOGY: Mood and affect appear appropriate. Cranial nerves II through XII grossly intact. Moving all extremities, speech is clear Procedures none Urinary Catheter: No Vascular Central Line Catheter: No A/P Assessment and Plan Endocarditis mitral valve, prosthetic, recurrent who presented with sepsis criteria Echocardiogram shows apparent vegetation on the prostatic mitral valve and probable vegetation of the tricuspid valve Initial bacteremia with staph aureus on 11/05/16, first negative culture was 11/06/16 Infectious disease following the patient and recommending oxacillin IV 2 g every 4 hours for 6 weeks which would be December 23, 2016 Follow weekly CBC, CMP, CRP, ESR Liver enzymes increase again, will notify infectious disease Transaminitis Secondary to rifampin Liver enzymes returning to normal Polysubstance abuse Patient with history of IV drug use, opiate abuse, crack cocaine use, marijuana abuse Hepatitis C testing was positive, HIV testing was negative Cautious administration of narcotic medication Patient was offered treatment for withdrawal from opiates, patient is deferring treatment at this time. He wishes to continue using opiates Chronic shoulder pain with opiate dependency, supposedly E force was accessed in which patient has not had a prescription for oxycodone since December 2015 Narcotic medication is being weaned at this time Oxycodone 5 mg every 6 hours as needed for pain 3-6 Oxycodone 7.5 mg every 6 hours as needed for pain 710 Hepatitis C Genotype 1A, viral load 20,600 Patient will require outpatient follow-up and treatment if needed Insomnia Melatonin 10 mg at bedtime Ambien 10 mg at bedtime as needed Tongue abrasion/canker sore Triamcinolone/Orabase nightly for 7 days DVT prevention subcutaneous Lovenox Discharge Planning Discharge planning after completion of IV antibiotics Willy Bui Dec 05, 2016 10:49
--- NOTE | 2016-12-05 17:20 | HHI.IDPN ---
Note Infectious Disease Note Re consult for elevated LFTs Patient feels okay. No complaints. Afebrile. No chills, nausea, abdominal pain. LFT increased. Rifampin was stopped on 11/22 AST MEDICAL HISTORY 1. Mitral valve endocarditis. 2. Mitral valve surgery x 2. Annuloplasty, Replacement with bioprosthetic valve. 3. Brain hemorrhage 4. History of IVDU in the past. ALLERGIES NO KNOWN DRUG ALLERGIES. SOCIAL HISTORY Positive tobacco use, one pack of cigarettes a day. No alcohol. The patient denies illicit drugs except for marijuana. However, he has positive toxicology screening for cocaine in the urine. OBJECTIVE: Vital Signs Date Time Temp Pulse Resp B/P Pulse Ox O2 Delivery O2 Flow Rate FiO2 11/15/16 12:00 96.4 80 18 116/67 100 11/15/16 08:00 97.5 79 18 94/52 100 11/15/16 04:30 96.9 98 16 103/49 98 11/15/16 00:35 97.3 77 16 116/62 99 11/14/16 20:40 96.7 93 16 116/65 98 11/14/16 20:11 86 11/14/16 16:00 97.3 73 18 132/77 100 Laboratory Tests Test 11/22/16 06:24 White Blood Count 5.6 TH/MM3 Red Blood Count 4.05 MIL/MM3 Hemoglobin 12.0 GM/DL Hematocrit 35.8 % Mean Corpuscular Volume 88.5 FL Mean Corpuscular Hemoglobin 29.6 PG Mean Corpuscular Hemoglobin Concent 33.4 % Red Cell Distribution Width 13.5 % Platelet Count 223 TH/MM3 Mean Platelet Volume 8.6 FL Neutrophils (%) (Auto) 56.1 % Lymphocytes (%) (Auto) 30.9 % Monocytes (%) (Auto) 9.5 % Eosinophils (%) (Auto) 2.2 % Basophils (%) (Auto) 1.3 % Neutrophils # (Auto) 3.1 TH/MM3 Lymphocytes # (Auto) 1.7 TH/MM3 Monocytes # (Auto) 0.5 TH/MM3 Eosinophils # (Auto) 0.1 TH/MM3 Basophils # (Auto) 0.1 TH/MM3 CBC Comment DIFF FINAL Differential Comment Laboratory Tests Test 11/22/16 06:24 11/23/16 07:56 Blood Urea Nitrogen 22 MG/DL 20 MG/DL Creatinine 0.96 MG/DL 0.91 MG/DL Random Glucose 120 MG/DL 82 MG/DL Total Protein 7.1 GM/DL 7.5 GM/DL Albumin 3.1 GM/DL 3.2 GM/DL Calcium Level 8.7 MG/DL 9.1 MG/DL Alkaline Phosphatase 74 U/L 79 U/L Aspartate Amino Transf (AST/SGOT) 122 U/L 104 U/L Alanine Aminotransferase (ALT/SGPT) 220 U/L 220 U/L Total Bilirubin 0.4 MG/DL 0.3 MG/DL Sodium Level 141 MEQ/L 141 MEQ/L Potassium Level 3.7 MEQ/L 4.1 MEQ/L Chloride Level 104 MEQ/L 107 MEQ/L Carbon Dioxide Level 28.4 MEQ/L 26.8 MEQ/L Anion Gap 9 MEQ/L 7 MEQ/L Estimat Glomerular Filtration Rate 90 ML/MIN 96 ML/MIN PHYSICAL EXAMINATION GENERAL: No acute distress. HEENT: No icterus. NECK: Supple. No adenopathy. LUNGS: Clear breath sounds HEART: Regular rate and rhythm without audible murmurs, rubs or gallops. ABDOMEN: Bowel sounds present, soft, no tenderness. EXTREMITIES: No clubbing, cyanosis or edema. No embolic phenomena visible at the extremities. SKIN: No rash. NEUROLOGIC: Nonfocal PSYCHIATRIC: The patient is calm and cooperative. IMPRESSION 1. Bacteremia, staph aureus. 2. Endocarditis mitral valve. prosthetic. 3. Leukocytosis secondary to infection. Improved. 4. Drug use,- based on Drug screen on admission 6. Elevated liver function test. - Could be secondary to Oxacillin RECOMMENDATIONS 1. Replace IV Oxacillin with Cefazolin 2 g IV q8hrs to finish the 6 week course (Dec). 2. Monitor clinical status. 3. Follow LFTs. Also needs weekly CBC and BMP. Nora Decker MD Dec 05, 2016 17:20
[2016-12-05 20:15] VITALS: BP 125/75; PULSE 97; RESP 20; TEMP 97.6; O2SAT 99
[2016-12-05] MEDS: ceFAZolin 2 GM PREMIX 50 ML IV SCH (20:30)
[2016-12-05] MEDS: MELATONIN 5 MG TAB PO SCH (21:38)
[2016-12-05] MEDS: ZOLPIDEM TARTRATE 5 MG TAB PO PRN (21:38)
[2016-12-05] MEDS: TRIAMCINOLONE ACET 0.1% IN ORABASE PASTE 5 GM TUBE OROPHARYNG SCH (21:39)
[2016-12-06] MEDS: ceFAZolin 2 GM PREMIX 50 ML IV SCH ×3 (02:56→17:48)
[2016-12-06 08:30] VITALS: BP 96/55; PULSE 77; RESP 16; TEMP 98.1; O2SAT 100
[2016-12-06] MEDS: ENOXAPARIN SODIUM 30 MG/0.3 ML SYRINGE SQ SCH (08:46)
[2016-12-06] MEDS: DOCUSATE SODIUM 50 MG/SENNA 8.6 MG TAB PO SCH ×2 (08:46→20:27)
[2016-12-06] MEDS: SODIUM CHLORIDE 0.9% FLUSH 10 ML FLUSH IV FLUSH SCH ×2 (08:46→20:27)
--- NOTE | 2016-12-06 11:24 | HHI.PR ---
Subjective Remarks Follow-up for endocarditis, elevated LFTs. Patient denies any fevers or chills. Nurse states the patient is requesting that Lovenox be discontinued; states he ambulates frequently. Objective Vitals Vital Signs Date Time Temp Pulse Resp B/P (MAP) Pulse Ox O2 Delivery O2 Flow Rate FiO2 12/06/16 08:30 98.1 77 16 96/55 (69) 100 12/05/16 20:15 97.6 97 20 125/75 (92) 99 I/O 12/05/16 12/05/16 12/05/16 12/06/16 12/06/16 12/06/16 07:00 15:00 23:00 07:00 15:00 23:00 Intake Total 440 ml 960 ml 440 ml Balance 440 ml 960 ml 440 ml Intake Oral 240 ml 960 ml 240 ml IV Total 200 ml 200 ml # Voids 2 4 2 # Bowel Movements 0 Result Diagram: 12/05/1672012/05/1621 Objective Remarks GENERAL: Well-nourished, well-developed patient in no apparent distress. CARDIOVASCULAR: Regular rate and rhythm. RESPIRATORY: No accessory muscle use. Clear to auscultation. Breath sounds equal bilaterally. GASTROINTESTINAL: Abdomen soft, non-tender, nondistended. NEUROLOGICAL: Awake and alert. Motor grossly within normal limits. Normal speech. PSYCHIATRIC: Normal mood; flat affect. Procedures none Urinary Catheter: No Vascular Central Line Catheter: No A/P Problem List: (1) Endocarditis of mitral valve ICD Code: I05.8 - Endocarditis of mitral valve Status: Acute (2) Thrombocytopenia ICD Code: D69.6 - Thrombocytopenia Status: Resolved (3) IV drug abuse ICD Code: F19.10 - IV drug abuse Status: Chronic (4) Tobacco use ICD Code: Z72.0 - Tobacco use Status: Chronic Assessment and Plan 31-year-old male with: Endocarditis mitral valve, prosthetic, recurrent who presented with sepsis criteria -Echocardiogram shows apparent vegetation on the prosthetic mitral valve and probable vegetation of the tricuspid valve -Initial bacteremia with staph aureus on 11/05/16, first negative culture was -Infectious disease following the patient and recommending oxacillin IV 2 g every 4 hours for 6 weeks, end date December 23, 2016. Switched to Cefazolin on 12/05 due to transaminitis. -Follow weekly CBC, CMP, CRP Transaminitis -ID attributed to Rifampin, was stopped. -LFTs again elevated with oxacillin use. ID evaluated patient and switched antibiotics. -12/06: Repeat am CMP. Polysubstance abuse -Patient with history of IV drug use, opiate abuse, crack cocaine use, marijuana abuse -HIV testing negative -Cautious administration of narcotic medication. Chronic shoulder pain: -Oxycodone 5 mg q6h prn pain 3-6 -Oxycodone 7.5 mg q6h prn pain 7-10 -Wean medication. Hepatitis C: Viral load 20,600. Genotype 1a. -Patient informed to follow up with outpatient GI physician for treatment. Thrombocytopenia: Resolved Recurrent headache/migraines -Good response to combination of ibuprofen and Tylenol -Monitor clinically Insomnia -Melatonin 10 mg po qhs -Ambien 10 mg hs prn Tongue abrasion/canker sore -Triamcinolone/Orabase nightly for 7 days DVT prophylaxis: Discussed with Dr. Swenson. D/c Lovenox as patient ambulates regularly. Use SCDs while in bed. Discharge Planning Will remain hospitalized until completion of antibiotics. Sera Patterson Dec 06, 2016 11:24
[2016-12-06 20:00] VITALS: BP 20/98; PULSE 98; RESP 20; TEMP 98.1; O2SAT 98
[2016-12-06] MEDS: MELATONIN 5 MG TAB PO SCH (20:27)
[2016-12-06] MEDS: ZOLPIDEM TARTRATE 5 MG TAB PO PRN (20:28)
[2016-12-06] MEDS: TRIAMCINOLONE ACET 0.1% IN ORABASE PASTE 5 GM TUBE OROPHARYNG SCH (20:30)
[2016-12-07] MEDS: ceFAZolin 2 GM PREMIX 50 ML IV SCH ×3 (01:52→17:29)
[2016-12-07] MEDS: SODIUM CHLORIDE 0.9% FLUSH 10 ML FLUSH IV FLUSH SCH ×2 (08:17→20:36)
[2016-12-07] MEDS: DOCUSATE SODIUM 50 MG/SENNA 8.6 MG TAB PO SCH ×2 (08:17→20:35)
[2016-12-07 08:54] LABS: CHLORIDE 104 MEQ/L (98-107); SODIUM (NA) 140 MEQ/L (136-145)
[2016-12-07 08:59] LABS: ANION GAP 8 MEQ/L (5-15); BICARBONATE 27.7 MEQ/L (21.0-32.0); BLOOD UREA NITROGEN 17 MG/DL (7-18)
[2016-12-07 09:02] LABS: ALT (GPT) 296 U/L (12-78); AST (GOT) 127 U/L (15-37); GLOMERULAR FILTRATION RATE 89 ML/MIN (>89)
[2016-12-07 09:03] LABS: TOTAL BILIRUBIN ADULT 0.4 MG/DL (0.2-1.0)
[2016-12-07 09:05] LABS: ALKALINE PHOSPHATASE 82 U/L (45-117)
[2016-12-07 09:36] VITALS: BP 115/73; PULSE 80; RESP 18; TEMP 98.1
--- NOTE | 2016-12-07 11:16 | HHI.PR ---
Subjective Remarks Follow-up for endocarditis, elevated LFTs. The patient is concerned asking what happens if the antibiotics don't work. He additionally asks if his vegetation will resolve. I informed the patient the antibiotics should treat his infection. I told him I can discuss with ID about obtaining a repeat Echo to assess status of vegetation. I informed him he may need to be stay on oral antibiotics when discharged. I informed patient abstinence from drug use when discharged is most important. Patient does not intend to use drugs again when discharged, but relapses; i.e. stating he went a year without use but then started again. He has gone to rehab in the past. Objective Vitals Vital Signs Date Time Temp Pulse Resp B/P (MAP) Pulse Ox O2 Delivery O2 Flow Rate FiO2 12/07/16 09:36 98.1 80 18 115/73 (87) 12/07/16 03:45 16 12/06/16 20:00 98.1 98 20 20/98 (72) 98 I/O 12/06/16 12/06/16 12/06/16 12/07/16 12/07/16 12/07/16 07:00 15:00 23:00 07:00 15:00 23:00 Intake Total 440 ml 480 ml Balance 440 ml 480 ml Intake Oral 240 ml 480 ml IV Total 200 ml # Voids 2 5 3 # Bowel Movements 2 0 Result Diagram: 12/05/16 0721 12/07/16 0810 Objective Remarks GENERAL: Well-nourished, well-developed patient in no apparent distress. CARDIOVASCULAR: Regular rate and rhythm. RESPIRATORY: No accessory muscle use. Clear to auscultation. Breath sounds equal bilaterally. GASTROINTESTINAL: Abdomen soft, non-tender, nondistended. NEUROLOGICAL: Awake and alert. Motor grossly within normal limits. Normal speech. PSYCHIATRIC: Normal mood and affect. Procedures none Urinary Catheter: No Vascular Central Line Catheter: No A/P Problem List: (1) Endocarditis of mitral valve ICD Code: I05.8 - Endocarditis of mitral valve Status: Acute (2) Thrombocytopenia ICD Code: D69.6 - Thrombocytopenia Status: Resolved (3) IV drug abuse ICD Code: F19.10 - IV drug abuse Status: Chronic (4) Tobacco use ICD Code: Z72.0 - Tobacco use Status: Chronic Assessment and Plan 31-year-old male with: Endocarditis mitral valve, prosthetic, recurrent who presented with sepsis criteria -Echocardiogram shows apparent vegetation on the prosthetic mitral valve and probable vegetation of the tricuspid valve -Initial bacteremia with staph aureus on 11/05/16, first negative culture was -Infectious disease following the patient and recommending oxacillin IV 2 g every 4 hours for 6 weeks, end date December 23, 2016. Switched to Cefazolin on 12/05 due to transaminitis. -Follow weekly CBC, CMP, CRP -Consider repeat Echo at end of treatment; can discuss with ID Transaminitis -ID attributed to Rifampin, was stopped. -LFTs again elevated with oxacillin use. ID evaluated patient and switched antibiotics. -12/07: AST and ALT mildly increased from prior on 12/05. Discussed with Dr. Swenson. May be attributed to inflammation related to infection or hepatitis, not necessarily antibiotics at this time. Will continue to trend. If continue to increase, will contact ID. Repeat AST and ALT in the am. Polysubstance abuse -Patient with history of IV drug use, opiate abuse, crack cocaine use, marijuana abuse -HIV testing negative -Cautious administration of narcotic medication. Chronic shoulder pain: -Oxycodone 5 mg q6h prn pain 3-6 -Oxycodone 7.5 mg q6h prn pain 7-10 -Wean medication. Hepatitis C: Viral load 20,600. Genotype 1a. -Patient informed to follow up with outpatient GI physician for treatment. Thrombocytopenia: Resolved Recurrent headache/migraines -Good response to combination of ibuprofen and Tylenol -Monitor clinically Insomnia -Melatonin 10 mg po qhs -Ambien 10 mg hs prn Tongue abrasion/canker sore -Triamcinolone/Orabase nightly for 7 days DVT prophylaxis: Discussed with Dr. Swenson. D/c Lovenox as patient ambulates regularly. Use SCDs while in bed. Discharge Planning Will remain hospitalized until completion of antibiotics. Sera Patterson Dec 07, 2016 11:16
[2016-12-07 20:00] VITALS: BP 136/85; PULSE 94; RESP 18; TEMP 96.6; O2SAT 99
[2016-12-07] MEDS: MELATONIN 5 MG TAB PO SCH (20:35)
[2016-12-07] MEDS: ZOLPIDEM TARTRATE 5 MG TAB PO PRN (20:35)
[2016-12-07] MEDS: TRIAMCINOLONE ACET 0.1% IN ORABASE PASTE 5 GM TUBE OROPHARYNG SCH (20:36)
[2016-12-08] MEDS: ceFAZolin 2 GM PREMIX 50 ML IV SCH ×3 (01:52→17:19)
[2016-12-08 06:40] LABS: ALT (GPT) 282 U/L (12-78); AST (GOT) 130 U/L (15-37)
[2016-12-08 08:00] VITALS: BP 114/72; PULSE 79; RESP 16; TEMP 97; O2SAT 99
[2016-12-08] MEDS: DOCUSATE SODIUM 50 MG/SENNA 8.6 MG TAB PO SCH ×2 (08:50→20:54)
[2016-12-08] MEDS: SODIUM CHLORIDE 0.9% FLUSH 10 ML FLUSH IV FLUSH SCH ×2 (08:51→20:54)
--- NOTE | 2016-12-08 10:27 | HHI.PR ---
Subjective Remarks Follow-up for endocarditis, elevated LFTs. Patient denies any abdominal pain. No new issues. Objective Vitals Vital Signs Date Time Temp Pulse Resp B/P (MAP) Pulse Ox O2 Delivery O2 Flow Rate FiO2 12/08/16 08:00 97.0 79 16 114/72 (86) 99 12/08/16 03:45 16 12/07/16 20:00 96.6 94 18 136/85 (102) 99 12/07/16 15:42 18 I/O 12/07/16 12/07/16 12/07/16 12/08/16 12/08/16 12/08/16 07:00 15:00 23:00 07:00 15:00 23:00 Intake Total 480 ml Balance 480 ml Intake Oral 480 ml # Voids 3 4 # Bowel Movements 0 2 Result Diagram: 12/05/16 0721 12/07/16 0810 Objective Remarks GENERAL: Well-nourished, well-developed patient in no apparent distress. CARDIOVASCULAR: Regular rate and rhythm. No murmur. RESPIRATORY: No accessory muscle use. Clear to auscultation. Breath sounds equal bilaterally. GASTROINTESTINAL: Abdomen soft, non-tender, nondistended. NEUROLOGICAL: Awake and alert. Motor grossly within normal limits. Normal speech. PSYCHIATRIC: Normal mood and affect. Procedures none Urinary Catheter: No Vascular Central Line Catheter: No A/P Problem List: (1) Endocarditis of mitral valve ICD Code: I05.8 - Endocarditis of mitral valve Status: Acute (2) Thrombocytopenia ICD Code: D69.6 - Thrombocytopenia Status: Resolved (3) IV drug abuse ICD Code: F19.10 - IV drug abuse Status: Chronic (4) Tobacco use ICD Code: Z72.0 - Tobacco use Status: Chronic Assessment and Plan 31-year-old male with: Endocarditis mitral valve, prosthetic, recurrent who presented with sepsis criteria -Echocardiogram shows apparent vegetation on the prosthetic mitral valve and probable vegetation of the tricuspid valve -Initial bacteremia with staph aureus on 11/05/16, first negative culture was -Infectious disease following the patient and recommending oxacillin IV 2 g every 4 hours for 6 weeks, end date December 23, 2016. Switched to Cefazolin on 12/05 due to transaminitis. -Follow weekly CBC, CMP, CRP -Consider repeat Echo at end of treatment; can discuss with ID Transaminitis -ID attributed to Rifampin, was stopped. -LFTs again elevated with oxacillin use. ID evaluated patient and switched antibiotics. -12/08. AST and ALT elevated but stable from yesterday. May be attributed to inflammation related to infection or hepatitis, not necessarily antibiotics at this time. Will continue to trend. If continue to increase, will contact ID. Monitor. Polysubstance abuse -Patient with history of IV drug use, opiate abuse, crack cocaine use, marijuana abuse -HIV testing negative -Cautious administration of narcotic medication. Chronic shoulder pain: -Oxycodone 5 mg q6h prn pain 3-6 -Oxycodone 7.5 mg q6h prn pain 7-10 -Wean medication. Hepatitis C: Viral load 20,600. Genotype 1a. -Patient informed to follow up with outpatient GI physician for treatment. Thrombocytopenia: Resolved Recurrent headache/migraines -Good response to combination of ibuprofen and Tylenol -Monitor clinically Insomnia -Melatonin 10 mg po qhs -Ambien 10 mg hs prn Tongue abrasion/canker sore -Triamcinolone/Orabase nightly for 7 days DVT prophylaxis: Discussed with Dr. Swenson. D/c Lovenox as patient ambulates regularly. Use SCDs while in bed. Discharge Planning Will remain hospitalized until completion of antibiotics. Sera Patterson Dec 08, 2016 10:27
[2016-12-08 20:00] VITALS: BP 112/62; PULSE 68; RESP 18; TEMP 96.1; O2SAT 98
[2016-12-08] MEDS: MELATONIN 5 MG TAB PO SCH (20:54)
[2016-12-08] MEDS: ZOLPIDEM TARTRATE 5 MG TAB PO PRN (20:54)
[2016-12-08] MEDS: TRIAMCINOLONE ACET 0.1% IN ORABASE PASTE 5 GM TUBE OROPHARYNG SCH (21:00)
[2016-12-09] MEDS: ceFAZolin 2 GM PREMIX 50 ML IV SCH ×3 (01:57→17:16)
[2016-12-09 08:29] VITALS: BP 122/77; PULSE 102; RESP 19; TEMP 96.6; O2SAT 99
[2016-12-09] MEDS: DOCUSATE SODIUM 50 MG/SENNA 8.6 MG TAB PO SCH ×2 (09:04→20:55)
[2016-12-09] MEDS: SODIUM CHLORIDE 0.9% FLUSH 10 ML FLUSH IV FLUSH SCH ×2 (09:05→20:55)
[2016-12-09] MEDS ORDERED: IBUPROFEN 600 MG TAB PO ONE (13:00)
[2016-12-09 13:27] LABS: CREATINE KINASE 82 U/L (39-308)
--- NOTE | 2016-12-09 14:04 | HHI.PR ---
Subjective Remarks Follow-up for endocarditis. Patient admits to right sided chest pain which he noticed when he woke up this morning and has been constant since. He states he may have slept wrong. He did sleep on his right side. He states his pain is currently a 3-4/10 but it was worse before. It is improving. He denies any associated diaphoresis, numbness or tingling in the upper extremities, shortness of breath, abdominal pain, nausea, or vomiting. He also states it feels "irritated" near the IV site to his volar right wrist. Objective Vitals Vital Signs Date Time Temp Pulse Resp B/P (MAP) Pulse Ox O2 Delivery O2 Flow Rate FiO2 12/09/16 08:29 96.6 102 19 122/77 (92) 99 12/08/16 20:00 96.1 68 18 112/62 (79) 98 I/O 12/08/16 12/08/16 12/08/16 12/09/16 12/09/16 12/09/16 07:00 15:00 23:00 07:00 15:00 23:00 Intake Total 1060 ml Balance 1060 ml Intake Oral 960 ml IV Total 100 ml # Voids 1 1 2 # Bowel Movements 0 Result Diagram: 12/05/16 0721 12/07/16 0810 Objective Remarks GENERAL: Well-nourished, well-developed patient in no apparent distress eating lunch when I enter the room. SKIN: Warm and dry. There is a very small cord palpable just proximal to R wrist IV site with subtle swelling. No erythema. CHEST: No reproducible tenderness with palpation over the R chest, but patient has some pain over the R chest with external rotation of the R shoulder. CARDIOVASCULAR: Regular rate and rhythm. RESPIRATORY: No accessory muscle use. Clear to auscultation. Breath sounds equal bilaterally. GASTROINTESTINAL: Abdomen soft, non-tender, nondistended. NEUROLOGICAL: Awake and alert. Motor grossly within normal limits. Normal speech. PSYCHIATRIC: Normal mood and affect. Procedures none Urinary Catheter: No Vascular Central Line Catheter: No A/P Problem List: (1) Atypical chest pain ICD Code: R07.89 - Other chest pain Status: Acute (2) Endocarditis of mitral valve ICD Code: I05.8 - Endocarditis of mitral valve Status: Acute (3) Thrombocytopenia ICD Code: D69.6 - Thrombocytopenia Status: Resolved (4) IV drug abuse ICD Code: F19.10 - IV drug abuse Status: Chronic (5) Tobacco use ICD Code: Z72.0 - Tobacco use Status: Chronic Assessment and Plan 31-year-old male with: Atypical chest pain: R sided constant, but improved. Chest pain elicited with external rotation of R shoulder. Likely musculoskeletal, but considering cardiac history, enzymes and EKG ordered. Dr. Swenson, attending, informed. -EKG personally interpreted with no evidence of acute ischemia. There are large Q waves in the inferior leads indicating an old SC. The patient did have inferior injury noted on EKG from 2013 when he was found to have an SC at that time. These Q waves are not evident on last EKG from 11/05/16 which is odd. -CK and troponin unremarkable. -Patient given 600 mg ibuprofen. Possible superficial thrombus to R wrist: Minor, from IV. Nurse has removed and replaced over Left forearm. Monitor. Endocarditis mitral valve, prosthetic, recurrent who presented with sepsis criteria -Echocardiogram shows apparent vegetation on the prosthetic mitral valve and probable vegetation of the tricuspid valve -Initial bacteremia with staph aureus on 11/05/16, first negative culture was -Infectious disease following the patient and recommending oxacillin IV 2 g every 4 hours for 6 weeks, end date December 23, 2016. Switched to Cefazolin on 12/05 due to transaminitis. -Follow weekly CBC, CMP, CRP -Consider repeat Echo at end of treatment; can discuss with ID Transaminitis -ID attributed to Rifampin, was stopped. -LFTs again elevated with oxacillin use. ID evaluated patient and switched antibiotics. -12/08. AST and ALT elevated but stable. May be attributed to inflammation related to infection or hepatitis, not necessarily antibiotics at this time. Will continue to trend. If continue to increase, will contact ID. Monitor. -12/09: Repeat am AST and ALT Polysubstance abuse -Patient with history of IV drug use, opiate abuse, crack cocaine use, marijuana abuse -HIV testing negative -Cautious administration of narcotic medication. Chronic shoulder pain: -Wean medication. -Oxycodone 5 mg q6h prn pain 3-6 changed to prn pain 3-10 -Oxycodone 7.5 mg q6h prn pain 7-10 discontinued Hepatitis C: Viral load 20,600. Genotype 1a. -Patient informed to follow up with outpatient GI physician for treatment. Thrombocytopenia: Resolved Recurrent headache/migraines -Good response to combination of ibuprofen and Tylenol -Monitor clinically Insomnia -Melatonin 10 mg po qhs -Ambien 10 mg hs prn Tongue abrasion/canker sore -Triamcinolone/Orabase nightly for 7 days complete. Discontinue. DVT prophylaxis: OOB ad cheryl. Use SCDs while in bed. Discharge Planning Will remain hospitalized until completion of antibiotics. Sera Patterson Dec 09, 2016 14:04
[2016-12-09 19:15] VITALS: BP 141/74; PULSE 87; RESP 18; TEMP 96.9; O2SAT 99
[2016-12-09] MEDS: MELATONIN 5 MG TAB PO SCH (20:55)
[2016-12-09] MEDS: ZOLPIDEM TARTRATE 5 MG TAB PO PRN (20:55)
[2016-12-09 21:07] VITALS: BP 141/74; PULSE 87; RESP 18; TEMP 96.9; O2SAT 99
[2016-12-10] MEDS: ceFAZolin 2 GM PREMIX 50 ML IV SCH ×3 (01:52→17:13)
[2016-12-10 07:26] LABS: ALT (GPT) 288 U/L (12-78); AST (GOT) 140 U/L (15-37)
[2016-12-10 08:00] VITALS: BP 117/75; PULSE 65; RESP 18; TEMP 97.6; O2SAT 98
[2016-12-10] MEDS: SODIUM CHLORIDE 0.9% FLUSH 10 ML FLUSH IV FLUSH SCH ×2 (08:52→20:59)
[2016-12-10] MEDS: IBUPROFEN 600 MG TAB PO PRN ×2 (08:52→17:14)
[2016-12-10] MEDS: DOCUSATE SODIUM 50 MG/SENNA 8.6 MG TAB PO SCH ×2 (08:52→20:59)
--- NOTE | 2016-12-10 10:41 | HHI.PR ---
Subjective Remarks Follow-up for endocarditis, transaminitis. Patient complains about how he was not given an arm sleeve for his IV in a timely manner. Objective Vitals Vital Signs Date Time Temp Pulse Resp B/P (MAP) Pulse Ox O2 Delivery O2 Flow Rate FiO2 12/10/16 08:00 97.6 65 18 117/75 (89) 98 12/09/16 21:07 96.9 87 18 141/74 (96) 99 12/09/16 19:15 96.9 87 18 141/74 (96) 99 I/O 12/09/16 12/09/16 12/09/16 12/10/16 12/10/16 12/10/16 07:00 15:00 23:00 07:00 15:00 23:00 Intake Total 1060 ml 780 ml Balance 1060 ml 780 ml Intake Oral 960 ml 780 ml IV Total 100 ml # Voids 2 1 2 # Bowel Movements 0 Result Diagram: 12/07/16 0810 Objective Remarks GENERAL: Well-nourished, well-developed patient in no apparent distress. SKIN: Warm and dry. CARDIOVASCULAR: Regular rate and rhythm. RESPIRATORY: No accessory muscle use. Clear to auscultation. Breath sounds equal bilaterally. GASTROINTESTINAL: Abdomen soft, non-tender, nondistended. NEUROLOGICAL: Awake and alert. Motor grossly within normal limits. Normal speech. PSYCHIATRIC: Normal mood and affect. Procedures none Urinary Catheter: No Vascular Central Line Catheter: No A/P Problem List: (1) Atypical chest pain ICD Code: R07.89 - Other chest pain Status: Acute (2) Endocarditis of mitral valve ICD Code: I05.8 - Endocarditis of mitral valve Status: Acute (3) Thrombocytopenia ICD Code: D69.6 - Thrombocytopenia Status: Resolved (4) IV drug abuse ICD Code: F19.10 - IV drug abuse Status: Chronic (5) Tobacco use ICD Code: Z72.0 - Tobacco use Status: Chronic Assessment and Plan 31-year-old male with: Endocarditis mitral valve, prosthetic, recurrent who presented with sepsis criteria -Echocardiogram shows apparent vegetation on the prosthetic mitral valve and probable vegetation of the tricuspid valve -Initial bacteremia with staph aureus on 11/05/16, first negative culture was -Infectious disease following the patient and recommending oxacillin IV 2 g every 4 hours for 6 weeks, end date December 23, 2016. Switched to Cefazolin on 12/05 due to transaminitis. -Follow weekly CBC, CMP, CRP -Consider repeat Echo at end of treatment; can discuss with ID Transaminitis -ID attributed to Rifampin, oxacillin. Switched to cefazolin. -12/10: AST increased to 140. ALT relatively stable at 288. Discussed with Dr. Swesnon. Patient has already been switched off of two prior antibiotics because of transaminitis. Although Cefazolin can also cause this, it is more unlikely to be the cause in this case. Patient has hepatitis. Will continue to monitor LFTs qod. Will contact ID if they become significantly more elevated. Will continue Cefazolin at this time. Atypical chest pain: R sided constant, but improved. Likely musculoskeletal. -EKG with no evidence of acute ischemia. There are large Q waves in the inferior leads indicating an old SD. The patient did have inferior injury noted on EKG from 2013 when he was found to have an SD at that time. These Q waves are not evident on last EKG from 11/05/16 which is odd. -CK and troponin unremarkable. -Ibuprofen. Possible superficial thrombus to R wrist: Minor, from IV. Nurse has removed and replaced over Left forearm. Monitor. Polysubstance abuse -Patient with history of IV drug use, opiate abuse, crack cocaine use, marijuana abuse -HIV testing negative -Cautious administration of narcotic medication. Chronic shoulder pain: -Continue to wean medication. -Oxycodone 5 mg q6h prn pain 3-10 Hepatitis C: Viral load 20,600. Genotype 1a. -Patient informed to follow up with outpatient GI physician for treatment. Thrombocytopenia: Resolved Recurrent headache/migraines -Good response to combination of ibuprofen and Tylenol -Monitor clinically Insomnia -Melatonin 10 mg po qhs -Ambien 10 mg hs prn Tongue abrasion/canker sore -S/p Triamcinolone/Orabase. DVT prophylaxis: OOB ad cheryl. Use SCDs while in bed. Discharge Planning Will remain hospitalized until completion of antibiotics. Sera Patterson Dec 10, 2016 10:41
--- NOTE | 2016-12-10 13:40 | EKG ---
Date Performed: 12/09/2016 Time Performed: 15:02:17 PTAGE: 31 years EKG: Sinus rhythm POSSIBLE RIGHT VENTRICULAR CONDUCTION DELAY PROBABLE INFERIOR MYOCARDIAL INFARCTION Compared to prio r tracing no significant change ABNORMAL ECG PREVIOUS TRACING : 11/05/2016 02.36 DOCTOR: Clarence Byrd Interpretating Date/Time 12/10/2016 13:39:31
[2016-12-10 20:03] VITALS: BP 129/77; PULSE 98; RESP 16; TEMP 98.2; O2SAT 98
[2016-12-10] MEDS: MELATONIN 5 MG TAB PO SCH (20:59)
[2016-12-10] MEDS: ZOLPIDEM TARTRATE 5 MG TAB PO PRN (21:16)
[2016-12-11] MEDS: ceFAZolin 2 GM PREMIX 50 ML IV SCH ×3 (01:25→16:38)
[2016-12-11] MEDS: DOCUSATE SODIUM 50 MG/SENNA 8.6 MG TAB PO SCH ×2 (07:57→20:49)
[2016-12-11] MEDS: SODIUM CHLORIDE 0.9% FLUSH 10 ML FLUSH IV FLUSH SCH ×2 (07:58→20:51)
[2016-12-11 08:00] VITALS: BP 131/74; PULSE 82; RESP 20; TEMP 98.3; O2SAT 100
--- NOTE | 2016-12-11 09:16 | HHI.PR ---
Subjective Remarks Follow-up for endocarditis, transaminitis. Patient denies any new issues. Objective Vitals Vital Signs Date Time Temp Pulse Resp B/P (MAP) Pulse Ox O2 Delivery O2 Flow Rate FiO2 12/11/16 08:00 98.3 82 20 131/74 (93) 100 12/11/16 02:25 20 12/10/16 20:03 98.2 98 16 129/77 (94) 98 12/10/16 18:14 18 I/O 12/10/16 12/10/16 12/10/16 12/11/16 12/11/16 12/11/16 07:00 15:00 23:00 07:00 15:00 23:00 Intake Total 800 ml 50 ml Balance 800 ml 50 ml Intake Oral 800 ml IV Total 50 ml # Voids 2 6 1 # Bowel Movements 1 Result Diagram: 12/07/16 0810 Objective Remarks GENERAL: Well-nourished, well-developed patient in no apparent distress. SKIN: Warm and dry. No palpable cord over the volar R wrist. CARDIOVASCULAR: Regular rate and rhythm. No murmur. RESPIRATORY: No accessory muscle use. Clear to auscultation. Breath sounds equal bilaterally. GASTROINTESTINAL: Abdomen soft, non-tender, nondistended. NEUROLOGICAL: Awake and alert. Motor grossly within normal limits. Normal speech. PSYCHIATRIC: Normal mood and affect. Procedures none Urinary Catheter: No Vascular Central Line Catheter: No A/P Problem List: (1) Atypical chest pain ICD Code: R07.89 - Other chest pain Status: Acute (2) Endocarditis of mitral valve ICD Code: I05.8 - Endocarditis of mitral valve Status: Acute (3) Thrombocytopenia ICD Code: D69.6 - Thrombocytopenia Status: Resolved (4) IV drug abuse ICD Code: F19.10 - IV drug abuse Status: Chronic (5) Tobacco use ICD Code: Z72.0 - Tobacco use Status: Chronic Assessment and Plan 31-year-old male with: Endocarditis mitral valve, prosthetic, recurrent who presented with sepsis criteria -Echocardiogram shows apparent vegetation on the prosthetic mitral valve and probable vegetation of the tricuspid valve -Initial bacteremia with staph aureus on 11/05/16, first negative culture was -Infectious disease following the patient and recommending oxacillin IV 2 g every 4 hours for 6 weeks, end date December 23, 2016. Switched to Cefazolin on 12/05 due to transaminitis. -Follow weekly CBC, CMP, CRP -Consider repeat Echo at end of treatment; can discuss with ID Transaminitis -ID attributed to Rifampin, oxacillin. Switched to cefazolin. -12/10: AST increased to 140. ALT relatively stable at 288. Discussed with Dr. Swenson. Patient has already been switched off of two prior antibiotics because of transaminitis. Although Cefazolin can also cause this, it is more unlikely to be the cause in this case. Patient has hepatitis. Will continue to monitor LFTs qod. Will contact ID if they become significantly more elevated. Will continue Cefazolin at this time. Atypical chest pain: R sided constant, but improved. Likely musculoskeletal. -EKG with no evidence of acute ischemia. There are large Q waves in the inferior leads indicating an old IN. The patient did have inferior injury noted on EKG from 2013 when he was found to have an IN at that time. These Q waves are not evident on last EKG from 11/05/16 which is odd. -CK and troponin unremarkable. -Ibuprofen. Polysubstance abuse -Patient with history of IV drug use, opiate abuse, crack cocaine use, marijuana abuse -HIV testing negative -Cautious administration of narcotic medication. Chronic shoulder pain: -Continue to wean medication. -Oxycodone 5 mg q6h prn pain 3-10 Hepatitis C: Viral load 20,600. Genotype 1a. -Patient informed to follow up with outpatient GI physician for treatment. Thrombocytopenia: Resolved Recurrent headache/migraines -Good response to combination of ibuprofen and Tylenol -Monitor clinically Insomnia -Melatonin 10 mg po qhs -Ambien 10 mg hs prn Tongue abrasion/canker sore -S/p Triamcinolone/Orabase. DVT prophylaxis: OOB ad cheryl. Use SCDs while in bed. Discharge Planning Will remain hospitalized until completion of antibiotics. Sera Patterson Dec 11, 2016 09:16
[2016-12-11] MEDS: IBUPROFEN 600 MG TAB PO PRN (14:23)
[2016-12-11 20:00] VITALS: BP 131/76; PULSE 95; RESP 20; TEMP 97; O2SAT 99
[2016-12-11] MEDS: MELATONIN 5 MG TAB PO SCH (20:48)
[2016-12-11] MEDS: ZOLPIDEM TARTRATE 5 MG TAB PO PRN (20:49)
[2016-12-12] MEDS: ceFAZolin 2 GM PREMIX 50 ML IV SCH ×3 (01:53→17:00)
[2016-12-12 08:00] VITALS: BP 95/53; PULSE 69; RESP 20; TEMP 98.6; O2SAT 97
[2016-12-12 08:29] LABS: AUTOMATED NEUTROPHIL # 3.8 TH/MM3 (1.8-7.7); BASOPHIL % 0.6 % (0.0-2.0); EOSINOPHIL # 0.2 TH/MM3 (0-0.4); EOSINOPHIL % 2.8 % (0.0-4.0); HEMATOCRIT 38.5 % (39.0-51.0); HEMO FLAGS DIFF FINAL; LYMPH % 31.2 % (9.0-44.0); LYMPHOCYTE # 2.2 TH/MM3 (1.0-4.8); MEAN CELL VOLUME 87.4 FL (80.0-100.0); MEAN CORPUSCULAR HEMOGLOBIN 29.3 PG (27.0-34.0); MEAN CORPUSCULAR HGB CONC 33.5 % (32.0-36.0); MONO % 10.8 % (0.0-8.0); NEUT % 54.6 % (16.0-70.0); PLATELET COUNT 166 TH/MM3 (150-450); RED BLOOD COUNT 4.41 MIL/MM3 (4.50-5.90); RED CELL DISTRIBUTION WIDTH 13.4 % (11.6-17.2)
[2016-12-12 08:48] LABS: CHLORIDE 105 MEQ/L (98-107); POTASSIUM 3.9 MEQ/L (3.5-5.1); SODIUM (NA) 141 MEQ/L (136-145)
[2016-12-12 08:56] LABS: ANION GAP 8 MEQ/L (5-15); BICARBONATE 27.9 MEQ/L (21.0-32.0); BLOOD UREA NITROGEN 16 MG/DL (7-18)
[2016-12-12 08:59] LABS: ALT (GPT) 223 U/L (12-78); AST (GOT) 99 U/L (15-37); GLOMERULAR FILTRATION RATE 77 ML/MIN (>89)
[2016-12-12 09:00] LABS: TOTAL BILIRUBIN ADULT 0.3 MG/DL (0.2-1.0)
[2016-12-12 09:01] LABS: ALKALINE PHOSPHATASE 81 U/L (45-117)
[2016-12-12] MEDS: SODIUM CHLORIDE 0.9% FLUSH 10 ML FLUSH IV FLUSH SCH ×2 (09:01→22:29)
[2016-12-12] MEDS: DOCUSATE SODIUM 50 MG/SENNA 8.6 MG TAB PO SCH ×2 (09:01→22:29)
--- NOTE | 2016-12-12 09:11 | HHI.PR ---
Subjective Remarks Follow-up for endocarditis, transaminitis. No acute issues reported. Objective Vitals Vital Signs Date Time Temp Pulse Resp B/P (MAP) Pulse Ox O2 Delivery O2 Flow Rate FiO2 12/12/16 08:00 98.6 69 20 95/53 (67) 97 12/11/16 20:00 97.0 95 20 131/76 (94) 99 I/O 12/11/16 12/11/16 12/11/16 12/12/16 12/12/16 12/12/16 07:00 15:00 23:00 07:00 15:00 23:00 Intake Total 50 ml 60 ml Balance 50 ml 60 ml Intake Oral 60 ml IV Total 50 ml # Voids 1 45 2 # Bowel Movements 0 Result Diagram: 12/12/1663212/12/16632 Objective Remarks GENERAL: Well-nourished, well-developed patient in no apparent distress. CARDIOVASCULAR: Regular rate and rhythm. No murmur. RESPIRATORY: No accessory muscle use. Clear to auscultation. Breath sounds equal bilaterally. GASTROINTESTINAL: Abdomen soft, non-tender, nondistended. No hepatomegaly. NEUROLOGICAL: Awake and alert. Motor grossly within normal limits. Normal speech. PSYCHIATRIC: Normal mood and affect. Procedures none Urinary Catheter: No Vascular Central Line Catheter: No A/P Problem List: (1) Atypical chest pain ICD Code: R07.89 - Other chest pain Status: Acute (2) Endocarditis of mitral valve ICD Code: I05.8 - Endocarditis of mitral valve Status: Acute (3) Thrombocytopenia ICD Code: D69.6 - Thrombocytopenia Status: Resolved (4) IV drug abuse ICD Code: F19.10 - IV drug abuse Status: Chronic (5) Tobacco use ICD Code: Z72.0 - Tobacco use Status: Chronic Assessment and Plan 31-year-old male with: Endocarditis mitral valve, prosthetic, recurrent who presented with sepsis criteria: -Echocardiogram shows apparent vegetation on the prosthetic mitral valve and probable vegetation of the tricuspid valve -Initial bacteremia with staph aureus on 11/05/16, first negative culture was -Infectious disease following the patient and recommending oxacillin IV 2 g every 4 hours for 6 weeks, end date December 23, 2016. Switched to Cefazolin on 12/05 due to transaminitis. -Follow weekly CBC, CMP, CRP -Consider repeat Echo at end of treatment; can discuss with ID -12/12: WBC remains normal. ESR stable at 7. CRP wnl. Transaminitis: Improved. -ID attributed to Rifampin, oxacillin. Switched to cefazolin. -12/10: AST increased to 140. ALT relatively stable at 288. Discussed with Dr. Swenson. Patient has already been switched off of two prior antibiotics because of transaminitis. Although Cefazolin can also cause this, it is more unlikely to be the cause in this case. Patient has hepatitis. Will continue to monitor LFTs qod. Will contact ID if they become significantly more elevated. Will continue Cefazolin at this time. -12/12: AST decreased to 99. ALT decreasing. Atypical chest pain: R sided constant, but improved. Likely musculoskeletal. -EKG with no evidence of acute ischemia. There are large Q waves in the inferior leads indicating an old NE. The patient did have inferior injury noted on EKG from 2013 when he was found to have an NE at that time. These Q waves are not evident on last EKG from 11/05/16 which is odd. -CK and troponin unremarkable. -Ibuprofen. Polysubstance abuse -Patient with history of IV drug use, opiate abuse, crack cocaine use, marijuana abuse -HIV testing negative-Cautious administration of narcotic medication. Chronic shoulder pain: -Continue to wean medication. -Oxycodone 5 mg q6h prn pain 3-10 Hepatitis C: Viral load 20,600. Genotype 1a. -Patient informed to follow up with outpatient GI physician for treatment. Thrombocytopenia: Resolved Recurrent headache/migraines -Good response to combination of ibuprofen and Tylenol -Monitor clinically Insomnia -Melatonin 10 mg po qhs -Ambien 10 mg hs prn Tongue abrasion/canker sore -S/p Triamcinolone/Orabase. DVT prophylaxis: OOB ad cheryl. Use SCDs while in bed. Discharge Planning Will remain hospitalized until completion of antibiotics. Sera Patterson Dec 12, 2016 09:11
[2016-12-12 09:31] LABS: WESTERGREN SEDIMENTATION RATE 7 mm/hr (0-15)
[2016-12-12 20:00] VITALS: BP 126/75; PULSE 79; RESP 20; TEMP 96; O2SAT 99
[2016-12-12] MEDS: MELATONIN 5 MG TAB PO SCH (22:29)
[2016-12-12] MEDS: ZOLPIDEM TARTRATE 5 MG TAB PO PRN (22:34)
[2016-12-13] MEDS: ceFAZolin 2 GM PREMIX 50 ML IV SCH ×3 (02:22→16:19)
[2016-12-13 08:00] VITALS: BP 106/66; PULSE 70; RESP 20; TEMP 98.3; O2SAT 100
[2016-12-13] MEDS: SODIUM CHLORIDE 0.9% FLUSH 10 ML FLUSH IV FLUSH SCH ×2 (09:25→20:37)
[2016-12-13] MEDS: DOCUSATE SODIUM 50 MG/SENNA 8.6 MG TAB PO SCH ×2 (09:25→20:36)
--- NOTE | 2016-12-13 13:14 | HHI.PR ---
Subjective Remarks Patient seen and examined today for follow-up on endocarditis, elevated liver enzymes. Patient lying in bed. Denies any new complaints. Just complains of right shoulder pain Objective Vitals Vital Signs Date Time Temp Pulse Resp B/P (MAP) Pulse Ox O2 Delivery O2 Flow Rate FiO2 12/13/16 08:00 98.3 70 20 106/66 (79) 100 12/12/16 20:00 96.0 79 20 126/75 (92) 99 I/O 12/12/16 12/12/16 12/12/16 12/13/16 12/13/16 12/13/16 07:00 15:00 23:00 07:00 15:00 23:00 Intake Total 60 ml 240 ml 100 ml 440 ml Balance 60 ml 240 ml 100 ml 440 ml Intake Oral 60 ml 240 ml 440 ml IV Total 100 ml # Voids 2 6 4 # Bowel Movements 0 0 0 Result Diagram: 12/12/16 0633 12/12/1633 Objective Remarks GENERAL: Well-developed, well-nourished, in no acute distress. alert and orientated HEENT: Head is normocephalic without any lesions or masses noted. Facial features are symmetric. Eyes: Extraocular muscles are intact. Conjunctivae were clear. Oropharyngeal: Patient does have mild bite esther on the right side of his tongue without any deep laceration or infection NECK: Trachea midline no deviation. No JVD, CARDIAC: Regular rhythm, regular rate. S1/S2 are heard. No murmurs gallops or rubs. LUNGS: Clear to auscultation bilaterally. No wheeze, rhonchi or rales. No use of accessory muscles on inspiration or expiration. ABDOMEN: Soft, nontender. Nondistended. Bowel sounds heard in all 4 quadrants. No organomegaly or masses. Negative rebound, negative guarding EXTREMITIES: No edema, pulses are equal bilaterally. No cyanosis or clubbing NEUROLOGY: Mood and affect appear appropriate. Cranial nerves II through XII grossly intact. Moving all extremities, speech is clear Procedures none Urinary Catheter: No Vascular Central Line Catheter: No A/P Assessment and Plan Endocarditis mitral valve, prosthetic, recurrent who presented with sepsis criteria Echocardiogram shows apparent vegetation on the prostatic mitral valve and probable vegetation of the tricuspid valve Initial bacteremia with staph aureus on 11/05/16, first negative culture was 8/ 6/17 Infectious disease following the patient and discontinue oxacillin IV 2 g every 4 hours due to elevated liver enzymes. Changed to cefazolin until December 23, 2016 Follow weekly CBC, CMP, CRP, ESR Liver enzymes increase again, will notify infectious disease Transaminitis, recurrent but improving Secondary to rifampin/oxacillin, both of which have been discontinued Liver enzymes returning to normal Polysubstance abuse Patient with history of IV drug use, opiate abuse, crack cocaine use, marijuana abuse Hepatitis C testing was positive, HIV testing was negative Cautious administration of narcotic medication Patient was offered treatment for withdrawal from opiates, patient is deferring treatment at this time. He wishes to continue using opiates Chronic right shoulder pain with opiate dependency, supposedly Patient episode of right chest pain with right shoulder pain Patient ruled out for acute coronary event with serial cardiac enzymes, serial EKGs E force was accessed in which patient has not had a prescription for oxycodone since December 2015 Narcotic medication is being weaned at this time Oxycodone 5 mg every 6 hours as needed for pain 3-10 Hepatitis C Genotype 1A, viral load 20,600 Patient will require outpatient follow-up and treatment if needed Insomnia Melatonin 10 mg at bedtime Ambien 10 mg at bedtime as needed Tongue abrasion/canker sore Status post Triamcinolone/Orabase nightly for 7 days DVT prevention Sequential compression devices, Lovenox discontinued, patient ambulating Discharge Planning Discharge planning after completion of IV antibiotics Willy Bui Dec 13, 2016 13:14
[2016-12-13 20:00] VITALS: BP 110/74; PULSE 74; RESP 18; TEMP 97.1; O2SAT 99
[2016-12-13] MEDS: MELATONIN 5 MG TAB PO SCH (20:36)
[2016-12-13] MEDS: ZOLPIDEM TARTRATE 5 MG TAB PO PRN (21:34)
[2016-12-14] MEDS: ceFAZolin 2 GM PREMIX 50 ML IV SCH ×3 (01:08→17:15)
[2016-12-14 08:00] VITALS: BP 116/72; PULSE 67; RESP 21; TEMP 96.5; O2SAT 99
[2016-12-14] MEDS: DOCUSATE SODIUM 50 MG/SENNA 8.6 MG TAB PO SCH ×2 (08:56→21:04)
[2016-12-14] MEDS: SODIUM CHLORIDE 0.9% FLUSH 10 ML FLUSH IV FLUSH SCH ×2 (08:57→21:05)
--- NOTE | 2016-12-14 11:33 | HHI.PR ---
Subjective Remarks Patient is examined today for follow-up on endocarditis. Patient resting comfortably. Denies any new complaints. Awaiting completion of IV antibiotics Objective Vitals Vital Signs Date Time Temp Pulse Resp B/P (MAP) Pulse Ox O2 Delivery O2 Flow Rate FiO2 12/14/16 08:00 96.5 67 21 116/72 (87) 99 12/14/16 05:18 16 12/13/16 20:00 97.1 74 18 110/74 (86) 99 I/O 12/13/16 12/13/16 12/13/16 12/14/16 12/14/16 12/14/16 07:00 15:00 23:00 07:00 15:00 23:00 Intake Total 100 ml 440 ml 480 ml 530 ml Balance 100 ml 440 ml 480 ml 530 ml Intake Oral 440 ml 480 ml 480 ml IV Total 100 ml 50 ml # Voids 4 6 2 # Bowel Movements 0 0 0 Result Diagram: 12/12/1633 12/12/16632 Objective Remarks GENERAL: Well-developed, well-nourished, in no acute distress. alert and orientated HEENT: Head is normocephalic without any lesions or masses noted. Facial features are symmetric. Eyes: Extraocular muscles are intact. Conjunctivae were clear. NECK: Trachea midline no deviation. No JVD, CARDIAC: Regular rhythm, regular rate. S1/S2 are heard. No murmurs gallops or rubs. LUNGS: Clear to auscultation bilaterally. No wheeze, rhonchi or rales. No use of accessory muscles on inspiration or expiration. ABDOMEN: Soft, nontender. Nondistended. Bowel sounds heard in all 4 quadrants. No organomegaly or masses. Negative rebound, negative guarding EXTREMITIES: No edema, pulses are equal bilaterally. No cyanosis or clubbing NEUROLOGY: Mood and affect appear appropriate. Cranial nerves II through XII grossly intact. Moving all extremities, speech is clear Procedures none Urinary Catheter: No Vascular Central Line Catheter: No A/P Assessment and Plan Endocarditis mitral valve, prosthetic, recurrent who presented with sepsis criteria Echocardiogram shows apparent vegetation on the prostatic mitral valve and probable vegetation of the tricuspid valve Initial bacteremia with staph aureus on 11/05/16, first negative culture was 11/06/16 Infectious disease following the patient and discontinue oxacillin IV 2 g every 4 hours due to elevated liver enzymes. Changed to cefazolin until December 23, 2016 Follow weekly CBC, CMP, CRP, ESR Liver enzymes increase again, will notify infectious disease Transaminitis, recurrent but improving Secondary to rifampin/oxacillin, both of which have been discontinued Liver enzymes returning to normal Polysubstance abuse Patient with history of IV drug use, opiate abuse, crack cocaine use, marijuana abuse Hepatitis C testing was positive, HIV testing was negative Cautious administration of narcotic medication Patient was offered treatment for withdrawal from opiates, patient is deferring treatment at this time. He wishes to continue using opiates Chronic right shoulder pain with opiate dependency, supposedly Patient episode of right chest pain with right shoulder pain Patient ruled out for acute coronary event with serial cardiac enzymes, serial EKGs E force was accessed in which patient has not had a prescription for oxycodone since December 2015 Narcotic medication is being weaned at this time Oxycodone 5 mg every 6 hours as needed for pain 3-10 Hepatitis C Genotype 1A, viral load 20,600 Patient will require outpatient follow-up and treatment if needed Insomnia Melatonin 10 mg at bedtime Ambien 10 mg at bedtime as needed Tongue abrasion/canker sore Status post Triamcinolone/Orabase nightly for 7 days DVT prevention Sequential compression devices, Lovenox discontinued, patient ambulating Discharge Planning Discharge planning after completion of IV antibiotics Willy Bui Dec 14, 2016 11:33
[2016-12-14 20:00] VITALS: BP 126/77; PULSE 85; RESP 20; TEMP 97.6; O2SAT 99
[2016-12-14] MEDS: MELATONIN 5 MG TAB PO SCH (21:04)
[2016-12-14] MEDS: ZOLPIDEM TARTRATE 5 MG TAB PO PRN (21:04)
[2016-12-15] MEDS: ceFAZolin 2 GM PREMIX 50 ML IV SCH ×3 (01:27→17:35)
[2016-12-15 08:00] VITALS: BP 121/71; PULSE 83; RESP 19; TEMP 97.3; O2SAT 100
[2016-12-15] MEDS: SODIUM CHLORIDE 0.9% FLUSH 10 ML FLUSH IV FLUSH SCH ×2 (08:24→21:09)
[2016-12-15] MEDS: DOCUSATE SODIUM 50 MG/SENNA 8.6 MG TAB PO SCH ×2 (08:24→21:08)
--- NOTE | 2016-12-15 14:35 | HHI.PR ---
Subjective Remarks Patient seen and examined today for follow-up on endocarditis, sepsis. Patient sitting in bed, resting carefully. Denies any new complaints. Asking about discharge planning in a week. Objective Vitals Vital Signs Date Time Temp Pulse Resp B/P (MAP) Pulse Ox O2 Delivery O2 Flow Rate FiO2 12/15/16 09:23 18 12/15/16 08:00 97.3 83 19 121/71 (88) 100 12/14/16 20:00 97.6 85 20 126/77 (93) 99 I/O 12/14/16 12/14/16 12/14/16 12/15/16 12/15/16 12/15/16 07:00 15:00 23:00 07:00 15:00 23:00 Intake Total 530 ml 50 ml 710 ml 120 ml 50 ml Balance 530 ml 50 ml 710 ml 120 ml 50 ml Intake Oral 480 ml 660 ml 120 ml IV Total 50 ml 50 ml 50 ml 50 ml # Voids 2 4 2 # Bowel Movements 0 0 0 Result Diagram: 12/12/1633 12/12/16632 Objective Remarks GENERAL: Well-developed, well-nourished, in no acute distress. alert and orientated HEENT: Head is normocephalic without any lesions or masses noted. Facial features are symmetric. Eyes: Extraocular muscles are intact. Conjunctivae were clear. NECK: Trachea midline no deviation. No JVD, CARDIAC: Regular rhythm, regular rate. S1/S2 are heard. No murmurs gallops or rubs. LUNGS: Clear to auscultation bilaterally. No wheeze, rhonchi or rales. No use of accessory muscles on inspiration or expiration. ABDOMEN: Soft, nontender. Nondistended. Bowel sounds heard in all 4 quadrants. No organomegaly or masses. Negative rebound, negative guarding EXTREMITIES: No edema, pulses are equal bilaterally. No cyanosis or clubbing NEUROLOGY: Mood and affect appear appropriate. Cranial nerves II through XII grossly intact. Moving all extremities, speech is clear Procedures none Urinary Catheter: No Vascular Central Line Catheter: No A/P Assessment and Plan Endocarditis mitral valve, prosthetic, recurrent who presented with sepsis criteria Echocardiogram shows apparent vegetation on the prostatic mitral valve and probable vegetation of the tricuspid valve Initial bacteremia with staph aureus on 11/05/16, first negative culture was 11/06/16 Infectious disease following the patient and discontinue oxacillin IV 2 g every 4 hours due to elevated liver enzymes. Changed to cefazolin until December 23, 2016 Follow weekly CBC, CMP, CRP, ESR Liver enzymes increase again, will notify infectious disease Transaminitis, recurrent but improving Secondary to rifampin/oxacillin, both of which have been discontinued Liver enzymes returning to normal Polysubstance abuse Patient with history of IV drug use, opiate abuse, crack cocaine use, marijuana abuse Hepatitis C testing was positive, HIV testing was negative Cautious administration of narcotic medication Patient was offered treatment for withdrawal from opiates, patient is deferring treatment at this time. He wishes to continue using opiates Chronic right shoulder pain with opiate dependency, supposedly Patient episode of right chest pain with right shoulder pain Patient ruled out for acute coronary event with serial cardiac enzymes, serial EKGs E force was accessed in which patient has not had a prescription for oxycodone since December 2015 Narcotic medication is being weaned at this time Oxycodone 5 mg every 6 hours as needed for pain 3-10 Hepatitis C Genotype 1A, viral load 20,600 Patient will require outpatient follow-up and treatment if needed Insomnia Melatonin 10 mg at bedtime Ambien 10 mg at bedtime as needed Tongue abrasion/canker sore Status post Triamcinolone/Orabase nightly for 7 days DVT prevention Sequential compression devices, Lovenox discontinued, patient ambulating Discharge Planning Discharge planning after completion of IV antibiotics Willy Bui Dec 15, 2016 14:35
[2016-12-15 19:15] VITALS: BP 125/74; PULSE 92; RESP 16; TEMP 97.7; O2SAT 99
[2016-12-15] MEDS: ZOLPIDEM TARTRATE 5 MG TAB PO PRN (21:08)
[2016-12-15] MEDS: MELATONIN 5 MG TAB PO SCH (21:08)
[2016-12-16] MEDS: ceFAZolin 2 GM PREMIX 50 ML IV SCH ×3 (02:50→17:13)
[2016-12-16 08:00] VITALS: BP 112/73; PULSE 98; RESP 18; TEMP 96.1; O2SAT 99
[2016-12-16] MEDS: DOCUSATE SODIUM 50 MG/SENNA 8.6 MG TAB PO SCH ×2 (08:30→21:31)
[2016-12-16] MEDS: SODIUM CHLORIDE 0.9% FLUSH 10 ML FLUSH IV FLUSH SCH ×2 (08:31→21:32)
--- NOTE | 2016-12-16 09:21 | HHI.PR ---
Subjective Remarks Patient seen and examined today for follow-up on endocarditis. Patient lying in bed comfortably. Denies any new complaints. Very eager to be discharged in one week. Objective Vitals Vital Signs Date Time Temp Pulse Resp B/P (MAP) Pulse Ox O2 Delivery O2 Flow Rate FiO2 12/16/16 08:00 96.1 98 18 112/73 (86) 99 12/15/16 19:15 97.7 92 16 125/74 (91) 99 12/15/16 15:30 18 I/O 12/15/16 12/15/16 12/15/16 12/16/16 12/16/16 12/16/16 07:00 15:00 23:00 07:00 15:00 23:00 Intake Total 120 ml 700 ml 350 ml Balance 120 ml 700 ml 350 ml Intake Oral 120 ml 650 ml 300 ml IV Total 50 ml 50 ml # Voids 2 2 1 # Bowel Movements 0 2 Result Diagram: 12/12/1633 12/12/16632 Objective Remarks GENERAL: Well-developed, well-nourished, in no acute distress. alert and orientated HEENT: Head is normocephalic without any lesions or masses noted. Facial features are symmetric. Eyes: Extraocular muscles are intact. Conjunctivae were clear. NECK: Trachea midline no deviation. No JVD, CARDIAC: Regular rhythm, regular rate. S1/S2 are heard. No murmurs gallops or rubs. LUNGS: Clear to auscultation bilaterally. No wheeze, rhonchi or rales. No use of accessory muscles on inspiration or expiration. ABDOMEN: Soft, nontender. Nondistended. Bowel sounds heard in all 4 quadrants. No organomegaly or masses. Negative rebound, negative guarding EXTREMITIES: No edema, pulses are equal bilaterally. No cyanosis or clubbing NEUROLOGY: Mood and affect appear appropriate. Cranial nerves II through XII grossly intact. Moving all extremities, speech is clear Procedures none Urinary Catheter: No Vascular Central Line Catheter: No A/P Assessment and Plan Endocarditis mitral valve, prosthetic, recurrent who presented with sepsis criteria Echocardiogram shows apparent vegetation on the prostatic mitral valve and probable vegetation of the tricuspid valve Initial bacteremia with staph aureus on 11/05/16, first negative culture was 11/06/16 Infectious disease following the patient and discontinue oxacillin IV 2 g every 4 hours due to elevated liver enzymes. Changed to cefazolin until December 23, 2016 Follow weekly CBC, CMP, CRP, ESR Liver enzymes increase again, will notify infectious disease Transaminitis, recurrent but improving Secondary to rifampin/oxacillin, both of which have been discontinued Liver enzymes returning to normal Polysubstance abuse Patient with history of IV drug use, opiate abuse, crack cocaine use, marijuana abuse Hepatitis C testing was positive, HIV testing was negative Cautious administration of narcotic medication Patient was offered treatment for withdrawal from opiates, patient is deferring treatment at this time. He wishes to continue using opiates Chronic right shoulder pain with opiate dependency, supposedly Patient episode of right chest pain with right shoulder pain Patient ruled out for acute coronary event with serial cardiac enzymes, serial EKGs E force was accessed in which patient has not had a prescription for oxycodone since December 2015 Narcotic medication is being weaned at this time Oxycodone 5 mg every 6 hours as needed for pain 3-10 Hepatitis C Genotype 1A, viral load 20,600 Patient will require outpatient follow-up and treatment if needed Insomnia Melatonin 10 mg at bedtime Ambien 10 mg at bedtime as needed Tongue abrasion/canker sore Status post Triamcinolone/Orabase nightly for 7 days DVT prevention Sequential compression devices, Lovenox discontinued, patient ambulating Discharge Planning Discharge planning after completion of IV antibiotics Willy Bui Dec 16, 2016 09:21
[2016-12-16 20:05] VITALS: BP 139/78; PULSE 90; RESP 14; TEMP 97.7; O2SAT 99
[2016-12-16] MEDS: MELATONIN 5 MG TAB PO SCH (21:31)
[2016-12-16] MEDS: ZOLPIDEM TARTRATE 5 MG TAB PO PRN (21:32)
[2016-12-17] MEDS: ceFAZolin 2 GM PREMIX 50 ML IV SCH ×3 (01:55→18:16)
[2016-12-17 07:28] LABS: ALT (GPT) 178 U/L (12-78); AST (GOT) 89 U/L (15-37)
[2016-12-17 08:37] VITALS: BP 117/69; PULSE 80; RESP 16; TEMP 96.8; O2SAT 99
[2016-12-17] MEDS: DOCUSATE SODIUM 50 MG/SENNA 8.6 MG TAB PO SCH ×2 (09:25→20:23)
[2016-12-17] MEDS: SODIUM CHLORIDE 0.9% FLUSH 10 ML FLUSH IV FLUSH SCH ×2 (09:26→20:23)
--- NOTE | 2016-12-17 10:17 | HHI.PR ---
Subjective Remarks Patient seen and examined today for follow-up on endocarditis. Patient doing well. Patient very eager to be discharged next Monday. Patient denies any new complaints. Objective Vitals Vital Signs Date Time Temp Pulse Resp B/P (MAP) Pulse Ox O2 Delivery O2 Flow Rate FiO2 12/17/16 08:37 96.8 80 16 117/69 (85) 99 12/16/16 20:05 97.7 90 14 139/78 (98) 99 12/16/16 16:27 18 I/O 12/16/16 12/16/16 12/16/16 12/17/16 12/17/16 12/17/16 07:00 15:00 23:00 07:00 15:00 23:00 Intake Total 400 ml 500 ml 980 ml Balance 400 ml 500 ml 980 ml Intake Oral 400 ml 500 ml 980 ml # Voids 1 2 5 1 # Bowel Movements 1 0 0 Objective Remarks GENERAL: Well-developed, well-nourished, in no acute distress. alert and orientated HEENT: Head is normocephalic without any lesions or masses noted. Facial features are symmetric. Eyes: Extraocular muscles are intact. Conjunctivae were clear. NECK: Trachea midline no deviation. No JVD, CARDIAC: Regular rhythm, regular rate. S1/S2 are heard. No murmurs gallops or rubs. LUNGS: Clear to auscultation bilaterally. No wheeze, rhonchi or rales. No use of accessory muscles on inspiration or expiration. ABDOMEN: Soft, nontender. Nondistended. Bowel sounds heard in all 4 quadrants. No organomegaly or masses. Negative rebound, negative guarding EXTREMITIES: No edema, pulses are equal bilaterally. No cyanosis or clubbing NEUROLOGY: Mood and affect appear appropriate. Cranial nerves II through XII grossly intact. Moving all extremities, speech is clear Procedures none Urinary Catheter: No Vascular Central Line Catheter: No A/P Assessment and Plan Endocarditis mitral valve, prosthetic, recurrent who presented with sepsis criteria Echocardiogram shows apparent vegetation on the prostatic mitral valve and probable vegetation of the tricuspid valve Initial bacteremia with staph aureus on 11/05/16, first negative culture was 11/06/16 Infectious disease following the patient and discontinue oxacillin IV 2 g every 4 hours due to elevated liver enzymes. Changed to cefazolin until December 23, 2016 Follow weekly CBC, CMP, CRP, ESR Liver enzymes increase again, will notify infectious disease Transaminitis, recurrent but improving Secondary to rifampin/oxacillin, both of which have been discontinued Liver enzymes returning to normal Polysubstance abuse Patient with history of IV drug use, opiate abuse, crack cocaine use, marijuana abuse Hepatitis C testing was positive, HIV testing was negative Cautious administration of narcotic medication Patient was offered treatment for withdrawal from opiates, patient is deferring treatment at this time. He wishes to continue using opiates Chronic right shoulder pain with opiate dependency, supposedly Patient episode of right chest pain with right shoulder pain Patient ruled out for acute coronary event with serial cardiac enzymes, serial EKGs E force was accessed in which patient has not had a prescription for oxycodone since December 2015 Narcotic medication is being weaned at this time Oxycodone 5 mg every 6 hours as needed for pain 3-10 Hepatitis C Genotype 1A, viral load 20,600 Patient will require outpatient follow-up and treatment if needed Insomnia Melatonin 10 mg at bedtime Ambien 10 mg at bedtime as needed Tongue abrasion/canker sore Status post Triamcinolone/Orabase nightly for 7 days DVT prevention Sequential compression devices, Lovenox discontinued, patient ambulating Discharge Planning Discharge planning after completion of IV antibiotics Willy Bui Dec 17, 2016 10:17
[2016-12-17] MEDS: ZOLPIDEM TARTRATE 5 MG TAB PO PRN (20:23)
[2016-12-17] MEDS: MELATONIN 5 MG TAB PO SCH (20:23)
[2016-12-17 20:47] VITALS: BP 124/74; PULSE 90; RESP 16; TEMP 97.9; O2SAT 98
[2016-12-18] MEDS: ceFAZolin 2 GM PREMIX 50 ML IV SCH ×3 (03:03→18:00)
[2016-12-18] MEDS: IBUPROFEN 600 MG TAB PO PRN (03:54)
[2016-12-18] MEDS: DOCUSATE SODIUM 50 MG/SENNA 8.6 MG TAB PO SCH ×2 (08:15→21:42)
[2016-12-18] MEDS: SODIUM CHLORIDE 0.9% FLUSH 10 ML FLUSH IV FLUSH SCH ×2 (08:16→21:42)
[2016-12-18 09:41] VITALS: BP 119/77; PULSE 77; RESP 18; TEMP 97.5; O2SAT 100
--- NOTE | 2016-12-18 10:29 | HHI.PR ---
Subjective Remarks Patient seen and examined today for follow-up on endocarditis. Patient states that he has 5 days left. Denies any new complaints. Objective Vitals Vital Signs Date Time Temp Pulse Resp B/P (MAP) Pulse Ox O2 Delivery O2 Flow Rate FiO2 12/18/16 10:09 20 12/18/16 09:41 97.5 77 18 119/77 (91) 100 12/17/16 20:47 97.9 90 16 124/74 (91) 98 I/O 12/17/16 12/17/16 12/17/16 12/18/16 12/18/16 12/18/16 07:00 15:00 23:00 07:00 15:00 23:00 Intake Total 50 ml 1250 ml Balance 50 ml 1250 ml Intake Oral 1200 ml IV Total 50 ml 50 ml # Voids 1 5 2 # Bowel Movements 1 Objective Remarks GENERAL: Well-developed, well-nourished, in no acute distress. alert and orientated HEENT: Head is normocephalic without any lesions or masses noted. Facial features are symmetric. Eyes: Extraocular muscles are intact. Conjunctivae were clear. NECK: Trachea midline no deviation. No JVD, CARDIAC: Regular rhythm, regular rate. S1/S2 are heard. No murmurs gallops or rubs. LUNGS: Clear to auscultation bilaterally. No wheeze, rhonchi or rales. No use of accessory muscles on inspiration or expiration. ABDOMEN: Soft, nontender. Nondistended. Bowel sounds heard in all 4 quadrants. No organomegaly or masses. Negative rebound, negative guarding EXTREMITIES: No edema, pulses are equal bilaterally. No cyanosis or clubbing NEUROLOGY: Mood and affect appear appropriate. Cranial nerves II through XII grossly intact. Moving all extremities, speech is clear Procedures none Urinary Catheter: No Vascular Central Line Catheter: No A/P Assessment and Plan Endocarditis mitral valve, prosthetic, recurrent who presented with sepsis criteria Echocardiogram shows apparent vegetation on the prostatic mitral valve and probable vegetation of the tricuspid valve Initial bacteremia with staph aureus on 11/05/16, first negative culture was 11/06/16 Infectious disease following the patient and discontinue oxacillin IV 2 g every 4 hours due to elevated liver enzymes. Changed to cefazolin until December 23, 2016 Follow weekly CBC, CMP, CRP, ESR Transaminitis, recurrent and improving Secondary to rifampin/oxacillin, both of which have been discontinued Liver enzymes returning to normal Polysubstance abuse Patient with history of IV drug use, opiate abuse, crack cocaine use, marijuana abuse Hepatitis C testing was positive, HIV testing was negative Cautious administration of narcotic medication Patient was offered treatment for withdrawal from opiates, patient is deferring treatment at this time. He wishes to continue using opiates Chronic right shoulder pain with opiate dependency, supposedly Patient episode of right chest pain with right shoulder pain Patient ruled out for acute coronary event with serial cardiac enzymes, serial EKGs E force was accessed in which patient has not had a prescription for oxycodone since December 2015 Narcotic medication is being weaned at this time Oxycodone 5 mg every 6 hours as needed for pain 3-10 Hepatitis C Genotype 1A, viral load 20,600 Patient will require outpatient follow-up and treatment if needed Insomnia Melatonin 10 mg at bedtime Ambien 10 mg at bedtime as needed Tongue abrasion/canker sore Status post Triamcinolone/Orabase nightly for 7 days DVT prevention Sequential compression devices, Lovenox discontinued, patient ambulating Discharge Planning Discharge planning after completion of IV antibiotics Willy Bui Dec 18, 2016 10:29
[2016-12-18 21:28] VITALS: BP 109/67; PULSE 95; RESP 18; TEMP 98.5; O2SAT 99
[2016-12-18] MEDS: ZOLPIDEM TARTRATE 5 MG TAB PO PRN (21:41)
[2016-12-18] MEDS: MELATONIN 5 MG TAB PO SCH (21:41)
[2016-12-19] MEDS: ceFAZolin 2 GM PREMIX 50 ML IV SCH ×3 (02:24→17:06)
[2016-12-19 06:57] LABS: BASOPHIL % 0.6 % (0.0-2.0); EOSINOPHIL # 0.2 TH/MM3 (0-0.4); EOSINOPHIL % 3.6 % (0.0-4.0); HEMATOCRIT 37.2 % (39.0-51.0); HEMO FLAGS DIFF FINAL; LYMPH % 38.6 % (9.0-44.0); LYMPHOCYTE # 2.3 TH/MM3 (1.0-4.8); MEAN CELL VOLUME 86.6 FL (80.0-100.0); MEAN CORPUSCULAR HEMOGLOBIN 28.9 PG (27.0-34.0); MEAN CORPUSCULAR HGB CONC 33.4 % (32.0-36.0); NEUT % 47.2 % (16.0-70.0); PLATELET COUNT 150 TH/MM3 (150-450); RED CELL DISTRIBUTION WIDTH 13.8 % (11.6-17.2); WHITE BLOOD COUNT 6.1 TH/MM3 (4.0-11.0)
[2016-12-19 07:08] LABS: CHLORIDE 104 MEQ/L (98-107); POTASSIUM 3.5 MEQ/L (3.5-5.1); SODIUM (NA) 140 MEQ/L (136-145)
[2016-12-19 07:14] LABS: ANION GAP 8 MEQ/L (5-15); BICARBONATE 27.9 MEQ/L (21.0-32.0)
[2016-12-19 07:15] LABS: BLOOD UREA NITROGEN 17 MG/DL (7-18)
[2016-12-19 07:17] LABS: ALT (GPT) 171 U/L (12-78); AST (GOT) 87 U/L (15-37)
[2016-12-19 07:18] LABS: GLOMERULAR FILTRATION RATE 89 ML/MIN (>89)
[2016-12-19 07:19] LABS: TOTAL BILIRUBIN ADULT 0.3 MG/DL (0.2-1.0)
[2016-12-19 07:20] LABS: ALKALINE PHOSPHATASE 75 U/L (45-117)
[2016-12-19 07:49] LABS: WESTERGREN SEDIMENTATION RATE 5 mm/hr (0-15)
[2016-12-19 08:00] VITALS: BP 115/75; PULSE 70; RESP 20; TEMP 97.8; O2SAT 100
[2016-12-19] MEDS: DOCUSATE SODIUM 50 MG/SENNA 8.6 MG TAB PO SCH ×2 (08:38→21:18)
[2016-12-19] MEDS: SODIUM CHLORIDE 0.9% FLUSH 10 ML FLUSH IV FLUSH SCH ×2 (09:12→21:18)
--- NOTE | 2016-12-19 10:09 | HHI.PR ---
Subjective Remarks Patient seen and examined today for follow-up on endocarditis. Patient is resting, bili. Denies any new complaints. Very eager to be discharged on Monday. Objective Vitals Vital Signs Date Time Temp Pulse Resp B/P (MAP) Pulse Ox O2 Delivery O2 Flow Rate FiO2 12/19/16 08:00 97.8 70 20 115/75 (88) 100 12/18/16 21:28 98.5 95 18 109/67 (81) 99 12/18/16 16:28 20 I/O 12/18/16 12/18/16 12/18/16 12/19/16 12/19/16 12/19/16 07:00 15:00 23:00 07:00 15:00 23:00 Intake Total 1400 ml 100 ml Balance 1400 ml 100 ml Intake Oral 1400 ml IV Total 100 ml # Voids 2 4 3 # Bowel Movements 1 0 Result Diagram: 12/19/16 0530 12/19/16 0530 Objective Remarks GENERAL: Well-developed, well-nourished, in no acute distress. alert and orientated HEENT: Head is normocephalic without any lesions or masses noted. Facial features are symmetric. Eyes: Extraocular muscles are intact. Conjunctivae were clear. NECK: Trachea midline no deviation. No JVD, CARDIAC: Regular rhythm, regular rate. S1/S2 are heard. No murmurs gallops or rubs. LUNGS: Clear to auscultation bilaterally. No wheeze, rhonchi or rales. No use of accessory muscles on inspiration or expiration. ABDOMEN: Soft, nontender. Nondistended. Bowel sounds heard in all 4 quadrants. No organomegaly or masses. Negative rebound, negative guarding EXTREMITIES: No edema, pulses are equal bilaterally. No cyanosis or clubbing NEUROLOGY: Mood and affect appear appropriate. Cranial nerves II through XII grossly intact. Moving all extremities, speech is clear Procedures none Urinary Catheter: No Vascular Central Line Catheter: No A/P Assessment and Plan Endocarditis mitral valve, prosthetic, recurrent who presented with sepsis criteria Echocardiogram shows apparent vegetation on the prostatic mitral valve and probable vegetation of the tricuspid valve Initial bacteremia with staph aureus on 11/05/16, first negative culture was 11/06/16 Infectious disease following the patient and discontinue oxacillin IV 2 g every 4 hours due to elevated liver enzymes. Changed to cefazolin until December 23, 2016 Follow weekly CBC, CMP, CRP, ESR Transaminitis, recurrent and improving Secondary to rifampin/oxacillin, both of which have been discontinued Liver enzymes returning to normal Polysubstance abuse Patient with history of IV drug use, opiate abuse, crack cocaine use, marijuana abuse Hepatitis C testing was positive, HIV testing was negative Cautious administration of narcotic medication Patient was offered treatment for withdrawal from opiates, patient is deferring treatment at this time. He wishes to continue using opiates Chronic right shoulder pain with opiate dependency, supposedly Patient episode of right chest pain with right shoulder pain Patient ruled out for acute coronary event with serial cardiac enzymes, serial EKGs E force was accessed in which patient has not had a prescription for oxycodone since December 2015 Narcotic medication is being weaned at this time Oxycodone 5 mg every 6 hours as needed for pain 3-10 Hepatitis C Genotype 1A, viral load 20,600 Patient will require outpatient follow-up and treatment if needed Insomnia Melatonin 10 mg at bedtime Ambien 10 mg at bedtime as needed Tongue abrasion/canker sore Status post Triamcinolone/Orabase nightly for 7 days DVT prevention Sequential compression devices, Lovenox discontinued, patient ambulating Discharge Planning Discharge planning after completion of IV antibiotics Willy Bui Dec 19, 2016 10:09
[2016-12-19 20:00] VITALS: BP 127/79; PULSE 94; RESP 18; TEMP 96.8; O2SAT 99
[2016-12-19] MEDS: ZOLPIDEM TARTRATE 5 MG TAB PO PRN (21:18)
[2016-12-19] MEDS: MELATONIN 5 MG TAB PO SCH (21:18)
[2016-12-20] MEDS: ceFAZolin 2 GM PREMIX 50 ML IV SCH ×3 (00:55→18:06)
[2016-12-20 08:00] VITALS: BP 117/78; PULSE 87; RESP 20; TEMP 96.6; O2SAT 100
[2016-12-20] MEDS: DOCUSATE SODIUM 50 MG/SENNA 8.6 MG TAB PO SCH ×2 (09:35→20:57)
[2016-12-20] MEDS: SODIUM CHLORIDE 0.9% FLUSH 10 ML FLUSH IV FLUSH SCH ×2 (09:36→20:57)
--- NOTE | 2016-12-20 10:20 | HHI.PR ---
Subjective Remarks Follow-up for endocarditis. Patient inquires about what happens when he leaves. Objective Vitals Vital Signs Date Time Temp Pulse Resp B/P (MAP) Pulse Ox O2 Delivery O2 Flow Rate FiO2 12/19/16 20:00 96.8 94 18 127/79 (95) 99 I/O 12/19/16 12/19/16 12/19/16 12/20/16 12/20/16 12/20/16 07:00 15:00 23:00 07:00 15:00 23:00 Intake Total 100 ml 1620 ml 340 ml 480 ml Balance 100 ml 1620 ml 340 ml 480 ml Intake Oral 1620 ml 340 ml 480 ml IV Total 100 ml # Voids 3 2 # Bowel Movements 0 Result Diagram: 12/19/16 0530 12/19/16 0530 Objective Remarks GENERAL: Well-nourished, well-developed patient in no apparent distress. CARDIOVASCULAR: Regular rate and rhythm. No murmurs. RESPIRATORY: No accessory muscle use. Clear to auscultation. Breath sounds equal bilaterally. GASTROINTESTINAL: Abdomen soft, non-tender, nondistended. NEUROLOGICAL: Awake and alert. Normal speech. PSYCHIATRIC: Normal mood and affect. Procedures none Urinary Catheter: No Vascular Central Line Catheter: No A/P Problem List: (1) Atypical chest pain ICD Code: R07.89 - Other chest pain Status: Acute (2) Endocarditis of mitral valve ICD Code: I05.8 - Endocarditis of mitral valve Status: Acute (3) Thrombocytopenia ICD Code: D69.6 - Thrombocytopenia Status: Resolved (4) IV drug abuse ICD Code: F19.10 - IV drug abuse Status: Chronic (5) Tobacco use ICD Code: Z72.0 - Tobacco use Status: Chronic Assessment and Plan 31-year-old male with: Endocarditis mitral valve, prosthetic, recurrent who presented with sepsis criteria: -Echocardiogram shows apparent vegetation on the prosthetic mitral valve and probable vegetation of the tricuspid valve -Initial bacteremia with staph aureus on 11/05/16, first negative culture was -Infectious disease following the patient. S/p oxacillin. Continue Cefazolin with end date December 23, 2016. -Follow weekly CBC, CMP, CRP -Consider repeat Echo at end of treatment; can discuss with ID -12/19 labs with normal WBC count. ESR stable at 5. CRP wnl. Transaminitis: Improved. -ID attributed to Rifampin, oxacillin. Switched to cefazolin. -AST and ALT remain elevated but have improved overall. Polysubstance abuse -Patient with history of IV drug use, opiate abuse, crack cocaine use, marijuana abuse -HIV testing negative-Cautious administration of narcotic medication. Chronic shoulder pain: -Continue to wean medication. -Oxycodone 5 mg q6h prn pain 3-10 Atypical chest pain: R sided, musculoskeletal. -ACS ruled out with EKG and cardiac enzymes. Hepatitis C: Viral load 20,600. Genotype 1a. -Patient informed to follow up with outpatient GI physician for treatment. Insomnia -Melatonin 10 mg po qhs -Ambien 10 mg hs prn Tongue abrasion/canker sore -S/p Triamcinolone/Orabase. DVT prophylaxis: OOB ad cheryl. Use SCDs while in bed. Discharge Planning Will remain hospitalized until completion of antibiotics. Sera Patterson Dec 20, 2016 10:20
[2016-12-20] MEDS: ACETAMINOPHEN 325 MG TAB PO PRN (15:40)
[2016-12-20 20:00] VITALS: BP 134/78; PULSE 84; RESP 18; TEMP 97.2; O2SAT 99
[2016-12-20] MEDS: MELATONIN 5 MG TAB PO SCH (20:57)
[2016-12-20] MEDS: ZOLPIDEM TARTRATE 5 MG TAB PO PRN (20:57)
[2016-12-21] MEDS: ceFAZolin 2 GM PREMIX 50 ML IV SCH ×3 (03:00→16:59)
[2016-12-21 08:00] VITALS: BP 123/75; PULSE 83; RESP 20; TEMP 96.2; O2SAT 98
[2016-12-21] MEDS: SODIUM CHLORIDE 0.9% FLUSH 10 ML FLUSH IV FLUSH SCH ×2 (09:33→21:35)
[2016-12-21] MEDS: DOCUSATE SODIUM 50 MG/SENNA 8.6 MG TAB PO SCH ×2 (09:33→21:32)
--- NOTE | 2016-12-21 10:07 | HHI.PR ---
Subjective Remarks Follow-up for endocarditis. Patient states he is stressed out because he has nowhere to go when he leaves here. He was supposed be staying with his mother but he states she is in the hospital with a hip fracture. He cannot go to his prior living arrangement. He states the motels he called are booked and there is no available spot at transitional housing. He has spoken with the director of casework regarding this. Objective Vitals Vital Signs Date Time Temp Pulse Resp B/P (MAP) Pulse Ox O2 Delivery O2 Flow Rate FiO2 12/20/16 20:00 97.2 84 18 134/78 (96) 99 12/20/16 16:46 18 12/20/16 16:46 18 I/O 12/20/16 12/20/16 12/20/16 12/21/16 12/21/16 12/21/16 07:00 15:00 23:00 07:00 15:00 23:00 Intake Total 340 ml 960 ml 500 ml Balance 340 ml 960 ml 500 ml Intake Oral 340 ml 960 ml 500 ml # Voids 1 2 # Bowel Movements 0 Result Diagram: 12/19/16 0530 12/19/16 0530 Objective Remarks GENERAL: Well-nourished, well-developed patient in no apparent distress sleeping when I enter the room. CARDIOVASCULAR: Regular rate and rhythm. RESPIRATORY: No accessory muscle use. Clear to auscultation. Breath sounds equal bilaterally. GASTROINTESTINAL: Abdomen soft, non-tender, nondistended. NEUROLOGICAL: Awakens and is alert. Normal speech. PSYCHIATRIC: Mildly frustrated mood and affect. Procedures none Urinary Catheter: No Vascular Central Line Catheter: No A/P Problem List: (1) Atypical chest pain ICD Code: R07.89 - Other chest pain Status: Acute (2) Endocarditis of mitral valve ICD Code: I05.8 - Endocarditis of mitral valve Status: Acute (3) Thrombocytopenia ICD Code: D69.6 - Thrombocytopenia Status: Resolved (4) IV drug abuse ICD Code: F19.10 - IV drug abuse Status: Chronic (5) Tobacco use ICD Code: Z72.0 - Tobacco use Status: Chronic Assessment and Plan 31-year-old male with: Endocarditis mitral valve, prosthetic, recurrent who presented with sepsis criteria: -Echocardiogram shows apparent vegetation on the prosthetic mitral valve and probable vegetation of the tricuspid valve -Initial bacteremia with staph aureus on 11/05/16, first negative culture was -Infectious disease following the patient. S/p oxacillin. Continue Cefazolin with end date December 23, 2016. -Follow weekly CBC, CMP, CRP -12/19 labs with normal WBC count. ESR stable at 5. CRP wnl. -12/21: I have contacted ID, Dr. Decker, to see if patient requires repeat Echo prior to discharge as patient was inquiring about this or po antibiotics on discharge. Awaiting response. Transaminitis: Improved. -ID attributed to Rifampin, oxacillin. Switched to cefazolin. -AST and ALT remain elevated but have improved overall. Polysubstance abuse -Patient with history of IV drug use, opiate abuse, crack cocaine use, marijuana abuse -HIV testing negative-Cautious administration of narcotic medication. Chronic shoulder pain: -Continue to wean medication. -Oxycodone 5 mg q6h prn pain 3-10 Atypical chest pain: R sided, musculoskeletal. -ACS ruled out with EKG and cardiac enzymes. Hepatitis C: Viral load 20,600. Genotype 1a. -Patient informed to follow up with outpatient GI physician for treatment. Insomnia -Melatonin 10 mg po qhs -Ambien 10 mg hs prn Tongue abrasion/canker sore -S/p Triamcinolone/Orabase. DVT prophylaxis: OOB ad cheryl. Use SCDs while in bed. Discharge Planning Will remain hospitalized until completion of antibiotics. 12/21: I spoke with CM regarding housing situation. There is no medical reason for hospital to pay for patient's stay in [facility]. 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 He states he does not need the [employer] for meals. The patient will need to figure out his own accommodations. Sera Patterson Dec 21, 2016 10:07
[2016-12-21 20:00] VITALS: BP 122/82; PULSE 93; RESP 18; TEMP 96.9; O2SAT 99
[2016-12-21] MEDS: MELATONIN 5 MG TAB PO SCH (21:32)
[2016-12-21] MEDS: ZOLPIDEM TARTRATE 5 MG TAB PO PRN (21:32)
[2016-12-22] MEDS: ceFAZolin 2 GM PREMIX 50 ML IV SCH ×3 (02:52→17:18)
[2016-12-22] MEDS: DOCUSATE SODIUM 50 MG/SENNA 8.6 MG TAB PO SCH ×2 (09:55→21:13)
[2016-12-22] MEDS: SODIUM CHLORIDE 0.9% FLUSH 10 ML FLUSH IV FLUSH SCH ×2 (09:55→21:13)
--- NOTE | 2016-12-22 11:11 | HHI.PR ---
Subjective Remarks Follow-up for endocarditis. Objective Vitals Vital Signs Date Time Temp Pulse Resp B/P (MAP) Pulse Ox O2 Delivery O2 Flow Rate FiO2 12/21/16 20:00 96.9 93 18 122/82 (95) 99 12/21/16 18:08 18 I/O 12/21/16 12/21/16 12/21/16 12/22/16 12/22/16 12/22/16 07:00 15:00 23:00 07:00 15:00 23:00 Intake Total 500 ml 50 ml 50 ml 1470 ml Output Total 800 ml Balance 500 ml 50 ml 50 ml 670 ml Intake Oral 500 ml 1420 ml IV Total 50 ml 50 ml 50 ml Output Urine Total 800 ml # Voids 2 1 # Bowel Movements 0 0 Result Diagram: 12/19/16 0530 12/19/16 0530 Objective Remarks GENERAL: Well-nourished, well-developed patient in no apparent distress. CARDIOVASCULAR: Regular rate and rhythm. No murmur. RESPIRATORY: No accessory muscle use. Clear to auscultation. Breath sounds equal bilaterally. GASTROINTESTINAL: Abdomen soft, non-tender, nondistended. NEUROLOGICAL: Awake and alert. Normal speech. PSYCHIATRIC: Normal mood and affect. Procedures none A/P Problem List: (1) Atypical chest pain ICD Code: R07.89 - Other chest pain Status: Acute (2) Endocarditis of mitral valve ICD Code: I05.8 - Endocarditis of mitral valve Status: Acute (3) Thrombocytopenia ICD Code: D69.6 - Thrombocytopenia Status: Resolved (4) IV drug abuse ICD Code: F19.10 - IV drug abuse Status: Chronic (5) Tobacco use ICD Code: Z72.0 - Tobacco use Status: Chronic Assessment and Plan 31-year-old male with: Endocarditis mitral valve, prosthetic, recurrent who presented with sepsis criteria: -Echocardiogram shows apparent vegetation on the prosthetic mitral valve and probable vegetation of the tricuspid valve -Initial bacteremia with staph aureus on 11/05/16, first negative culture was -Infectious disease following the patient. S/p oxacillin. Continue Cefazolin with end date December 23, 2016. -Follow weekly CBC, CMP, CRP -12/19 labs with normal WBC count. ESR stable at 5. CRP wnl. -12/21: I have discussed case with Dr. Decker. Dr. Decker does not think patient needs a repeat echo. She does advise suppressive Keflex 500 mg twice a day for one month with 2 refills on discharge and he can follow up outpatient with herself or PCP. Transaminitis: Improved. -ID attributed to Rifampin, oxacillin. Switched to cefazolin. -AST and ALT remain elevated but have improved overall. Polysubstance abuse -Patient with history of IV drug use, opiate abuse, crack cocaine use, marijuana abuse -HIV testing negative-Cautious administration of narcotic medication. Chronic shoulder pain: -Continue to wean medication. -Oxycodone 5 mg q6h prn pain 3-10 Atypical chest pain: R sided, musculoskeletal. -ACS ruled out with EKG and cardiac enzymes. Hepatitis C: Viral load 20,600. Genotype 1a. -Patient informed to follow up with outpatient GI physician for treatment. Insomnia -Melatonin 10 mg po qhs -Ambien 10 mg hs prn Tongue abrasion/canker sore -S/p Triamcinolone/Orabase. DVT prophylaxis: OOB ad cheryl. Use SCDs while in bed. Discharge Planning Will remain hospitalized until completion of antibiotics. 12/21: I spoke with CM regarding housing situation. There is no medical reason for hospital to pay for patient's stay in [facility]. 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 He states he does not need the [employer] for meals. The patient will need to figure out his own accommodations. 12/22: Patient to complete antibiotics tomorrow evening and will be discharged morning of 12/24; patient does not want to be discharged at night. Sera Patterson Dec 22, 2016 11:07
[2016-12-22 12:54] VITALS: BP 120/88; PULSE 90; RESP 15; TEMP 96.8; O2SAT 98
[2016-12-22 20:00] VITALS: BP 118/73; PULSE 90; RESP 20; TEMP 97.2; O2SAT 97
[2016-12-22] MEDS: MELATONIN 5 MG TAB PO SCH (21:13)
[2016-12-22] MEDS: ZOLPIDEM TARTRATE 5 MG TAB PO PRN (21:13)
[2016-12-23] MEDS: ceFAZolin 2 GM PREMIX 50 ML IV SCH ×3 (02:13→17:00)
[2016-12-23 08:00] VITALS: BP 118/74; PULSE 90; RESP 19; TEMP 96; O2SAT 99
[2016-12-23] MEDS: DOCUSATE SODIUM 50 MG/SENNA 8.6 MG TAB PO SCH (09:00)
[2016-12-23] MEDS: SODIUM CHLORIDE 0.9% FLUSH 10 ML FLUSH IV FLUSH SCH (09:00)
[2016-12-23] MEDS ORDERED: CEPH-460 PO (09:47)
--- NOTE | 2016-12-23 10:00 | HHI.PR ---
Subjective Remarks Follow-up for endocarditis. No acute complaints. Patient to finish antibiotics today. Objective Vitals Vital Signs Date Time Temp Pulse Resp B/P (MAP) Pulse Ox O2 Delivery O2 Flow Rate FiO2 12/23/16 08:57 16 12/23/16 08:00 96.0 90 19 118/74 (89) 99 12/22/16 20:00 97.2 90 20 118/73 (88) 97 12/22/16 12:54 96.8 90 15 120/88 (99) 98 I/O 12/22/16 12/22/16 12/22/16 12/23/16 12/23/16 12/23/16 07:00 15:00 23:00 07:00 15:00 23:00 Intake Total 1470 ml 50 ml 2400 ml 850 ml Output Total 800 ml Balance 670 ml 50 ml 2400 ml 850 ml Intake Oral 1420 ml 2350 ml 800 ml IV Total 50 ml 50 ml 50 ml 50 ml Output Urine Total 800 ml # Voids 1 5 3 # Bowel Movements 0 1 0 Result Diagram: 12/19/1630 12/19/16 0530 Objective Remarks GENERAL: Well-nourished, well-developed patient in no apparent distress. CARDIOVASCULAR: Regular rate and rhythm. No murmur. RESPIRATORY: No accessory muscle use. Clear to auscultation. Breath sounds equal bilaterally. GASTROINTESTINAL: Abdomen soft, non-tender, nondistended. NEUROLOGICAL: Awake and alert. Normal speech. PSYCHIATRIC: Normal mood and affect. Procedures none Urinary Catheter: No Vascular Central Line Catheter: No A/P Problem List: (1) Atypical chest pain ICD Code: R07.89 - Other chest pain Status: Acute (2) Endocarditis of mitral valve ICD Code: I05.8 - Endocarditis of mitral valve Status: Acute (3) Thrombocytopenia ICD Code: D69.6 - Thrombocytopenia Status: Resolved (4) IV drug abuse ICD Code: F19.10 - IV drug abuse Status: Chronic (5) Tobacco use ICD Code: Z72.0 - Tobacco use Status: Chronic Assessment and Plan 31-year-old male with: Endocarditis mitral valve, prosthetic, recurrent who presented with sepsis criteria: -Echocardiogram shows apparent vegetation on the prosthetic mitral valve and probable vegetation of the tricuspid valve -Initial bacteremia with staph aureus on 11/05/16, first negative culture was -Infectious disease following the patient. S/p oxacillin. Continue Cefazolin with end date today December 23, 2016. -Follow weekly CBC, CMP, CRP -12/19 labs with normal WBC count. ESR stable at 5. CRP wnl. -12/21: I have discussed case with Dr. Decker. Dr. Decker does not think patient needs a repeat echo. She does advise suppressive Keflex 500 mg twice a day for one month with 2 refills on discharge and he can follow up outpatient with herself or PCP. Transaminitis: Stable. -ID attributed to Rifampin, oxacillin. Switched to cefazolin. -12/23: AST remains stable and ALT has decreased. Polysubstance abuse -Patient with history of IV drug use, opiate abuse, crack cocaine use, marijuana abuse -HIV testing negative-Cautious administration of narcotic medication. Chronic shoulder pain: -Continue to wean medication. -12/23: Oxycodone 5 mg q6h changed to q12h prn pain 3-10 today Atypical chest pain: R sided, musculoskeletal. -ACS ruled out with EKG and cardiac enzymes. Hepatitis C: Viral load 20,600. Genotype 1a. -Patient informed to follow up with outpatient GI physician for treatment. Insomnia -Melatonin 10 mg po qhs -Ambien 10 mg hs prn Tongue abrasion/canker sore -S/p Triamcinolone/Orabase. DVT prophylaxis: OOB ad cheryl. Use SCDs while in bed. Discharge Planning 12/21: I spoke with CM regarding housing situation. There is no medical reason for hospital to pay for patient's stay in [facility]. 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 He states he does not need the [employer] for meals. The patient will need to figure out his own accommodations. 12/23: operations project manager to assist with ensuring patient is able to obtain po antibiotics. I have asked [employer] to provide bus pass. Initially patient was to receive last dose at 1800, but antibiotic was given 1 hour early this morning so last dose will be finished around 1730 today. Patient to be discharged tonight. I spoke with Dr. Domínguez. Patient will not be discharged with narcotics. Sera Patterson Dec 23, 2016 10:00
[2016-12-23 11:12] LABS: ALT (GPT) 148 U/L (12-78); AST (GOT) 84 U/L (15-37)
--- NOTE | 2016-12-23 12:14 | HHI.DCPOC ---
Discharge Care Plan Diagnosis: (1) Sepsis (2) Endocarditis of mitral valve (3) IV drug abuse (4) Transaminitis (5) Hepatitis C (6) Atypical chest pain (7) Hypophosphatemia Goals to Promote Your Health * To prevent worsening of your condition and complications * To maintain your health at the optimal level Directions to Meet Your Goals Take your medications as prescribed Follow your dietary instruction Follow activity as directed Keep your appointments as scheduled Take your immunizations and boosters as scheduled If your symptoms worsen call your PCP, if no PCP go to Urgent Care Center or Emergency Room Smoking is Dangerous to Your Health. Avoid second hand smoke Call the 24-hour hour crisis hotline for domestic abuse at Sera Patterson Dec 23, 2016 12:14
--- NOTE | 2016-12-23 16:04 | HHI.DS ---
Discharge Summary Admission Date Nov 05, 2016 at 05:22 Discharge Date: Dec 23, 2016 Admitting Diagnosis sepsis (1) Sepsis ICD Code: A41.9 - Sepsis, unspecified organism Diagnosis: Principal Status: Acute (2) MSSA bacteremia Diagnosis: Principal Status: Acute (3) Endocarditis of mitral valve ICD Code: I05.8 - Endocarditis of mitral valve Diagnosis: Principal Status: Acute (4) IV drug abuse ICD Code: F19.10 - IV drug abuse Diagnosis: Principal Status: Chronic (5) Transaminitis ICD Code: R74.0 - Nonspecific elevation of levels of transaminase and lactic acid dehydrogenase [LDH] Diagnosis: Principal (6) Hepatitis C ICD Code: B19.20 - Unspecified viral hepatitis C without hepatic coma Diagnosis: Principal (7) Thrombocytopenia ICD Code: D69.6 - Thrombocytopenia Diagnosis: Principal Status: Resolved (8) Atypical chest pain ICD Code: R07.89 - Other chest pain Diagnosis: Principal Status: Acute Procedures none Brief History - From Admission The patient is a 31-year-old male with past medical history of mitral valve endocarditis status post replacement 2 who is presenting to the hospital with right upper quadrant pain and fever. The patient says that yesterday he was sleeping and all of a sudden developed severe right upper quadrant pain. He said it was 10 out of 10 in severity and radiated to his back. He said this was also accompanied by nausea and vomiting. He says he has not been able to eat in 2 days. He said he checked his temperature and his temperature was 103 at its highest. He denies any recent travel. He denies any sick contacts. He says that he used crack cocaine a few days ago. He says the last time he injected IV drugs was years ago. He is currently thirsty. He mentions he is having some diarrhea and that the stool is coming out of him without warning. He says his stools are not normally like that. CBC/BMP: 12/19/16 0530 12/19/16 0530 Significant Findings Laboratory Tests Test 12/23/16 10:45 Aspartate Amino Transf (AST/SGOT) 84 U/L (15-37) Alanine Aminotransferase (ALT/SGPT) 148 U/L (12-78) Imaging Last Impressions Chest X-Ray 11/11/16 0000 Signed Impressions: Service Date/Time: Friday, November 11, 2016 13:09 - CONCLUSION: No acute cardiopulmonary abnormality is identified. Stable chest x-ray. Kyle Black MD Hepatobiliary Scan Nuclear Medicine 11/05/16 0000 Signed Impressions: Service Date/Time: Saturday, November 05, 2016 09:08 - CONCLUSION: 1. Normal filling of the gallbladder excludes cystic duct obstruction and acute cholecystitis. No acute finding is identified. 2. There is severe bile reflux into the stomach. Kyle Black MD Head CT 11/05/16 0000 Signed Impressions: Service Date/Time: Saturday, November 05, 2016 04:06 - CONCLUSION: 1. No evidence of acute intracranial pathology. No masses are identified. Jv Mae MD Abdomen/Pelvis CT 11/05/16 0000 Signed Impressions: Service Date/Time: Saturday, November 05, 2016 04:10 - CONCLUSION: 1. Pericholecystic fluid without stone. Cholecystitis is not excluded. Radionuclide imaging is recommended for further evaluation if clinically indicated. 2. Nonobstructing right renal stone Jv Mae MD PE at Discharge GENERAL: Well-nourished, well-developed patient in no apparent distress. CARDIOVASCULAR: Regular rate and rhythm. No murmur. RESPIRATORY: No accessory muscle use. Clear to auscultation. Breath sounds equal bilaterally. GASTROINTESTINAL: Abdomen soft, non-tender, nondistended. NEUROLOGICAL: Awake and alert. Normal speech. PSYCHIATRIC: Normal mood and affect. Hospital Course Patient was initially admitted on 11/05/16 for sepsis and chest pain. He was found to be bacteremic with MSSA and 2-D echo showed apparent regurgitation of prosthetic mitral valve and probable vegetation of the tricuspid valve. Patient had previous mitral valve replacement for endocarditis in the past. The patient also had abdominal pain on initial presentation and there was concern for cholecystitis based on CT imaging but he was evaluated by surgery who did not believe this was the case, and HIDA scan confirmed that there was no cholecystitis. Patient was evaluated by infectious disease and initially placed on vancomycin and oxacillin. Vancomycin was then discontinued and the patient continued on oxacillin, gentamicin, and rifampin. Gentamicin was then discontinued. Patient was supposed to continue on oxacillin and rifampin for 6 weeks from negative culture, but due to transaminitis each of these was subsequently discontinued and the patient was switched to Cefazolin. Transaminases improved after switching to cefazolin although they still remain elevated which could be related to the patient's hepatitis. Anemia has remained stable and thrombocytopenia resolved. He had some atypical chest pain which appear musculoskeletal. ACS was ruled out. Patient has been on oxycodone for chronic shoulder pain. Patient's last date of in antibiotics is today. He is to be discharged after his last dose this evening. He is advised to follow-up with nutrition representative regarding his hepatitis C, informing him that it is a treatable disease. He was informed that he has an active viral load, and was educated on avoiding transmission of Hepatitis C. He desires to abstain from drugs, but is advised to avoid sharing needles. Advised to avoid sharing razors, and advised to use a condom every time if sexually active. He is prescribed long-term suppressive by mouth Keflex and is advised to follow-up with Dr. Decker outpatient. He states he is trying to get his insurance together so he can follow-up with a PCP. No narcotics will be prescribed on discharge. Pt Condition on Discharge: Fair Discharge Disposition: Discharge Home Discharge Time: <= 30 minutes Discharge Instructions DIET: Follow Instructions for: As Tolerated, No Restrictions Activities you can perform: Regular-No Restrictions Follow up Referrals: Gastroenterology - 2 Weeks Infectious Disease - 2 Weeks with Nora Decker MD PCP Follow-up - 1 Week New Medications: Cephalexin (Keflex) 500 Mg Cap 500 MG PO Q12H for Infection, #60 CAP 2 Refills Discontinued Medications: Acetaminophen (Tylenol) 325 Mg Tab 650 MG PO Q4 PRN for PAIN OR ELEVATED TEMPERATURE, TAB Aspirin (Aspirin 81 mg EC Lo-Dose) 81 Mg Tab 81 MG PO DAILY, TAB Cholecalciferol (Vitamin D) 1,000 Unit Tab 1000 UNIT PO, TAB Ketoconazole (Topical) (Ketoconazole) 2 % Sha 1 APPLIC TOP ONCE, SHA Magnesium Oxide (Mag-Ox 400) 400 Mg Cap 800 MG PO DAILY, CAP Metoprolol Tartrate 100 mg (Metoprolol Tartrate 100 mg) 100 Mg Tab 1 TAB PO BID, TAB Potassium Chloride (K-Dur) 10 Meq Tabcr 20 MEQ PO DAILY, TABCR Tramadol Hcl (Tramadol Hcl) 50 Mg Tab 50 MG PO TID PRN for SHOULDER PAIN, TAB Warfarin Sodium (Coumadin 5 mg) Warfarin Sodium 5 mg Tab 5 MG PO DAILY, TAB Sera Patterson Dec 23, 2016 16:04
[2016-12-23 16:34] VITALS: RESP 16
== END 2016-12-23 18:30 | disposition home or self-care (01) | DRG 314 ==
LOC: NEPC 02:23 → NEDA 05:22 → N06B 06:19 → N06A 17:26 → PH5A 11-27 19:12 → PH3A 12-08 16:41
PROVIDERS: ADMIT Family Medicine; ATTEND Family Medicine
DX: T82.6XXA Infection and inflammatory reaction due to cardiac valve prosthesis, initial encounter (principal); A41.01 Sepsis due to Methicillin susceptible Staphylococcus aureus; I76 Septic arterial embolism; I66.9 Occlusion and stenosis of unspecified cerebral artery; D69.6 Thrombocytopenia, unspecified; E83.39 Other disorders of phosphorus metabolism; I31.3 Pericardial effusion (noninflammatory); R65.20 Severe sepsis without septic shock; I33.0 Acute and subacute infective endocarditis; K81.9 Cholecystitis, unspecified; F17.210 Nicotine dependence, cigarettes, uncomplicated; Z95.2 Presence of prosthetic heart valve; F14.90 Cocaine use, unspecified, uncomplicated; F12.90 Cannabis use, unspecified, uncomplicated; N20.0 Calculus of kidney; I05.9 Rheumatic mitral valve disease, unspecified; Y71.2 Prosthetic and other implants, materials and accessory cardiovascular devices associated with adverse incidents; Y92.9 Unspecified place or not applicable; R07.81 Pleurodynia; R07.1 Chest pain on breathing; Z59.0 Homelessness; Z95.1 Presence of aortocoronary bypass graft; I25.2 Old myocardial infarction; G43.909 Migraine, unspecified, not intractable, without status migrainosus; G47.00 Insomnia, unspecified; M25.511 Pain in right shoulder; B19.20 Unspecified viral hepatitis C without hepatic coma; G89.29 Other chronic pain
CPT/HCPCS: 70450; 71010; 74177; 76937; 78226; 80048; 80053; 80074; 80202; 80307; 81001; 82550; 82552; 82565; 83036; 83605; 83735; 84100; 84439; 84443; 84450; 84460; 84484; 85025; 85027; 85610; 85652; 85730; 86140; 86403; 86703; 87040; 87147; 87186; 87205; 87493; 87522; 87902; 93005; 93306; 94150; 94640; 94664; 96365; 96375; A9537; J0690; J0692; J1580; J1650; J2543; J2700; J3370; J3475; J7030; J7040; J7050; Q9967